=== PATIENT | male | born 1955 | race Caucasian/White ===

== ENCOUNTER 2018-07-14 17:15 | Emergency (ER) | payer OTHER ==
--- OUTSIDE RECORDS SUMMARY | 2018-07-14 17:22 | XMS REPORT | Continuity of Care Document ---
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 014 [facility] AQUIRED FISTULA Active 014 [facility] Parathyroidectomy Active Problem 02/21/2017 [facility] 014 [facility], H [facility] 227.1 Active 014 [facility] 447.0 - ACQ Active [facility] ARTERI[facility]EN 275.2 - 014 [facility] DIS MAGNE 447.0, 275.42 Active 014 [facility] Sleep apnea Resolved Problem 05/25/2014 OPID [facility],M H [facility] Anemia Resolved Problem 02/21/2017 [facility], H OPID [facility] Anxiety Active Problem 02/21/2017 OPID [facility], H [facility] CAD - Coronary artery Resolved Problem 02/21/2017 disease [facility] OPID [facility] CVA - Cerebrovascular Resolved Problem 02/21/2017 accident [facility] OPID [facility] Dependence on renal Active Problem 02/21/2017 dialysis M-W-F [facility] OPID [facility] ESRD - End stage Active Problem 02/21/2017 OPID renal disease [facility] Hyperlipidemia Resolved Problem 02/21/2017 [facility] OPID [facility] Hyperparathyroidism Resolved Problem 02/21/2017 [facility] OPID [facility] Sleep Active Problem 02/21/2017 Pt's not apnea<sup>1</sup> using his [facility] CPAP OPID machine [facility] per pt's spouse Hypertension Resolved Problem 02/21/2017 OPID [facility] Hypothyroid Active Problem 02/21/2017 MH OPID [facility] Anuria Active Problem 02/21/2017 MH OPID [facility] Aortic valve stenosis Resolved Problem 02/21/2017 MH OPID [facility] DM - Diabetes Active Problem 02/21/2017 MH OPID mellitus [facility] History of Resolved Problem 02/21/2017 transfusion of packed [facility] red blood cells Permanent cardiac Active Problem 02/21/2017 OPID pacemaker [facility] BENIGN SAL Active MH PARATHYROID [facility] ACQ ARTERIOVEN Active FISTULA [facility] HYPERCALCEMIA Active [facility] END STAGE RENAL Active MH DISEASE [facility] LOC PRIM Active MH OSTEOART-SHLDER [facility] ANEURYSM NOS Active [facility] FX SCAP, RUTH Active CAV/NCK-CL [facility] HYPERPARATHYROIDISM, Active MH UNSPECIFIED [facility] END STAGE RENAL Active MH DISEASE [facility] Medications Medication Details Route Status Patient Ordering Order Source Instructions Provider Date ePHEDrine (ANES) Route: IV, Drug Inactive form: INJ, 2016 [facility] ONCE, Stop date: 02/18/17 17:02:00 CDT ketOROLAC (ANES) IV, ONCE Inactive 2016 [facility] phenylephrine Route: IV, Drug Inactive MH (ANES) form: INJ, 2016 [facility] ONCE, Stop date: 02/18/17 16:44:00 CDT propofol (ANES) Route: IV, Drug Inactive form: INJ, 2016 [facility] ONCE, Stop date: 02/18/17 16:29:00 CDT lidocaine (ANES) Route: IV, Drug Inactive form: INJ, 2016 [facility] ONCE, Stop date: 02/18/17 16:24:00 CDT fentaNYL (ANES) Route: IV, Drug Inactive form: INJ, 2016 [facility] ONCE, Stop date: 02/18/17 16:24:00 CDT midazolam (ANES) Route: IV, Drug Inactive form: SOLN, 2016 [facility] ONCE, Stop date: 02/18/17 16:24:00 CDT sodium chloride Route: IV, Inactive 0.9% 500 ml INJ Total Volume: 2016 [facility] (ANES) 500, Start date: 02/18/17 15:52:00 CDT, Stop date: 02/18/17 16:52:00 CDT vancomycin (ANES) Route: IV, Drug Inactive (ANES) form: INJ, 2016 [facility] Start date: 02/18/17 15:51:00 CDT, Stop date: 02/18/17 16:51:00 CDT citalopram 10 mg 10 mg=1 tab, Active oral tablet PO, Bedtime, 0 2015 [facility] Refill(s) calcitriol 0.5 2 microgram=4 Active mcg oral capsule cap, PO, Daily, 2015 calcitriol 2mcg daily, # 30 cap, 0 Refill(s), FARNAZ, given to patient Vitamin D3 2000 2,000 Active intl units oral IntlUnit=1 tab, 2015 [facility] tablet PO, Daily, # 30 tab, 0 Refill(s), given to patient calcium acetate 3,335 mg=5 cap, Active 667 MG Oral PO, TID-Meals, 2015 [facility] Tablet 0 Refill(s) Alprazolam 0.5 MG 0.5 mg=1 tab, Active Oral Tablet PO, TID, PRN 2015 [facility] Anxiety, 0 Refill(s) calcium carbonate 2,000 mg, CHEW, Active 1000 mg oral TID, # 65 tab, 2015 [facility] tablet, chewable 0 Refill(s), FARNAZ, given to patient Calcium Carbonate 1,000 mg, 2 No Longer tab, Route: PO, Active 2015 [facility] Drug form: CHEWTAB, TID-Meals, Dosing Weight 105, kg, Start date: 09/05/16 18:30:00 [employer], Duration: 30 day, Stop date: 10/05/16 18:00:00 CSTNotes: (Same As: Tums) Calcium Carbonate 500 jy=175 mg elemental calcium Dose= mg calcium carbonate ( mg elemental calcium) Alprazolam 0.5 MG 0.5 mg, 1 tab, No Longer Oral Tablet Route: PO, Drug Active 2015 [facility] form: TAB, TID, Dosing Weight 105, kg, PRN Anxiety, Start date: 09/05/16 15:54:00 [employer], Duration: 30 day, Stop date: 10/05/16 15:53:00 CSTNotes: With food or milk (Same as: Xanax) heparin 2,000 unit, 2 No Longer mL, Route: IVP, Active 2015 [facility] Drug form: INJ, ONCALL, Start date: 09/05/16 9:00:00 [employer], Duration: 30 day, Stop date: 10/05/16 8:59:00 [facility] Vitamin D3 5,000 unit, 5 No Longer tab, Route: PO, Active 2015 [facility] Drug form: TAB, Daily, Dosing Weight 105, kg, Start date: 09/05/16 9:00:00 [employer], Duration: 30 day, Stop date: 10/04/16 9:00:00 CSTNotes: Same as : Vitamin D3 calcium gluconate 1,000 mg, 50 No Longer mL, Route: Active 2015 [facility] IVPB, Drug form: INJ, Q4H, Dosing Weight 105, kg, PRN Abnormal Lab Result, Start date: 09/04/16 17:01:00 [facility] [employer], Duration: 30 day, Stop date: 10/04/16 17:00:00 CSTNotes: WASTE: F/P - Sink; E - [employer] Trash Bin Protonix 20 mg, 1 tab, No Longer Route: PO, Drug Active 2015 [facility] form: ECTAB, Before Dinner, Start date: 09/04/16 16:30:00 [employer], Duration: 30 day, Stop date: 10/03/16 16:30:00 CSTNotes: Tablet should not be chewed or crushed. heparin 5,000 unit, 1 No Longer mL, Route: Active 2015 [facility] SUB-Q, Drug form: INJ, Q8H, Dosing Weight 105, kg, Start date: 09/04/16 14:00:00 [employer], Duration: 30 day, Stop date: 10/04/16 12:00:00 CSTNotes: porcine heparin aspirin 81 mg 81 mg, 1 tab, No Longer tablet, enteric Route: PO, Drug Active 2015 [facility] coated form: ECTAB, Daily, Dosing Weight 105, kg, Priority: NOW, Start date: 09/04/16 11:19:00 [employer], Duration: 30 day, Stop date: 10/04/16 9:00:00 CSTNotes: Do not crush or chew. (Same As: Ecotrin) Esomeprazole 20 mg, Route: Inactive PO, Drug form: 2015 [facility] GRAN, Daily, Dosing Weight 105, kg, Start date: 09/04/16 9:00:00 [employer], Duration: 30 day, Stop date: 10/03/16 9:00:00 [facility] [employer] pantoprazole 40 mg, 1 tab, Inactive Route: PO, Drug 2015 [facility] form: ECTAB, Daily, Dosing Weight 105, kg, Start date: 09/04/16 9:00:00 [employer], Duration: 30 day, Stop date: 10/03/16 9:00:00 CSTNotes: Tablet should not be chewed or crushed. (Same as: Protonix) Vitamin D3 2000 2,000 IntlUnit, No Longer intl units oral 5 mL, Route: Active 2015 [facility] tablet PO, Drug form: SOLN, Daily, Dosing Weight 105, kg, Start date: 09/04/16 9:00:00 [employer], Duration: 30 day, Stop date: 10/03/16 9:00:00 [facility] Calcitriol 2 microgram, 4 No Longer cap, Route: PO, Active 2015 [facility] Drug form: CAP, Daily, Dosing Weight 105, kg, Start date: 09/04/16 9:00:00 [facility] [employer], Duration: 30 day, Stop date: 10/03/16 9:00:00 CSTNotes: (Same As: Rocaltrol) calcium acetate 3,335 mg, 5 No Longer 667 MG Oral cap, Route: PO, Active 2015 [facility] Tablet Drug form: CAP, TID-Meals, Dosing Weight 105, kg, Start date: 09/04/16 8:00:00 [employer], Duration: 30 day, Stop date: 10/03/16 17:00:00 CSTNotes: Same as Phoslo Gel Cap Renvela 4,000 mg, 5 No Longer tab, Route: PO, Active 2015 [facility] Drug form: TAB, TID-Meals, Dosing Weight 105, kg, Start date: 09/04/16 8:00:00 [facility] [employer], Duration: 30 day, Stop date: 10/03/16 17:00:00 CSTNotes: Same as: Renvela benzocaine-mentho 1 lozenge, No Longer l topical Route: MUCOUS Active 2015 [facility] MEM, Drug Form: BETITO, Q1H, PRN Sore Throat, Start date: 09/04/16 0:06:00 [facility] [employer], Stop date: 10/04/16 0:05:00 CSTNotes: Same as: Cepacol Calcium Gluconate 1,000 mg, 50 No Longer mL, Route: Active 2015 [facility] IVPB, Drug form: INJ, Q3H, Dosing Weight 105, kg, Start date: 09/03/16 23:00:00 [facility], Duration: 30 day, Stop date: 10/03/16 20:00:00 CSTNotes: WASTE: F/P - Sink; E - [employer] Trash Bin Allopurinol 300 mg, Route: Inactive PO, Drug form: 2015 [facility] TAB, Bedtime, Dosing Weight 105, kg, Start date: 09/03/16 21:00:00 [employer], Duration: 30 day, Stop date: 10/02/16 21:00:00 [facility] Zyloprim 100 mg, 1 tab, No Longer Route: PO, Drug Active 2015 [facility] form: TAB, Bedtime, Start date: 09/03/16 21:00:00 [facility] [employer], Duration: 30 day, Stop date: 10/02/16 21:00:00 CSTNotes: (Same as: Zyloprim) Saline Flush 0.9% 10 ml, Route: No Longer IVP, Drug Form: Active 2015 [facility] INJ, Dosing Weight 105, kg, Q12H, Start date: 09/03/16 21:00:00 [facility] [employer], Duration: 30 day, Stop date: 10/03/16 9:00:00 CSTNotes: (Same as: BD Posiflush) Citalopram 10 mg, 1 tab, No Longer Route: PO, Drug Active 2015 [facility] form: TAB, Bedtime, Dosing Weight 105, kg, Start date: 09/03/16 21:00:00 [employer], Duration: 30 day, Stop date: 10/02/16 21:00:00 [facility] Zinacef + sodium 1.5 gm, Route: Inactive chloride 0.9% INJ IVPB, ONCE, 2015 [facility] 100 mL Start date: 09/03/16 21:00:00 [facility] [employer], Stop date: 09/03/16 21:00:00 CSTNotes: (Same As: Kefurox, Zinacef) MEDICATION WASTE Product Size: 1500 mg Product Wasted: ___ mg calcium gluconate 1 gm, 50 mL, Inactive Route: IV, Drug 2015 [facility] form: INJ, Q1H, Start date: 09/03/16 18:00:00 [facility] [employer], Duration: 2 doses or times, Stop date: 09/03/16 19:00:00 CSTNotes: WASTE: F/P - Sink; E - Municipal Trash Bin Calcium Gluconate 2,000 mg, Inactive Route: IVPB, 2015 [facility] Drug form: INJ, ONCE, Dosing Weight 105, kg, Start date: 09/03/16 17:42:00 [employer], Stop date: 09/03/16 17:42:00 [facility] Docusate Sodium 100 mg, 1 cap, No Longer 100 MG Oral Route: PO, Drug Active 2015 [facility] Capsule form: CAP, BID, Dosing Weight 105, kg, Start date: 09/03/16 17:00:00 [facility], Duration: 30 day, Stop date: 10/03/16 9:00:00 CSTNotes: (Same as: Colace) (Do Not Crush) Morphine 1 mg, 0.25 mL, No Longer Route: IVP, Active 2015 [facility] Drug form: SOLN, Q2H, Dosing Weight 105, kg, PRN Pain Score 7-10, Start date: 09/03/16 15:25:00 [facility], Duration: 2 day, Stop date: 09/05/16 15:24:00 CSTNotes: (Same as:MORPhine Sulfate) Saline Flush 0.9% 10 ml, Route: No Longer IVP, Drug Form: Active 2015 [facility] INJ, Dosing Weight 105, kg, PRN, PRN Line Flush, Start date: 09/03/16 14:56:00 [facility], Duration: 30 day, Stop date: 10/03/16 14:55:00 CSTNotes: (Same as: BD Posiflush) Dulcolax Laxative 5 mg, 1 tab, No Longer Route: PO, Drug Active 2015 [facility] form: ECTAB, Q24H, Dosing Weight 105, kg, PRN Constipation, Start date: 09/03/16 14:56:00 [facility], Duration: 30 day, Stop date: 10/03/16 14:55:00 CSTNotes: (Same As: Dulcolax, Correctol) (Do Not Crush) "Do Not Crush" Sodium Chloride 1,000 mL, Rate: No Longer 0.0769 MEQ/ML 75 ml/hr, Active 2015 [facility] Injectable Infuse over: Solution 13.3 hr, Route: IV, Dosing Weight 105 kg, Total Volume: 1,000, Start date: 09/03/16 14:56:00 [employer], Duration: 1 doses or times, Stop date: 09/04/16 4:13:00 [facility] Acetaminophen 325 1 tab, Route: No Longer MG / Hydrocodone PO, Drug Form: Active 2015 [facility] Bitartrate 5 MG TAB, Dosing Oral Tablet Weight 105, kg, Q4H, PRN Pain Score 4-6, Start date: 09/03/16 14:56:00 [facility] [employer], Duration: 30 day, Stop date: 10/03/16 14:55:00 CSTNotes: (Same as: [place] 325/5) Do not exceed 4gm/day of acetaminophen. Acetaminophen 325 1 tab, Route: No Longer MG / Hydrocodone PO, Drug Form: Active 2015 [facility] Bitartrate 10 MG TAB, Dosing Oral Tablet Weight 105, kg, Q4H, PRN Pain Score 4-6, Start date: 09/03/16 14:56:00 [facility], Duration: 30 day, Stop date: 10/03/16 14:55:00 CSTNotes: Do not exceed 4gm/day of acetaminophen. (Same as: [place] 325/10) Acetaminophen 650 mg, 2 tab, No Longer Route: PO, Drug Active 2015 [facility] form: TAB, Q4H, Dosing Weight 105, kg, PRN Pain 1-3/Temp > 100.4 F, Start date: 09/03/16 14:56:00 [facility], Duration: 30 day, Stop date: 10/03/16 14:55:00 CSTNotes: Do not exceed 4 gm/day. (Same as: Tylenol) Ondansetron 4 mg, 2 mL, No Longer Route: IVP, Active 2015 [facility] Drug form: INJ, Q6H, Dosing Weight 105, kg, PRN Nausea & Vomiting, Start date: 09/03/16 14:56:00 [facility] [employer], Duration: 30 day, Stop date: 10/03/16 14:55:00 CSTNotes: (Same as: Zofran) MEDICATION WASTE Product Size: 4 mg Product Wasted: ___ mg Temazepam 7.5 mg, 1 cap, No Longer Route: PO, Drug Active 2015 [facility] form: CAP, Bedtime, Dosing Weight 105, kg, PRN Insomnia, Start date: 09/03/16 14:56:00 [facility] [employer], Duration: 30 day, Stop date: 10/03/16 14:55:00 CSTNotes: (Same As: Restoril) Saline Flush 0.9% 10 ml, Route: Inactive IVP, Drug Form: 2015 [facility] INJ, Dosing Weight 105, kg, PRN, PRN Line Flush, Start date: 09/03/16 14:43:00 [facility] [employer], Duration: 30 day, Stop date: 10/03/16 14:42:00 CSTNotes: (Same as: BD Posiflush) Nystatin 100 1 appl, Route: No Longer UNT/MG Topical TOP, PRN, Drug Active 2015 [facility] Powder form: PWDR, PRN For Fungal Prophylaxis, Start date: 09/03/16 14:43:00 [facility] [employer], Duration: 30 day, Stop date: 10/03/16 14:42:00 CSTNotes: (Same as:Mycostatin, Nilstat) For external use only. Cefazolin 2 gm, 100 mL, Inactive Route: IVPB, 2015 [facility] Drug form: INJ, ONCALL, Dosing Weight 105, kg, Start date: 09/03/16 10:00:00 [facility] [employer], Duration: 30 day, Stop date: 10/03/16 9:59:00 CSTNotes: Same as: Ancef Restoril 15 mg, 1 cap, Inactive 12/08/ MH Route: PO, Drug 2015 [facility] form: CAP, Bedtime, Dosing Weight 101.364, kg, PRN Sleep, Start date: 09/03/16 9:55:00 [facility] [employer], Duration: 30 day, Stop date: 10/03/16 9:54:00 CSTNotes: (Same As: Restoril) Sodium Chloride 250 mL, Route: No Longer 0.9% IV IVPB, Start Active 2015 [facility] date: 09/01/16 17:57:00 [employer], Duration: 30 day, Stop date: 10/01/16 17:56:00 [employer], PRN Line Flush BD Normal Saline 10 mL, Route: No Longer Flush IVP, Drug Form: Active 2015 [facility] INJ, PRN, PRN Line Flush, Start date: 09/01/16 17:57:00 [facility] [employer], Duration: 30 day, Stop date: 10/01/16 17:56:00 CSTNotes: (Same as: BD Posiflush) Restoril 15 mg, 1 cap, No Longer Route: PO, Drug Active 2015 [facility] form: CAP, Bedtime, Dosing Weight 101.364, kg, PRN Sleep, Start date: 09/01/16 8:28:00 [facility] [employer], Duration: 30 day, Stop date: 10/01/16 8:27:00 CSTNotes: (Same As: Restoril) citalopram 10 mg 10 mg=1 tab, No Longer oral tablet PO, Bedtime Active 2015 [facility] calcium acetate 1,334 mg=2 tab, Active 667 MG Oral PO, PRN SNACKS 2015 [facility] Tablet omeprazole 20 mg 20 mg=1 tab, Active oral enteric PO, Bedtime 2015 [facility] coated tablet Alprazolam 0.5 MG 0.5 mg=1 tab, No Longer Oral Tablet PO, TID, PRN Active 2015 [facility] for anxiety sevelamer 1,600 mg=2 tab, Active carbonate 800 MG PO, PRN SNACKS 2015 [facility] Oral Tablet [Renvela] Atenolol 100 MG 100 mg=1 tab, Active Oral Tablet PO, PRN SBP 2015 [facility] GREATER THAN 160 indomethacin 50 50 mg=1 cap, No Longer mg oral capsule PO, TID, PRN Active 2015 [facility] GOUT PAIN Omnipaque 300 100 mL, Route: Active injectable IVP, Drug Form: 2015 [facility] solution SOLN, Dosing Weight 101.364, kg, ONCALL, ESRD on Dialysis, STAT, Start date: 08/13/16 11:13:00 [facility] [employer], Duration: 1 doses or timesNotes: (Same as:Omnipaque 300). WASTE: F/P - Black; E - Municipal Trash Bin Phenergan 25 mg, Route: Inactive IM, ONCE, 2014 [facility] Dosing Weight 101.364, kg, Start date: 01/15/15 13:05:00, Stop date: 01/15/15 13:05:00 Acetaminophen 1,000 mg, Inactive Route: IVPB, 2014 [facility] Q6Hnow, Dosing Weight 101.364, kg, Start date: 01/15/15 10:00:00, Duration: 30 day, Stop date: 02/14/15 4:00:00 Oxycodone 5 mg, 1 tab, Inactive Hydrochloride 5 Route: PO, Drug 2014 [facility] Oral Tablet form: TAB, Q4H, Dosing Weight 101.364, kg, PRN Pain Score 4-6, Start date: 01/15/15 9:18:00, Duration: 30 day, Stop date: 02/14/15 9:17:00Notes: (Same as: Roxicodone) Morphine 2 mg, 1 mL, Inactive Route: IVP, 2014 [facility] Drug form: INJ, Q4H, Dosing Weight 101.364, kg, PRN Pain Score 7-10, Start date: 01/15/15 9:18:00, Duration: 30 day, Stop date: 02/14/15 9:17:00Notes: (Same as:MORPhine Sulfate) Ondansetron 4 mg, 2 mL, Inactive Route: IVP, 2014 [facility] Drug form: INJ, Q8H, Dosing Weight 101.364, kg, PRN Nausea & Vomiting, Start date: 01/15/15 9:18:00, Duration: 30 day, Stop date: 02/14/15 9:17:00Notes: (Same as: Zofran) MEDICATION WASTE Product Size: 4 mg Product Wasted: ___ mg ropivacaine Route: NERVE Inactive BLOCK, 2014 [facility] Continuous Rate: 8, ml/hr, Dosing Site: Interscalene Side: Left, [employer] dose 5 mL, [employer]PERATOR dose lockout: 30 minutes, 1 Hour limit: 18 mL, 200, mL, Start date: 01/15/15 9:18:00, Duration: 30, day, Drug Form: INJ, Total volume: 200, mL, kg,...Notes: Same as: Naropin Naloxone 0.04 mg, 0.1 Inactive mL, Route: IVP, 2014 [facility] Drug form: INJ, Q2MIN, Dosing Weight 101.364, kg, PRN Narcotic Reversal, Start date: 01/15/15 9:18:00, Duration: 8 doses or times, Stop date: Limited # of timesNotes: Same as Narcan Flumazenil 0.2 mg, 2 mL, Inactive Route: IVP, 2014 [facility] Drug form: INJ, PRN, Dosing Weight 101.364, kg, PRN Benzodiazepine Reversal, Initial dose, Start date: 01/15/15 9:18:00, Duration: 30 day, Stop date: 02/14/15 9:17:00Notes: (Same as: Romazicon) Sodium Chloride 1,000 mL, Rate: Inactive 0.154 MEQ/ML 125 ml/hr, 2014 [facility] Injectable Infuse over: 8 Solution hr, Route: IV, Dosing Weight 101.364 kg, Total Volume: 1,000, Start date: 01/15/15 9:18:00, Duration: 30 day, Stop date: 02/14/15 9:17:00 Acetaminophen 1,000 mg, 100 Inactive mL, Route: 2014 [facility] IVPB, Drug form: INJ, ONCE, Dosing Weight 101.364, kg, PRN Pain Score 1-3, Start date: 01/15/15 9:18:00, Duration: 1 doses or times, Stop date: Limited # of timesNotes: Infuse over 15 minutes Do not exceed 4gm/day of acetaminophen MEDICATION WASTE Product Size: 1000 mg Product Wasted: ___ mg Calcium Chloride 1,000 mL, Rate: Inactive 0.0014 MEQ/ML / 25 ml/hr, 2014 [facility] Potassium Infuse over: 40 Chloride 0.004 hr, Route: IV, MEQ/ML / Sodium Dosing Weight Chloride 0.103 101.364 kg, MEQ/ML / Sodium Total Volume: Lactate 0.028 1,000, Start MEQ/ML Injectable date: 01/15/15 Solution 9:18:00, Duration: 30 day, Stop date: 02/14/15 9:17:00 docusate sodium 100 mg, 1 cap, Inactive 100 mg oral Route: PO, Drug 2014 [facility] capsule form: CAP, BID, Dosing Weight 101.364, kg, Start date: 01/15/15 9:00:00, Duration: 30 day, Stop date: 02/13/15 17:00:00Notes: (Same as: Colace) (Do Not Crush) ceFAZolin (SCIP) 1 gm, Route: Inactive IVPB, Drug 2014 [facility] form: INJ, Q8H, Dosing Weight 101.364, kg, Start date: 01/15/15 8:00:00, Duration: 1 doses or times, Stop date: 01/15/15 8:00:00 Morphine 2 mg, 1 mL, Inactive Route: IVP, 2014 [facility] Drug form: INJ, Q3H, Dosing Weight 101.364, kg, PRN Pain Score 1-3, Start date: 01/15/15 7:57:00, Duration: 30 day, Stop date: 02/14/15 7:56:00Notes: (Same as:MORPhine Sulfate) Tramadol 50 mg, 1 tab, Inactive Route: PO, Drug 2014 [facility] form: TAB, Q6H, Dosing Weight 101.364, kg, PRN Pain Score 1-3, Start date: 01/15/15 7:57:00, Duration: 30 day, Stop date: 02/14/15 7:56:00Notes: Not to exceed 400mg/day. (Same As: Ultram) acetaminophen-cod 1 tab, Route: Inactive eine #3 PO, Drug Form: 2014 [facility] TAB, Dosing Weight 101.364, kg, Q4H, PRN Pain Score 4-6, Start date: 01/15/15 7:57:00, Duration: 30 day, Stop date: 02/14/15 7:56:00Notes: Do not exceed 4gm/day of acetaminophen. (Same as: Tylenol with Codeine # 3) apixaban 5 MG 5 mg=1 tab, PO, Active Oral Tablet BID, 0 2014 [facility] [Eliquis] Refill(s) Nephro-Dominick 1 tab, Route: No Longer PO, Drug Form: Active 2014 [facility] TAB, Dosing Weight 101.364, kg, Daily, Start date: 11/02/14 9:00:00, Duration: 30 day, Stop date: 12/01/14 9:00:00Notes: (Same as: Nephro-Dominick Rx and Diatx) Give with food. Aspirin Enteric 81 mg, 1 tab, No Longer Coated Route: PO, Drug Active 2014 [facility] form: ECTAB, Daily, Dosing Weight 101.364, kg, Start date: 11/02/14 9:00:00, Duration: 30 day, Stop date: 12/01/14 9:00:00Notes: Do not crush or chew. (Same As: Ecotrin) Allopurinol 300 mg, 1 tab, No Longer Route: PO, Drug Active 2014 [facility] form: TAB, Daily, Dosing Weight 101.364, kg, Start date: 11/02/14 9:00:00, Duration: 30 day, Stop date: 12/01/14 9:00:00Notes: (Same as: Zyloprim) atorvastatin 40 mg, 2 tab, Inactive Route: PO, Drug 2014 [facility] form: TAB, Bedtime, Dosing Weight 101.364, kg, Start date: 11/01/14 21:00:00, Duration: 30 day, Stop date: 11/30/14 21:00:00Notes: (Same As: Lipitor) Renvela 3,200 mg, 4 Inactive tab, Route: PO, 2014 [facility] Drug form: TAB, TID, Dosing Weight 101.364, kg, Start date: 11/01/14 13:00:00, Duration: 30 day, Stop date: 12/01/14 9:00:00Notes: Same as: Renvela Sodium Chloride 250 mL, Route: Inactive 0.9% IV IVPB, Start 2014 [facility] date: 11/01/14 11:03:00, Duration: 30 day, Stop date: 12/01/14 11:02:00, PRN Line Flush BD Normal Saline 10 mL, Route: Inactive Flush IVP, Drug Form: 2014 [facility] INJ, PRN, PRN Line Flush, Start date: 11/01/14 11:03:00, Duration: 30 day, Stop date: 12/01/14 11:02:00Notes: (Same as: BD Posiflush) Acetaminophen 300 1 tab, PO, Q4H, Active [facility] / Codeine Pain Score 4-6, 2014 [facility] Phosphate 30 MG # 40 tab, 0 Oral Tablet Refill(s), given to patient Zofran 4 mg, 2 mL, Inactive Route: IV, Drug 2014 [facility] form: INJ, Q6H, Dosing Weight 101.364, kg, PRN Nausea, Start date: 11/01/14 9:25:00, Duration: 30 day, Stop date: 12/01/14 9:24:00Notes: (Same as: Zofran) acetaminophen-cod 1 tab, Route: Inactive eine #3 PO, Drug Form: 2014 [facility] TAB, Dosing Weight 101.364, kg, Q4H, PRN Pain Score 4-6, Start date: 11/01/14 9:25:00, Duration: 30 day, Stop date: 12/01/14 9:24:00Notes: Do not exceed 4gm/day of acetaminophen. (Same as: Tylenol with Codeine # 3) Acetaminophen 650 mg, 2 tab, Inactive Route: PO, Drug 2014 [facility] form: TAB, Q4H, Dosing Weight 101.364, kg, PRN Pain 1-3/Temp > 100.4 F, Start date: 11/01/14 9:25:00, Duration: 30 day, Stop date: 12/01/14 9:24:00Notes: Do not exceed 4 gm/day. (Same as: Tylenol) Ondansetron 4 mg, 2 mL, Inactive Route: IV2014 [facility] Drug form: INJ, ONCE, Dosing Weight 101.364, kg, PRN Nausea & Vomiting, Start date: 11/01/14 9:20:00Notes: (Same as: Zofran) Hydralazine 10 mg, 0.5 mL, Inactive Route: IV2014 [facility] Drug form: INJ, Q20Min, Dosing Weight 101.364, kg, PRN Elevated BP, Start date: 11/01/14 9:20:00, Duration: 2 doses or times, Stop date: Limited # of timesNotes: (Same as: Apresoline) Push over 5 minutes Morphine 2 mg, 1 mL, Inactive Route: IV2014 [facility] Drug form: INJ, Q5Min, Dosing Weight 101.364, kg, PRN Pain Score 4-6, Start date: 11/01/14 9:20:00, Duration: 5 doses or times, Stop date: Limited # of timesNotes: (Same as:MORPhine Sulfate) Naloxone 0.04 mg, 0.1 Inactive mL, Route: IV2014 [facility] Drug form: INJ, Q2MIN, Dosing Weight 101.364, kg, PRN Narcotic Reversal, Start date: 11/01/14 9:20:00, Duration: 8 doses or times, Stop date: Limited # of timesNotes: Same as Narcan Meperidine 12.5 mg, 0.25 Inactive mL, Route: IV2014 [facility] Drug form: INJ, Q30Min, Dosing Weight 101.364, kg, PRN Other -See Comment, For shivering, Start date: 11/01/14 9:20:00, Duration: 2 doses or times, Stop date: Limited # of timesNotes: (Same As: Demerol) Flumazenil 0.2 mg, 2 mL, Inactive Route: IV2014 [facility] Drug form: INJ, PRN, Dosing Weight 101.364, kg, PRN Benzodiazepine Reversal, Initial dose, Start date: 11/01/14 9:20:00, Duration: 30 day, Stop date: 12/01/14 9:19:00Notes: (Same as: Romazicon) Labetalol 10 mg, 2 mL, Inactive Route: IVP, 2014 [facility] Drug form: INJ, Q5Min, Dosing Weight 101.364, kg, PRN Elevated BP, Start date: 11/01/14 9:20:00, Duration: 5 doses or times, Stop date: Limited # of times Vancomycin 1,500 mg, 250 Inactive mL, Route: 2014 [facility] IVPB, Drug form: INJ, ONCALL, Dosing Weight 105, kg, Start date: 11/01/14 7:00:00, Duration: 30 day, Stop date: 12/01/14 6:59:00Notes: Same as: Vancocin-NS (premixed) Infusion rate 2000 mg: infuse over 2.5 hours Restoril 15 mg, 1 cap, Inactive Route: PO, Drug 2014 [facility] form: CAP, Bedtime, Dosing Weight 105, kg, PRN Sleep, Start date: 11/01/14 6:07:00, Duration: 30 day, Stop date: 12/01/14 6:06:00Notes: (Same As: Restoril) Sodium Chloride 250 mL, Route: Inactive 0.9% IV IVPB, Start 2013 [facility] date: 07/12/14 16:24:00, Duration: 30 day, Stop date: 08/11/14 15:23:00, PRN Line Flush BD Normal Saline 10 mL, Route: Inactive Flush IVP, Drug Form: 2013 [facility] INJ, PRN, PRN Line Flush, Start date: 07/12/14 16:24:00, Duration: 30 day, Stop date: 08/11/14 15:23:00Notes: (Same as: BD Posiflush) Acetaminophen 1,000 mg, 100 Inactive MH mL, Route: 2013 [facility] IVPB, Drug form: INJ, Q6Hnow, Dosing Weight 105.455, kg, Start date: 07/12/14 14:00:00, Duration: 24 hr, Stop date: 07/13/14 8:00:00Notes: Infuse over 15 minutes Do not exceed 4gm/day of acetaminophen ropivacaine Route: NERVE Inactive BLOCK, 2013 [facility] Continuous Rate: 6, ml/hr, Dosing Site: Interscalene Side: Right, [employer]PERATOR dose 5 mL, [employer] OPERATOR dose lockout: 30 minutes, 1 Hour limit: 16 mL, 200, mL, Start date: 07/12/14 13:43:00, Duration: 30, day, Total volume: 200, mL, Weight 105.455, k... Oxycodone 5 mg, 1 tab, Inactive 07/12/ MH Hydrochloride 5 Route: PO, Drug 2013 [facility] Oral Tablet form: TAB, Q4H, Dosing Weight 105.455, kg, PRN Pain Score 4-6, Start date: 07/12/14 13:43:00, Duration: 30 day, Stop date: 08/11/14 13:42:00Notes: (Same as: Roxicodone) Ondansetron 4 mg, 2 mL, Inactive 07/12/ MH Route: IVP2013 [facility] Drug form: INJ, Q8H, Dosing Weight 105.455, kg, PRN Nausea & Vomiting, Start date: 07/12/14 13:43:00, Duration: 30 day, Stop date: 08/11/14 13:42:00Notes: (Same as: Zofran) Ondansetron 4 mg, 2 mL, Inactive 07/12/ MH Route: IVP2013 [facility] Drug form: INJ, Q8H, Dosing Weight 105.455, kg, PRN Nausea & Vomiting, Start date: 07/12/14 8:46:00, Duration: 30 day, Stop date: 08/11/14 8:45:00Notes: (Same as: Zofran) Morphine 2 mg, 1 mL, Inactive 07/12/ MH Route: IVP2013 [facility] Drug form: INJ, Q4H, Dosing Weight 105.455, kg, PRN Pain Score 7-10, Start date: 07/12/14 8:46:00, Duration: 30 day, Stop date: 08/11/14 8:45:00Notes: (Same as:MORPhine Sulfate) Oxycodone 10 mg, 2 tab, Inactive 07/12/ MH Hydrochloride 5 Route: PO, Drug 2013 [facility] Oral Tablet form: TAB, Q4H, Dosing Weight 105.455, kg, PRN Pain Score 7-10, Start date: 07/12/14 8:46:00, Duration: 30 day, Stop date: 08/11/14 8:45:00Notes: (Same as: Roxicodone) ropivacaine Route: NERVE Inactive BLOCK, 2013 [facility] Continuous Rate: 6, ml/hr, Dosing Site: Interscalene Side: Right, [employer] OPERATOR dose 5 mL, [employer]ING [employer] OPERATOR dose lockout: 30 minutes, 1 Hour limit: 18 mL, Clinician Bolus: 10 mL, 200, mL, Start date: 07/12/14 8:46:00, Duration: 30, day, Drug Form: INJ, R...Notes: Same as: Naropin Flumazenil 0.2 mg, 2 mL, Inactive Route: IVP2013 [facility] Drug form: INJ, PRN, Dosing Weight 105.455, kg, PRN Benzodiazepine Reversal, Initial dose, Start date: 07/12/14 8:45:00, Duration: 30 day, Stop date: 08/11/14 7:44:00Notes: (Same as: Romazicon) Naloxone 0.04 mg, 0.1 Inactive mL, Route: IVP2013 [facility] Drug form: INJ, Q2MIN, Dosing Weight 105.455, kg, PRN Narcotic Reversal, Start date: 07/12/14 8:45:00, Duration: 8 doses or times, Stop date: Limited # of timesNotes: Same as Narcan Morphine 4 mg, 1 mL, Inactive Route: IVP2013 [facility] Drug form: INJ, Q5Min, Dosing Weight 105.455, kg, PRN Pain Score 7-10, Start date: 07/12/14 8:45:00, Duration: 3 doses or times, Stop date: Limited # of timesNotes: (Same as:MORPhine Sulfate) Ondansetron 4 mg, 2 mL, Inactive Route: IVP2013 [facility] Drug form: INJ, ONCE, Dosing Weight 105.455, kg, PRN Nausea & Vomiting, Start date: 07/12/14 8:45:00Notes: (Same as: Zofran) Sodium Chloride 1,000 mL, Rate: Inactive 0.154 MEQ/ML 125 ml/hr, 2013 [facility] Injectable Infuse over: 8 Solution hr, Route: IV, Dosing Weight 105.455 kg, Total Volume: 1,000, Start date: 07/12/14 8:45:00, Duration: 30 day, Stop date: 08/11/14 8:44:00 Labetalol 10 mg, 2 mL, Inactive Route: IVP, 2013 [facility] Drug form: INJ, Q5Min, Dosing Weight 105.455, kg, PRN Elevated BP, Start date: 07/12/14 8:45:00, Duration: 5 doses or times, Stop date: Limited # of times Acetaminophen 1,000 mg, 100 Inactive mL, Route: 2013 [facility] IVPB, Drug form: INJ, ONCE, Dosing Weight 105.455, kg, PRN Pain Score 1-3, Start date: 07/12/14 8:45:00, Duration: 1 doses or times, Stop date: Limited # of timesNotes: Infuse over 15 minutes Do not exceed 4gm/day of acetaminophen Sodium Chloride 1,000 mL, Rate: Inactive 0.154 MEQ/ML 25 ml/hr, 2013 [facility] Injectable Infuse over: 40 Solution hr, Route: IV, Dosing Weight 105.455 kg, Total Volume: 1,000, Start date: 07/12/14 8:44:00, Duration: 30 day, Stop date: 08/11/14 8:43:00 sevelamer 1,600 mg=2 tab, Active carbonate 800 MG PO, TID, # 180 2013 [facility] Oral Tablet tab, 0 [Renvela] Refill(s), given to patient Doxercalciferol See Active 0.001 MG Oral Instructions, 4 2013 [facility] Capsule cap PO mon, [Hectorol] wed, wed, # 30 caplet, 2 Refill(s)Specia l Instructions: 4 cap PO wed, wed, wed calcium-vitamin D 1 tab, Route: Inactive PO, Drug Form: 2013 [facility] TAB, TID, Start date: 03/24/14 17:00:00, Duration: 30 day, Stop date: 04/23/14 13:00:00Notes: (Same As: Caltrate 600 with D) calcium gluconate 2,000 mg, 20 Inactive + Sodium Chloride mL, Route: IV, 2013 [facility] 0.9% IV 100 mL ONCE, Start date: 03/24/14 14:25:00, Stop date: 03/24/14 14:25:00 magnesium sulfate 1 gm, 2 mL, Inactive + Sodium Chloride Route: IVPB, 2013 [facility] 0.9% IV 100 mL ONCE, Start date: 03/23/14 22:00:00, Stop date: 03/23/14 22:00:00Notes: (Same as: MgSO4) calcium gluconate 2,500 mg, 25 Inactive + Sodium Chloride mL, Route: IV, 2013 [facility] 0.9% IV 100 mL ONCE, Start date: 03/23/14 22:00:00, Stop date: 03/23/14 22:00:00 Hectorol 4 microgram, 8 No Longer cap, Route: PO, Active 2013 [facility] Drug form: CAP, Q-M-W-F, Start date: 03/23/14 20:00:00, Duration: 30 day, Stop date: 04/20/14 20:00:00Notes: Non-Formulary Drug. (Same as: Hectorol) Sodium Chloride 250 mL, Route: No Longer 0.9% IV IVPB, Start Active 2013 [facility] date: 03/23/14 16:24:00, Duration: 30 day, Stop date: 04/22/14 16:23:00, PRN Line Flush BD Normal Saline 10 mL, Route: No Longer Flush IVP, Drug Form: Active 2013 [facility] INJ, PRN, PRN Line Flush, Start date: 03/23/14 16:23:00, Duration: 30 day, Stop date: 04/22/14 16:22:00Notes: (Same as: BD Posiflush) Hectorol 4 microgram, Inactive Route: IVP, 2013 [facility] 3x/Wk, Dosing Weight 105.455, kg, Start date: 03/23/14 16:07:00, Duration: 30 day, Stop date: 04/22/14 16:06:00 Atenolol 100 MG 100 mg, 1 tab, No Longer Oral Tablet Route: PO, Drug Active 2013 [facility] form: TAB, Daily, Dosing Weight 105.455, kg, Start date: 03/23/14 9:00:00, Duration: 30 day, Stop date: 04/21/14 9:00:00Notes: (Same As:Tenormin) Aspirin / Calcium 81 mg, 1 tab, No Longer Carbonate Route: PO, Drug Active 2013 [facility] form: ECTAB, Daily, Dosing Weight 105.455, kg, Start date: 03/23/14 9:00:00, Duration: 30 day, Stop date: 04/21/14 9:00:00Notes: Do not crush or chew. (Same As: Ecotrin) Allopurinol 300 mg, 1 tab, No Longer Route: PO, Drug Active 2013 [facility] form: TAB, Daily, Dosing Weight 105.455, kg, Start date: 03/23/14 9:00:00, Duration: 30 day, Stop date: 04/21/14 9:00:00Notes: (Same as: Zyloprim) pantoprazole 40 mg, 1 tab, No Longer Route: PO, Drug Active 2013 [facility] form: ECTAB, Daily, Dosing Weight 105.455, kg, Start date: 03/23/14 9:00:00, Duration: 30 day, Stop date: 04/21/14 9:00:00Notes: Tablet should not be chewed or crushed. (Same as: Protonix) Renvela 1,600 mg, 2 No Longer tab, Route: PO, Active 2013 [facility] Drug form: TAB, TID-Meals, Start date: 03/23/14 8:00:00, Duration: 30 day, Stop date: 04/21/14 17:00:00Notes: Same as: Renvela calcium gluconate 2,000 mg, 20 Inactive + Sodium Chloride mL, Route: IV, 2013 [facility] 0.9% IV 100 mL ONCE, Start date: 03/23/14 5:55:00, Stop date: 03/23/14 5:55:00 calcium gluconate 2,000 mg, 20 Inactive + Sodium Chloride mL, Route: IV, 2013 [facility] 0.9% IV 100 mL ONCE, Start date: 03/23/14 0:10:00, Stop date: 03/23/14 0:10:00 Zinacef + Sodium 1.5 gm, Route: Inactive Chloride 0.9% IV IVPB, ONCE, 2013 [facility] 100 mL Start date: 03/23/14 0:00:00, Stop date: 03/23/14 0:00:00Notes: (Same As: Kefurox, Zinacef) Magnesium Sulfate 4 gm, 100 mL, Inactive Route: IVPB, 2013 [facility] Drug form: INJ, ONCE, Dosing Weight 105.455, kg, Start date: 03/22/14 22:15:00, Duration: 2 hr, Stop date: 03/22/14 22:15:00 atorvastatin 40 mg, 2 tab, No Longer Route: PO, Drug Active 2013 [facility] form: TAB, Bedtime, Dosing Weight 105.455, kg, Start date: 03/22/14 21:00:00, Duration: 30 day, Stop date: 04/20/14 21:00:00Notes: (Same As: Lipitor) Docusate Sodium 100 mg, 1 cap, No Longer 100 MG Oral Route: PO, Drug Active 2013 [facility] Capsule form: CAP, BID, Dosing Weight 105.455, kg, Start date: 03/22/14 17:00:00, Duration: 30 day, Stop date: 04/21/14 9:00:00Notes: (Same as: Colace) (Do Not Crush) Fosrenol Route: PO, Drug Inactive form: CAP, BID, 2013 [facility] Dosing Weight 105.455, kg, Start date: 03/22/14 17:00:00, Duration: 30 day, Stop date: 04/21/14 9:00:00 Alprazolam 0.25 0.25 mg, 1 tab, Inactive MG Oral Tablet Route: PO, Drug 2013 [facility] [Xanax] form: TAB, ONCE, Dosing Weight 105.455, kg, Start date: 03/22/14 16:08:00, Stop date: 03/22/14 16:08:00Notes: With food or milk (Same as: Xanax) Nicotine 21 mg, 1 patch, No Longer Route: TOP, Active 2013 [facility] Drug form: ERFILM, Daily, Dosing Weight 105.455, kg, Start date: 03/22/14 16:00:00, Duration: 30 day, Stop date: 04/21/14 9:00:00Notes: (Same as: Habitrol) "Remove old patch before application of new patch" Morphine 2 mg, Route: Inactive IVP, ONCE, 2013 [facility] Dosing Weight 105.455, kg, Start date: 03/22/14 15:47:00, Stop date: 03/22/14 15:47:00 Morphine 2 mg, Route: Inactive IVP, ONCE, 2013 [facility] Dosing Weight 105.455, kg, Start date: 03/22/14 15:33:00, Stop date: 03/22/14 15:33:00 Zinacef 1.5 gm, Route: Inactive IVPB, [id number], 2013 [facility] Dosing Weight 105.455, kg, Start date: 03/22/14 15:00:00, Duration: 1 day, Stop date: 03/23/14 7:00:00 Glucagon 1 mg, Route: No Longer IM, Drug form: Active 2013 [facility] PDR/INJ, PRN, Dosing Weight 105.455, kg, PRN Blood Glucose Results, Start date: 03/22/14 14:12:00, Duration: 30 day, Stop date: 04/21/14 14:11:00 Dextrose 50% 25 gm, 50 mL, No Longer Syringe Route: IVP, Active 2013 [facility] Drug Form: INJ, Dosing Weight 105.455, kg, PRN, PRN Blood Glucose Results, Start date: 03/22/14 14:12:00, Duration: 30 day, Stop date: 04/21/14 14:11:00 Insulin, Aspart, 5 unit, 0.05 No Longer Human mL, Route: Active 2013 [facility] SUB-Q, Drug form: SOLN, TID-Before Meals, Dosing Weight 105.455, kg, PRN Blood Glucose Results, Start date: 03/22/14 14:12:00, Duration: 30 day, Stop date: 04/21/14 14:11:00Notes: Roll in palms of hands gently; Do not shake vigorously. (Same as: NovoLOG) "single patient use only" Stable for 28 days at room temperature. Expires in days from D ate Saline Flush 0.9% 5 ml, Route: No Longer IVP, Drug Form: Active 2013 [facility] INJ, Dosing Weight 105.455, kg, PRN, PRN Line Flush, Start date: 03/22/14 14:10:00, Duration: 30 day, Stop date: 04/21/14 14:09:00Notes: (Same as: BD Posiflush) Temazepam 7.5 mg, 1 cap, No Longer Route: PO, Drug Active 2013 [facility] form: CAP, Bedtime, Dosing Weight 105.455, kg, PRN Insomnia, Start date: 03/22/14 14:10:00, Duration: 30 day, Stop date: 04/21/14 14:09:00Notes: (Same As: Restoril) Ondansetron 4 mg, 2 mL, No Longer Route: IVP, Active 2013 [facility] Drug form: INJ, Q6H, Dosing Weight 105.455, kg, PRN Nausea & Vomiting, Start date: 03/22/14 14:10:00, Duration: 30 day, Stop date: 04/21/14 14:09:00Notes: (Same as: Zofran) Dulcolax Laxative 5 mg, 1 tab, No Longer Route: PO, Drug Active 2013 [facility] form: ECTAB, Q24H, Dosing Weight 105.455, kg, PRN Constipation, Start date: 03/22/14 14:10:00, Duration: 30 day, Stop date: 04/21/14 14:09:00Notes: (Same As: Dulcolax, Correctol) (Do Not Crush) "Do Not Crush" Acetaminophen 650 mg, 2 tab, No Longer Route: PO, Drug Active 2013 [facility] form: TAB, Q4H, Dosing Weight 105.455, kg, PRN Pain 1-3/Temp > 100.4 F, Start date: 03/22/14 14:10:00, Duration: 30 day, Stop date: 04/21/14 14:09:00Notes: Do not exceed 4 gm/day. (Same as: Tylenol) Acetaminophen 325 1 tab, Route: No Longer 03/22/ MG / Hydrocodone PO, Drug Form: Active 2013 [facility] Bitartrate 10 MG TAB, Dosing Oral Tablet Weight 105.455, kg, Q4H, PRN Pain Score 4-6, Start date: 03/22/14 14:10:00, Duration: 30 day, Stop date: 04/21/14 14:09:00Notes: Do not exceed 4gm/day of acetaminophen. (Same as: [place] 325/10) Acetaminophen 325 1 tab, Route: No Longer MG / Hydrocodone PO, Drug Form: Active 2013 [facility] Bitartrate 5 MG TAB, Dosing Oral Tablet Weight 105.455, kg, Q4H, PRN Pain Score 4-6, Start date: 03/22/14 14:10:00, Duration: 30 day, Stop date: 04/21/14 14:09:00Notes: (Same as: [place] 325/5) Do not exceed 4gm/day of acetaminophen. Metoclopramide 10 mg, 2 mL, Inactive Route: IVP2013 [facility] Drug form: INJ, Q6H, Dosing Weight 105.455, kg, PRN Nausea & Vomiting, Start date: 03/22/14 14:08:00, Duration: 30 day, Stop date: 04/21/14 14:07:00Notes: (Same as: Reglan) Fentanyl 25 microgram, Inactive 0.5 mL, Route: 2013 [facility] IVP, Drug form: INJ, Q5Min, Dosing Weight 105.455, kg, PRN Pain Score 4-6, Start date: 03/22/14 14:08:00, Duration: 4 doses or times, Stop date: Limited # of timesNotes: (Same as: Sublimaze) Preservative free. Flumazenil 0.2 mg, 2 mL, Inactive Route: IVP, 2013 [facility] Drug form: INJ, PRN, Dosing Weight 105.455, kg, PRN Benzodiazepine Reversal, Initial dose, Start date: 03/22/14 14:08:00, Duration: 30 day, Stop date: 04/21/14 14:07:00Notes: (Same as: Romazicon) Hydralazine 10 mg, 0.5 mL, Inactive Route: IVP, 2013 [facility] Drug form: INJ, Q20Min, Dosing Weight 105.455, kg, PRN Elevated BP, Start date: 03/22/14 14:08:00, Duration: 2 doses or times, Stop date: Limited # of timesNotes: (Same as: Apresoline) Push over 5 minutes Labetalol 10 mg, 2 mL, Inactive Route: IVP, 2013 [facility] Drug form: INJ, Q5Min, Dosing Weight 105.455, kg, PRN Elevated BP, Start date: 03/22/14 14:08:00, Duration: 5 doses or times, Stop date: Limited # of times Ondansetron 4 mg, Route: Inactive IVP, ONCE, 2013 [facility] Dosing Weight 105.455, kg, PRN Nausea & Vomiting, Start date: 03/22/14 14:08:00 Naloxone 0.04 mg, 0.1 Inactive mL, Route: IVP, 2013 [facility] Drug form: INJ, Q2MIN, Dosing Weight 105.455, kg, PRN Narcotic Reversal, Start date: 03/22/14 14:08:00, Duration: 8 doses or times, Stop date: Limited # of timesNotes: (Same as: Narcan) Indomethacin 50 mg, 1 cap, No Longer Route: PO, Drug Active 2013 [facility] form: CAP, TID-Meals, Dosing Weight 105.455, kg, Start date: 03/22/14 12:00:00, Duration: 30 day, Stop date: 04/21/14 8:00:00Notes: (Same as: Indocin) Take with food Tramadol 50 mg, 1 tab, No Longer Route: PO, Drug Active 2013 [facility] form: TAB, Bedtime, Dosing Weight 105.455, kg, PRN as needed for pain, Start date: 03/22/14 10:18:00, Duration: 30 day, Stop date: 04/21/14 10:17:00Notes: Not to exceed 400mg/day. (Same As: Ultram) Alprazolam 0.25 mg, 1 tab, No Longer Route: PO, Drug Active 2013 [facility] form: TAB, During Dialysis, Dosing Weight 105.455, kg, PRN as needed for anxiety, Start date: 03/22/14 10:15:00, Duration: 30 day, Stop date: 04/21/14 10:14:00Notes: With food or milk (Same as: Xanax) 200 ACTUAT 90 microgram, No Longer Albuterol 0.09 Route: Active 2013 MG/ACTUAT Metered INHALATION, Dose Inhaler Drug Form: [ProAir HFA] AERO/A, Dosing Weight 105.455, kg, PRN, PRN as needed for wheezing, Start date: 03/22/14 10:15:00, Duration: 30 day, Stop date: 04/21/14 10:14:00Notes: Albuterol 90 microgram/inh 8gm HFA Same as: Ventolin, Proventil Cefuroxime 1.5 gm, Route: No Longer IVPB, ONCALL, Active 2013 [facility] Dosing Weight 116.364, kg, Start date: 03/20/14 15:00:00, Duration: 30 day, Stop date: 04/19/14 14:59:00Notes: (Same As: Kefurox, Zinacef) Atenolol 100 MG 100 mg=1 tab, Active Oral Tablet PO, Daily, 0 2013 Refill(s) atorvastatin 40 40 mg=1 tab, Active mg oral tablet PO, Bedtime, 0 2013 [facility] Refill(s) Aspirin Enteric Daily, 0 Active Coated 81 mg oral Refill(s) 2013 [facility] delayed release tablet Fosrenol 2 TABS, PO, Active BID, 0 2013 [facility] Refill(s) ReZyst IM oral 1 tab, CHEW, Active tablet, chewable Daily, # 30 2013 [facility] tab, 0 Refill(s) Alprazolam 0.25 mg, PO, Active During 2013 [facility] Dialysis, 0 Refill(s) cinacalcet 90 MG 90 mg=1 tab, No Longer Oral Tablet PO, After Active 2013 [facility] [Sensipar] Dinner, 0 Refill(s) allopurinol 300 300 mg=1 tab, Active mg oral tablet PO, Daily, 0 2013 [facility] Refill(s) Tramadol 50 mg, PO, Active Q4-6H, Pain, # 2014 [facility] 20 tab, 0 Refill(s) tramadol 50 mg=1 tab, No Longer hydrochloride 50 PRN, 0 Active 2013 [facility] MG Oral Tablet Refill(s) Nephro-Dominick 1 tab, Daily, 0 Active Refill(s) 2013 [facility] senna oral tablet 2 tab, Bedtime, Active 0 Refill(s) 2013 [facility] 200 ACTUAT 1 puff, Active Albuterol 0.09 INHALATION, 2013 [facility] MG/ACTUAT Metered PRN, for Dose Inhaler wheezing, # 9 [ProAir HFA] gm, 0 Refill(s) Hydrocodone 10/325MG, PO, Active Bitartrate 5 MG / PRN, for pain, 2013 [facility] Ibuprofen 200 MG 0 Refill(s) Oral Tablet indomethacin 50 50 mg=1 cap, Active mg oral capsule TID-Meals, 0 2013 [facility] Refill(s) Restoril 15 mg, 1 cap, No Longer Route: PO, Drug Active 2013 [facility] form: CAP, Bedtime, Dosing Weight 116.364, kg, PRN Sleep, Start date: 03/20/14 14:26:00, Duration: 30 day, Stop date: 04/19/14 14:25:00Notes: (Same As: Restoril) Allergies, Adverse Reactions, Alerts Substance Category Reaction Severity Reaction Status Date Comments Source type Reported cranberry Assertion THROAT Food Active SWELLING allergy [facility] Immunizations Immunization Date Given Site Status Last Updated Comments Source Results Order Name Results Value Reference Date Interpretation Comments Source Range HEMATOLOGY POC 42.0 % 42.0 - 02/18 Hematocrit 54.0 [facility] HEMATOLOGY POC 14.3 g/dL 14.0 - 02/18 Hemoglobin 18.0 [facility] HEMATOLOGY POC BUN 57 mg/dL 7 - 22 02/18 [facility] HEMATOLOGY POC Chloride 104 meq/L 95 - 109 02/18 [facility] HEMATOLOGY POC Glucose 64 mg/dL 70 - 99 02/18 [facility] HEMATOLOGY POC 5.2 meq/L 3.5 - 5.1 02/18 Potassium [facility] HEMATOLOGY POC Sodium 140 meq/L 135 - 145 02/18 [facility] HEMATOLOGY POC 46.0 % 42.0 - 02/18 Hematocrit 54.0 [facility] HEMATOLOGY POC Glucose 71 mg/dL 70 - 99 02/18 [facility] HEMATOLOGY POC BUN 67 mg/dL 7 - 22 02/18 [facility] HEMATOLOGY POC 15.6 g/dL 14.0 - 02/18 Hemoglobin 18.0 [facility] HEMATOLOGY POC 5.3 meq/L 3.5 - 5.1 02/18 Potassium [facility] HEMATOLOGY POC Chloride 100 meq/L 95 - 109 02/18 [facility] HEMATOLOGY POC Sodium 141 meq/L 135 - 145 02/18 [facility] CHEM PANEL Magnesium 2.2 mg/dL 1.8 - 2.4 09/06 Lvl [facility] CHEM PANEL eGFR 6 09/06 Result Comment: The eGFR is calculated using the CKD-EPI formula. In most young, healthy individuals the eGFR will be >90 mL/ min/1.73m2. The eGFR declines with age. An eGFR of 60-89 may be normal in mL/min/1. some populations, particularly the elderly, for whom the CKD-EPI formula has not been extensively validated. Use of the eGFR is not recommended in the following populations: [place] [address] Individuals with unstable creatinine concentrations, including patients and those with serious co-morbid conditions. Patients with extremes in muscle mass or diet. The data above are obtained from the National Kidney Disease Education Program (NKDEP) which additionally recommends that when the eGFR is used in patients with extremes of body mass index for purposes of drug dosing, the eGFR should be multiplied by the estimated BMI. CHEM PANEL Calcium Lvl 9.7 mg/dL 8.5 - 10.5 09/06 [facility] CHEM PANEL Albumin Lvl 3.7 g/dL 3.5 - 5.0 09/06 [facility] CHEM PANEL Total 6.8 g/dL 6.4 - 8.4 09/06 [facility] CHEM PANEL Chloride Lvl 99 meq/L 95 - 109 09/06 [facility] CHEM PANEL CO2 26 meq/L 24 - 32 09/06 [facility] CHEM PANEL Bili Total 0.7 mg/dL 0.2 - 1.3 09/06 [facility] CHEM PANEL Alk Phos 157 unit/L 39 - 136 12 [facility] CHEM PANEL AST 16 unit/L 0 - 37 09/06 [facility] CHEM PANEL ALT 18 unit/L 0 - 65 09/06 [facility] CHEM PANEL Sodium Lvl 137 meq/L 135 - 145 09/06 [facility] CHEM PANEL Potassium 3.9 meq/L 3.5 - 5.1 12 MH Lvl /2015 [facility] CHEM PANEL Creatinine 8.80 mg/dL 0.50 - 12 MH Lvl 1.40 /2015 [facility] CHEM PANEL BUN 37 mg/dL 7 - 22 09/06 [facility] CHEM PANEL Glucose Lvl 69 mg/dL 70 - 99 09/06 [facility] CHEM PANEL AGAP 15.9 meq/L 10.0 - 09/06 MH 20.0 [facility] CHEM PANEL Globulin 3.1 g/dL 2.7 - 4.2 09/06 [facility] CHEM PANEL A/G Ratio 1.2 0.7 - 1.6 09/06 [facility] CHEM PANEL B/C Ratio 4 6 - 25 09/06 [facility] CHEM PANEL Phosphorus 4.2 mg/dL 2.5 - 4.5 09/06 [facility] HEMATOLOGY MPV 9.7 fL 7.4 - 10.4 09/06 [facility] HEMATOLOGY Platelet 145 K/CMM 133 - 450 09/06 [facility] HEMATOLOGY RDW 20.0 % 11.5 - 09/06 MH 14.5 [facility] HEMATOLOGY MCHC 32.4 g/dL 32.0 - 09/06 MH 36.0 [facility] HEMATOLOGY MCH 28.7 pg 27.0 - 09/06 MH 31.0 [facility] HEMATOLOGY MCV 88.6 fL 80.0 - 09/06 MH 94.0 [facility] HEMATOLOGY Hgb 13.8 g/dL 14.0 - 12 MH 18.0 [facility] HEMATOLOGY Hct 42.7 % 42.0 - 12 MH 54.0 [facility] HEMATOLOGY RBC 4.82 M/CMM 4.70 - 12 MH 6.10 [facility] HEMATOLOGY WBC 8.5 K/CMM 3.7 - 10.4 09/06 [facility] PARATHYROI Ca Ion WB 1.12 1.05 - 09/06 MH D PROFILE mMol/L 1. [facility] PARATHYROI Ca Norm WB 1.10 1.05 - 09/06 MH D PROFILE mMol/L . [facility] PARATHYROI Ca Norm WB 1.16 1.05 - 09/06 MH D PROFILE mMol/L . [facility] PARATHYROI Ca Ion WB 1.13 1.05 - 09/06 MH D PROFILE mMol/L . [facility] PARATHYROI Ca Ion WB 1.18 1.05 - 09/05 MH D PROFILE mMol/L . [facility] PARATHYROI Ca Norm WB 1.21 1.05 - 09/05 MH D PROFILE mMol/L . [facility] CHEM PANEL Phosphorus 5.3 mg/dL 2.5 - 4.5 09/05 [facility] CHEM PANEL Magnesium 2.0 mg/dL 1.8 - 2.4 09/05 Lvl [facility] CHEM PANEL eGFR 5 09/05 Result Comment: The eGFR is calculated using the CKD-EPI formula. In most young, healthy individuals the eGFR will be >90 mL/ min/1.73m2. The eGFR declines with age. An eGFR of 60-89 may be normal in mL/min/1. some populations, particularly the elderly, for whom the CKD-EPI formula has not been extensively validated. Use of the eGFR is not recommended in the following populations: [facility] 3m2 Individuals with unstable creatinine concentrations, including patients and those with serious co-morbid conditions. Patients with extremes in muscle mass or diet. The data above are obtained from the National Kidney Disease Education Program (NKDEP) which additionally recommends that when the eGFR is used in patients with extremes of body mass index for purposes of drug dosing, the eGFR should be multiplied by the estimated BMI. CHEM PANEL A/G Ratio 1.1 0.7 - 1.6 09/05 [facility] CHEM PANEL Globulin 3.1 g/dL 2.7 - 4.2 09/05 [facility] CHEM PANEL B/C Ratio 5 6 - 25 09/05 [facility] CHEM PANEL AGAP 17.1 meq/L 10.0 - 12 MH 20.0 2016 [facility] CHEM PANEL ALT 18 unit/L 0 - 65 09/05 [facility] CHEM PANEL Albumin Lvl 3.4 g/dL 3.5 - 5.0 09/05 [facility] CHEM PANEL Total 6.5 g/dL 6.4 - 8.4 12 [facility] CHEM PANEL Calcium Lvl 9.0 mg/dL 8.5 - 10.5 09/05 [facility] CHEM PANEL CO2 25 meq/L 24 - 32 09/05 [facility] CHEM PANEL Bili Total 0.6 mg/dL 0.2 - 1.3 09/05 [facility] CHEM PANEL Alk Phos 146 unit/L 39 - 136 09/05 [facility] CHEM PANEL AST 13 unit/L 0 - 37 09/05 [facility] CHEM PANEL Potassium 4.1 meq/L 3.5 - 5.1 09/05 Lvl /2015 [facility] CHEM PANEL Sodium Lvl 137 meq/L 135 - 145 09/05 [facility] CHEM PANEL Creatinine 9.80 mg/dL 0.50 - 09/05 Lvl 1.40 [facility] CHEM PANEL BUN 48 mg/dL 7 - 22 09/05 [facility] CHEM PANEL Glucose Lvl 106 mg/dL 70 - 99 09/05 [facility] CHEM PANEL Chloride Lvl 99 meq/L 95 - 109 09/05 [facility] HEMATOLOGY Hgb 13.0 g/dL 14.0 - 09/05 18.0 [facility] HEMATOLOGY MCHC 32.9 g/dL 32.0 - 09/05 36.0 /2015 [facility] HEMATOLOGY Hct 39.5 % 42.0 - 09/05 54.0 /2015 [facility] HEMATOLOGY MCV 88.0 fL 80.0 - 09/05 94.0 /2015 [facility] HEMATOLOGY MCH 28.9 pg 27.0 - 09/05 31.0 /2015 [facility] HEMATOLOGY MPV 9.9 fL 7.4 - 10.4 09/05 [facility] HEMATOLOGY RDW 20.0 % 11.5 - 09/05 14.5 /2015 [facility] HEMATOLOGY Platelet 129 K/CMM 133 - 450 09/05 [facility] HEMATOLOGY WBC 9.2 K/CMM 3.7 - 10.4 09/05 [facility] HEMATOLOGY RBC 4.49 M/CMM 4.70 - 09/05 6.10 [facility] HEMATOLOGY Eosinophils 3.7 % 0.0 - 4.0 09/05 [facility] HEMATOLOGY Segs 73.8 % 45.0 - 09/05 MH 75.0 /2015 [facility] HEMATOLOGY Lymphocytes 8.4 % 20.0 - 12 MH 40.0 /2015 [facility] HEMATOLOGY Basophils 0.4 % 0.0 - 1.0 09/05 [facility] HEMATOLOGY Monocytes 13.7 % 2.0 - 12.0 09/05 [facility] HEMATOLOGY Segs-Bands # 6.8 K/CMM 1.5 - 8.1 09/05 [facility] HEMATOLOGY Lymphocytes 0.8 K/CMM 1.0 - 5.5 09/05 # /2016 [facility] HEMATOLOGY Monocytes # 1.3 K/CMM 0.0 - 0.8 09/05 [facility] HEMATOLOGY Eosinophils 0.3 K/CMM 0.0 - 0.5 09/05 # /2015 [facility] IMMUNOLOGY Hep C Ab Negative 09/04 [facility] *NA* (09/04/16 7:55 AM) IMMUNOLOGY Hep Bs Ag Negative Negative 09/04 [facility] *NA* (09/04/16 7:55 AM) PARATHYROI PTH Intact 51.8 pg/mL 11.1 - 09/04 D PROFILE 79. [facility] CHEM PANEL eGFR 4 09/04 Result Comment: The eGFR is calculated using the CKD-EPI formula. In most young, healthy individuals the eGFR will be >90 mL/ min/1.73m2. The eGFR declines with age. An eGFR of 60-89 may be normal in mL/min/1. some populations, particularly the elderly, for whom the CKD-EPI formula has not been extensively validated. Use of the eGFR is not recommended in the following populations: [address] Individuals with unstable creatinine concentrations, including patients and those with serious co-morbid conditions. Patients with extremes in muscle mass or diet. The data above are obtained from the National Kidney Disease Education Program (NKDEP) which additionally recommends that when the eGFR is used in patients with extremes of body mass index for purposes of drug dosing, the eGFR should be multiplied by the estimated BMI. CHEM PANEL Alk Phos 149 unit/L 39 - 136 09/04 [facility] CHEM PANEL Bili Total 0.7 mg/dL 0.2 - 1.3 09/04 [facility] CHEM PANEL ALT 20 unit/L 0 - 65 09/04 [facility] CHEM PANEL AST 18 unit/L 0 - 37 09/04 [facility] CHEM PANEL Albumin Lvl 3.4 g/dL 3.5 - 5.0 09/04 [facility] CHEM PANEL Calcium Lvl 8.1 mg/dL 8.5 - 10.5 09/04 [facility] CHEM PANEL Potassium 5.2 meq/L 3.5 - 5.1 09/04 [facility] CHEM PANEL Total 6.5 g/dL 6.4 - 8.4 09/04 [facility] CHEM PANEL Chloride Lvl 102 meq/L 95 - 109 09/04 [facility] CHEM PANEL CO2 21 meq/L 24 - 32 09/04 [facility] CHEM PANEL Creatinine 11.30 0.50 - 09/04 Lvl mg/dL 1.40 [facility] CHEM PANEL Sodium Lvl 140 meq/L 135 - 145 09/04 [facility] CHEM PANEL Glucose Lvl 59 mg/dL 70 - 99 09/04 [facility] CHEM PANEL BUN 55 mg/dL 7 - 22 09/04 [facility] CHEM PANEL Globulin 3.1 g/dL 2.7 - 4.2 09/04 [facility] CHEM PANEL B/C Ratio 5 6 - 25 09/04 [facility] CHEM PANEL AGAP 22.2 meq/L 10.0 - 09/04 20.0 [facility] CHEM PANEL A/G Ratio 1.1 0.7 - 1.6 09/04 [facility] CHEM PANEL Phosphorus 8.7 mg/dL 2.5 - 4.5 09/04 [facility] CHEM PANEL Magnesium 1.9 mg/dL 1.8 - 2.4 09/04 [facility] HEMATOLOGY Monocytes 10.4 % 2.0 - 12.0 09/04 [facility] HEMATOLOGY Segs-Bands # 8.0 K/CMM 1.5 - 8.1 09/04 [facility] HEMATOLOGY Basophils 0.6 % 0.0 - 1.0 09/04 [facility] HEMATOLOGY Lymphocytes 1.1 K/CMM 1.0 - 5.5 09/04 /2016 [facility] HEMATOLOGY Segs 75.2 % 45.0 - 12/ 75.0 [facility] HEMATOLOGY Lymphocytes 9.9 % 20.0 - 12 MH 40.0 [facility] HEMATOLOGY Eosinophils 0.4 K/CMM 0.0 - 0.5 MH # /2016 [facility] HEMATOLOGY Basophils # 0.1 K/CMM 0.0 - 0.2 12 /2015 [facility] HEMATOLOGY Monocytes # 1.1 K/CMM 0.0 - 0.8 09/04 /2015 [facility] HEMATOLOGY Eosinophils 3.9 % 0.0 - 4.0 09/04 /2015 [facility] HEMATOLOGY Platelet 163 K/CMM 133 - 450 09/04 /2015 [facility] HEMATOLOGY RDW 19.6 % 11.5 - 12 MH 14.5 /2015 [facility] HEMATOLOGY MCHC 32.3 g/dL 32.0 - 12 MH 36.0 /2015 [facility] HEMATOLOGY MCH 28.7 pg 27.0 - 09/04 MH 31.0 /2015 [facility] HEMATOLOGY MPV 9.8 fL 7.4 - 10.4 09/04 /2015 [facility] HEMATOLOGY WBC 10.7 K/CMM 3.7 - 10.4 09/04 /2015 [facility] HEMATOLOGY MCV 88.7 fL 80.0 - 09/04 94.0 /2015 [facility] HEMATOLOGY Hct 42.8 % 42.0 - 09/04 MH 54.0 /2015 [facility] HEMATOLOGY Hgb 13.8 g/dL 14.0 - 09/04 MH 18.0 /2015 [facility] HEMATOLOGY RBC 4.82 M/CMM 4.70 - 09/04 MH 6.10 /2015 [facility] CHEM PANEL Vitamin D, 25 ng/mL 30 - 100 09/04 25-OH, /2015 [facility] HEMATOLOGY INR 1.16 0.85 - 09/03 MH 1.17 /2015 [facility] HEMATOLOGY PT 15.0 s 12.0 - 09/03 MH 14.7 [facility] HEMATOLOGY PTT 33.4 s 22.9 - 12 MH 35.8 /2016 [facility] HEMATOLOGY Basophils # 0.1 K/CMM 0.0 - 0.2 12 /2015 [facility] HEMATOLOGY Eosinophils 0.7 K/CMM 0.0 - 0.5 09/03 MH # /2015 [facility] HEMATOLOGY Monocytes # 1.2 K/CMM 0.0 - 0.8 09/03 /2015 [facility] HEMATOLOGY Segs-Bands # 6.0 K/CMM 1.5 - 8.1 09/03 /2015 [facility] HEMATOLOGY Lymphocytes 1.7 K/CMM 1.0 - 5.5 09/03 MH # /2015 [facility] HEMATOLOGY Eosinophils 6.8 % 0.0 - 4.0 09/03 [facility] HEMATOLOGY Basophils 1.2 % 0.0 - 1.0 09/03 [facility] HEMATOLOGY Monocytes 12.5 % 2.0 - 12.0 09/03 [facility] HEMATOLOGY Segs 62.0 % 45.0 - 09/03 MH 75.0 /2015 [facility] HEMATOLOGY Lymphocytes 17.5 % 20.0 - 09/03 MH 40.0 /2015 [facility] Chest Chest 1view Chest 1view DX 09/03 - 1view DX DX /2015 - [facility] 61 years old Male Clinical Indication: Hypertension; Read by: Bora Mensah MD Dictated Date/time: 09/03/16 23:38 Electronically Signed by: Bora Mensah MD 09/03/16 23:42 FINAL REPORT Comparison: 09/01/2016 FINDINGS: Tubes and lines: A single lead transvenous right subclavian pacemaker has lead tip in the right heart. There is an expandable wire stent in the left brachiocephalic vein. Electrocardiogram wires are superimposed on the chest. LUNGS: The volume of the lungs is diminished by shallow inspiration. There is no evidence of consolidation. No pleural effusion is noted. The pulmonary vasculature is within normal limits. MEDIASTINUM: Cardiac silhouette the cardiac silhouette is mildly prominent , exaggerated by shallow inspiration, but increased in prominence when compared to previous exam. Calcific atherosclerotic vascular disease is noted in the thoracic aorta. CHEST WALL: Unremarkable. SKELETON: Bilateral shoulder hemiarthroplasties. 3 transverse metallic plates cross the body of the sternum. There is a stellate fracture fixation plate at the level of the manubrium. IMPRESSION: 1. Shallow inspiration. No acute abnormality noted. SL: SSMILEY-PC PARATHYROI PTH Intact 1525.0 11.1 - 09/03 D PROFILE pg/mL 79.5 /2015 [facility] ELECTROLYT POC Chloride 103 meq/L 95 - 109 09/03 [facility] ELECTROLYT POC 16.0 g/dL 14.0 - 09/03 ES Hemoglobin 18.0 /2015 [facility] ELECTROLYT POC Glucose 88 mg/dL 70 - 99 09/03 [facility] ELECTROLYT POC BUN 65 mg/dL 7 - 22 09/03 [facility] ELECTROLYT POC Sodium 138 meq/L 135 - 145 09/03 MH [facility] ELECTROLYT POC 5.1 meq/L 3.5 - 5.1 09/03 ES Potassium /2015 [facility] ELECTROLYT POC 47.0 % 42.0 - 09/03 ES Hematocrit 54.0 [facility] BACTERIAL MRSA by PCR Negative 09/01 - SEROLOGY /2015 [facility] (09/01/16 9:06 AM) BLOOD BANK ABO/Rh A NEG 09/01 RESULTS /2015 [facility] BLOOD BANK Antibody Negative 09/01 RESULTS Scrn [facility] (09/01/16 9:06 AM) BLOOD BANK RBC product Product available 09/01 RESULTS /2015 [facility] (09/01/16 9:06 AM) HEMATOLOGY Basophils # 0.0 K/CMM 0.0 - 0.2 09/01 [facility] HEMATOLOGY PTT 33.1 s 22.9 - 09/01 MH 35.8 [facility] HEMATOLOGY PT 14.1 s 12.0 - 09/01 MH 14.7 [facility] HEMATOLOGY INR 1.07 0.85 - 09/01 1.17 [facility] Chest 2 Chest 2 EXAM: Chest 2 views DX 09/01 - OPID views DX views DX /2015 [facility] DATE: 09/01/2016 9:47 AM [employer] INDICATION: Z01.818 Encounter for other preprocedural examination Read by: Ean Sage MD Dictated Date/time: 09/01/16 10:09 COMPARISON: 03/20/2014. Electronically Signed by: Ean Sage MD 09/01/16 10:11 FINAL REPORT IMPRESSION: Stable mildly enlarged cardiac silhouette. Marked tortuous atherosclerotic thoracic aorta. Metallic plates affixed with screws overlying the anterior midline of the chest cavity. Interval pl acement of right cardiac device. No significant pneumothorax detected. No focal consolidation or significant pleural effusion. Interval postoperative bilateral shoulder hemiarthroplasty is present in grossly anatomic alignment. SL: [id number] CHEM PANEL eGFR 5 08/13 Result Comment: The eGFR is calculated using the CKD-EPI formula. In most young, healthy individuals the eGFR will be >90 mL/ min/1.73m2. The eGFR declines with age. An eGFR of 60-89 may be normal in mL/min/1. some populations, particularly the elderly, for whom the CKD-EPI formula has not been extensively validated. Use of the eGFR is not recommended in the following populations: [facility] 3m2 Individuals with unstable creatinine concentrations, including patients and those with serious co-morbid conditions. Patients with extremes in muscle mass or diet. The data above are obtained from the National Kidney Disease Education Program (NKDEP) which additionally recommends that when the eGFR is used in patients with extremes of body mass index for purposes of drug dosing, the eGFR should be multiplied by the estimated BMI. CHEM PANEL POC 9.8 mg/dL 0.5 - 1.4 08/13 Creatinine /2015 [facility] Neck soft Neck soft Neck soft tissue w contrast CT 08/13/2016 11:08 AM [employer] 08/13 [facility] tissue w tissue - [facility] contrast contrast CT Ordering Physician: Kory Enriquez MD CT Read by: Saranya Palacios MD Dictated Date/time: 08/13/16 16:30 CLINICAL INDICATION: E21.3 HYPERPARATHYROIDISM, UNSPECIFIED; status post parathyroid adenoma operation 2013 Electronically Signed by: Saranya Palacios MD 08/13/16 16:39 FINAL REPORT COMPARISON: Parathyroid scan earlier today and February 2014; PET/CT February 2014 TECHNIQUE: 2.5 mm thick axial images of the neck are obtained with IV contrast. Coronal and sagittal reconstructions were created. FINDINGS: Enhancing soft tissue nodule immediately posterior to the right thyroid lobe measures 1.5 x 0.7 x 1.5 (craniocaudal) cm. Enhancing soft tissue nodule immediately posterior to the left thyroid lobe measu res 1.3 x 0.5 x 1 (craniocaudal) cm. Thyroid gland is grossly normal. Otherwise, no abnormal mass, focal fluid collection, or lymphadenopathy is present. Airway is patent. Bilateral maxillary sinus mucous retention cysts are present, right greater than left. Remaining sin uses and air cells are clear. Salivary glands are normal. Mild calcified plaque is present in bilateral carotid bifurcations and bulbs, but creating less than 25% endoluminal stenoses. Left brachiocephalic venous stent is present. Left upper lobe medial subpleural anterior 4 mm pulmonary nodule is present. Bones are normal. IMPRESSION: 1. Bilateral single probable parathyroid adenomas. 2. Left upper lobe anterior medial subpleural 4 mm pulmonary nodule, nonspecific. Recommend CT chest in 6 months. SL: [id number] Parathyroi Parathyroid Patient Name: SANDRO KHAN 08/13 - d scan NM scan - [facility] : 1955; Age: 61 years y/o Male MR: [id number] Read by: Saranya Palacios MD Dictated Date/time: 08/13/16 16:27 Electronically Signed by: Saranya Palacios MD 08/13/16 16:30 FINAL REPORT Study: Parathyroid scan NM 08/13/2016 10:36 AM [employer] Ordering Physician: Kory Enriquez MD Clinical Indication: Hyperparathyroidism; status post parathyroid adenoma operation 2013 Comparison: None TECHNIQUE: Parathyroid scan is performed using 21 mCi of TcMIBI. Immediate 15 minute and 3 hour and 5 hour delayed coronal images are obtained. FINDINGS: 2 small foci of mildly increased radiotracer activity are seen on the delayed images persisting up to 5 hours, and the general regions of the bilateral thyroid lobes. There are no other foci of abnormal radiotracer activity seen. IMPRESSION: Probable bilateral total of 2 parathyroid adenomas. SL: [id number] Thyroid US Thyroid US Patient Name: SANDRO KHAN 08/13 - [facility] : 1955; Age: 61 years y/o Male MR: [id number] Read by: Saranya Palacios MD Dictated Date/time: 08/13/16 16:21 Electronically Signed by: Saranya Palacios MD 08/13/16 16:27 FINAL REPORT Study: Thyroid US 08/13/2016 9:38 AM [employer] Ordering Physician: Kory Enriquez MD Clinical Indication: Hyperparathyroidism; parathyroid gland adenoma resection in 2013 Comparison: None TECHNIQUE: Sonographic evaluation of the thyroid gland is performed FINDINGS: The right thyroid gland measures 4.2 x 1.2 x 1.7 cm. The left thyroid gland measures 3.8 x 1.6 x 1.4 cm. The thyroid isthmus measures 0.6 cm in thickness. Thyroid gland is diffusely mildly heterogeneous echotexture. However, no discrete thyroid nodule or cluster microcalcifications is present. A hypoechoic 0.6 cm focus of mild posterior acoustic wall enhancement is present posterior to the right thyroid lobe superior pole. There is no adjacent jugular chain lymphadenopathy. IMPRESSION: 1. Mild diffusely heterogeneous thyroid gland, nonspecific. 2. Probable parathyroid gland or adenoma posterior to the right thyroid lobe superior pole, 6 mm. SL: [id number] BLOOD BANK Antibody Negative 01/15 RESULTS Scrn /2015 [facility] (01/15/15 9:07 AM) BLOOD BANK ABO/Rh A NEG 01/15 RESULTS [facility] CHEM PANEL Globulin 3.7 g/dL 2.0 - 4.0 01/15 [facility] CHEM PANEL A/G Ratio 1.2 0.7 - 1.6 01/15 [facility] CHEM PANEL AGAP 16.2 meq/L 10.0 - 01/15 MH 20.0 [facility] CHEM PANEL B/C Ratio 4 6 - 25 01/15 [facility] CHEM PANEL eGFR 5 01/15 1Result Comment: The eGFR is calculated using the CKD-EPI formula. In most young, healthy individuals the eGFR will be >90 mL/ min/1.73m2. The eGFR declines with age. An eGFR of 60-89 may be normal in mL/min/1. some populations, particularly the elderly, for whom the CKD-EPI formula has not been extensively validated. Use of the eGFR is not recommended in the following populations: [facility] 3m2 Individuals with unstable creatinine concentrations, including patients and those with serious co-morbid conditions. Patients with extremes in muscle mass or diet. The data above are obtained from the National Kidney Disease Education Program (NKDEP) which additionally recommends that when the eGFR is used in patients with extremes of body mass index for purposes of drug dosing, the eGFR should be multiplied by the estimated BMI. CHEM PANEL Alk Phos 124 unit/L 39 - 136 01/15 [facility] CHEM PANEL Bili Total 0.5 mg/dL 0.2 - 1.3 01/15 [facility] CHEM PANEL ALT 30 unit/L 0 - 65 01/15 [facility] CHEM PANEL AST 22 unit/L 0 - 37 01/15 [facility] CHEM PANEL Total 8.0 g/dL 6.4 - 8.4 01/15 Protein [facility] CHEM PANEL Albumin Lvl 4.3 g/dL 3.5 - 5.0 01/15 [facility] CHEM PANEL Calcium Lvl 9.3 mg/dL 8.5 - 10.5 01/15 [facility] CHEM PANEL CO2 29 meq/L 24 - 32 01/15 [facility] CHEM PANEL Potassium 4.2 meq/L 3.5 - 5.1 01/15 Lvl [facility] CHEM PANEL Chloride Lvl 97 meq/L 95 - 109 01/15 [facility] CHEM PANEL Creatinine 9.7 mg/dL 0.5 - 1.4 01/15 MH Lvl /2014 [facility] CHEM PANEL Sodium Lvl 138 meq/L 135 - 145 01/15 [facility] CHEM PANEL BUN 42 mg/dL 7 - 22 01/15 [facility] CHEM PANEL Glucose Lvl 96 mg/dL 70 - 99 01/15 2Interpretive Data: Adult reference range values reflect the clinical guidelines of the [place] [employer]. [facility] HEMATOLOGY Platelet 218 K/CMM 133 - 450 01/15 [facility] HEMATOLOGY MCV 93.2 fL 80.0 - 01/15 MH 94.0 [facility] HEMATOLOGY RDW 20.2 % 11.5 - 01/15 MH 14.5 [facility] HEMATOLOGY MCH 30.3 pg 27.0 - 01/15 MH 31.0 [facility] HEMATOLOGY MCHC 32.5 g/dL 32.0 - 01/15 MH 36.0 [facility] HEMATOLOGY MPV 9.5 fL 7.4 - 10.4 01/15 [facility] HEMATOLOGY Hct 45.7 % 42.0 - 01/15 MH 54.0 /2014 [facility] HEMATOLOGY Hgb 14.8 g/dL 14.0 - 01/15 MH 18.0 [facility] HEMATOLOGY RBC 4.90 M/CMM 4.70 - 01/15 MH 6.10 [facility] HEMATOLOGY WBC 9.7 K/CMM 3.7 - 10.4 01/15 [facility] HEMATOLOGY Basophils # 0.1 K/CMM 0.0 - 0.2 01/15 [facility] HEMATOLOGY Monocytes 10.5 % 2.0 - 12.0 01/15 [facility] HEMATOLOGY Lymphocytes 22.5 % 20.0 - 01/15 MH 40.0 [facility] HEMATOLOGY Eosinophils 0.4 K/CMM 0.0 - 0.5 01/15 MH /2014 [facility] HEMATOLOGY Segs 62.4 % 45.0 - 01/15 MH 75.0 [facility] Monocytes # 1.0 K/CMM 0.0 - 0.8 01/15 [facility] HEMATOLOGY Eosinophils 3.8 % 0.0 - 4.0 01/15 [facility] HEMATOLOGY Lymphocytes 2.2 K/CMM 1.0 - 5.5 01/15 MH # /2015 [facility] HEMATOLOGY Basophils 0.8 % 0.0 - 1.0 01/15 /2014 [facility] HEMATOLOGY Segs-Bands # 6.1 K/CMM 1.5 - 8.1 01/15 /2014 [facility] ELECTROLYT POC 3.6 meq/L 3.5 - 5.1 11/01 ES Potassium /2014 [facility] ELECTROLYT POC Glucose 80 mg/dL 70 - 99 11/01 ES /2014 [facility] ELECTROLYT POC Sodium 141 meq/L 135 - 145 11/01 MH ES /2014 [facility] ELECTROLYT POC 12.2 g/dL 14.0 - 11/01 ES Hemoglobin 18.0 [facility] ELECTROLYT POC 36.0 % 42.0 - 11/01 ES Hematocrit 54.0 [facility] CHEM PANEL eGFR 5 07/12 1Result Comment: The eGFR is calculated using the CKD-EPI formula. In most young, healthy individuals the eGFR will be >90 mL/ min/1.73m2. The eGFR declines with age. An eGFR of 60-89 may be normal in mL/min/1. some populations, particularly the elderly, for whom the CKD-EPI formula has not been extensively validated. Use of the eGFR is not recommended in the following populations: [address] Individuals with unstable creatinine concentrations, including patients and those with serious co-morbid conditions. Patients with extremes in muscle mass or diet. The data above are obtained from the National Kidney Disease Education Program (NKDEP) which additionally recommends that when the eGFR is used in patients with extremes of body mass index for purposes of drug dosing, the eGFR should be multiplied by the estimated BMI. CHEM PANEL Chloride Lvl 99 meq/L 95 - 109 07/12 [facility] CHEM PANEL Potassium 4.6 meq/L 3.5 - 5.1 07/12 MH Lvl [facility] CHEM PANEL Calcium Lvl 8.6 mg/dL 8.5 - 10.5 07/12 [facility] CHEM PANEL CO2 27 meq/L 24 - 32 07/12 [facility] CHEM PANEL BUN 38 mg/dL 7 - 22 07/12 [facility] CHEM PANEL Glucose Lvl 80 mg/dL 70 - 99 07/12 2Interpretive Data: Adult reference range values reflect the clinical guidelines of the [place] [employer]. [facility] CHEM PANEL Sodium Lvl 138 meq/L 135 - 145 07/12 [facility] CHEM PANEL Creatinine 9.4 mg/dL 0.5 - 1.4 07/12 Lvl /2013 [facility] CHEM PANEL AGAP 16.6 meq/L 10.0 - 07/12 MH 20.0 /2013 [facility] HEMATOLOGY Lymphocytes 20.3 % 20.0 - 07/12 MH 40.0 /2013 [facility] HEMATOLOGY Segs 63.1 % 45.0 - 07/12 75.0 /2013 [facility] HEMATOLOGY Lymphocytes 2.0 K/CMM 1.0 - 5.5 07/12 MH # /2013 [facility] HEMATOLOGY Segs-Bands # 6.2 K/CMM 1.5 - 8.1 07/12 [facility] HEMATOLOGY Eosinophils 5.0 % 0.0 - 4.0 07/12 [facility] HEMATOLOGY Basophils 0.6 % 0.0 - 1.0 07/12 [facility] HEMATOLOGY Monocytes 11.0 % 2.0 - 12.0 07/12 [facility] HEMATOLOGY Basophils # 0.1 K/CMM 0.0 - 0.2 07/12 [facility] HEMATOLOGY Eosinophils 0.5 K/CMM 0.0 - 0.5 07/12 # /2013 [facility] HEMATOLOGY Monocytes # 1.1 K/CMM 0.0 - 0.8 07/12 [facility] INR 1.15 0.85 - 07/12 3Interpretive Data: RECOMMENDED RANGES FOR PROTIME INR: 1. 2.0-3.0 for most medical and surgical thromboembolic states. [facility] 2.5-3.5 for artificial heart valves and recurrent embolism. INR SHOULD BE USED ONLY FOR PATIENTS ON STABLE ANTICOAGULANT THERAPY. HEMATOLOGY PT 14.8 s 12.0 - 07/12 14.7 /2013 [facility] HEMATOLOGY PTT 28.1 s 22.9 - 07/12 4Interpretive 35.8 /2014 Data: Heparin [facility] Therapeutic Range: 57 - 92 Seconds HEMATOLOGY Hct 40.9 % 42.0 - 07/12 54.0 /2013 [facility] Hgb 13.3 g/dL 14.0 - 07/12 18.0 [facility] RBC 4.72 M/CMM 4.70 - 07/12 MH 6.10 [facility] WBC 9.9 K/CMM 3.7 - 10.4 07/12 [facility] HEMATOLOGY RDW 17.1 % 11.5 - 07/12 MH 14.5 /2013 [facility] HEMATOLOGY MCHC 32.5 g/dL 32.0 - 07/12 MH 36.0 [facility] HEMATOLOGY MCV 86.6 fL 80.0 - 07/12 94.0 /2013 [facility] HEMATOLOGY MCH 28.2 pg 27.0 - 07/12 MH 31.0 /2013 [facility] HEMATOLOGY Platelet 234 K/CMM 133 - 450 07/12 [facility] HEMATOLOGY MPV 9.4 fL 7.4 - 10.4 07/12 [facility] HEMATOLOGY POC PT 26.3 s 12.0 - 07/12 MH 14.7 [facility] HEMATOLOGY POC INR 2.3 0.9 - 1.2 07/12 [facility] CHEM PANEL POC BUN 37 mg/dL - 07/12 [facility] CHEM PANEL POC Chloride 101 meq/L 95 - 109 07/12 [facility] CHEM PANEL POC Glucose 80 mg/dL 70 - 99 07/12 [facility] CHEM PANEL POC 13.9 g/dL .0 - 07/12 Hemoglobin 18.0 [facility] CHEM PANEL POC 41.0 % 42.0 - 07/12 Hematocrit 54.0 [facility] CHEM PANEL POC 4.7 meq/L 3.5 - 5.1 07/12 Potassium [facility] CHEM PANEL POC Sodium 139 meq/L 135 - 145 07/12 [facility] CHEM PANEL POC BUN 58 mg/dL - 07/12 [facility] CHEM PANEL POC Glucose 73 mg/dL 70 - 99 07/12 [facility] CHEM PANEL POC Sodium 130 meq/L 135 - 145 07/12 [facility] CHEM PANEL POC Chloride 105 meq/L 95 - 109 07/12 [facility] CHEM PANEL POC null 3.5 - 5.1 07/12 Potassium [facility] CHEM PANEL POC 43.0 % 42.0 - 07/12 Hematocrit 54.0 [facility] CHEM PANEL POC 14.6 g/dL 14.0 - 07/12 Hemoglobin 18.0 [facility] Shoulder 1 Shoulder 1 Right shoulder one view: 07/12 - view DX view DX - [facility] FINDINGS: There has been a prosthetic replacement of the right glenohumeral joint. The prosthesis appears in good position. There are no fractures or other acute abnormalities of the bones of the right Read by : Ariel Mccormick MD shoulder. Postsurgical air is present within the soft tissues. 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 In most young, healthy individuals the eGFR will be >90 mL/ min/1.73m2. The eGFR declines with age. An eGFR of 60-89 may be normal in mL/min/1.7 some populations, particularly the elderly, for whom the CKD-EPI formula has not been extensively validated. Use of the eGFR is not recommended in the following populations: [facility] 3m2 Individuals with unstable creatinine concentrations, including patients and those with serious co-morbid conditions. Patients with extremes in muscle mass or diet. The data above are obtained from the National Kidney Disease Education Program (NKDEP) which additionally recommends that when the eGFR is used in patients with extremes of body mass index for purposes of drug dosing, the eGFR should be multiplied by the estimated BMI. CHEM PANEL Chloride Lvl 98 meq/L 95 - 109 03/24 [facility] CHEM PANEL ALT 15 unit/L 0 - 65 03/24 [facility] CHEM PANEL Calcium Lvl 8.3 mg/dL 8.5 - 10.5 03/24 [facility] CHEM PANEL CO2 26 meq/L 24 - 32 03/24 [facility] CHEM PANEL Bili Total 0.3 mg/dL 0.2 - 1.3 03/24 [facility] CHEM PANEL Alk Phos 134 unit/L 39 - 136 03/24 [facility] CHEM PANEL AST 9 unit/L 0 - 37 03/24 [facility] CHEM PANEL Albumin Lvl 3.5 g/dL 3.5 - 5.0 03/24 [facility] CHEM PANEL Total 6.6 g/dL 6.4 - 8.4 03/24 [facility] CHEM PANEL Sodium Lvl 134 meq/L 135 - 145 03/24 [facility] CHEM PANEL Potassium 4.9 meq/L 3.5 - 5.1 03/24 MH Lv [facility] CHEM PANEL Creatinine 8.8 mg/dL 0.5 - 1.4 03/24 [facility] CHEM PANEL BUN 48 mg/dL 7 - 03/24 [facility] CHEM PANEL Glucose Lvl 107 mg/dL 70 - 99 03/24 4Interpretive Data: Adult reference range values reflect the clinical guidelines of the [place] [employer]. [facility] CHEM PANEL Globulin 3.1 g/dL 2.0 - 4.0 03/24 [facility] CHEM PANEL B/C Ratio 5 - 03/24 [facility] CHEM PANEL A/G Ratio 1.1 0.7 - 1.6 03/24 [facility] CHEM PANEL AGAP 14.9 meq/L 10.0 - 03/24 MH 20.0 [facility] PARATHYROI PTH Intact 538.7 11. - 03/24 D PROFILE pg/mL 79. [facility] PARATHYROI Ca Ion WB 1.02 1. - 03/24 D PROFILE mMol/L . [facility] PARATHYROI Ca Norm WB 0.95 1. - 03/24 D PROFILE mMol/L 1. [facility] CHEM PANEL eGFR 7 03/23 2Result Comment: The eGFR is calculated using the CKD-EPI formula. In most young, healthy individuals the eGFR will be >90 mL/ min/1.73m2. The eGFR declines with age. An eGFR of 60-89 may be normal in mL/min/1. some populations, particularly the elderly, for whom the CKD-EPI formula has not been extensively validated. Use of the eGFR is not recommended in the following populations: [facility] 3m2 Individuals with unstable creatinine concentrations, including patients and those with serious co-morbid conditions. Patients with extremes in muscle mass or diet. The data above are obtained from the National Kidney Disease Education Program (NKDEP) which additionally recommends that when the eGFR is used in patients with extremes of body mass index for purposes of drug dosing, the eGFR should be multiplied by the estimated BMI. CHEM PANEL Magnesium 2.0 mg/dL 1.8 - 2.4 03/23 [facility] PARATHYROI PTH Intact 374.9 11. - 03/23 MH D PROFILE pg/mL 79. [facility] CHEM PANEL Alk Phos 126 unit/L 39 - 136 03/23 [facility] CHEM PANEL AST 10 unit/L 0 - 37 03/23 [facility] CHEM PANEL Albumin Lvl 3.5 g/dL 3.5 - 5.0 03/23 [facility] CHEM PANEL Globulin 3.1 g/dL 2.0 - 4.0 03/23 [facility] CHEM PANEL Glucose Lvl 93 mg/dL 70 - 99 03/23 5Interpretive Data: Adult reference range values reflect the clinical guidelines of the [place] [employer]. [facility] CHEM PANEL Creatinine 7.6 mg/dL 0.5 - 1.4 03/23 [facility] CHEM PANEL BUN 37 mg/dL 7 - 22 03/23 [facility] CHEM PANEL Total 6.6 g/dL 6.4 - 8.4 03/23 [facility] CHEM PANEL AGAP 15.6 meq/L 10.0 - 03/23 MH 20. [facility] CHEM PANEL B/C Ratio 5 6 - 25 03/23 [facility] CHEM PANEL Calcium Lvl 8.3 mg/dL 8.5 - 10.5 03/23 [facility] CHEM PANEL Potassium 4.6 meq/L 3.5 - 5.1 03/23 [facility] CHEM PANEL Sodium Lvl 135 meq/L 135 - 145 03/23 [facility] CHEM PANEL Chloride Lvl 97 meq/L 95 - 109 03/23 [facility] CHEM PANEL CO2 27 meq/L 24 - 32 03/23 [facility] CHEM PANEL ALT 18 unit/L 0 - 65 03/23 [facility] CHEM PANEL A/G Ratio 1.1 0.7 - 1.6 03/23 [facility] CHEM PANEL Bili Total 0.3 mg/dL 0.2 - 1.3 03/23 [facility] PARATHYROI Ca Ion WB 1.04 1.05 - 03/23 D PROFILE mMol/L 10.21 [facility] PARATHYROI Ca Norm WB 0.99 . - 03/23 D PROFILE mMol/L 10.21 [facility] CHEM PANEL Phosphorus 8.6 mg/dL 2.5 - 4.5 03/23 [facility] CHEM PANEL Globulin 3.3 g/dL 2.0 - 4.0 03/23 [facility] CHEM PANEL A/G Ratio 0.9 0.7 - 1.6 03/23 [facility] CHEM PANEL AGAP 21.5 meq/L 10.0 - 03/23 MH 20.0 [facility] CHEM PANEL B/C Ratio 5 6 - 25 03/23 [facility] CHEM PANEL eGFR 5 03/23 3Result Comment: The eGFR is calculated using the CKD-EPI formula. In most young, healthy individuals the eGFR will be >90 mL/ min/1.73m2. The eGFR declines with age. An eGFR of 60-89 may be normal in mL/min/1.7 some populations, particularly the elderly, for whom the CKD-EPI formula has not been extensively validated. Use of the eGFR is not recommended in the following populations: [address] Individuals with unstable creatinine concentrations, including patients and those with serious co-morbid conditions. Patients with extremes in muscle mass or diet. The data above are obtained from the National Kidney Disease Education Program (NKDEP) which additionally recommends that when the eGFR is used in patients with extremes of body mass index for purposes of drug dosing, the eGFR should be multiplied by the estimated BMI. CHEM PANEL BUN 55 mg/dL 7 - 03/23 [facility] CHEM PANEL Glucose Lvl 92 mg/dL 70 - 99 03/23 6Interpretive Data: Adult reference range values reflect the clinical guidelines of the [place] [employer]. [facility] CHEM PANEL AST 10 unit/L 0 - 37 03/23 [facility] CHEM PANEL ALT 13 unit/L 0 - 65 03/23 [facility] CHEM PANEL Total 6.4 g/dL 6.4 - 8.4 03/23 [facility] CHEM PANEL Albumin Lvl 3.1 g/dL 3.5 - 5.0 03/23 [facility] CHEM PANEL Calcium Lvl 8.6 mg/dL 8.5 - 10.5 03/23 [facility] CHEM PANEL CO2 20 meq/L 24 - 32 03/23 [facility] CHEM PANEL Chloride Lvl 100 meq/L 95 - 109 03/23 [facility] CHEM PANEL Potassium 4.5 meq/L 3.5 - 5.1 03/23 Lvl [facility] CHEM PANEL Sodium Lvl 137 meq/L 135 - 145 03/23 [facility] CHEM PANEL Creatinine 10.1 mg/dL 0.5 - 1.4 03/23 Lvl /2013 [facility] CHEM PANEL Alk Phos 111 unit/L 39 - 136 03/23 [facility] CHEM PANEL Bili Total 0.3 mg/dL 0.2 - 1.3 03/23 /2013 [facility] HEMATOLOGY Basophils 0.1 % 0.0 - 1.0 03/23 [facility] HEMATOLOGY Eosinophils 2.8 % 0.0 - 4.0 03/23 [facility] HEMATOLOGY Segs 78.7 % 45.0 - 03/23 75.0 /2013 [facility] HEMATOLOGY Monocytes 8.0 % 2.0 - 12.0 03/23 [facility] HEMATOLOGY Lymphocytes 10.4 % 20.0 - 03/23 40.0 /2013 [facility] HEMATOLOGY Basophils # 0.0 K/CMM 0.0 - 0.2 03/23 [facility] HEMATOLOGY Segs-Bands # 9.6 K/CMM 1.5 - 8.1 03/23 [facility] HEMATOLOGY Lymphocytes 1.3 K/CMM 1.0 - 5.5 03/23 MH # /2013 [facility] HEMATOLOGY Monocytes # 1.0 K/CMM 0.0 - 0.8 03/23 [facility] HEMATOLOGY Eosinophils 0.3 K/CMM 0.0 - 0.5 03/23 MH # /2013 [facility] HEMATOLOGY MCH 28.7 pg 27.0 - 03/23 31.0 /2013 [facility] HEMATOLOGY MCV 86.2 fL 80.0 - 03/23 94.0 /2013 [facility] HEMATOLOGY Hct 30.6 % 42.0 - 03/23 54.0 /2013 [facility] HEMATOLOGY Hgb 10.2 g/dL 14.0 - 03/23 18.0 /2013 [facility] HEMATOLOGY RBC 3.55 M/CMM 4.70 - 03/23 MH 6.10 /2013 [facility] HEMATOLOGY MCHC 33.3 g/dL 32.0 - 03/23 MH 36.0 /2013 [facility] HEMATOLOGY MPV 9.6 fL 7.4 - 10.4 03/23 [facility] HEMATOLOGY Platelet 273 K/CMM 133 - 450 03/23 [facility] HEMATOLOGY RDW 16.7 % 11.5 - 03/23 14.5 [facility] HEMATOLOGY WBC 12.2 K/CMM 3.7 - 10.4 03/23 [facility] PARATHYROI PTH Intact 347.0 11.1 - 03/23 D PROFILE pg/mL 79.5 [facility] PARATHYROI Ca Norm WB 0.98 1.05 - 03/23 D PROFILE mMol/L 1. [facility] PARATHYROI Ca Ion WB 1.03 1.05 - 03/23 D PROFILE mMol/L 1. [facility] CHEM PANEL Magnesium 2.4 mg/dL 1.8 - 2.4 03/23 Lvl [facility] SPECIAL Hgb A1C 5.4 % <=5.6 % 03/23 CHEMISTRY /2013 [facility] THYROID TSH 2.590 0.360 - 03/23 PANEL uIU/mL 3.740 [facility] THYROID T4 Free 1.02 ng/dL 0.76 - 03/23 PANEL 1.46 [facility] HEMATOLOGY Plt Morph Normal 03/22 [facility] (03/22/14 6:18 PM) HEMATOLOGY RBC Morph Normal 03/22 [facility] (03/22/14 6:18 PM) HEMATOLOGY Basophils 1.0 % 0.0 - 1.0 03/22 [facility] HEMATOLOGY Atypical 0.0 % <=0.0 % 03/22 Lymphs [facility] HEMATOLOGY Monocytes 12.0 % 2.0 - 12.0 03/22 [facility] HEMATOLOGY Eosinophils 2.0 % 0.0 - 4.0 03/22 [facility] HEMATOLOGY Eosinophils 0.3 K/CMM 0.0 - 0.5 03/22 MH # /2013 [facility] HEMATOLOGY Monocytes # 1.6 K/CMM 0.0 - 0.8 03/22 [facility] HEMATOLOGY Basophils # 0.1 K/CMM 0.0 - 0.2 03/22 [facility] HEMATOLOGY Lymphocytes 0.8 K/CMM 1.0 - 5.5 03/22 MH # /2013 [facility] HEMATOLOGY Lymphocytes 6.0 % 20.0 - 03/22 40.0 [facility] HEMATOLOGY Bands 1.0 % 0.0 - 11.0 03/22 [facility] HEMATOLOGY Segs 78.0 % 45.0 - 03/22 75.0 [facility] HEMATOLOGY Segs-Bands # 10.8 K/CMM 1.5 - 8.1 03/22 [facility] HEMATOLOGY Platelet 297 K/CMM 133 - 450 03/22 [facility] HEMATOLOGY RDW 16.7 % 11.5 - 03/22 MH 14.5 /2013 [facility] HEMATOLOGY MCHC 33.3 g/dL 32.0 - 03/22 36.0 /2013 [facility] HEMATOLOGY MCH 28.6 pg 27.0 - 03/22 31.0 /2013 [facility] HEMATOLOGY Hgb 10.9 g/dL 14.0 - 03/22 18.0 /2013 [facility] HEMATOLOGY RBC 3.82 M/CMM 4.70 - 03/22 MH 6.10 /2013 [facility] HEMATOLOGY MCV 85.9 fL 80.0 - 03/22 94.0 /2013 [facility] HEMATOLOGY Hct 32.8 % 42.0 - 03/22 54.0 /2013 [facility] HEMATOLOGY WBC 13.7 K/CMM 3.7 - 10.4 03/22 [facility] HEMATOLOGY MPV 9.9 fL 7.4 - 10.4 03/22 [facility] ELECTROLYT POC Chloride 103 meq/L 95 - 109 03/22 ES /2013 [facility] ELECTROLYT POC 32.0 % 42.0 - 03/22 [facility] Hematocrit 54.0 /2013 [facility] ELECTROLYT POC BUN 42 mg/dL 7 - 03/22 ES /2013 [facility] ELECTROLYT POC 10.9 g/dL 14.0 - 03/22 [facility] Hemoglobin 18.0 /2013 [facility] ELECTROLYT POC Glucose 82 mg/dL 70 - 99 03/22 ES [facility] ELECTROLYT POC Sodium 138 meq/L 135 - 145 03/22 ES /2013 [facility] ELECTROLYT POC 4.2 meq/L 3.5 - 5.1 03/22 ES Potassium /2013 [facility] URINE AND UA Mucus Few /LPF None Seen 03/20 STOOL /LPF /2013 [facility] URINE AND UA Amorph Few /HPF None Seen 03/20 STOOL Aliya /HPF /2013 [facility] URINE AND UA null 0.1 - 1.0 03/20 STOOL Urobilinogen /2013 [facility] URINE AND UA RBC 4 /HPF 0 - 2 03/20 STOOL /2013 [facility] URINE AND UA Bacteria Moderate None Seen 03/20 STOOL /HPF /HPF /2013 [facility] URINE AND UA Leuk Est Large Negative 03/20 STOOL [facility] *ABN* (03/20/14 4:05 PM) URINE AND UA Sq Epi Few /LPF Few /LPF 03/20 STOOL /2013 [facility] URINE AND UA WBC 52 /HPF 0 - 5 03/20 STOOL [facility] URINE AND UA Bili Negative Negative 03/20 STOOL [facility] *NA* (03/20/14 4:05 PM) URINE AND UA Nitrite Negative Negative 03/20 STOOL [facility] (03/20/14 4:05 PM) URINE AND UA Blood Moderate Negative 03/20 STOOL [facility] *ABN* (03/20/14 4:05 PM) URINE AND UA Ketones Negative Negative 03/20 STOOL mg/dL mg/dL [facility] URINE AND UA pH 6.5 5.0 - 8.0 03/20 STOOL [facility] URINE AND UA Protein >=300 Negative 03/20 7Result STOOL mg/dL mg/dL Comment: No [facility] other crystals seen URINE AND UA Glucose 50 mg/dL Negative 03/20 STOOL mg/dL [facility] URINE AND UA Turbidity Slight Clear 03/20 [facility] *ABN* (03/20/14 4:05 PM) URINE AND UA Spec Grav 1.012 <=1.030 03/20 [facility] URINE AND UA Color Yellow Yellow 03/20 STOOL [facility] *NA* (03/20/14 4:05 PM) BLOOD BANK ABO/Rh A NEG 03/20 RESULTS [facility] BLOOD BANK Antibody Negative 03/20 RESULTS Scrn [facility] (03/20/14 3:10 PM) BACTERIAL MRSA by PCR Negative 10 03/20 10Interpretive Data: Interpretive Data: The [employer] Light[employer] MRSA assay is a qualitative test for the direct detection of nasal colonization with methicillin-resistant Staphylococcus aureus (MRSA) to aid in the prevention and control of MRSA infections in healthcare settings. A positive result does not indicate an infection or require treatment. A negative result does not exclude colonization or infection. [facility] (03/20/14 3:00 PM) The polymerase chain reaction (PCR) assay detects a proprietary sequence indicative of the integration of the SCCmec cassette into the Staphylococcus aureus chromosome, indicating the presence of MRSA D NA. The assay utilizes FDA cleared IVD reagents. Performance characteristics have been verified by the [facility] within the [facility]. The [facility] is authorized under the Clinical Laboratory Improvement Amendment of 1988 (CLIA-88) to perform high complexity testing. THYROID TSH 1.700 0.360 - 03/20 PANEL uIU/mL 3.740 /2013 [facility] THYROID T4 5.3 ug/dl 4.7 - 13.3 03/20 PANEL /2013 [facility] THYROID T3 Uptake 34 % 31 - 39 03/20 PANEL /2013 [facility] THYROID FTI 1.8 03/20 PANEL /2013 [facility] BLOOD BANK RBC product Product available 03/20 RESULTS /2013 [facility] (03/20/14 2:26 PM) HEMATOLOGY Basophils # 0.0 K/CMM 0.0 - 0.2 03/20 MH /2013 [facility] HEMATOLOGY Eosinophils 0.4 K/CMM 0.0 - 0.5 03/20 # /2013 [facility] HEMATOLOGY Basophils 0.3 % 0.0 - 1.0 03/20 /2013 [facility] HEMATOLOGY Eosinophils 3.4 % 0.0 - 4.0 03/20 MH /2013 [facility] HEMATOLOGY Monocytes # 1.0 K/CMM 0.0 - 0.8 03/20 /2013 [facility] HEMATOLOGY Lymphocytes 1.1 K/CMM 1.0 - 5.5 03/20 MH # /2014 [facility] HEMATOLOGY Segs-Bands # 8.3 K/CMM 1.5 - 8.1 03/20 MH /2013 [facility] HEMATOLOGY Monocytes 8.8 % 2.0 - 12.0 03/20 /2013 [facility] HEMATOLOGY Lymphocytes 10.6 % 20.0 - 03/20 40.0 /2013 [facility] HEMATOLOGY Segs 76.9 % 45.0 - 03/20 75.0 /2013 [facility] HEMATOLOGY PTT 41.1 s 22.9 - 03/20 9Interpretive 35.8 /2013 Data: Heparin [facility] Therapeutic Range: 57 - 92 Seconds HEMATOLOGY PT 14.5 s 12.0 - 03/20 14.7 /2014 [facility] HEMATOLOGY INR 1.14 0.85 - 03/20 8Interpretive Data: RECOMMENDED RANGES FOR PROTIME INR: 1. 2.0-3.0 for most medical and surgical thromboembolic states. [facility] 2.5-3.5 for artificial heart valves and recurrent embolism. INR SHOULD BE USED ONLY FOR PATIENTS ON STABLE ANTICOAGULANT THERAPY. HEMATOLOGY MPV 9.9 fL 7.4 - 10.4 03/20 /2013 [facility] HEMATOLOGY Platelet 264 K/CMM 133 - 450 03/20 /2013 [facility] HEMATOLOGY MCHC 33.1 g/dL 32.0 - 03/20 36.0 /2013 [facility] HEMATOLOGY RDW 17.3 % 11.5 - 03/20 14.5 /2013 [facility] HEMATOLOGY Hgb 10.4 g/dL 14.0 - 03/20 18.0 [facility] HEMATOLOGY WBC 10.8 K/CMM 3.7 - 10.4 03/20 MH /2013 [facility] HEMATOLOGY RBC 3.64 M/CMM 4.70 - 03/20 MH 6.10 /2013 [facility] HEMATOLOGY MCH 28.5 pg 27.0 - 03/20 31.0 [facility] HEMATOLOGY MCV 86.2 fL 80.0 - 03/20 94.0 /2013 [facility] Hct 31.4 % 42.0 - 03/20 MH 54.0 /2013 [facility] Chest 2 Chest 2 Two-view chest: 03/20 [facility] views views - [facility] DISCUSSION: Comparison is made to the 03/14/2014 PET/CT and 03/16/2011 portable chest radiograph. Read by: Maldonado Sykes MD Dictated Date/time: 03/20/14 16:47 Electronically Signed by: Maldonado Sykes MD 03/20/14 16:54 FINAL REPORT Degenerative changes in the spine with narrowing of several of the thoracic and lumbar disc spaces. Metallic plates affixed with screws the overlying the anterior midline of the chest cavity and are poo rly seen on the lateral view. Changes in both humeral heads highly suspicious for avascular necrosis. Vascular stent is seen in the left innominate artery and proximal SVC. The heart is enlarged. Tortuous and partially calcified aorta. The lungs are clear. No pleural effusions. Normal pulmonary vasculature. IMPRESSION: Enlarged cardiac silhouette. SL: [address] F-18 FDG PET/CT, Mar 14, 2014 04:05:19 PM 03/14 [facility] Lymphoma Lymphoma /2013 - [facility] diagnosis diagnosis CLINICAL HISTORY: Possible lymphoma; cervical lymphadenopathy Read by: Saranya Palacios MD Dictated Date/time: 03/14/14 16:08 Electronically Signed by: Saranya Palacios MD 03/14/14 16:34 FINAL REPORT TECHNIQUE: Routine whole-body positron emission tomography imaging from the head to the proximal thighs 60 minutes after intravenous injection of 15.1 mCi of F-18 FDG into the fasting patient could not be completely performed secondary to patient unable to lie prostrate for the remaining PET examination. Therefore, only the images of the neck were obtained from the level above the orbits and down to the level of the hyoid bone in the neck. However, multiplanar low dose CT imaging without IV contrast were obtained from the head to the proximal thighs for attenuation correction and localization purpo ses only. These images do not constitute diagnostic quality CT examination and were not used to diagnose disease independently of the PET images. Weight: 230 pounds; Height: 5 ' 9 ''; Serum glucose 65 mg/dl COMPARISON: None FINDINGS: Head and neck: No abnormally increased focal hypermetabolic activity is visualized in the imaged anatomy. As per the CT portion of this examination, bilateral maxillary sinus mucous retention cysts are present, right greater than left, orbits are normal, and pharyngeal soft tissues are normal. Are gland is present. A 1.5 cm soft tissue nodule is present posterior to the right thyroid lobe inferior pole. Possibly a s mall roughly 1 cm soft tissue nodule is present posterior to the left lobe inferior pole. No abnormal focal fluid collection or lymphadenopathy is visualized. Chest: Couple of prominent yet subcentimeter mediastinal and right hilar lymph nodes contains small calcified granulomas. No marlena mediastinal or hilar lymphadenopathy is present. Mild cardiomegaly is present, with severe three-vessel coronary atherosclerotic calcific disease. Anterior thoracic cage fixation hardware is present. Mid to lower thoracic spine degenerative disease is present. 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 Lungs demonstrate mild diffuse mosaic groundglass attenuation suggesting emph ysematous changes versus early edema. Pleural spaces are clear. Abdomen and pelvis: Liver, spleen, and adrenal glands are grossly normal. Pancreas demonstrates pancreatic head an uncinate process dystrophic calcifications. Gallbladder contains small calcified gallstones. Kidneys are si gnificant atrophy, right greater than left. Ureter is normal. Bladder is collapsed. Gastrointestinal tract is grossly unremarkable. Normal appendix is present. Moderate scattered atherosclerotic calcifi c disease is present, along with arteriosclerosis of the there iliac system an of the splenic artery. Bones demonstrate multilevel degenerative disease in the lumbosacral spine, along with chronic L5 bi lateral pars interarticularis defects. A linear lucency is present through the left pedicle of L5, but without displacement. IMPRESSION: 1. Limited study secondary to inability to completely image the patient secondary to patient's inability to lie prostrate for whole-body PET image acquisition. Lower head to midneck PET images coul d only obtained, demonstrating no focal hypermetabolic disease. 2. CT imaging from head to thigh was complete, demonstrating a 1.5 cm soft tissue nodule posterior to the right thyroid lobe inferior pole, and a suggestion of a 1 cm soft tissue nodule posterior to the left thyroid lobe inferior pole. Differential diagnosis includes parathyroid adenomas versus hyperplasia. 3. Cholelithiasis. 4. Stigmata of chronic pancreatitis. 5. Possible left L5 pedicular transverse fracture, acute or subacute. Recommend pelvic CT for further evaluation. Incidental note of chronic L5 bilateral pars interarticularis defects. SL: 14 Parathyroi Parathyroid NAME: ERIN SANDRO 03/14 - d scan NM scan - [facility] : 1955 SEX: M Ordering Physician: Kory Enriquez Read by: Sandro Thomson MD Dictated Date/time: 03/14/14 14:05 Electronically Signed by: Sandro Thomson MD 03/14/14 14:08 FINAL REPORT Parathyroid scan NM : Mar 14, 2014 09:08:00 AM. CLINICAL INDICATION: 447.0 hypercalcemia. Comparison Examination: None. FINDINGS: Anterior 15 minute, 3 hour and 5 hour images were obtained of the neck and chest after intravenous administration of 25 mCi of technetium 99m sestamibi. Activity seen within the left and right thyroid lobes on the 15 minute image. There is persistent small amount of activity in the inferior right thyroid region and questionably slight increased activity in the inferior left thyroid region on both the 3 hour and 5 hour images. Findings are most consistent with a parathyroid adenoma in the inferior right thyroid region and possibly small parathyroid adenoma in the inferior left thyroid region. SL: 14 Vital Signs Vital Sign Value Date Comments Source Systolic (mm Hg) 113 02/18/2017 [facility] Diastolic (mm Hg) 102 02/18/2017 [facility] Respitory Rate 18 02/18/2017 [facility] Systolic (mm Hg) 111 02/18/2017 [facility] Diastolic (mm Hg) 81 02/18/2017 [facility] Respitory Rate 15 02/18/2017 [facility] Systolic (mm Hg) 118 02/18/2017 [facility] Diastolic (mm Hg) 71 02/18/2017 [facility] Respitory Rate 15 02/18/2017 [facility] Temperature Oral (F) 97.5 F 02/18/2017 [facility] Weight 99.545 02/18/2017 [facility] BMI Calculated 32.41 02/18/2017 [facility] Height 175.26 cm 02/17/2017 [facility] Heart Rate 69 09/06/2016 [facility] Temperature Oral (F) 97.9 F 09/06/2016 [facility] Respitory Rate 18 09/06/2016 [facility] Systolic (mm Hg) 137 09/06/2016 [facility] Diastolic (mm Hg) 81 09/06/2016 [facility] Weight 100.472 09/06/2016 [facility] Respitory Rate 20 09/06/2016 [facility] Systolic (mm Hg) 129 09/06/2016 [facility] Diastolic (mm Hg) 71 09/06/2016 [facility] Heart Rate 71 09/06/2016 [facility] Heart Rate 70 09/06/2016 [facility] Respitory Rate 20 09/06/2016 [facility] Systolic (mm Hg) 132 09/06/2016 [facility] Diastolic (mm Hg) 71 09/06/2016 [facility] Weight 105 09/03/2016 [facility] BMI Calculated 34.18 09/03/2016 [facility] Height 175.26 cm 09/03/2016 [facility] Weight 105 09/03/2016 [facility] BMI Calculated 34.18 09/03/2016 [facility] Height 175.26 cm 09/03/2016 [facility] Temperature Oral (F) 97.7 F 09/03/2016 [facility] BMI Calculated 34.18 09/01/2016 [facility] Height 175.26 cm 09/01/2016 [facility] Temperature Oral (F) 97.9 F 09/01/2016 [facility] Systolic (mm Hg) 90 01/15/2015 [facility] Diastolic (mm Hg) 48 01/15/2015 [facility] Respitory Rate 18 01/15/2015 [facility] Systolic (mm Hg) 90 01/15/2015 [facility] Diastolic (mm Hg) 51 01/15/2015 [facility] Respitory Rate 16 01/15/2015 [facility] Systolic (mm Hg) 83 01/15/2015 [facility] Diastolic (mm Hg) 50 01/15/2015 [facility] Respitory Rate 15 01/15/2015 [facility] Height 175.26 cm 01/11/2015 [facility] BMI Calculated 33 01/11/2015 [facility] Weight 101.364 01/11/2015 [facility] Diastolic (mm Hg) 87 11/01/2014 [facility] Systolic (mm Hg) 140 11/01/2014 [facility] Respitory Rate 15 11/01/2014 [facility] Diastolic (mm Hg) 87 11/01/2014 [facility] Systolic (mm Hg) 146 11/01/2014 [facility] Respitory Rate 18 11/01/2014 [facility] Respitory Rate 16 11/01/2014 [facility] Diastolic (mm Hg) 91 11/01/2014 [facility] Systolic (mm Hg) 153 11/01/2014 [facility] Height 175.26 cm 11/01/2014 [facility] Weight 101.364 11/01/2014 [facility] BMI Calculated 33 11/01/2014 [facility] Temperature Oral (F) 98.7 F 11/01/2014 [facility] Weight 101.364 10/25/2014 [facility] BMI Calculated 33 10/25/2014 [facility] Height 175.26 cm 10/25/2014 [facility] BMI Calculated 35.2 07/12/2014 [facility] Height 172.72 cm 07/12/2014 [facility] Weight 105 07/12/2014 [facility] Respitory Rate 13 07/12/2014 [facility] Systolic (mm Hg) 139 07/12/2014 [facility] Diastolic (mm Hg) 49 07/12/2014 [facility] Systolic (mm Hg) 120 07/12/2014 [facility] Diastolic (mm Hg) 49 07/12/2014 [facility] Respitory Rate 12 07/12/2014 [facility] Systolic (mm Hg) 117 07/12/2014 [facility] Diastolic (mm Hg) 73 07/12/2014 [facility] Respitory Rate 12 07/12/2014 [facility] Heart Rate 78 07/12/2014 [facility] Weight 105.455 07/03/2014 [facility] BMI Calculated 34.33 07/03/2014 [facility] Height 175.26 cm 07/03/2014 [facility] Diastolic (mm Hg) 79 03/24/2014 [facility] Heart Rate 57 03/24/2014 [facility] Temperature Oral (F) 97.9 F 03/24/2014 [facility] Respitory Rate 18 03/24/2014 [facility] Systolic (mm Hg) 129 03/24/2014 [facility] Diastolic (mm Hg) 91 03/24/2014 [facility] Temperature Oral (F) 97.7 F 03/24/2014 [facility] Heart Rate 56 03/24/2014 [facility] Systolic (mm Hg) 148 03/24/2014 [facility] Respitory Rate 18 03/24/2014 [facility] Heart Rate 56 03/24/2014 [facility] Diastolic (mm Hg) 85 03/24/2014 [facility] Systolic (mm Hg) 144 03/24/2014 [facility] Respitory Rate 18 03/24/2014 [facility] Temperature Oral (F) 97.2 F 03/24/2014 [facility] Height 175.26 cm 03/20/2014 [facility] BMI Calculated 34.33 03/20/2014 [facility] Weight 105.455 03/20/2014 [facility] Height 175.26 cm 03/20/2014 [facility] Weight 52.727 03/20/2014 [facility] BMI Calculated 17.17 03/20/2014 [facility] Encounters Location Location Encounter Encounter Reason Attending ADM DC Status Source Details Type Number For Provider Date Date Visit [facility] [id number] Kory 03/14 03/15 Yared [facility] Outpt Diag [id number] Kory 03/20 03/21 [facility] Inpatient [id number] Kory 03/22 03/25 Yared [facility] Outpt Diag [id number] Kory 05/22 05/23 [facility] Inpatient [id number] Tereso 07/12 07/13 Yared Reed /2013 [facility] Day [id number] Kory 11/01 11/01 Yared Surgery [facility] Bedded [id number] Tereso 01/15 01/15 [facility] Outpatient Derek /2014 [facility] Outpatient [id number] Kory 08/13 08/14 [facility] Outpt Diag [id number] Kory 09/01 09/02 [facility] Inpatient [id number] Kory 09/03 09/06 [place] Enriquez [facility] Bedded [id number] Kory 02/18 02/18 Yared Outpatient [facility] Procedures Procedure Code Date Perfomer Comments Source Parathyroidectomy 68628448 09/03/20 [facility] 16 AVR - Aortic valve [id number] 05/28/20 [facility] replacement 16 [facility] Implantation of [id number] 05/28/20 [facility] cardiac pacemaker 16 [facility] AVR - Aortic valve [id number] 05/28/20 [facility] 16 Implantation of [id number] 05/28/20 [facility] cardiac pacemaker 16 Total shoulder [id number] 07/12/20 [facility] replacement<sup>1</sup 14 [facility] > Total shoulder [id number] 07/12/20 [facility] replacement<sup>1</sup 14 > Fistulogram [id number] 05/31/20 [facility] 14 [facility] Fistulogram [id number] 05/31/20 [facility] 14 Parathyroidectomy [id number] 03/23/20 [facility] 14 Parathyroidectomy [id number] 03/23/20 [facility] 14 [facility] AV - Creation of [id number] 09/27/19 LEFT YLV=1438 [facility] arteriovenous 14 fistula<sup>1</sup> AV - Creation of [id number] 09/27/19 LEFT RGQ=3521 [facility] arteriovenous 14 [facility] fistula<sup>2</sup> AV - Creation of [id number] 09/27/19 LEFT KWU=8094 [facility] arteriovenous 14 fistula<sup>2</sup> CABG x 4 - Coronary [id number] 09/27/19 [facility] artery bypass grafts x 13 4 CABG x 4 - Coronary [id number] 09/27/19 [facility] artery bypass grafts x 13 [facility] 4 Miscellaneous [id number] HD CATHETER [facility] operations<sup>2</sup> INSERTIONS & REMOVALS Miscellaneous [id number] HD CATHETER [facility] operations<sup>3</sup> INSERTIONS & REMOVALS Total shoulder [id number] Jun 2014 [facility] replacement<sup>4</sup > Miscellaneous [id number] HD CATHETER [facility] operations<sup>3</sup> INSERTIONS & [facility] REMOVALS Miscellaneous [id number] Sternoplasty [facility] operations<sup>4</sup> with plate d/t [facility] Sternal Ztendwfyel=9142 Total shoulder [id number] 2013 [facility] replacement<sup>1</sup > CABG x 4 - Coronary [id number] [facility] artery bypass grafts x 4 Miscellaneous [id number] Sternoplasty [facility] operations<sup>4</sup> with plate d/t Sternal Mqhznlnmas=3221
--- OUTSIDE RECORDS SUMMARY | 2018-07-14 17:23 | XMS REPORT | Summary of Care ---
:1955 Author Encounter [facility] Encntr_lamberto(ZHANG) [id number] Date(s): 03/14/14 - 03/14/[address] Discharge Disposition: Home Physician Attending: Kory Enriquez MD Physician_Referring: Kory Enriquez MD Reason for Visit 447.0, 275.42 Problem List No data available for this section Allergies, Adverse Reactions, Alerts Substance Reaction Severity Status NKDA Active Medications No data available for this section Medications Administered During Your Visit No data available for this section Immunizations No data available for this section Social History Social History Type Response
--- OUTSIDE RECORDS SUMMARY | 2018-07-14 17:24 | XMS REPORT | Summary of Care ---
:1955 Author Encounter [facility] Leroy(ZHANG) [id number] Date(s): 11/01/14 - 11/01/[address] Discharge Disposition: Home Physician Attending: Kory Enriquez MD Physician_Referring: Kory Enriquez MD Reason for Visit LEFT ARM ANEURYSM Vital Signs Most recent to oldest 1 2 3 [Reference Range]: Height 175.26 cm 175.26 cm (11/01/14 7:36 AM) (10/25/14 9:59 AM) Temperature Oral [96.4-99.1 98.7 DegF DegF] (11/01/14 7:25 AM) Systolic Blood Pressure [90-140 140 mmHg 146 mmHg 153 mmHg mmHg] (11/01/14 10:30 AM) *HI* *HI* (11/01/14 10:15 AM) (11/01/14 10:00 AM) Diastolic Blood Pressure [60-90 87 mmHg 87 mmHg 91 mmHg mmHg] (11/01/14 10:30 AM) (11/01/14 10:15 AM) *HI* (11/01/14 10:00 AM) Respiratory Rate [14-20 BRMIN] 15 BRMIN 18 BRMIN 16 BRMIN (11/01/14 10:30 AM) (11/01/14 10:15 AM) (11/01/14 10:00 AM) Weight 101.364 kg 101.364 kg (11/01/14 7:36 AM) (10/25/14 9:59 AM) Body Mass Index 33 m2 33 m2 (11/01/14 7:36 AM) (10/25/14 9:59 AM) Problem List Condition Effective Dates Status Health Status Informant Anemia(Confirmed) Active Anxiety(Confirmed) Active CAD - Coronary artery Resolved disease(Confirmed) CVA - Cerebrovascular Resolved accident(Confirmed) Dependence on renal dialysis Active M-W-F(Confirmed) ESRD - End stage renal Active disease(Confirmed) Hyperlipidemia(Confirmed) Active Hyperparathyroidism(Confirmed) Resolved Parathyroidectomy(Confirmed) 03/22/14 Active Sleep apnea(Confirmed)1 Active 1Pt's not using his CPAP machine per pt's spouse Allergies, Adverse Reactions, Alerts Substance Reaction Severity Status cranberry Active NKDA Active Medications acetaminophen 650 mg, 2 tab, Route: PO, Drug form: TAB, Q4H, Dosing Weight 101.364, kg, PRN Pain 1-3/Temp > 100.4 F, Start date: 11/01/14 9:25:00, Duration: 30 day, Stop date: 12/01/14 9:24:00 Notes: Do not exceed 4 gm/day. (Same as: Tylenol) Start Date: 11/01/14 Stop Date: 11/01/14 Status: Discontinuedacetaminophen-codeine #3 1 tab, Route: PO, Drug Form: TAB, Dosing Weight 101.364, kg, Q4H, PRN Pain Score 4-6, Start date: 11/01/14 9:25:00, Duration: 30 day, Stop date: 12/01/14 9 :24:00 Notes: Do not exceed 4gm/day of acetaminophen. (Same as: Tylenol with Codeine # 3) Start Date: 11/01/14 Stop Date: 11/01/14 Status: Discontinuedacetaminophen-codeine #3 2 tab, Route: PO, Drug Form: TAB, Dosing Weight 101.364, kg, Q4H, PRN Pain Score 4-6, Start date: 11/01/14 9:25:00, Duration: 30 day, Stop date: 12/01/14 9 :24:00 Notes: Do not exceed 4gm/day of acetaminophen. (Same as: Tylenol with Codeine # 3) Start Date: 11/01/14 Stop Date: 11/01/14 Status: Discontinuedacetaminophen-codeine 300 mg-30 mg oral tablet 1 tab, PO, Q4H, Pain Score 4-6, # 40 tab, 0 Refill(s), given to patient Start Date: 11/01/14 Status: Orderedallopurinol 300 mg, 1 tab, Route: PO, Drug form: TAB, Daily, Dosing Weight 101.364, kg, Start date: 11/02/14 9:00:00, Duration: 30 day, Stop date: 12/01/14 9:00:00 Notes: (Same as: Zyloprim) Start Date: 11/02/14 Stop Date: 11/01/14 Status: CanceledAspirin Enteric Coated 81 mg, 1 tab, Route: PO, Drug form: ECTAB, Daily, Dosing Weight 101.364, kg, Start date: 11/02/14 9:00:00, Duration: 30 day, Stop date: 12/01/14 9:00:00 Notes: Do not crush or chew.(Same As: Ecotrin) Start Date: 11/02/14 Stop Date: 11/01/14 Status: Canceledatorvastatin 40 mg, 2 tab, Route: PO, Drug form: TAB, Bedtime, Dosing Weight 101.364, kg, Start date: 11/01/14 21:00:00, Duration: 30 day, Stop date: 11/30/14 21:00:00 Notes: (Same As: Lipitor) Start Date: 11/01/14 Stop Date: 11/01/14 Status: DiscontinuedBD Normal Saline Flush 10 mL, Route: IVP, Drug Form: INJ, PRN, PRN Line Flush, Start date: 11/01/14 11: 03:00, Duration: 30 day, Stop date: 12/01/14 11:02:00 Notes: (Same as: BD Posiflush) Start Date: 11/01/14 Stop Date: 11/01/14 Status: Discontinuedflumazenil 0.2 mg, 2 mL, Route: IVP, Drug form: INJ, PRN, Dosing Weight 101.364, kg, PRN Benzodiazepine Reversal, Initial dose, Start date: 11/01/14 9:20:00, Duration: 30 day, Stop date: 12/01/14 9:19:00 Notes: (Same as: Romazicon) Start Date: 11/01/14 Stop Date: 11/01/14 Status: DiscontinuedhydrALAZINE 10 mg, 0.5 mL, Route: IVP, Drug form: INJ, Q20Min, Dosing Weight 101.364, kg, PRN Elevated BP, Startdate: 11/01/14 9:20:00, Duration: 2 doses or times, Stop date: Limited # of times Notes: (Same as: Apresoline)Push over 5 minutes Start Date: 11/01/14 Stop Date: 11/01/14 Status: Discontinuedlabetalol 10 mg, 2 mL, Route: IVP, Drug form: INJ, Q5Min, Dosing Weight 101.364, kg, PRN Elevated BP, Start date: 11/01/14 9:20:00, Duration: 5 doses or times, Stop date : Limited # of times Start Date: 11/01/14 Stop Date: 11/01/14 Status: Discontinuedmeperidine 12.5 mg, 0.25 mL, Route: IVP, Drug form: INJ, Q30Min, Dosing Weight 101.364, kg , PRN Other -See Comment, For shivering, Start date: 11/01/14 9:20:00, Duration : 2 doses or times, Stop date: Limited # oftimes Notes: (Same As: Demerol) Start Date: 11/01/14 Stop Date: 11/01/14 Status: Discontinuedmorphine Sulfate 2 mg, 1 mL, Route: IVP, Drug form: INJ, Q5Min, Dosing Weight 101.364, kg, PRN Pain Score 4-6, Start date: 11/01/14 9:20:00, Duration: 5 doses or times, Stop date: Limited # of times Notes: (Same as:MORPhine Sulfate) Start Date: 11/01/14 Stop Date: 11/01/14 Status: Discontinuednaloxone 0.04 mg, 0.1 mL, Route: IVP, Drug form: INJ, Q2MIN, Dosing Weight 101.364, kg, PRN Narcotic Reversal, Start date: 11/01/14 9:20:00, Duration: 8 doses or times , Stop date: Limited # of times Notes: Same as Narcan Start Date: 11/01/14 Stop Date: 11/01/14 Status: DiscontinuedNephro-Dominick 1 tab, Route: PO, Drug Form: TAB, Dosing Weight 101.364, kg, Daily, Start date: 11/02/14 9:00:00, Duration: 30 day, Stop date: 12/01/14 9:00:00 Notes: (Same as: Nephro-Dominick Rx and Diatx) Give with food. Start Date: 11/02/14 Stop Date: 11/01/14 Status: Canceledondansetron 4 mg, 2 mL, Route: IVP, Drug form: INJ, ONCE, Dosing Weight 101.364, kg, PRN Nausea & Vomiting, Start date: 11/01/14 9:20:00 Notes: (Same as: Zofran) Start Date: 11/01/14 Stop Date: 11/01/14 Status: CompletedRenvela 3,200 mg, 4 tab, Route: PO, Drug form: TAB, TID, Dosing Weight 101.364, kg, Start date: 11/01/14 13:00:00, Duration: 30 day, Stop date: 12/01/14 9:00:00 Notes: Same as: Renvela Start Date: 11/01/14 Stop Date: 11/01/14 Status: DiscontinuedRestoril 15 mg, 1 cap, Route: PO, Drug form: CAP, Bedtime, Dosing Weight 105, kg, PRN Sleep, Start date: 11/01/14 6:07:00, Duration: 30 day, Stop date: 12/01/14 6:06: 00 Notes: (Same As: Restoril) Start Date: 11/01/14 Stop Date: 11/01/14 Status: DiscontinuedSodium Chloride 0.9% IV 250 mL, Route: IVPB, Start date: 11/01/14 11:03:00, Duration: 30 day, Stop date : 12/01/14 11:02:00, PRN Line Flush Start Date: 11/01/14 Stop Date: 11/01/14 Status: Discontinuedvancomycin 1,500 mg, 250 mL, Route: IVPB, Drug form: INJ, ONCALL, Dosing Weight 105, kg, Start date: 11/01/14 7:00:00, Duration: 30 day, Stop date: 12/01/14 6:59:00 Notes: Same as: Vancocin-NS (premixed)Infusion rate< 1000 mg: infuse over 1 [id number] - 1500 mg: infuse over 1.5 [id number] - 2000 mg: infuse over 2 hours> 2001 mg: infuse over 2.5 hours Start Date: 11/01/14 Stop Date: 11/01/14 Status: DiscontinuedZofran 4 mg, 2 mL, Route: IV, Drug form: INJ, Q6H, Dosing Weight 101.364, kg, PRN Nausea, Start date: 11/01/14 9:25:00, Duration: 30 day, Stop date: 12/01/14 9:24 :00 Notes: (Same as: Zofran) Start Date: 11/01/14 Stop Date: 11/01/14 Status: Discontinued Results ELECTROLYTES Most recent to oldest [Reference Range]: 1 POC Sodium [135-145 mEq/L] 141 mEq/L (11/01/14 7:06 AM) POC Potassium [3.5-5.1 mEq/L] 3.6 mEq/L (11/01/14 7:06 AM) CHEM PANEL Most recent to oldest [Reference Range]: 1 POC Glucose [70-99 mg/dL] 80 mg/dL (11/01/14 7:06 AM) HEMATOLOGY Most recent to oldest [Reference Range]: 1 POC Hemoglobin [14.0-18.0 g/dL] 12.2 g/dL *LOW* (11/01/14 7:06 AM) POC Hematocrit [42.0-54.0 %] 36.0 % *LOW* (11/01/14 7:06 AM) Medications Administered During Your Visit No data available for this section Immunizations No data available for this section Procedures Procedure Type Body Site Date of Procedure Related Diagnosis Total shoulder replacement1 2013 Social History Social History Type Response Substance Abuse Use: None Exercise Exercise type: Walking Alcohol Use: Never Smoking Status Smoker, current status unknown, Previous treatment: Counseling, Exposure to Tobacco Smoke None, Cigarette Smoking Last 365 Days No, Reg Smoking Cessation Counseling Yes
--- OUTSIDE RECORDS SUMMARY | 2018-07-14 17:24 | XMS REPORT | Summary of Care ---
:1955 Author Encounter HQ Encntr_lamberto(FIN) [id number] Date(s): 03/20/14 - 03/20/14 [facility] Outpatient Imaging [address] Discharge Disposition: Home Physician Attending: Kory Enriquez MD Reason for Visit 786.2 - COUGH Problem List Condition Effective Dates Status Health Status Informant Anxiety(Confirmed) Resolved ESRD - End stage renal Resolved disease(Confirmed) Hypertension(Confirmed) Resolved Hypothyroid(Confirmed) Resolved Parathyroidectomy(Confirmed) 03/22/14 Active Sleep apnea(Confirmed) Resolved Allergies, Adverse Reactions, Alerts Substance Reaction Severity Status cranberry Active NKDA Active Medications No data available for this section Medications Administered During Your Visit No data available for this section Immunizations No data available for this section Social History Social History Type Response
--- OUTSIDE RECORDS SUMMARY | 2018-07-14 17:24 | XMS REPORT | Summary of Care ---
:1955 Author Organization [facility] Address [facility] [place], [place] [address]- Encounter [facility] [email or web address](FIN) [id number] Date(s): 08/13/16 - 08/13/[address] [address]- Discharge Disposition: Home or Self Care Attending Physician: Kory Enriquez MD Referring Physician: Kory Enriquez MD Vital Signs No data available for this section Problem List Condition Effective Dates Status Health [...] Severity Status cranberry Active NKDA Active Medications Omnipaque 300 injectable solution 100 mL, Route: IVP, Drug Form: SOLN, Dosing Weight 101.364, kg, ONCALL, ESRD on Dialysis, STAT, Start date: 08/13/16 11:13:00 PAYMENT ANALYST, Duration: 1 doses or times Notes: (Same as:Omnipaque 300).WASTE: F/P - Black; E - Municipal Trash Bin Start Date: 08/13/16 Status: Ordered Results CHEM PANEL Most recent to oldest [Reference Range]: 1 eGFR 5 mL/min/1.73m2 1 *NA* (08/13/16 10:29 AM) POC Creatinine [0.5-1.4 mg/dL] 9.8 mg/dL *HI* (08/13/16 10:29 AM) 1Result Comment: The eGFR is calculated using the CKD-EPI formula. In most young , healthy individualsthe eGFR will be >90 mL/min/1.73m2. The eGFR declines with age. An eGFR of 60-89 may be normal in some populations, particularly the elderly, for whom the CKD-EPI formula has not been extensively validated. Use of the eGFR is not recommended in the following populations: Individuals with unstable creatinine concentrations, including patients and those with serious co-morbid conditions. Patients with extremes in muscle mass or diet. The data above are obtained from the National Kidney Disease Education Program ( NKDEP) which additionally recommends that when the eGFR is used in patients with extremes of body mass index for purposesof drug dosing, the eGFR should be multiplied by the estimated BMI. Immunizations No data available for this section Procedures Procedure Date Related Diagnosis Body Site Parathyroidectomy 03/23/14 AV - Creation of arteriovenous fistula1 2013 CABG x 4 - Coronary artery bypass grafts x 4 2013 Miscellaneous operations2 Miscellaneous operations3 Total shoulder replacement4 1LEFT [id number] CATHETER INSERTIONS & [id number] with plate d/ t Sternal [id number] 2014 Social History Social History Type Response Substance Abuse Use: None. Exercise Exercise type: Walking. Alcohol Never Smoking Status Smoker, current status unknown; Previous treatment: Counseling; Exposure to Tobacco Smoke None; Other Tobacco Frequency PT SPOUSE STATED, PT DIP ONLY; Cigarette Smoking Last 365 Days No; Reg Smoking Cessation Counseling Yes Assessment and Plan No data available for this section
--- OUTSIDE RECORDS SUMMARY | 2018-07-14 17:24 | XMS REPORT | Summary of Care ---
:1955 Author Encounter HQ Lenr_lamberto(FIN) [id number] Date(s): 05/22/14 - 05/22/14 [facility] Outpatient Imaging [address] Discharge Disposition: Home Physician Attending: Kory Enriquez MD Reason for Visit 109.41 - JOINT PAIN-SHLD Problem List Condition Effective Dates Status Health [...] section Social History Social History Type Response Smoking Status Former smoker, Exposure to Tobacco Smoke None, Cigarette Smoking Last 365 Days No, Reg Smoking Cessation Counseling Yes
--- OUTSIDE RECORDS SUMMARY | 2018-07-14 17:24 | XMS REPORT | Summary of Care ---
:1955 Author Encounter HQ Jaylyn_lamberto(ZHANG) [id number] Date(s): 03/22/14 - 03/24/[address] Discharge Disposition: Home Physician Attending: Kory Enriquez MD Physician Admitting: Kory Enriquez MD Physician_Referring: Kory Enriquez MD Reason for Visit HYPERPARATHYROIDISM Vital Signs Most recent to oldest 1 2 3 [Reference Range]: Height 175.26 cm 175.26 cm (03/20/14 2:32 PM) (03/20/14 2:26 PM) Current Weight 103.909 kg 99.9 kg 102.9 kg (03/24/14 5:04 AM) (03/23/14 10:47 AM) (03/23/14 8:07 AM) Temperature Oral [96.4-99.1 97.9 DegF 97.7 DegF 97.2 DegF DegF] (03/24/14 4:00 PM) (03/24/14 11:49 AM) (03/24/14 8:00 AM) Systolic Blood Pressure 129 mmHg 148 mmHg 144 mmHg [90-140 mmHg] (03/24/14 4:00 PM) *HI* *HI* (03/24/14 11:49 AM) (03/24/14 8:00 AM) Diastolic Blood Pressure 79 mmHg 91 mmHg 85 mmHg [60-90 mmHg] (03/24/14 4:00 PM) *HI* (03/24/14 8:00 AM) (03/24/14 11:49 AM) Respiratory Rate [14-20 BRMIN] 18 BRMIN 18 BRMIN 18 BRMIN (03/24/14 4:00 PM) (03/24/14 11:49 AM) (03/24/14 8:00 AM) Peripheral Pulse Rate [60-100 57 bpm 56 bpm 56 bpm bpm] *LOW* *LOW* *LOW* (03/24/14 4:00 PM) (03/24/14 11:49 AM) (03/24/14 8:00 AM) Weight 105.455 kg 52.727 kg (03/20/14 2:32 PM) (03/20/14 2:26 PM) Body Mass Index 34.33 m2 17.17 m2 (03/20/14 2:32 PM) (03/20/14 2:26 PM) Problem List Condition Effective Dates Status Health Status Informant Anxiety(Confirmed) Resolved ESRD - End stage renal Resolved disease(Confirmed) Hypertension(Confirmed) Resolved Hypothyroid(Confirmed) Resolved Parathyroidectomy(Confirmed) 03/22/14 Active Sleep apnea(Confirmed) Resolved Allergies, Adverse Reactions, Alerts Substance Reaction Severity Status cranberry Active NKDA Active Medications acetaminophen 650 mg, 2 tab, Route: PO, Drug form: TAB, Q4H, Dosing Weight 105.455, kg, PRN Pain 1-3/Temp > 100.4 F, Start date: 03/22/14 14:10:00, Duration: 30 day, Stop date: 04/21/14 14:09:00 Notes: Do not exceed 4 gm/day. (Same as: Tylenol) Start Date: 03/22/14 Stop Date: 03/24/14 Status: Discontinuedacetaminophen-hydrocodone 325 mg-10 mg oral tablet 1 tab, Route: PO, Drug Form: TAB, Dosing Weight 105.455, kg, Q4H, PRN Pain Score 4-6, Start date: 03/22/14 14:10:00, Duration: 30 day, Stop date: 04/21/14 14:09:00 Notes: Do not exceed 4gm/day of acetaminophen. (Same as: Martinez 325/10) Start Date: 03/22/14 Stop Date: 03/24/14 Status: Discontinuedacetaminophen-hydrocodone 325 mg-5 mg oral tablet 1 tab, Route: PO, Drug Form: TAB, Dosing Weight 105.455, kg, Q4H, PRN Pain Score 4-6, Start date: 03/22/14 14:10:00, Duration: 30 day, Stop date: 04/21/14 14:09:00 Notes: (Same as: Martinez 325/5) Do not exceed 4gm/day of acetaminophen. Start Date: 03/22/14 Stop Date: 03/24/14 Status: Discontinuedallopurinol 300 mg, 1 tab, Route: PO, Drug form: TAB, Daily, Dosing Weight 105.455, kg, Start date: 03/23/14 9:00:00, Duration: 30 day, Stop date: 04/21/14 9:00:00 Notes: (Same as: Zyloprim) Start Date: 03/23/14 Stop Date: 03/24/14 Status: Discontinuedallopurinol 300 mg oral tablet 300 mg=1 tab, PO, Daily, 0 Refill(s) Start Date: 03/20/14 Status: OrderedALPRAZOLam 0.25 mg, 1 tab, Route: PO, Drug form: TAB, During Dialysis, Dosing Weight 105.455, kg, PRN as neededfor anxiety, Start date: 03/22/14 10:15:00, Duration: 30 day, Stop date: 04/21/14 10:14:00 Notes: With food or milk(Same as: Xanax) Start Date: 03/22/14 Stop Date: 03/24/14 Status: DiscontinuedALPRAZOLam 0.25 mg, PO, During Dialysis, 0 Refill(s) Start Date: 03/20/14 Status: Orderedaspirin 81 mg, 1 tab, Route: PO, Drug form: ECTAB, Daily, Dosing Weight 105.455, kg, Start date: 03/23/14 9:00:00, Duration: 30 day, Stop date: 04/21/14 9:00:00 Notes: Do not crush or chew.(Same As: Ecotrin) Start Date: 03/23/14 Stop Date: 03/24/14 Status: DiscontinuedAspirin Enteric Coated 81 mg oral delayed release tablet Daily, 0 Refill(s) Start Date: 03/20/14 Status: Orderedatenolol 100 mg oral tablet 100 mg=1 tab, PO, Daily, 0 Refill(s) Start Date: 03/20/14 Status: Orderedatenolol 100 mg oral tablet 100 mg, 1 tab, Route: PO, Drug form: TAB, Daily, Dosing Weight 105.455, kg, Start date: 03/23/14 9:00:00, Duration: 30 day, Stop date: 04/21/14 9:00:00 Notes: (Same As:Tenormin) Start Date: 03/23/14 Stop Date: 03/24/14 Status: Discontinuedatorvastatin 40 mg, 2 tab, Route: PO, Drug form: TAB, Bedtime, Dosing Weight 105.455, kg, Start date: 03/22/14 21:00:00, Duration: 30 day, Stop date: 04/20/14 21:00:00 Notes: (Same As: Lipitor) Start Date: 03/22/14 Stop Date: 03/24/14 Status: Discontinuedatorvastatin 40 mg oral tablet 40 mg=1 tab, PO, Bedtime, 0 Refill(s) Start Date: 03/20/14 Status: OrderedBD Normal Saline Flush 10 mL, Route: IVP, Drug Form: INJ, PRN, PRN Line Flush, Start date: 03/23/14 16: 23:00, Duration: 30 day, Stop date: 04/22/14 16:22:00 Notes: (Same as: BD Posiflush) Start Date: 03/23/14 Stop Date: 03/24/14 Status: Discontinuedcalcium gluconate + Sodium Chloride 0.9% IV 100 mL 2,500 mg, 25 mL, Route: IV, ONCE, Start date: 03/23/14 22:00:00, Stop date: 22:00:00 Start Date: 03/23/14 Stop Date: 03/23/14 Status: Completedcalcium gluconate + Sodium Chloride 0.9% IV 100 mL 2,000 mg, 20 mL, Route: IV, ONCE, Start date: 03/23/14 5:55:00, Stop date: 03/23 5:55:00 Start Date: 03/23/14 Stop Date: 03/23/14 Status: Completedcalcium gluconate + Sodium Chloride 0.9% IV 100 mL 2,000 mg, 20 mL, Route: IV, ONCE, Start date: 03/24/14 14:25:00, Stop date: 14:25:00 Start Date: 03/24/14 Stop Date: 03/24/14 Status: Completedcalcium gluconate + Sodium Chloride 0.9% IV 100 mL 2,000 mg, 20 mL, Route: IV, ONCE, Start date: 03/23/14 0:10:00, Stop date: 03/23 0:10:00 Start Date: 03/23/14 Stop Date: 03/23/14 Status: Completedcalcium-vitamin D 1 tab, Route: PO, Drug Form: TAB, TID, Start date: 03/24/14 17:00:00, Duration: 30 day, Stop date: 04/23/14 13:00:00 Notes: (Same As: Caltrate 600 with D) Start Date: 03/24/14 Stop Date: 03/24/14 Status: Discontinuedcefuroxime + Sodium Chloride 0.9% IV 100 mL 1.5 gm, Route: IVPB, ONCALL, Dosing Weight 116.364, kg, Start date: 03/20/14 15: 00:00, Duration: 30 day, Stop date: 04/19/14 14:59:00 Notes: (Same As: Kefurox, Zinacef) Start Date: 03/20/14 Stop Date: 03/24/14 Status: DiscontinuedDextrose 50% Syringe 25 gm, 50 mL, Route: IVP, Drug Form: INJ, Dosing Weight 105.455, kg, PRN, PRN Blood Glucose Results,Start date: 03/22/14 14:12:00, Duration: 30 day, Stop date : 04/21/14 14:11:00 Start Date: 03/22/14 Stop Date: 03/24/14 Status: DiscontinuedDextrose 50% Syringe 12.5 gm, 25 mL, Route: IVP, Drug Form: INJ, Dosing Weight 105.455, kg, PRN, PRN Blood Glucose Results, Start date: 03/22/14 14:12:00, Duration: 30 day, Stop date: 04/21/14 14:11:00 Start Date: 03/22/14 Stop Date: 03/24/14 Status: Discontinueddocusate sodium 100 mg oral capsule 100 mg, 1 cap, Route: PO, Drug form: CAP, BID, Dosing Weight 105.455, kg, Start date: 03/22/14 17:00:00, Duration: 30 day, Stop date: 04/21/14 9:00:00 Notes: (Same as: Colace) (Do Not Crush) Start Date: 03/22/14 Stop Date: 03/24/14 Status: DiscontinuedDulcolax Laxative 5 mg, 1 tab, Route: PO, Drug form: ECTAB, Q24H, Dosing Weight 105.455, kg, PRN Constipation, Start date: 03/22/14 14:10:00, Duration: 30 day, Stop date: 14:09:00 Notes: (Same As: Dulcolax, Correctol) (Do Not Crush) "Do Not Crush" Start Date: 03/22/14 Stop Date: 03/24/14 Status: DiscontinuedfentaNYL 25 microgram, 0.5 mL, Route: IVP, Drug form: INJ, Q5Min, Dosing Weight 105.455, kg, PRN Pain Score 4-6, Start date: 03/22/14 14:08:00, Duration: 4 doses or times, Stop date: Limited # of times Notes: (Same as: Sublimaze) Preservative free. Start Date: 03/22/14 Stop Date: 03/22/14 Status: Completedflumazenil 0.2 mg, 2 mL, Route: IVP, Drug form: INJ, PRN, Dosing Weight 105.455, kg, PRN Benzodiazepine Reversal, Initial dose, Start date: 03/22/14 14:08:00, Duration: 30 day, Stop date: 04/21/14 14:07:00 Notes: (Same as: Romazicon) Start Date: 03/22/14 Stop Date: 03/22/14 Status: DiscontinuedFosrenol 2 TABS, PO, BID, 0 Refill(s) Start Date: 03/20/14 Status: OrderedFosrenol Route: PO, Drug form: CAP, BID, Dosing Weight 105.455, kg, Start date: 03/22/14 17:00:00, Duration: 30 day, Stop date: 04/21/14 9:00:00 Start Date: 03/22/14 Stop Date: 03/22/14 Status: Deletedglucagon 1 mg, Route: IM, Drug form: PDR/INJ, PRN, Dosing Weight 105.455, kg, PRN Blood Glucose Results, Start date: 03/22/14 14:12:00, Duration: 30 day, Stop date: 14:11:00 Start Date: 03/22/14 Stop Date: 03/24/14 Status: DiscontinuedHectorol 4 microgram, 8 cap, Route: PO, Drug form: CAP, Q-M-W-F, Start date: 03/23/14 20: 00:00, Duration: 30 day, Stop date: 04/20/14 20:00:00 Notes: Non-Formulary Drug. (Same as: Hectorol) Start Date: 03/23/14 Stop Date: 03/24/14 Status: DiscontinuedHectorol 4 microgram, Route: IVP, 3x/Wk, Dosing Weight 105.455, kg, Start date: 03/23/14 16:07:00, Duration: 30 day, Stop date: 04/22/14 16:06:00 Start Date: 03/23/14 Stop Date: 03/23/14 Status: DiscontinuedHectorol 1 mcg oral capsule See Instructions, 4 cap PO wed, wed, wed, # 30 caplet, 2 Refill(s) Special Instructions: 4 cap PO wed, wed, wed Start Date: 03/24/14 Status: OrderedhydrALAZINE 10 mg, 0.5 mL, Route: IVP, Drug form: INJ, Q20Min, Dosing Weight 105.455, kg, PRN Elevated BP, Startdate: 03/22/14 14:08:00, Duration: 2 doses or times, Stop date: Limited # of times Notes: (Same as: Apresoline)Push over 5 minutes Start Date: 03/22/14 Stop Date: 03/22/14 Status: DiscontinuedHYDROcodone-ibuprofen 5 mg-200 mg oral tablet 10/325MG, PO, PRN, for pain, 0 Refill(s) Start Date: 03/20/14 Status: Orderedindomethacin 50 mg, 1 cap, Route: PO, Drug form: CAP, TID-Meals, Dosing Weight 105.455, kg, Start date: 03/22/14 12:00:00, Duration: 30 day, Stop date: 04/21/14 8:00:00 Notes: (Same as: Indocin) Take with food Start Date: 03/22/14 Stop Date: 03/24/14 Status: Discontinuedindomethacin 50 mg oral capsule 50 mg=1 cap, TID-Meals, 0 Refill(s) Start Date: 03/20/14 Status: Orderedinsulin aspart 5 unit, 0.05 mL, Route: SUB-Q, Drug form: SOLN, TID-Before Meals, Dosing Weight 105.455, kg, PRN Blood Glucose Results, Start date: 03/22/14 14:12:00, Duration : 30 day, Stop date: 04/21/14 14:11:00 Notes: Roll in palms of hands gently; Do not shake vigorously. (Same as: NovoLOG)"single patient use only" Stable for 28 days at room temperature.Expires in days from Date Start Date: 03/22/14 Stop Date: 03/24/14 Status: Discontinuedinsulin aspart 4 unit, 0.04 mL, Route: SUB-Q, Drug form: SOLN, TID-Before Meals, Dosing Weight 105.455, kg, PRN Blood Glucose Results, Start date: 03/22/14 14:12:00, Duration : 30 day, Stop date: 04/21/14 14:11:00 Notes: Roll in palms of hands gently; Do not shake vigorously. (Same as: NovoLOG)"single patient use only" Stable for 28 days at room temperature.Expires in days from Date Start Date: 03/22/14 Stop Date: 03/24/14 Status: Discontinuedinsulin aspart 3 unit, 0.03 mL, Route: SUB-Q, Drug form: SOLN, TID-Before Meals, Dosing Weight 105.455, kg, PRN Blood Glucose Results, Start date: 03/22/14 14:12:00, Duration : 30 day, Stop date: 04/21/14 14:11:00 Notes: Roll in palms of hands gently; Do not shake vigorously. (Same as: NovoLOG)"single patient use only" Stable for 28 days at room temperature.Expires in days from Date Start Date: 03/22/14 Stop Date: 03/24/14 Status: Discontinuedinsulin aspart 1 unit, 0.01 mL, Route: SUB-Q, Drug form: SOLN, TID-Before Meals, Dosing Weight 105.455, kg, PRN Blood Glucose Results, Start date: 03/22/14 14:12:00, Duration : 30 day, Stop date: 04/21/14 14:11:00 Notes: Roll in palms of hands gently; Do not shake vigorously. (Same as: NovoLOG)"single patient use only" Stable for 28 days at room temperature.Expires in days from Date Start Date: 03/22/14 Stop Date: 03/24/14 Status: Discontinuedinsulin aspart 2 unit, 0.02 mL, Route: SUB-Q, Drug form: SOLN, TID-Before Meals, Dosing Weight 105.455, kg, PRN Blood Glucose Results, Start date: 03/22/14 14:12:00, Duration : 30 day, Stop date: 04/21/14 14:11:00 Notes: Roll in palms of hands gently; Do not shake vigorously. (Same as: NovoLOG)"single patient use only" Stable for 28 days at room temperature.Expires in days from Date Start Date: 03/22/14 Stop Date: 03/24/14 Status: Discontinuedlabetalol 10 mg, 2 mL, Route: IVP, Drug form: INJ, Q5Min, Dosing Weight 105.455, kg, PRN Elevated BP, Start date: 03/22/14 14:08:00, Duration: 5 doses or times, Stop date: Limited # of times Start Date: 03/22/14 Stop Date: 03/22/14 Status: Discontinuedmagnesium sulfate + Sodium Chloride 0.9% IV 100 mL 1 gm, 2 mL, Route: IVPB, ONCE, Start date: 03/23/14 22:00:00, Stop date: 22:00:00 Notes: (Same as: MgSO4) Start Date: 03/23/14 Stop Date: 03/23/14 Status: Completedmagnesium sulfate 2gm / NS 50ml (premixed) 4 gm, 100 mL, Route: IVPB, Drug form: INJ, ONCE, Dosing Weight 105.455, kg, Start date: 03/22/14 22:15:00, Duration: 2 hr, Stop date: 03/22/14 22:15:00 Start Date: 03/22/14 Stop Date: 03/22/14 Status: Completedmetoclopramide 10 mg, 2 mL, Route: IVP, Drug form: INJ, Q6H, Dosing Weight 105.455, kg, PRN Nausea & Vomiting, Start date: 03/22/14 14:08:00, Duration: 30 day, Stop date: 04/21/14 14:07:00 Notes: (Same as: Reglan) Start Date: 03/22/14 Stop Date: 03/22/14 Status: Discontinuedmorphine Sulfate 2 mg, Route: IVP, ONCE, Dosing Weight 105.455, kg, Start date: 03/22/14 15:33:00 , Stop date: 03/22/14 15:33:00 Start Date: 03/22/14 Stop Date: 03/22/14 Status: Completedmorphine Sulfate 2 mg, Route: IVP, ONCE, Dosing Weight 105.455, kg, Start date: 03/22/14 15:47:00 , Stop date: 03/22/14 15:47:00 Start Date: 03/22/14 Stop Date: 03/22/14 Status: Completednaloxone 0.04 mg, 0.1 mL, Route: IVP, Drug form: INJ, Q2MIN, Dosing Weight 105.455, kg, PRN Narcotic Reversal, Start date: 03/22/14 14:08:00, Duration: 8 doses or times , Stop date: Limited # of times Notes: (Same as: Narcan) Start Date: 03/22/14 Stop Date: 03/22/14 Status: DiscontinuedNephro-Dominick 1 tab, Daily, 0 Refill(s) Start Date: 03/20/14 Status: Orderednicotine 21 mg, 1 patch, Route: TOP, Drug form: ERFILM, Daily, Dosing Weight 105.455, kg , Start date: 03/22/14 16:00:00, Duration: 30 day, Stop date: 04/21/14 9:00:00 Notes: (Same as: Habitrol)"Remove old patch before application of new patch" Start Date: 03/22/14 Stop Date: 03/24/14 Status: Discontinuedondansetron 4 mg, 2 mL, Route: IVP, Drug form: INJ, Q6H, Dosing Weight 105.455, kg, PRN Nausea & Vomiting, Start date: 03/22/14 14:10:00, Duration: 30 day, Stop date: 04/21/14 14:09:00 Notes: (Same as: Zofran) Start Date: 03/22/14 Stop Date: 03/24/14 Status: Discontinuedondansetron 4 mg, Route: IVP, ONCE, Dosing Weight 105.455, kg, PRN Nausea & Vomiting, Start date: 03/22/14 14:08:00 Start Date: 03/22/14 Stop Date: 03/22/14 Status: Completedpantoprazole 40 mg, 1 tab, Route: PO, Drug form: ECTAB, Daily, Dosing Weight 105.455, kg, Start date: 03/23/14 9:00:00, Duration: 30 day, Stop date: 04/21/14 9:00:00 Notes: Tablet should not be chewed or crushed.(Same as: Protonix) Start Date: 03/23/14 Stop Date: 03/24/14 Status: DiscontinuedProAir HFA 90 mcg/inh inhalation aerosol with adapter 90 microgram, Route: INHALATION, Drug Form: AERO/A, Dosing Weight 105.455, kg, PRN, PRN as needed for wheezing, Start date: 03/22/14 10:15:00, Duration: 30 day , Stop date: 04/21/14 10:14:00 Notes: Albuterol 90 microgram/inh 8gm HFA Same as: Ventolin, Proventil Start Date: 03/22/14 Stop Date: 03/24/14 Status: DiscontinuedProAir HFA 90 mcg/inh inhalation aerosol with adapter 1 puff, INHALATION, PRN, for wheezing, # 9 gm, 0 Refill(s) Start Date: 03/20/14 Status: OrderedRenvela 1,600 mg, 2 tab, Route: PO, Drug form: TAB, TID-Meals, Start date: 03/23/14 8:00 :00, Duration: 30 day, Stop date: 04/21/14 17:00:00 Notes: Same as: Renvela Start Date: 03/23/14 Stop Date: 03/24/14 Status: DiscontinuedRenvela 800 mg oral tablet 1,600 mg=2 tab, PO, TID, # 180 tab, 0 Refill(s), given to patient Start Date: 03/24/14 Status: OrderedRestoril 15 mg, 1 cap, Route: PO, Drug form: CAP, Bedtime, Dosing Weight 116.364, kg, PRN Sleep, Start date: 03/20/14 14:26:00, Duration: 30 day, Stop date: 04/19/14 14:25:00 Notes: (Same As: Restoril) Start Date: 03/20/14 Stop Date: 03/24/14 Status: DiscontinuedReZyst IM oral tablet, chewable 1 tab, CHEW, Daily, # 30 tab, 0 Refill(s) Start Date: 03/20/14 Status: OrderedSaline Flush 0.9% 5 ml, Route: IVP, Drug Form: INJ, Dosing Weight 105.455, kg, PRN, PRN Line Flush , Start date: 03/22/14 14:10:00, Duration: 30 day, Stop date: 04/21/14 14:09:00 Notes: (Same as: BD Posiflush) Start Date: 03/22/14 Stop Date: 03/23/14 Status: Discontinuedsenna oral tablet 2 tab, Bedtime, 0 Refill(s) Start Date: 03/20/14 Status: OrderedSensipar 90 mg oral tablet 90 mg=1 tab, PO, After Dinner, 0 Refill(s) Start Date: 03/20/14 Stop Date: 03/24/14 Status: DiscontinuedSodium Chloride 0.9% IV 250 mL, Route: IVPB, Start date: 03/23/14 16:24:00, Duration: 30 day, Stop date : 04/22/14 16:23:00, PRN Line Flush Start Date: 03/23/14 Stop Date: 03/24/14 Status: Discontinuedtemazepam 7.5 mg, 1 cap, Route: PO, Drug form: CAP, Bedtime, Dosing Weight 105.455, kg, PRN Insomnia, Start date: 03/22/14 14:10:00, Duration: 30 day, Stop date: 14:09:00 Notes: (Same As: Restoril) Start Date: 03/22/14 Stop Date: 03/24/14 Status: Discontinuedtramadol 50 mg, PO, Q4-6H, Pain, # 20 tab, 0 Refill(s) Start Date: 03/20/14 Stop Date: 03/24/14 Status: Orderedtramadol 50 mg, 1 tab, Route: PO, Drug form: TAB, Bedtime, Dosing Weight 105.455, kg, PRN as needed for pain,Start date: 03/22/14 10:18:00, Duration: 30 day, Stop date: 04/21/14 10:17:00 Notes: Not to exceed 400mg/day. (Same As: Ultram) Start Date: 03/22/14 Stop Date: 03/24/14 Status: Discontinuedtramadol 50 mg oral tablet 50 mg=1 tab, PRN, 0 Refill(s) Start Date: 03/20/14 Stop Date: 03/24/14 Status: DiscontinuedXanax 0.25 mg oral tablet 0.25 mg, 1 tab, Route: PO, Drug form: TAB, ONCE, Dosing Weight 105.455, kg, Start date: 03/22/14 16:08:00, Stop date: 03/22/14 16:08:00 Notes: With food or milk(Same as: Xanax) Start Date: 03/22/14 Stop Date: 03/22/14 Status: CompletedZinacef 1.5 gm, Route: IVPB, [id number], Dosing Weight 105.455, kg, Start date: 03/22/14 15: 00:00, Duration: 1 day, Stop date: 03/23/14 7:00:00 Start Date: 03/22/14 Stop Date: 03/22/14 Status: DeletedZinacef + Sodium Chloride 0.9% IV 100 mL 1.5 gm, Route: IVPB, ONCE, Start date: 03/23/14 0:00:00, Stop date: 03/23/14 0: 00:00 Notes: (Same As: Kefurox, Zinacef) Start Date: 03/23/14 Stop Date: 03/23/14 Status: Completed Results BLOOD BANK RESULTS Most recent to oldest [Reference Range]: 1 2 3 ABO/Rh A NEG *Unknown* (03/20/14 3:10 PM) Antibody Scrn Negative (03/20/14 3:10 PM) RBC product Product available (03/20/14 2:26 PM) ELECTROLYTES Most recent to oldest 1 2 3 [Reference Range]: Sodium Lvl [135-145 mEq/L] 134 mEq/L 135 mEq/L 137 mEq/L *LOW* (03/23/14 6:15 PM) (03/23/14 7:05 AM) (03/24/14 9:45 AM) Potassium Lvl [3.5-5.1 4.9 mEq/L 4.6 mEq/L 4.5 mEq/L mEq/L] (03/24/14 9:45 AM) (03/23/14 6:15 PM) (03/23/14 7:05 AM) Chloride Lvl [95-109 mEq/L] 98 mEq/L 97 mEq/L 100 mEq/L (03/24/14 9:45 AM) (03/23/14 6:15 PM) (03/23/14 7:05 AM) CO2 [24-32 mEq/L] 26 mEq/L 27 mEq/L 20 mEq/L (03/24/14 9:45 AM) (03/23/14 6:15 PM) *LOW* (03/23/14 7:05 AM) AGAP [10.0-20.0 mEq/L] 14.9 mEq/L 15.6 mEq/L 21.5 mEq/L (03/24/14 9:45 AM) (03/23/14 6:15 PM) *HI* (03/23/14 7:05 AM) POC Sodium [135-145 mEq/L] 138 mEq/L (03/22/14 9:11 AM) POC Potassium [3.5-5.1 4.2 mEq/L mEq/L] (03/22/14 9:11 AM) POC Chloride [95-109 mEq/L] 103 mEq/L (03/22/14 9:11 AM) CHEM PANEL Most recent to oldest 1 2 3 [Reference Range]: Creatinine Lvl [0.5-1.4 8.8 mg/dL 7.6 mg/dL 10.1 mg/dL mg/dL] *HI* *HI* *HI* (03/24/14 9:45 AM) (03/23/14 6:15 PM) (03/23/14 7:05 AM) eGFR 6 mL/min/1.73m2 1 7 mL/min/1.73m2 2 5 mL/min/1.73m2 3 *NA* *NA* *NA* (03/24/14 9:45 AM) (03/23/14 6:15 PM) (03/23/14 7:05 AM) BUN [7-22 mg/dL] 48 mg/dL 37 mg/dL 55 mg/dL *HI* *HI* *HI* (03/24/14 9:45 AM) (03/23/14 6:15 PM) (03/23/14 7:05 AM) B/C Ratio [6-25] 5 5 5 *LOW* *LOW* *LOW* (03/24/14 9:45 AM) (03/23/14 6:15 PM) (03/23/14 7:05 AM) Glucose Lvl [70-99 mg/dL] 107 mg/dL 4 93 mg/dL 5 92 mg/dL 6 *HI* (03/23/14 6:15 PM) (03/23/14 7:05 AM) (03/24/14 9:45 AM) POC BUN [7-22 mg/dL] 42 mg/dL *HI* (03/22/14 9:11 AM) POC Glucose [70-99 mg/dL] 82 mg/dL (03/22/14 9:11 AM) Total Protein [6.4-8.4 g/dL] 6.6 g/dL 6.6 g/dL 6.4 g/dL (03/24/14 9:45 AM) (03/23/14 6:15 PM) (03/23/14 7:05 AM) Albumin Lvl [3.5-5.0 g/dL] 3.5 g/dL 3.5 g/dL 3.1 g/dL (03/24/14 9:45 AM) (03/23/14 6:15 PM) *LOW* (03/23/14 7:05 AM) Globulin [2.0-4.0 g/dL] 3.1 g/dL 3.1 g/dL 3.3 g/dL (03/24/14 9:45 AM) (03/23/14 6:15 PM) (03/23/14 7:05 AM) A/G Ratio [0.7-1.6] 1.1 1.1 0.9 (03/24/14 9:45 AM) (03/23/14 6:15 PM) (03/23/14 7:05 AM) Calcium Lvl [8.5-10.5 mg/dL] 8.3 mg/dL 8.3 mg/dL 8.6 mg/dL *LOW* *LOW* (03/23/14 7:05 AM) (03/24/14 9:45 AM) (03/23/14 6:15 PM) Phosphorus [2.5-4.5 mg/dL] 8.6 mg/dL *HI* (03/23/14 7:05 AM) Magnesium Lvl [1.8-2.4 2.2 mg/dL 2.0 mg/dL 2.4 mg/dL mg/dL] (03/24/14 9:45 AM) (03/23/14 6:15 PM) (03/23/14 7:05 AM) ALT [0-65 unit/L] 15 unit/L 18 unit/L 13 unit/L (03/24/14 9:45 AM) (03/23/14 6:15 PM) (03/23/14 7:05 AM) AST [0-37 unit/L] 9 unit/L 10 unit/L 10 unit/L (03/24/14 9:45 AM) (03/23/14 6:15 PM) (03/23/14 7:05 AM) Alk Phos [39-136 unit/L] 134 unit/L 126 unit/L 111 unit/L (03/24/14 9:45 AM) (03/23/14 6:15 PM) (03/23/14 7:05 AM) Bili Total [0.2-1.3 mg/dL] 0.3 mg/dL 0.3 mg/dL 0.3 mg/dL (03/24/14 9:45 AM) (03/23/14 6:15 PM) (03/23/14 7:05 AM) 1Result Comment: The eGFR is calculated [...] eGFR should be multiplied by the estimated BMI.2Result Comment: The eGFR is calculated using the CKD-EPI formula. In most young, healthy individualsthe eGFR will be >90 mL/ min/1.73m2. The [...] eGFR should be multiplied by the estimated BMI.3Result Comment: The eGFR is calculated using the CKD-EPI formula. In most young, healthy individualsthe eGFR will be >90 mL/ min/1.73m2. The [...] eGFR should be multiplied by the estimated BMI.4Interpretive Data: Adult reference range values reflect the clinical guidelines of the [place] [employer].5Interpretive Data: Adult reference range values reflect the clinical guidelines of the [place] [employer].6Interpretive Data: Adult reference range values reflect the clinical guidelines of the [place] [employer].SPECIAL CHEMISTRY Most recent to oldest [Reference Range]: 1 2 3 Hgb A1C [<=5.6 %] 5.4 % (03/22/14 8:05 PM) THYROID PANEL Most recent to oldest [Reference Range]: 1 2 3 T3 Uptake [31-39 %] 34 % (03/20/14 3:00 PM) T4 [4.7-13.3 ug/dl] 5.3 ug/dl (03/20/14 3:00 PM) T4 Free [0.76-1.46 ng/dL] 1.02 ng/dL (03/22/14 8:05 PM) FTI 1.8 *NA* (03/20/14 3:00 PM) TSH [0.360-3.740 uIU/mL] 2.590 uIU/mL 1.700 uIU/mL (03/22/14 8:05 PM) (03/20/14 3:00 PM) PARATHYROID PROFILE Most recent to oldest 1 2 3 [Reference Range]: Ca Ion WB [1.05-1.25 mMol/L] 1.02 mMol/L 1.04 mMol/L 1.03 mMol/L *LOW* *LOW* *LOW* (03/24/14 9:45 AM) (03/23/14 6:15 PM) (03/23/14 7:05 AM) Ca Norm WB [1.05-1.25 0.95 mMol/L 0.99 mMol/L 0.98 mMol/L mMol/L] *LOW* *LOW* *LOW* (03/24/14 9:45 AM) (03/23/14 6:15 PM) (03/23/14 7:05 AM) PTH Intact [11.1-79.5 pg/mL] 538.7 pg/mL 374.9 pg/mL 347.0 pg/mL *HI* *HI* *HI* (03/24/14 9:45 AM) (03/23/14 6:15 PM) (03/23/14 7:05 AM) URINE AND STOOL Most recent to oldest [Reference Range]: 1 2 3 UA Turbidity [Clear] Slight *ABN* (03/20/14 4:05 PM) UA Color [Yellow] Yellow *NA* (03/20/14 4:05 PM) UA pH [5.0-8.0] 6.5 (03/20/14 4:05 PM) UA Spec Grav [<=1.030] 1.012 (03/20/14 4:05 PM) UA Glucose [Negative mg/dL] 50 mg/dL *ABN* (03/20/14 4:05 PM) UA Blood [Negative] Moderate *ABN* (03/20/14 4:05 PM) UA Ketones [Negative mg/dL] Negative mg/dL *NA* (03/20/14 4:05 PM) UA Protein [Negative mg/dL] >=300 mg/dL 7 *ABN* (03/20/14 4:05 PM) UA Urobilinogen [0.1-1.0 mg/dL] <=1.0 mg/dL *NA* (03/20/14 4:05 PM) UA Bili [Negative] Negative *NA* (03/20/14 4:05 PM) UA Leuk Est [Negative] Large *ABN* (03/20/14 4:05 PM) UA Nitrite [Negative] Negative (03/20/14 4:05 PM) UA WBC [0-5 /HPF] 52 /HPF *HI* (03/20/14 4:05 PM) UA RBC [0-2 /HPF] 4 /HPF *HI* (03/20/14 4:05 PM) UA Bacteria [None Seen /HPF] Moderate /HPF *ABN* (03/20/14 4:05 PM) UA Sq Epi [Few /LPF] Few /LPF *NA* (03/20/14 4:05 PM) UA Amorph Aliya [None Seen /HPF] Few /HPF *NA* (03/20/14 4:05 PM) UA Mucus [None Seen /LPF] Few /LPF *NA* (03/20/14 4:05 PM) 7Result Comment: No other crystals seenHEMATOLOGY Most recent to oldest 1 2 3 [Reference Range]: WBC [3.7-10.4 K/CMM] 12.2 K/CMM 13.7 K/CMM 10.8 K/CMM *HI* *HI* *HI* (03/23/14 7:05 AM) (03/22/14 6:18 PM) (03/20/14 2:26 PM) RBC [4.70-6.10 M/CMM] 3.55 M/CMM 3.82 M/CMM 3.64 M/CMM *LOW* *LOW* *LOW* (03/23/14 7:05 AM) (03/22/14 6:18 PM) (03/20/14 2:26 PM) Hgb [14.0-18.0 g/dL] 10.2 g/dL 10.9 g/dL 10.4 g/dL *LOW* *LOW* *LOW* (03/23/14 7:05 AM) (03/22/14 6:18 PM) (03/20/14 2:26 PM) Hct [42.0-54.0 %] 30.6 % 32.8 % 31.4 % *LOW* *LOW* *LOW* (03/23/14 7:05 AM) (03/22/14 6:18 PM) (03/20/14 2:26 PM) MCV [80.0-94.0 fL] 86.2 fL 85.9 fL 86.2 fL (03/23/14 7:05 AM) (03/22/14 6:18 PM) (03/20/14 2:26 PM) MCH [27.0-31.0 pg] 28.7 pg 28.6 pg 28.5 pg (03/23/14 7:05 AM) (03/22/14 6:18 PM) (03/20/14 2:26 PM) MCHC [32.0-36.0 g/dL] 33.3 g/dL 33.3 g/dL 33.1 g/dL (03/23/14 7:05 AM) (03/22/14 6:18 PM) (03/20/14 2:26 PM) RDW [11.5-14.5 %] 16.7 % 16.7 % 17.3 % *HI* *HI* *HI* (03/23/14 7:05 AM) (03/22/14 6:18 PM) (03/20/14 2:26 PM) Platelet [133-450 K/CMM] 273 K/CMM 297 K/CMM 264 K/CMM (03/23/14 7:05 AM) (03/22/14 6:18 PM) (03/20/14 2:26 PM) MPV [7.4-10.4 fL] 9.6 fL 9.9 fL 9.9 fL (03/23/14 7:05 AM) (03/22/14 6:18 PM) (03/20/14 2:26 PM) POC Hemoglobin [14.0-18.0 10.9 g/dL g/dL] *LOW* (03/22/14 9:11 AM) POC Hematocrit [42.0-54.0 %] 32.0 % *LOW* (03/22/14 9:11 AM) Segs [45.0-75.0 %] 78.7 % 78.0 % 76.9 % *HI* *HI* *HI* (03/23/14 7:05 AM) (03/22/14 6:18 PM) (03/20/14 2:26 PM) Bands [0.0-11.0 %] 1.0 % (03/22/14 6:18 PM) Lymphocytes [20.0-40.0 %] 10.4 % 6.0 % 10.6 % *LOW* *LOW* *LOW* (03/23/14 7:05 AM) (03/22/14 6:18 PM) (03/20/14 2:26 PM) Atypical Lymphs [<=0.0 %] 0.0 % (03/22/14 6:18 PM) Monocytes [2.0-12.0 %] 8.0 % 12.0 % 8.8 % (03/23/14 7:05 AM) (03/22/14 6:18 PM) (03/20/14 2:26 PM) Eosinophils [0.0-4.0 %] 2.8 % 2.0 % 3.4 % (03/23/14 7:05 AM) (03/22/14 6:18 PM) (03/20/14 2:26 PM) Basophils [0.0-1.0 %] 0.1 % 1.0 % 0.3 % (03/23/14 7:05 AM) (03/22/14 6:18 PM) (03/20/14 2:26 PM) Segs-Bands # [1.5-8.1 K/CMM] 9.6 K/CMM 10.8 K/CMM 8.3 K/CMM *HI* *HI* *HI* (03/23/14 7:05 AM) (03/22/14 6:18 PM) (03/20/14 2:26 PM) Lymphocytes # [1.0-5.5 1.3 K/CMM 0.8 K/CMM 1.1 K/CMM K/CMM] (03/23/14 7:05 AM) *LOW* (03/20/14 2:26 PM) (03/22/14 6:18 PM) Monocytes # [0.0-0.8 K/CMM] 1.0 K/CMM 1.6 K/CMM 1.0 K/CMM *HI* *HI* *HI* (03/23/14 7:05 AM) (03/22/14 6:18 PM) (03/20/14 2:26 PM) Eosinophils # [0.0-0.5 0.3 K/CMM 0.3 K/CMM 0.4 K/CMM K/CMM] (03/23/14 7:05 AM) (03/22/14 6:18 PM) (03/20/14 2:26 PM) Basophils # [0.0-0.2 K/CMM] 0.0 K/CMM 0.1 K/CMM 0.0 K/CMM (03/23/14 7:05 AM) (03/22/14 6:18 PM) (03/20/14 2:26 PM) RBC Morph Normal (03/22/14 6:18 PM) Plt Morph Normal (03/22/14 6:18 PM) PT [12.0-14.7 seconds] 14.5 seconds (03/20/14 2:26 PM) INR [0.85-1.17] 1.14 8 (03/20/14 2:26 PM) PTT [22.9-35.8 seconds] 41.1 seconds 9 *HI* (03/20/14 2:26 PM) 8Interpretive Data: RECOMMENDED RANGES FOR PROTIME INR: 2.0-3.0 for most medical and surgical thromboembolic states. 2.5-3.5 for artificial heart valves and recurrent embolism. INR SHOULD BE USED ONLY FOR PATIENTS ON STABLE ANTICOAGULANT THERAPY.9Interpretive Data: Heparin Therapeutic Range: 57 - 92 SecondsBACTERIAL - SEROLOGY Most recent to oldest [Reference Range]: 1 2 3 MRSA by PCR Negative 10 (03/20/14 3:00 PM) 10Interpretive Data: Interpretive Data: The [employer] Light[employer] MRSA assay is a qualitative test for thedirect detection of nasal colonization with methicillin- resistant Staphylococcus aureus (MRSA) to aid in the prevention and control of MRSA infections in healthcare settings. A positive result does notindicate an infection or require treatment. A negative result does not exclude colonization or infection. The polymerase chain reaction (PCR) assay detects a proprietary sequence indicative of the integration of the SCCmec cassette into the Staphylococcus aureus chromosome, indicating the presence of MRSA DNA. The assay utilizes FDA cleared IVD reagents. Performance characteristics have been verified by the [facility] within the [facility]. The [facility] is authorized under the Clinical Laboratory Improvement Amendment of 1988 (CLIA-88) to performhigh complexity testing. Medications Administered During Your Visit No data available for this section Immunizations No data available for this section Procedures Procedure Type Body Site Date of Procedure Related Diagnosis CABG x 4 - Coronary artery bypass grafts x 4 Parathyroidectomy 03/23/14 12:00 AM Social History Social History Type Response Smoking Status Former smoker, Exposure to Tobacco Smoke None, Cigarette Smoking Last 365 Days No, Reg Smoking Cessation Counseling Yes
--- OUTSIDE RECORDS SUMMARY | 2018-07-14 17:24 | XMS REPORT | Summary of Care ---
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 Vital Signs Most recent to oldest 1 2 3 [Reference Range]: Height 172.72 cm 175.26 cm (07/12/14 5:15 PM) (07/03/14 5:56 PM) Systolic Blood Pressure 139 mmHg 120 mmHg 117 mmHg [90-140 mmHg] (07/12/14 4:30 PM) (07/12/14 4:15 PM) (07/12/14 4:00 PM) Diastolic Blood Pressure 49 mmHg 49 mmHg 73 mmHg [60-90 mmHg] *LOW* *LOW* (07/12/14 4:00 PM) (07/12/14 4:30 PM) (07/12/14 4:15 PM) Respiratory Rate [14-20 13 BRMIN 12 BRMIN 12 BRMIN BRMIN] *LOW* *LOW* *LOW* (07/12/14 4:30 PM) (07/12/14 4:15 PM) (07/12/14 4:00 PM) Peripheral Pulse Rate 78 bpm [60-100 bpm] (07/12/14 8:19 AM) Weight 105 kg 105.455 kg (07/12/14 5:15 PM) (07/03/14 5:56 PM) Body Mass Index 35.2 m2 34.33 m2 (07/12/14 5:15 PM) (07/03/14 5:56 PM) Problem List Condition Effective Dates Status [...] Status cranberry Active NKDA Active Medications acetaminophen 1,000 mg, 100 mL, Route: IVPB, Drug form: INJ, ONCE, Dosing Weight 105.455, kg, PRN Pain Score 1-3, Start date: 07/12/14 8:45:00, Duration: 1 doses or times, Stop date: Limited # of times Notes: Infuse over 15 minutes Do not exceed 4gm/day of acetaminophen Start Date: 07/12/14 Stop Date: 07/12/14 Status: Discontinuedacetaminophen 1,000 mg, 100 mL, Route: IVPB, Drug form: INJ, Q6Hnow, Dosing Weight 105.455, kg , Start date: 07/12/14 14:00:00, Duration: 24 hr, Stop date: 07/13/14 8:00:00 Notes: Infuse over 15 minutes Do not exceed 4gm/day of acetaminophen Start Date: 07/12/14 Stop Date: 07/12/14 Status: DiscontinuedBD Normal Saline Flush 10 mL, Route: IVP, Drug Form: INJ, PRN, PRN Line Flush, Start date: 07/12/14 16: 24:00, Duration: 30 day, Stop date: 08/11/14 15:23:00 Notes: (Same as: BD Posiflush) Start Date: 07/12/14 Stop Date: 07/12/14 Status: Discontinuedflumazenil 0.2 mg, 2 mL, Route: IVP, Drug form: INJ, PRN, Dosing Weight 105.455, kg, PRN Benzodiazepine Reversal, Initial dose, Start date: 07/12/14 8:45:00, Duration: 30 day, Stop date: 08/11/14 7:44:00 Notes: (Same as: Romazicon) Start Date: 07/12/14 Stop Date: 07/12/14 Status: Discontinuedlabetalol 10 mg, 2 mL, Route: IVP, Drug form: INJ, Q5Min, Dosing Weight 105.455, kg, PRN Elevated BP, Start date: 07/12/14 8:45:00, Duration: 5 doses or times, Stop date : Limited # of times Start Date: 07/12/14 Stop Date: 07/12/14 Status: Discontinuedmorphine Sulfate 2 mg, 1 mL, Route: IVP, Drug form: INJ, Q4H, Dosing Weight 105.455, kg, PRN Pain Score 7-10, Start date: 07/12/14 8:46:00, Duration: 30 day, Stop date: 8:45:00 Notes: (Same as:MORPhine Sulfate) Start Date: 07/12/14 Stop Date: 07/12/14 Status: Discontinuedmorphine Sulfate 4 mg, 1 mL, Route: IVP, Drug form: INJ, Q5Min, Dosing Weight 105.455, kg, PRN Pain Score 7-10, Startdate: 07/12/14 8:45:00, Duration: 3 doses or times, Stop date: Limited # of times Notes: (Same as:MORPhine Sulfate) Start Date: 07/12/14 Stop Date: 07/12/14 Status: Discontinuedmorphine Sulfate 2 mg, 1 mL, Route: IVP, Drug form: INJ, Q5Min, Dosing Weight 105.455, kg, PRN Pain Score 4-6, Start date: 07/12/14 8:45:00, Duration: 5 doses or times, Stop date: Limited # of times Notes: (Same as:MORPhine Sulfate) Start Date: 07/12/14 Stop Date: 07/12/14 Status: Discontinuednaloxone 0.04 mg, 0.1 mL, Route: IVP, Drug form: INJ, Q2MIN, Dosing Weight 105.455, kg, PRN Narcotic Reversal, Start date: 07/12/14 8:45:00, Duration: 8 doses or times , Stop date: Limited # of times Notes: Same as Narcan Start Date: 07/12/14 Stop Date: 07/12/14 Status: Discontinuedondansetron 4 mg, 2 mL, Route: IVP, Drug form: INJ, Q8H, Dosing Weight 105.455, kg, PRN Nausea & Vomiting, Start date: 07/12/14 8:46:00, Duration: 30 day, Stop date : 08/11/14 8:45:00 Notes: (Same as: Zofran) Start Date: 07/12/14 Stop Date: 07/12/14 Status: Discontinuedondansetron 4 mg, 2 mL, Route: IVP, Drug form: INJ, ONCE, Dosing Weight 105.455, kg, PRN Nausea & Vomiting, Start date: 07/12/14 8:45:00 Notes: (Same as: Zofran) Start Date: 07/12/14 Stop Date: 07/12/14 Status: Discontinuedondansetron 4 mg, 2 mL, Route: IVP, Drug form: INJ, Q8H, Dosing Weight 105.455, kg, PRN Nausea & Vomiting, Start date: 07/12/14 13:43:00, Duration: 30 day, Stop date: 08/11/14 13:42:00 Notes: (Same as: Zofran) Start Date: 07/12/14 Stop Date: 07/12/14 Status: DiscontinuedoxyCODONE 5 mg immediate release 10 mg, 2 tab, Route: PO, Drug form: TAB, Q4H, Dosing Weight 105.455, kg, PRN Pain Score 7-10, Start date: 07/12/14 8:46:00, Duration: 30 day, Stop date: 8:45:00 Notes: (Same as: Roxicodone) Start Date: 07/12/14 Stop Date: 07/12/14 Status: DiscontinuedoxyCODONE 5 mg immediate release 5 mg, 1 tab, Route: PO, Drug form: TAB, Q4H, Dosing Weight 105.455, kg, PRN Pain Score 4-6, Start date: 07/12/14 8:46:00, Duration: 30 day, Stop date: 08/11 8:45:00 Notes: (Same as: Roxicodone) Start Date: 07/12/14 Stop Date: 07/12/14 Status: DiscontinuedoxyCODONE 5 mg immediate release 5 mg, 1 tab, Route: PO, Drug form: TAB, Q4H, Dosing Weight 105.455, kg, PRN Pain Score 4-6, Start date: 07/12/14 13:43:00, Duration: 30 day, Stop date: 13:42:00 Notes: (Same as: Roxicodone) Start Date: 07/12/14 Stop Date: 07/12/14 Status: DiscontinuedoxyCODONE 5 mg immediate release 10 mg, 2 tab, Route: PO, Drug form: TAB, Q4H, Dosing Weight 105.455, kg, PRN Pain Score 7-10, Start date: 07/12/14 13:43:00, Duration: 30 day, Stop date: 13:42:00 Notes: (Same as: Roxicodone) Start Date: 07/12/14 Stop Date: 07/12/14 Status: DiscontinuedRopivacaine 0.2% nerve block CADD 200 mL Route: NERVE BLOCK, Continuous Rate: 6, ml/hr, Dosing Site: Interscalene Side: Right, [employer] dose 5 mL,[employer] dose lockout: 30 minutes, 1 Hour limit: 16 mL, 200, mL , Start date: 07/12/14 13:43:00, Duration:30, day, Total volume: 200, mL, Weight 105.455, k... Start Date: 07/12/14 Stop Date: 07/12/14 Status: DeletedRopivacaine 0.2% nerve block CADD 200 mL Route: NERVE BLOCK, Continuous Rate: 6, ml/hr, Dosing Site: Interscalene Side: Right, [employer] dose 5 mL,[employer] dose lockout: 30 minutes, 1 Hour limit: 18 mL, Clinician Bolus: 10 mL, 200, mL, Start date: 07/12/14 8:46:00, Duration: 30, day , Drug Form: INJ, R... Notes: Same as: Naropin Start Date: 07/12/14 Stop Date: 07/12/14 Status: DiscontinuedSodium Chloride 0.9% IV 250 mL, Route: IVPB, Start date: 07/12/14 16:24:00, Duration: 30 day, Stop date : 08/11/14 15:23:00, PRN Line Flush Start Date: 07/12/14 Stop Date: 07/12/14 Status: DiscontinuedSodium Chloride 0.9% IV 1,000 mL 1,000 mL, Rate: 125 ml/hr, Infuse over: 8 hr, Route: IV, Dosing Weight 105.455 kg, Total Volume: 1,000, Start date: 07/12/14 8:45:00, Duration: 30 day, Stop date: 08/11/14 8:44:00 Start Date: 07/12/14 Stop Date: 07/12/14 Status: DiscontinuedSodium Chloride 0.9% IV 1,000 mL 1,000 mL, Rate: 25 ml/hr, Infuse over: 40 hr, Route: IV, Dosing Weight 105.455 kg, Total Volume: 1,000, Start date: 07/12/14 8:44:00, Duration: 30 day, Stop date: 08/11/14 8:43:00 Start Date: 07/12/14 Stop Date: 07/12/14 Status: Discontinued Results ELECTROLYTES Most recent to oldest [Reference Range]: 1 2 Sodium Lvl [135-145 mEq/L] 138 mEq/L (07/12/14 9:10 AM) Potassium Lvl [3.5-5.1 mEq/L] 4.6 mEq/L (07/12/14 9:10 AM) Chloride Lvl [95-109 mEq/L] 99 mEq/L (07/12/14 9:10 AM) CO2 [24-32 mEq/L] 27 mEq/L (07/12/14 9:10 AM) AGAP [10.0-20.0 mEq/L] 16.6 mEq/L (07/12/14 9:10 AM) POC Sodium [135-145 mEq/L] 139 mEq/L 130 mEq/L (07/12/14 8:56 AM) *LOW* (07/12/14 8:26 AM) POC Potassium [3.5-5.1 mEq/L] 4.7 mEq/L >9.0 mEq/L (07/12/14 8:56 AM) *CRIT* (07/12/14 8:26 AM) POC Chloride [95-109 mEq/L] 101 mEq/L 105 mEq/L (07/12/14 8:56 AM) (07/12/14 8:26 AM) CHEM PANEL Most recent to oldest [Reference Range]: 1 2 Creatinine Lvl [0.5-1.4 mg/dL] 9.4 mg/dL *HI* (07/12/14 9:10 AM) eGFR 5 mL/min/1.73m2 1 *NA* (07/12/14 9:10 AM) BUN [7-22 mg/dL] 38 mg/dL *HI* (07/12/14 9:10 AM) Glucose Lvl [70-99 mg/dL] 80 mg/dL 2 (07/12/14 9:10 AM) POC BUN [7-22 mg/dL] 37 mg/dL 58 mg/dL *HI* *HI* (07/12/14 8:56 AM) (07/12/14 8:26 AM) POC Glucose [70-99 mg/dL] 80 mg/dL 73 mg/dL (07/12/14 8:56 AM) (07/12/14 8:26 AM) Calcium Lvl [8.5-10.5 mg/dL] 8.6 mg/dL (07/12/14 9:10 AM) 1Result Comment: The eGFR is calculated [...] eGFR should be multiplied by the estimated BMI.2Interpretive Data: Adult reference range values reflect the clinical guidelines of the [place] [employer].HEMATOLOGY Most recent to oldest [Reference Range]: 1 2 WBC [3.7-10.4 K/CMM] 9.9 K/CMM (07/12/14 9:10 AM) RBC [4.70-6.10 M/CMM] 4.72 M/CMM (07/12/14 9:10 AM) Hgb [14.0-18.0 g/dL] 13.3 g/dL *LOW* (07/12/14 9:10 AM) Hct [42.0-54.0 %] 40.9 % *LOW* (07/12/14 9:10 AM) MCV [80.0-94.0 fL] 86.6 fL (07/12/14 9:10 AM) MCH [27.0-31.0 pg] 28.2 pg (07/12/14 9:10 AM) MCHC [32.0-36.0 g/dL] 32.5 g/dL (07/12/14 9:10 AM) RDW [11.5-14.5 %] 17.1 % *HI* (07/12/14 9:10 AM) Platelet [133-450 K/CMM] 234 K/CMM (07/12/14 9:10 AM) MPV [7.4-10.4 fL] 9.4 fL (07/12/14 9:10 AM) POC Hemoglobin [14.0-18.0 g/dL] 13.9 g/dL 14.6 g/dL *LOW* (07/12/14 8:26 AM) (07/12/14 8:56 AM) POC Hematocrit [42.0-54.0 %] 41.0 % 43.0 % *LOW* (07/12/14 8:26 AM) (07/12/14 8:56 AM) Segs [45.0-75.0 %] 63.1 % (07/12/14 9:10 AM) Lymphocytes [20.0-40.0 %] 20.3 % (07/12/14 9:10 AM) Monocytes [2.0-12.0 %] 11.0 % (07/12/14 9:10 AM) Eosinophils [0.0-4.0 %] 5.0 % *HI* (07/12/14 9:10 AM) Basophils [0.0-1.0 %] 0.6 % (07/12/14 9:10 AM) Segs-Bands # [1.5-8.1 K/CMM] 6.2 K/CMM (07/12/14 9:10 AM) Lymphocytes # [1.0-5.5 K/CMM] 2.0 K/CMM (07/12/14 9:10 AM) Monocytes # [0.0-0.8 K/CMM] 1.1 K/CMM *HI* (07/12/14 9:10 AM) Eosinophils # [0.0-0.5 K/CMM] 0.5 K/CMM (07/12/14 9:10 AM) Basophils # [0.0-0.2 K/CMM] 0.1 K/CMM (07/12/14 9:10 AM) PT [12.0-14.7 seconds] 14.8 seconds *HI* (07/12/14 9:10 AM) INR [0.85-1.17] 1.15 3 (07/12/14 9:10 AM) POC PT [12.0-14.7 seconds] 26.3 seconds *HI* (07/12/14 9:01 AM) POC INR [0.9-1.2] 2.3 *HI* (07/12/14 9:01 AM) PTT [22.9-35.8 seconds] 28.1 seconds 4 (07/12/14 9:10 AM) 3Interpretive Data: RECOMMENDED RANGES FOR PROTIME INR: 2.0-3.0 for most medical and surgical thromboembolic states. 2.5-3.5 for artificial heart valves and recurrent embolism. INR SHOULD BE USED ONLY FOR PATIENTS ON STABLE ANTICOAGULANT THERAPY.4Interpretive Data: Heparin Therapeutic Range: 57 - 92 Seconds Medications Administered During Your Visit No data available for this section Immunizations No data available for this section Social History Social History Type Response Substance Abuse Use: None Exercise Exercise type: Walking Alcohol Use: Never Smoking Status Smoker, current status unknown, Previous treatment: Counseling, Exposure to Tobacco Smoke None, Cigarette Smoking Last 365 Days No, Reg Smoking Cessation Counseling Yes Assessment and Plan Extracted from: Title: Anesthesia APMS Progress Note* Author: Radha Chang Date: 07/14 Plan APMS Plan Continue with APMS pain management: for the next 24 hours. unable to reach the patient x 2.
--- OUTSIDE RECORDS SUMMARY | 2018-07-14 17:24 | XMS REPORT | Summary of Care ---
:1955 Author Encounter [facility](ZHANG) [id number] Date(s): 01/15/15 - 01/15/15 [facility] [address] [place] [address]- Discharge Disposition: Home Physician Attending: Tereso Reed MD Physician_Referring: Tereso Reed MD Vital Signs Most recent to oldest 1 2 3 [Reference Range]: Height 175.26 cm (01/11/15 2:53 PM) Blood Pressure [90-140/60-90 90/48 mmHg 90/51 mmHg 83/50 mmHg mmHg] (01/15/15 11:45 AM) (01/15/15 11:30 AM) *LOW* (01/15/15 11:15 AM) Respiratory Rate [14-20 18 BRMIN 16 BRMIN 15 BRMIN BRMIN] (01/15/15 11:45 AM) (01/15/15 11:30 AM) (01/15/15 11:15 AM) Weight 101.364 kg (01/11/15 2:53 PM) Body Mass Index 33 m2 (01/11/15 2:53 PM) Problem List Condition Effective Dates Status [...] Active NKDA Active Medications acetaminophen 1,000 mg, Route: IVPB, Q6Hnow, Dosing Weight 101.364, kg, Start date: 01/15/15 10:00:00, Duration: 30 day, Stop date: 02/14/15 4:00:00 Start Date: 01/15/15 Stop Date: 01/15/15 Status: Discontinuedacetaminophen 1,000 mg, 100 mL, Route: IVPB, Drug form: INJ, ONCE, Dosing Weight 101.364, kg, PRN Pain Score 1-3, Start date: 01/15/15 9:18:00, Duration: 1 doses or times, Stop date: Limited # of times Notes: Infuse over 15 minutesDo not exceed 4gm/day of acetaminophen MEDICATION WASTE ProductSize: 1000 mgProduct Wasted: ___ mg Start Date: 01/15/15 Stop Date: 01/15/15 Status: Discontinuedacetaminophen-codeine #3 1 tab, Route: PO, Drug Form: TAB, Dosing Weight 101.364, kg, Q4H, PRN Pain Score 4-6, Start date: 01/15/15 7:57:00, Duration: 30 day, Stop date: 02/14/15 7 :56:00 Notes: Do not exceed 4gm/day of acetaminophen. (Same as: Tylenol with Codeine # 3) Start Date: 01/15/15 Stop Date: 01/15/15 Status: DiscontinuedceFAZolin (SCIP) 1 gm, Route: IVPB, Drug form: INJ, Q8H, Dosing Weight 101.364, kg, Start date: 01/15/15 8:00:00, Duration: 1 doses or times, Stop date: 01/15/15 8:00:00 Start Date: 01/15/15 Stop Date: 01/15/15 Status: Discontinueddocusate sodium 100 mg oral capsule 100 mg, 1 cap, Route: PO, Drug form: CAP, BID, Dosing Weight 101.364, kg, Start date: 01/15/15 9:00:00, Duration: 30 day, Stop date: 02/13/15 17:00:00 Notes: (Same as: Colace) (Do Not Crush) Start Date: 01/15/15 Stop Date: 01/15/15 Status: DiscontinuedEliquis 5 mg oral tablet 5 mg=1 tab, PO, BID, 0 Refill(s) Start Date: 01/15/15 Status: Orderedflumazenil 0.2 mg, 2 mL, Route: IVP, Drug form: INJ, PRN, Dosing Weight 101.364, kg, PRN Benzodiazepine Reversal, Initial dose, Start date: 01/15/15 9:18:00, Duration: 30 day, Stop date: 02/14/15 9:17:00 Notes: (Same as: Romazicon) Start Date: 01/15/15 Stop Date: 01/15/15 Status: DiscontinuedLactated Ringers Injection IV 1,000 mL 1,000 mL, Rate: 25 ml/hr, Infuse over: 40 hr, Route: IV, Dosing Weight 101.364 kg, Total Volume: 1,000, Start date: 01/15/15 9:18:00, Duration: 30 day, Stop date: 02/14/15 9:17:00 Start Date: 01/15/15 Stop Date: 01/15/15 Status: Discontinuedmorphine Sulfate 2 mg, 1 mL, Route: IVP, Drug form: INJ, Q4H, Dosing Weight 101.364, kg, PRN Pain Score 7-10, Start date: 01/15/15 9:18:00, Duration: 30 day, Stop date: 9:17:00 Notes: (Same as:MORPhine Sulfate) Start Date: 01/15/15 Stop Date: 01/15/15 Status: Discontinuedmorphine Sulfate 2 mg, 1 mL, Route: IVP, Drug form: INJ, Q5Min, Dosing Weight 101.364, kg, PRN Pain Score 4-6, Start date: 01/15/15 9:18:00, Duration: 5 doses or times, Stop date: Limited # of times Notes: (Same as:MORPhine Sulfate) Start Date: 01/15/15 Stop Date: 01/15/15 Status: Discontinuedmorphine Sulfate 2 mg, 1 mL, Route: IVP, Drug form: INJ, Q3H, Dosing Weight 101.364, kg, PRN Pain Score 1-3, Start date: 01/15/15 7:57:00, Duration: 30 day, Stop date: 02/14 7:56:00 Notes: (Same as:MORPhine Sulfate) Start Date: 01/15/15 Stop Date: 01/15/15 Status: Discontinuednaloxone 0.04 mg, 0.1 mL, Route: IVP, Drug form: INJ, Q2MIN, Dosing Weight 101.364, kg, PRN Narcotic Reversal, Start date: 01/15/15 9:18:00, Duration: 8 doses or times , Stop date: Limited # of times Notes: Same as Narcan Start Date: 01/15/15 Stop Date: 01/15/15 Status: Discontinuedondansetron 4 mg, 2 mL, Route: IVP, Drug form: INJ, Q8H, Dosing Weight 101.364, kg, PRN Nausea & Vomiting, Start date: 01/15/15 9:18:00, Duration: 30 day, Stop date : 02/14/15 9:17:00 Notes: (Same as: Zofran) MEDICATION WASTE Product Size: 4 mgProduct Wasted: ___ mg Start Date: 01/15/15 Stop Date: 01/15/15 Status: Discontinuedondansetron 4 mg, 2 mL, Route: IVP, Drug form: INJ, ONCE, Dosing Weight 101.364, kg, PRN Nausea & Vomiting, Start date: 01/15/15 9:18:00 Notes: (Same as: Zofran) MEDICATION WASTE Product Size: 4 mgProduct Wasted: ___ mg Start Date: 01/15/15 Stop Date: 01/15/15 Status: CompletedoxyCODONE 5 mg immediate release 5 mg, 1 tab, Route: PO, Drug form: TAB, Q4H, Dosing Weight 101.364, kg, PRN Pain Score 4-6, Start date: 01/15/15 9:18:00, Duration: 30 day, Stop date: 02/14 9:17:00 Notes: (Same as: Roxicodone) Start Date: 01/15/15 Stop Date: 01/15/15 Status: DiscontinuedoxyCODONE 5 mg immediate release 10 mg, 2 tab, Route: PO, Drug form: TAB, Q4H, Dosing Weight 101.364, kg, PRN Pain Score 7-10, Start date: 01/15/15 9:18:00, Duration: 30 day, Stop date: 9:17:00 Notes: (Same as: Roxicodone) Start Date: 01/15/15 Stop Date: 01/15/15 Status: DiscontinuedPhenergan 25 mg, Route: IM, ONCE, Dosing Weight 101.364, kg, Start date: 01/15/15 13:05:00 , Stop date: 01/15/15 13:05:00 Start Date: 01/15/15 Stop Date: 01/15/15 Status: CompletedRopivacaine 0.2% nerve block CADD 200 mL Route: NERVE BLOCK, Continuous Rate: 8, ml/hr, Dosing Site: Interscalene Side: Left, [employer] dose 5 mL, [employer] dose lockout: 30 minutes, 1 Hour limit: 18 mL, 200, mL , Start date: 01/15/15 9:18:00, Duration: 30, day, Drug Form: INJ, Total volume : 200, mL, kg,... Notes: Same as: Naropin Start Date: 01/15/15 Stop Date: 01/15/15 Status: DiscontinuedSodium Chloride 0.9% IV 1,000 mL 1,000 mL, Rate: 125 ml/hr, Infuse over: 8 hr, Route: IV, Dosing Weight 101.364 kg, Total Volume: 1,000, Start date: 01/15/15 9:18:00, Duration: 30 day, Stop date: 02/14/15 9:17:00 Start Date: 01/15/15 Stop Date: 01/15/15 Status: Discontinuedtramadol 50 mg, 1 tab, Route: PO, Drug form: TAB, Q6H, Dosing Weight 101.364, kg, PRN Pain Score 1-3, Start date: 01/15/15 7:57:00, Duration: 30 day, Stop date: 02/14 7:56:00 Notes: Not to exceed 400mg/day. (Same As: Ultram) Start Date: 01/15/15 Stop Date: 01/15/15 Status: Discontinued Results BLOOD BANK RESULTS Most recent to oldest [Reference Range]: 1 ABO/Rh A NEG *Unknown* (01/15/15 9:07 AM) Antibody Scrn Negative (01/15/15 9:07 AM) ELECTROLYTES Most recent to oldest [Reference Range]: 1 Sodium Lvl [135-145 mEq/L] 138 mEq/L (01/15/15 6:27 AM) Potassium Lvl [3.5-5.1 mEq/L] 4.2 mEq/L (01/15/15 6:27 AM) Chloride Lvl [95-109 mEq/L] 97 mEq/L (01/15/15 6:27 AM) CO2 [24-32 mEq/L] 29 mEq/L (01/15/15 6:27 AM) AGAP [10.0-20.0 mEq/L] 16.2 mEq/L (01/15/15:27 AM) CHEM PANEL Most recent to oldest [Reference Range]: 1 Creatinine Lvl [0.5-1.4 mg/dL] 9.7 mg/dL *HI* (01/15/15 6:27 AM) eGFR 5 mL/min/1.73m2 1 *NA* (01/15/15: AM) BUN [7-22 mg/dL] 42 mg/dL *HI* (01/15/15 6:27 AM) B/C Ratio [6-25] 4 *LOW* (01/15/15:27 AM) Glucose Lvl [70-99 mg/dL] 96 mg/dL 2 (01/15/15 6:27 AM) Total Protein [6.4-8.4 g/dL] 8.0 g/dL (01/15/15 6:27 AM) Albumin Lvl [3.5-5.0 g/dL] 4.3 g/dL (01/15/15 6:27 AM) Globulin [2.0-4.0 g/dL] 3.7 g/dL (01/15/15:27 AM) A/G Ratio [0.7-1.6] 1.2 (01/15/15:27 AM) Calcium Lvl [8.5-10.5 mg/dL] 9.3 mg/dL (01/15/15 6:27 AM) ALT [0-65 unit/L] 30 unit/L (01/15/15 6:27 AM) AST [0-37 unit/L] 22 unit/L (01/15/15 6:27 AM) Alk Phos [39-136 unit/L] 124 unit/L (01/15/15 6:27 AM) Bili Total [0.2-1.3 mg/dL] 0.5 mg/dL (01/15/15 6:27 AM) 1Result Comment: The eGFR is calculated [...] values reflect the clinical guidelines of the [place] [employer].HEMATOLOGY Most recent to oldest [Reference Range]: 1 WBC [3.7-10.4 K/CMM] 9.7 K/CMM (01/15/15 6:27 AM) RBC [4.70-6.10 M/CMM] 4.90 M/CMM (01/15/15 6:27 AM) Hgb [14.0-18.0 g/dL] 14.8 g/dL (01/15/15 6:27 AM) Hct [42.0-54.0 %] 45.7 % (01/15/15 6:27 AM) MCV [80.0-94.0 fL] 93.2 fL (01/15/15 6:27 AM) MCH [27.0-31.0 pg] 30.3 pg (01/15/15 6:27 AM) MCHC [32.0-36.0 g/dL] 32.5 g/dL (01/15/15 6:27 AM) RDW [11.5-14.5 %] 20.2 % *HI* (01/15/15 6:27 AM) Platelet [133-450 K/CMM] 218 K/CMM (01/15/15 6:27 AM) MPV [7.4-10.4 fL] 9.5 fL (01/15/15 6:27 AM) Segs [45.0-75.0 %] 62.4 % (01/15/15 6:27 AM) Lymphocytes [20.0-40.0 %] 22.5 % (01/15/15 6:27 AM) Monocytes [2.0-12.0 %] 10.5 % (01/15/15 6:27 AM) Eosinophils [0.0-4.0 %] 3.8 % (01/15/15 6:27 AM) Basophils [0.0-1.0 %] 0.8 % (01/15/15 6:27 AM) Segs-Bands # [1.5-8.1 K/CMM] 6.1 K/CMM (01/15/15 6:27 AM) Lymphocytes # [1.0-5.5 K/CMM] 2.2 K/CMM (01/15/15 6:27 AM) Monocytes # [0.0-0.8 K/CMM] 1.0 K/CMM *HI* (01/15/15 6:27 AM) Eosinophils # [0.0-0.5 K/CMM] 0.4 K/CMM (01/15/15 6:27 AM) Basophils # [0.0-0.2 K/CMM] 0.1 K/CMM (01/15/15 6:27 AM) Immunizations No data available for this section Procedures Procedure Date Related Diagnosis Body Site Parathyroidectomy 03/23/14 AV - Creation of arteriovenous fistula1 2013 CABG x 4 - Coronary artery bypass grafts x 4 2013 Miscellaneous operations2 Miscellaneous operations3 Total shoulder replacement4 1LEFT [id number] CATHETER INSERTIONS & [id number] with plate d/ t Sternal Sfhajqsmzn=[id number] 2014 Social History Social History Type Response Substance Abuse Use: None. Exercise Exercise type: Walking. Alcohol Never Smoking Status Smoker, current status unknown; Previous treatment: Counseling; Exposure to Tobacco Smoke None; Other Tobacco Frequency PT SPOUSE STATED, PT DIP ONLY; Cigarette Smoking Last 365 Days No; Reg Smoking Cessation Counseling Yes Assessment and Plan Extracted from: Title: Anesthesia APMS Progress Note* Author: Rita Fernandes RN Date: 01/17/15 Plan APMS Plan Discharge from APME care: Analgesics per Primary Service.
--- OUTSIDE RECORDS SUMMARY | 2018-07-14 17:24 | XMS REPORT | Summary of Care ---
:1955 Author Organization [facility] Outpatient Imaging [address] [address]- Encounter Encntr_alias(FIN) [id number] Date(s): 09/01/16 - 09/01/16 [facility] Outpatient Imaging [address] [address]- [phone] Discharge Disposition: Home or Self Care Attending Physician: Kory Enriquez MD Vital Signs No data available for this section Problem List Condition Effective Dates Status Health Status Informant Anemia(Confirmed) Resolved Anuria(Confirmed) Active Anxiety(Confirmed) Active Aortic valve stenosis(Confirmed) Resolved CAD - Coronary artery Resolved disease(Confirmed) CVA - Cerebrovascular Resolved accident(Confirmed) Dependence on renal dialysis Active M-W-F(Confirmed) DM - Diabetes mellitus(Confirmed) Resolved ESRD - End stage renal Active disease(Confirmed) Hyperlipidemia(Confirmed) Resolved Hyperparathyroidism(Confirmed) Active Hypertension(Confirmed) Resolved Hypothyroid(Confirmed) Active Parathyroidectomy(Confirmed) 03/22/14 Active Permanent cardiac Active pacemaker(Confirmed) Sleep apnea(Confirmed)1 Resolved 1Pt's not using his CPAP machine per pt's spouse Allergies, Adverse Reactions, Alerts Substance Reaction Severity Status cranberry THROAT SWELLING Active NKDA Active Medications No data available for this section Results No data available for this section Immunizations No data available for this section Procedures Procedure Date Related Diagnosis Body Site AVR - Aortic valve replacement 05/2016 Implantation of cardiac pacemaker 05/2016 Total shoulder replacement1 07/12/14 Fistulogram 05/31/14 Parathyroidectomy 03/23/14 AV - Creation of arteriovenous fistula2 2013 CABG x 4 - Coronary artery bypass grafts x 4 2012 Miscellaneous operations3 Miscellaneous operations4 [id number] CATHETER INSERTIONS & [id number] with plate d/t Sternal Wqefljqeqx=[id number] Social History Social History Type Response Substance Abuse Use: None. Exercise Self assessment: Fair condition. Exercise type: NONE. Alcohol Never Smoking Status Current every day smoker; Type: Chewing tobacco; Previous treatment: Counseling; Ready to change: No; Concerns about tobacco use in household: No; Exposure to Tobacco Smoke None; Cigarette Smoking Last 365 Days Yes; Reg Smoking Cessation Counseling Yes Assessment and Plan No data available for this section
--- OUTSIDE RECORDS SUMMARY | 2018-07-14 17:25 | XMS REPORT | Summary of Care ---
:1955 Author Organization [facility] Address [facility] [place], [place] [address]- Encounter HQ Jaylyn_lamberto(FIN) [id number] Date(s): 09/03/16 - 09/06/[address] [address]- Discharge Disposition: Home or Self Care Attending Physician: Kory Enriquez MD Admitting Physician: Kory Enriquez MD Referring Physician: Kory Enriquez MD Vital Signs Most recent to oldest 1 2 3 [Reference Range]: Height 175.26 cm 175.26 cm 175.26 cm (09/03/16 4:56 PM) (09/03/16 10:15 AM) (09/01/16 8:17 AM) Current Weight 100.9 kg 102.9 kg 97.1 kg (09/05/16 10:58 AM) (09/05/16 7:57 AM) (09/04/16 11:33 AM) Temperature Oral 97.9 DegF 97.7 DegF 97.9 DegF [96.4-99.1 DegF] (09/06/16 8:00 AM) (09/03/16 9:45 AM) (09/01/16 8:17 AM) Blood Pressure 137/81 mmHg 129/71 mmHg 132/71 mmHg [90-140/60-90 mmHg] (09/06/16 8:00 AM) (09/06/16 4:00 AM) (09/06/16 12:00 AM ) Respiratory Rate [14-20 18 BRMIN 20 BRMIN 20 BRMIN BRMIN] (09/06/16 8:00 AM) (09/06/16 4:00 AM) (09/06/16 12:00 AM) Peripheral Pulse Rate 69 bpm 71 bpm 70 bpm [60-100 bpm] (09/06/16 8:00 AM) (09/06/16 4:00 AM) (09/06/16 12:00 AM) Weight 100.472 kg 105 kg 105 kg (09/06/16 5:00 AM) (09/03/16 4:56 PM) (09/03/16 10:15 AM) Body Mass Index 34.18 m2 34.18 m2 34.18 m2 (09/03/16 4:56 PM) (09/03/16 10:15 AM) (09/01/16 8:17 AM) Problem List Condition Effective Dates Status [...] cranberry THROAT SWELLING Active NKDA Active Medications acetaminophen 650 mg, 2 tab, Route: PO, Drug form: TAB, Q4H, Dosing Weight 105, kg, PRN Pain 1 -3/Temp > 100.4 F, Start date: 09/03/16 14:56:00 WELDING MACHINE OPERATOR FRICTION, Duration: 30 day, Stop date: 10/03/16 14:55:00 WELDING MACHINE OPERATOR FRICTION Notes: Do not exceed 4 gm/day. (Same as: Tylenol) Start Date: 09/03/16 Stop Date: 09/06/16 Status: Discontinuedacetaminophen-hydrocodone 325 mg-10 mg oral tablet 1 tab, Route: PO, Drug Form: TAB, Dosing Weight 105, kg, Q4H, PRN Pain Score 4-6 , Start date: 09/03/16 14:56:00 WELDING MACHINE OPERATOR FRICTION, Duration: 30 day, Stop date: 10/03/16 14:55 :00 WELDING MACHINE OPERATOR FRICTION Notes: Do not exceed 4gm/day of acetaminophen. (Same as: [place] 325/10) Start Date: 09/03/16 Stop Date: 09/06/16 Status: Discontinuedacetaminophen-hydrocodone 325 mg-5 mg oral tablet 1 tab, Route: PO, Drug Form: TAB, Dosing Weight 105, kg, Q4H, PRN Pain Score 4-6 , Start date: 09/03/16 14:56:00 WELDING MACHINE OPERATOR FRICTION, Duration: 30 day, Stop date: 10/03/16 14:55 :00 WELDING MACHINE OPERATOR FRICTION Notes: (Same as: [place] 325/5) Do not exceed 4gm/day of acetaminophen. Start Date: 09/03/16 Stop Date: 09/06/16 Status: Discontinuedallopurinol 300 mg, Route: PO, Drug form: TAB, Bedtime, Dosing Weight 105, kg, Start date: 09/03/16 21:00:00 WELDING MACHINE OPERATOR FRICTION, Duration: 30 day, Stop date: 10/02/16 21:00:00 WELDING MACHINE OPERATOR FRICTION Start Date: 09/03/16 Stop Date: 09/03/16 Status: DeletedALPRAZOLam 0.5 mg oral tablet 0.5 mg, 1 tab, Route: PO, Drug form: TAB, TID, Dosing Weight 105, kg, PRN Anxiety, Start date: 09/05/16 15:54:00 WELDING MACHINE OPERATOR FRICTION, Duration: 30 day, Stop date: 15:53:00 WELDING MACHINE OPERATOR FRICTION Notes: With food or milk(Same as: Xanax) Start Date: 09/05/16 Stop Date: 09/06/16 Status: DiscontinuedALPRAZOLam 0.5 mg oral tablet 0.5 mg=1 tab, PO, TID, PRN for anxiety Start Date: 09/01/16 Stop Date: 09/06/16 Status: DiscontinuedALPRAZOLam 0.5 mg oral tablet 0.5 mg=1 tab, PO, TID, PRN Anxiety, 0 Refill(s) Start Date: 09/06/16 Status: Orderedaspirin 81 mg tablet, enteric coated 81 mg, 1 tab, Route: PO, Drug form: ECTAB, Daily, Dosing Weight 105, kg, Priority: NOW, Start date: 09/04/16 11:19:00 WELDING MACHINE OPERATOR FRICTION, Duration: 30 day, Stop date: 10/04/16 9:00:00 WELDING MACHINE OPERATOR FRICTION Notes: Do not crush or chew.(Same As: Ecotrin) Start Date: 09/04/16 Stop Date: 09/06/16 Status: Discontinuedatenolol 100 mg oral tablet 100 mg=1 tab, PO, PRN SBP GREATER THAN 160 Start Date: 09/01/16 Status: OrderedBD Normal Saline Flush 10 mL, Route: IVP, Drug Form: INJ, PRN, PRN Line Flush, Start date: 09/01/16 17: 57:00 WELDING MACHINE OPERATOR FRICTION, Duration:30 day, Stop date: 10/01/16 17:56:00 WELDING MACHINE OPERATOR FRICTION Notes: (Same as: BD Posiflush) Start Date: 09/01/16 Stop Date: 09/03/16 Status: Discontinuedbenzocaine-menthol topical 1 lozenge, Route: MUCOUS MEM, Drug Form: BETITO, Q1H, PRN Sore Throat, Start date: 09/04/16 0:06:00 WELDING MACHINE OPERATOR FRICTION, Stop date: 10/04/16 0:05:00 WELDING MACHINE OPERATOR FRICTION Notes: Same as: Cepacol Start Date: 09/04/16 Stop Date: 09/06/16 Status: Discontinuedcalcitriol 2 microgram, 4 cap, Route: PO, Drug form: CAP, Daily, Dosing Weight 105, kg, Start date: 09/04/16 9:00:00 WELDING MACHINE OPERATOR FRICTION, Duration: 30 day, Stop date: 10/03/16 9:00:00 WELDING MACHINE OPERATOR FRICTION Notes: (Same As: Rocaltrol) Start Date: 09/04/16 Stop Date: 09/06/16 Status: Discontinuedcalcitriol 0.5 mcg oral capsule 2 microgram=4 cap, PO, Daily, calcitriol 2mcg daily, # 30 cap, 0 Refill(s), FARNAZ , given to patient Start Date: 09/06/16 Stop Date: 10/07/16 Status: Orderedcalcium acetate 667 mg oral tablet 3,335 mg, 5 cap, Route: PO, Drug form: CAP, TID-Meals, Dosing Weight 105, kg, Start date: 09/04/16 8:00:00 WELDING MACHINE OPERATOR FRICTION, Duration: 30 day, Stop date: 10/03/16 17:00: 00 WELDING MACHINE OPERATOR FRICTION Notes: Same as Phoslo Gel Cap Start Date: 09/04/16 Stop Date: 09/06/16 Status: Discontinuedcalcium acetate 667 mg oral tablet 1,334 mg=2 tab, PO, PRN SNACKS Start Date: 09/01/16 Status: Orderedcalcium acetate 667 mg oral tablet 3,335 mg=5 tab, PO, TID-Meals Start Date: 09/01/16 Stop Date: 09/06/16 Status: Discontinuedcalcium acetate 667 mg oral tablet 3,335 mg=5 cap, PO, TID-Meals, 0 Refill(s) Start Date: 09/06/16 Status: Orderedcalcium carbonate 1,000 mg, 2 tab, Route: PO, Drug form: CHEWTAB, TID-Meals, Dosing Weight 105, kg , Start date: 09/05/16 18:30:00 WELDING MACHINE OPERATOR FRICTION, Duration: 30 day, Stop date: 10/05/16 18:00 :00 WELDING MACHINE OPERATOR FRICTION Notes: (Same As: Tums)Calcium Carbonate 500 dz=964 mg elemental calcium Dose=_ mg calcium carbonate ( mg elemental calcium) Start Date: 09/05/16 Stop Date: 09/06/16 Status: Discontinuedcalcium carbonate 1000 mg oral tablet, chewable 2,000 mg, CHEW, TID, # 65 tab, 0 Refill(s), FARNAZ, given to patient Start Date: 09/06/16 Stop Date: 10/07/16 Status: Orderedcalcium gluconate 1,000 mg, 50 mL, Route: IVPB, Drug form: INJ, Q4H, Dosing Weight 105, kg, PRN Abnormal Lab Result, Start date: 09/04/16 17:01:00 WELDING MACHINE OPERATOR FRICTION, Duration: 30 day, Stop date: 10/04/16 17:00:00 WELDING MACHINE OPERATOR FRICTION Notes: WASTE: F/P - Sink; E - Municipal Trash Bin Start Date: 09/04/16 Stop Date: 09/06/16 Status: Discontinuedcalcium gluconate 1 gm, 50 mL, Route: IV, Drug form: INJ, Q1H, Start date: 09/03/16 18:00:00 WELDING MACHINE OPERATOR FRICTION, Duration: 2 doses ortimes, Stop date: 09/03/16 19:00:00 WELDING MACHINE OPERATOR FRICTION Notes: WASTE: F/P - Sink; E - Municipal Trash Bin Start Date: 09/03/16 Stop Date: 09/03/16 Status: Completedcalcium gluconate 2,000 mg, Route: IVPB, Drug form: INJ, ONCE, Dosing Weight 105, kg, Start date: 09/03/16 17:42:00 WELDING MACHINE OPERATOR FRICTION, Stop date: 09/03/16 17:42:00 WELDING MACHINE OPERATOR FRICTION Start Date: 09/03/16 Stop Date: 09/03/16 Status: Deletedcalcium gluconate 1,000 mg, 50 mL, Route: IVPB, Drug form: INJ, Q3H, Dosing Weight 105, kg, Start date: 09/03/16 23:00:00 WELDING MACHINE OPERATOR FRICTION, Duration: 30 day, Stop date: 10/03/16 20:00:00 WELDING MACHINE OPERATOR FRICTION Notes: WASTE: F/P - Sink; E - Municipal Trash Bin Start Date: 09/03/16 Stop Date: 09/04/16 Status: DiscontinuedceFAZolin 2 gm, 100 mL, Route: IVPB, Drug form: INJ, ONCALL, Dosing Weight 105, kg, Start date: 09/03/16 10:00:00 WELDING MACHINE OPERATOR FRICTION, Duration: 30 day, Stop date: 10/03/16 9:59:00 WELDING MACHINE OPERATOR FRICTION Notes: Same as: Ancef Start Date: 09/03/16 Stop Date: 09/03/16 Status: Discontinuedcitalopram 10 mg, 1 tab, Route: PO, Drug form: TAB, Bedtime, Dosing Weight 105, kg, Start date: 09/03/16 21:00:00 WELDING MACHINE OPERATOR FRICTION, Duration: 30 day, Stop date: 10/02/16 21:00:00 WELDING MACHINE OPERATOR FRICTION Start Date: 09/03/16 Stop Date: 09/06/16 Status: Discontinuedcitalopram 10 mg oral tablet 10 mg=1 tab, PO, Bedtime, 0 Refill(s) Start Date: 09/06/16 Status: Orderedcitalopram 10 mg oral tablet 10 mg=1 tab, PO, Bedtime Start Date: 09/01/16 Stop Date: 09/06/16 Status: Discontinueddocusate sodium 100 mg oral capsule 100 mg, 1 cap, Route: PO, Drug form: CAP, BID, Dosing Weight 105, kg, Start date : 09/03/16 17:00:00 WELDING MACHINE OPERATOR FRICTION, Duration: 30 day, Stop date: 10/03/16 9:00:00 WELDING MACHINE OPERATOR FRICTION Notes: (Same as: Colace) (Do Not Crush) Start Date: 09/03/16 Stop Date: 09/06/16 Status: DiscontinuedDulcolax Laxative 5 mg, 1 tab, Route: PO, Drug form: ECTAB, Q24H, Dosing Weight 105, kg, PRN Constipation, Start date:09/03/16 14:56:00 WELDING MACHINE OPERATOR FRICTION, Duration: 30 day, Stop date: 04/12 14:55:00 WELDING MACHINE OPERATOR FRICTION Notes: (Same As: Dulcolax, Correctol) (Do Not Crush) "Do Not Crush" Start Date: 09/03/16 Stop Date: 09/06/16 Status: Discontinuedesomeprazole 20 mg, Route: PO, Drug form: GRAN, Daily, Dosing Weight 105, kg, Start date: 06/12 9:00:00 WELDING MACHINE OPERATOR FRICTION, Duration: 30 day, Stop date: 10/03/16 9:00:00 WELDING MACHINE OPERATOR FRICTION Start Date: 09/04/16 Stop Date: 09/04/16 Status: Deletedheparin 5,000 unit, 1 mL, Route: SUB-Q, Drug form: INJ, Q8H, Dosing Weight 105, kg, Start date: 09/04/16 14:00:00 WELDING MACHINE OPERATOR FRICTION, Duration: 30 day, Stop date: 10/04/16 12:00: 00 WELDING MACHINE OPERATOR FRICTION Notes: porcine heparin Start Date: 09/04/16 Stop Date: 09/06/16 Status: Discontinuedheparin 2,000 unit, 2 mL, Route: IVP, Drug form: INJ, ONCALL, Start date: 09/05/16 9:00: 00 WELDING MACHINE OPERATOR FRICTION, Duration: 30day, Stop date: 10/05/16 8:59:00 WELDING MACHINE OPERATOR FRICTION Start Date: 09/05/16 Stop Date: 09/06/16 Status: Discontinuedindomethacin 50 mg oral capsule 50 mg=1 cap, PO, TID, PRN GOUT PAIN Start Date: 09/01/16 Stop Date: 09/06/16 Status: Discontinuedmorphine Sulfate 1 mg, 0.25 mL, Route: IVP, Drug form: SOLN, Q2H, Dosing Weight 105, kg, PRN Pain Score 7-10, Start date: 09/03/16 15:25:00 WELDING MACHINE OPERATOR FRICTION, Duration: 2 day, Stop date: 09/05/16 15:24:00 WELDING MACHINE OPERATOR FRICTION Notes: (Same as:MORPhine Sulfate) Start Date: 09/03/16 Stop Date: 09/05/16 Status: Completednystatin topical 100,000 units/g powder 1 appl, Route: TOP, PRN, Drug form: PWDR, PRN For Fungal Prophylaxis, Start date : 09/03/16 14:43:00 WELDING MACHINE OPERATOR FRICTION, Duration: 30 day, Stop date: 10/03/16 14:42:00 WELDING MACHINE OPERATOR FRICTION Notes: (Same as:Mycostatin, Nilstat) For external use only. Start Date: 09/03/16 Stop Date: 09/06/16 Status: Discontinuedomeprazole 20 mg oral enteric coated tablet 20 mg=1 tab, PO, Bedtime Start Date: 09/01/16 Status: Orderedondansetron 4 mg, 2 mL, Route: IVP, Drug form: INJ, Q6H, Dosing Weight 105, kg, PRN Nausea & amp; Vomiting, Startdate: 09/03/16 14:56:00 WELDING MACHINE OPERATOR FRICTION, Duration: 30 day, Stop date: 14:55:00 WELDING MACHINE OPERATOR FRICTION Notes: (Same as: Jimbo) MEDICATION WASTE Product Size: 4 mgProduct Wasted: ___ mg Start Date: 09/03/16 Stop Date: 09/06/16 Status: Discontinuedpantoprazole 40 mg, 1 tab, Route: PO, Drug form: ECTAB, Daily, Dosing Weight 105, kg, Start date: 09/04/16 9:00:00 WELDING MACHINE OPERATOR FRICTION, Duration: 30 day, Stop date: 10/03/16 9:00:00 WELDING MACHINE OPERATOR FRICTION Notes: Tablet should not be chewed or crushed.(Same as: Protonix) Start Date: 09/04/16 Stop Date: 09/04/16 Status: CanceledProtonix 20 mg, 1 tab, Route: PO, Drug form: ECTAB, Before Dinner, Start date: 09/04/16 16:30:00 WELDING MACHINE OPERATOR FRICTION, Duration: 30 day, Stop date: 10/03/16 16:30:00 WELDING MACHINE OPERATOR FRICTION Notes: Tablet should not be chewed or crushed. Start Date: 09/04/16 Stop Date: 09/06/16 Status: DiscontinuedRenvela 4,000 mg, 5 tab, Route: PO, Drug form: TAB, TID-Meals, Dosing Weight 105, kg, Start date: 09/04/16 8:00:00 WELDING MACHINE OPERATOR FRICTION, Duration: 30 day, Stop date: 10/03/16 17:00: 00 WELDING MACHINE OPERATOR FRICTION Notes: Same as: Renvela Start Date: 09/04/16 Stop Date: 09/06/16 Status: DiscontinuedRenvela 800 mg oral tablet 1,600 mg=2 tab, PO, PRN SNACKS Start Date: 09/01/16 Status: OrderedRestoril 15 mg, 1 cap, Route: PO, Drug form: CAP, Bedtime, Dosing Weight 101.364, kg, PRN Sleep, Start date: 09/03/16 9:55:00 WELDING MACHINE OPERATOR FRICTION, Duration: 30 day, Stop date: 9:54:00 WELDING MACHINE OPERATOR FRICTION Notes: (Same As: Restoril) Start Date: 09/03/16 Stop Date: 09/03/16 Status: DiscontinuedRestoril 15 mg, 1 cap, Route: PO, Drug form: CAP, Bedtime, Dosing Weight 101.364, kg, PRN Sleep, Start date: 09/01/16 8:28:00 WELDING MACHINE OPERATOR FRICTION, Duration: 30 day, Stop date: 8:27:00 WELDING MACHINE OPERATOR FRICTION Notes: (Same As: Restoril) Start Date: 09/01/16 Stop Date: 09/03/16 Status: DiscontinuedSaline Flush 0.9% 10 ml, Route: IVP, Drug Form: INJ, Dosing Weight 105, kg, PRN, PRN Line Flush, Start date: 09/03/16 14:56:00 WELDING MACHINE OPERATOR FRICTION, Duration: 30 day, Stop date: 10/03/16 14:55: 00 WELDING MACHINE OPERATOR FRICTION Notes: (Same as: BD Posiflush) Start Date: 09/03/16 Stop Date: 09/06/16 Status: DiscontinuedSaline Flush 0.9% 10 ml, Route: IVP, Drug Form: INJ, Dosing Weight 105, kg, PRN, PRN Line Flush, Start date: 09/03/16 14:43:00 WELDING MACHINE OPERATOR FRICTION, Duration: 30 day, Stop date: 10/03/16 14:42: 00 WELDING MACHINE OPERATOR FRICTION Notes: (Same as: BD Posiflush) Start Date: 09/03/16 Stop Date: 09/03/16 Status: DiscontinuedSaline Flush 0.9% 10 ml, Route: IVP, Drug Form: INJ, Dosing Weight 105, kg, Q12H, Start date: 05/12 21:00:00 WELDING MACHINE OPERATOR FRICTION, Duration: 30 day, Stop date: 10/03/16 9:00:00 WELDING MACHINE OPERATOR FRICTION Notes: (Same as: BD Posiflush) Start Date: 09/03/16 Stop Date: 09/06/16 Status: Discontinuedsodium chloride 0.45% 1000 ml INJ 1,000 mL 1,000 mL, Rate: 75 ml/hr, Infuse over: 13.3 hr, Route: IV, Dosing Weight 105 kg , Total Volume: 1,000, Start date: 09/03/16 14:56:00 WELDING MACHINE OPERATOR FRICTION, Duration: 1 doses or times, Stop date: 09/04/16 4:13:00 WELDING MACHINE OPERATOR FRICTION Start Date: 09/03/16 Stop Date: 09/04/16 Status: CompletedSodium Chloride 0.9% IV 250 mL, Route: IVPB, Start date: 09/01/16 17:57:00 WELDING MACHINE OPERATOR FRICTION, Duration: 30 day, Stop date: 10/01/16 17:56:00 WELDING MACHINE OPERATOR FRICTION, PRN Line Flush Start Date: 09/01/16 Stop Date: 09/06/16 Status: Discontinuedtemazepam 7.5 mg, 1 cap, Route: PO, Drug form: CAP, Bedtime, Dosing Weight 105, kg, PRN Insomnia, Start date: 09/03/16 14:56:00 WELDING MACHINE OPERATOR FRICTION, Duration: 30 day, Stop date: 14:55:00 WELDING MACHINE OPERATOR FRICTION Notes: (Same As: Restoril) Start Date: 09/03/16 Stop Date: 09/06/16 Status: DiscontinuedVitamin D3 5,000 unit, 5 tab, Route: PO, Drug form: TAB, Daily, Dosing Weight 105, kg, Start date: 09/05/16 9:00:00 WELDING MACHINE OPERATOR FRICTION, Duration: 30 day, Stop date: 10/04/16 9:00:00 WELDING MACHINE OPERATOR FRICTION Notes: Same as : Vitamin D3 Start Date: 09/05/16 Stop Date: 09/06/16 Status: DiscontinuedVitamin D3 2000 intl units oral tablet 2,000 IntlUnit, 5 mL, Route: PO, Drug form: SOLN, Daily, Dosing Weight 105, kg, Start date: 169:00:00 WELDING MACHINE OPERATOR FRICTION, Duration: 30 day, Stop date: 10/03/16 9:00:00 WELDING MACHINE OPERATOR FRICTION Start Date: 09/04/16 Stop Date: 09/05/16 Status: DiscontinuedVitamin D3 2000 intl units oral tablet 2,000 IntlUnit=1 tab, PO, Daily, # 30 tab, 0 Refill(s), given to patient Start Date: 09/06/16 Status: OrderedZinacef + sodium chloride 0.9% INJ 100 mL 1.5 gm, Route: IVPB, ONCE, Start date: 09/03/16 21:00:00 WELDING MACHINE OPERATOR FRICTION, Stop date: 21:00:00 WELDING MACHINE OPERATOR FRICTION Notes: (Same As: Kefurox, Zinacef) MEDICATION WASTE Product Size: 1500 mgProduct Wasted: ___ mg Start Date: 09/03/16 Stop Date: 09/03/16 Status: CompletedZyloprim 100 mg, 1 tab, Route: PO, Drug form: TAB, Bedtime, Start date: 09/03/16 21:00: 00 WELDING MACHINE OPERATOR FRICTION, Duration: 30 day, Stop date: 10/02/16 21:00:00 WELDING MACHINE OPERATOR FRICTION Notes: (Same as: Zyloprim) Start Date: 09/03/16 Stop Date: 09/06/16 Status: Discontinued Results BLOOD BANK RESULTS Most recent to oldest [Reference Range]: 1 2 3 ABO/Rh A NEG *Unknown* (09/01/16 9:06 AM) Antibody Scrn Negative (09/01/16 9:06 AM) RBC product Product available (09/01/16 9:06 AM) ELECTROLYTES Most recent to oldest 1 2 3 [Reference Range]: Sodium Lvl [135-145 mEq/L] 137 mEq/L 137 mEq/L 140 mEq/L (09/06/16 5:03 AM) (09/05/16 4:54 AM) (09/04/16 4:30 AM) Potassium Lvl [3.5-5.1 3.9 mEq/L 4.1 mEq/L 5.2 mEq/L mEq/L] (09/06/16 5:03 AM) (09/05/16 4:54 AM) *HI* (09/04/16 4:30 AM) Chloride Lvl [95-109 mEq/L] 99 mEq/L 99 mEq/L 102 mEq/L (09/06/16 5:03 AM) (09/05/16 4:54 AM) (09/04/16 4:30 AM) CO2 [24-32 mEq/L] 26 mEq/L 25 mEq/L 21 mEq/L (09/06/16 5:03 AM) (09/05/16 4:54 AM) *LOW* (09/04/16 4:30 AM) AGAP [10.0-20.0 mEq/L] 15.9 mEq/L 17.1 mEq/L 22.2 mEq/L (09/06/16 5:03 AM) (09/05/16 4:54 AM) *HI* (09/04/16 4:30 AM) POC Sodium [135-145 mEq/L] 138 mEq/L (09/03/16 9:47 AM) POC Potassium [3.5-5.1 5.1 mEq/L mEq/L] (09/03/16 9:47 AM) POC Chloride [95-109 mEq/L] 103 mEq/L (09/03/16 9:47 AM) CHEM PANEL Most recent to oldest 1 2 3 [Reference Range]: Creatinine Lvl [0.50-1.40 8.80 mg/dL 9.80 mg/dL 11.30 mg/dL mg/dL] *HI* *HI* *HI* (09/06/16 5:03 AM) (09/05/16 4:54 AM) (09/04/16 4:30 AM) eGFR 6 mL/min/1.73m2 1 5 mL/min/1.73m2 2 4 mL/min/1.73m2 3 *NA* *NA* *NA* (09/06/16 5:03 AM) (09/05/16 4:54 AM) (09/04/16 4:30 AM) BUN [7-22 mg/dL] 37 mg/dL 48 mg/dL 55 mg/dL *HI* *HI* *HI* (09/06/16 5:03 AM) (09/05/16 4:54 AM) (09/04/16 4:30 AM) B/C Ratio [6-25] 4 5 5 *LOW* *LOW* *LOW* (09/06/16 5:03 AM) (09/05/16 4:54 AM) (09/04/16 4:30 AM) Glucose Lvl [70-99 mg/dL] 69 mg/dL 106 mg/dL 59 mg/dL *LOW* *HI* *LOW* (09/06/16 5:03 AM) (09/05/16 4:54 AM) (09/04/16 4:30 AM) POC BUN [7-22 mg/dL] 65 mg/dL *HI* (09/03/16 9:47 AM) POC Glucose [70-99 mg/dL] 88 mg/dL (09/03/16 9:47 AM) Total Protein [6.4-8.4 6.8 g/dL 6.5 g/dL 6.5 g/dL g/dL] (09/06/16 5:03 AM) (09/05/16 4:54 AM) (09/04/16 4:30 AM) Albumin Lvl [3.5-5.0 g/dL] 3.7 g/dL 3.4 g/dL 3.4 g/dL (09/06/16 5:03 AM) *LOW* *LOW* (09/05/16 4:54 AM) (09/04/16 4:30 AM) Globulin [2.7-4.2 g/dL] 3.1 g/dL 3.1 g/dL 3.1 g/dL (09/06/16 5:03 AM) (09/05/16 4:54 AM) (09/04/16 4:30 AM) A/G Ratio [0.7-1.6] 1.2 1.1 1.1 (09/06/16 5:03 AM) (09/05/16 4:54 AM) (09/04/16 4:30 AM) Calcium Lvl [8.5-10.5 9.7 mg/dL 9.0 mg/dL 8.1 mg/dL mg/dL] (09/06/16 5:03 AM) (09/05/16 4:54 AM) *LOW* (09/04/16 4:30 AM) Phosphorus [2.5-4.5 mg/dL] 4.2 mg/dL 5.3 mg/dL 8.7 mg/dL (09/06/16 5:03 AM) *HI* *HI* (09/05/16 4:54 AM) (09/04/16 4:30 AM) Magnesium Lvl [1.8-2.4 2.2 mg/dL 2.0 mg/dL 1.9 mg/dL mg/dL] (09/06/16 5:03 AM) (09/05/16 4:54 AM) (09/04/16 4:30 AM) ALT [0-65 unit/L] 18 unit/L 18 unit/L 20 unit/L (09/06/16 5:03 AM) (09/05/16 4:54 AM) (09/04/16 4:30 AM) AST [0-37 unit/L] 16 unit/L 13 unit/L 18 unit/L (09/06/16 5:03 AM) (09/05/16 4:54 AM) (09/04/16 4:30 AM) Alk Phos [39-136 unit/L] 157 unit/L 146 unit/L 149 unit/L *HI* *HI* *HI* (09/06/16 5:03 AM) (09/05/16 4:54 AM) (09/04/16 4:30 AM) Bili Total [0.2-1.3 mg/dL] 0.7 mg/dL 0.6 mg/dL 0.7 mg/dL (09/06/16 5:03 AM) (09/05/16 4:54 AM) (09/04/16 4:30 AM) Vitamin D, 25-OH, Total 25 ng/mL [30-100 ng/mL] *LOW* (09/04/16 12:00 AM) 1Result Comment: The eGFR is calculated [...] eGFR should be multiplied by the estimated BMI.PARATHYROID PROFILE Most recent to oldest 1 2 3 [Reference Range]: Ca Ion WB [1.05-1.25 mMol/L] 1.12 mMol/L 1.13 mMol/L 1.18 mMol/L (09/06/16 5:03 AM) (09/05/16 10:23 PM) (09/05/16 2:24 PM) Ca Norm WB [1.05-1.25 1.10 mMol/L 1.16 mMol/L 1.21 mMol/L mMol/L] (09/06/16 5:03 AM) (09/05/16 10:23 PM) (09/05/16 2:24 PM) PTH Intact [11.1-79.5 pg/mL] 51.8 pg/mL 1525.0 pg/mL (09/04/16 7:55 AM) *HI* (09/03/16 9:55 AM) IMMUNOLOGY Most recent to oldest [Reference Range]: 1 2 3 Hep Bs Ag [Negative] Negative *NA* (09/04/16 7:55 AM) Hep C Ab Negative *NA* (09/04/16 7:55 AM) HEMATOLOGY Most recent to oldest 1 2 3 [Reference Range]: WBC [3.7-10.4 K/CMM] 8.5 K/CMM 9.2 K/CMM 10.7 K/CMM (09/06/16 5:03 AM) (09/05/16 4:54 AM) *HI* (09/04/16 4:30 AM) RBC [4.70-6.10 M/CMM] 4.82 M/CMM 4.49 M/CMM 4.82 M/CMM (09/06/16 5:03 AM) *LOW* (09/04/16 4:30 AM) (09/05/16 4:54 AM) Hgb [14.0-18.0 g/dL] 13.8 g/dL 13.0 g/dL 13.8 g/dL *LOW* *LOW* *LOW* (09/06/16 5:03 AM) (09/05/16 4:54 AM) (09/04/16 4:30 AM) Hct [42.0-54.0 %] 42.7 % 39.5 % 42.8 % (09/06/16 5:03 AM) *LOW* (09/04/16 4:30 AM) (09/05/16 4:54 AM) MCV [80.0-94.0 fL] 88.6 fL 88.0 fL 88.7 fL (09/06/16 5:03 AM) (09/05/16 4:54 AM) (09/04/16 4:30 AM) MCH [27.0-31.0 pg] 28.7 pg 28.9 pg 28.7 pg (09/06/16 5:03 AM) (09/05/16 4:54 AM) (09/04/16 4:30 AM) MCHC [32.0-36.0 g/dL] 32.4 g/dL 32.9 g/dL 32.3 g/dL (09/06/16 5:03 AM) (09/05/16 4:54 AM) (09/04/16 4:30 AM) RDW [11.5-14.5 %] 20.0 % 20.0 % 19.6 % *HI* *HI* *HI* (09/06/16 5:03 AM) (09/05/16 4:54 AM) (09/04/16 4:30 AM) Platelet [133-450 K/CMM] 145 K/CMM 129 K/CMM 163 K/CMM (09/06/16 5:03 AM) *LOW* (09/04/16 4:30 AM) (09/05/16 4:54 AM) MPV [7.4-10.4 fL] 9.7 fL 9.9 fL 9.8 fL (09/06/16 5:03 AM) (09/05/16 4:54 AM) (09/04/16 4:30 AM) POC Hemoglobin [14.0-18.0 16.0 g/dL g/dL] (09/03/16 9:47 AM) POC Hematocrit [42.0-54.0 47.0 % %] (09/03/16 9:47 AM) Segs [45.0-75.0 %] 73.8 % 75.2 % 62.0 % (09/05/16 4:54 AM) *HI* (09/03/16 2:53 PM) (09/04/16 4:30 AM) Lymphocytes [20.0-40.0 %] 8.4 % 9.9 % 17.5 % *LOW* *LOW* *LOW* (09/05/16 4:54 AM) (09/04/16 4:30 AM) (09/03/16 2:53 PM) Monocytes [2.0-12.0 %] 13.7 % 10.4 % 12.5 % *HI* (09/04/16 4:30 AM) *HI* (09/05/16 4:54 AM) (09/03/16 2:53 PM) Eosinophils [0.0-4.0 %] 3.7 % 3.9 % 6.8 % (09/05/16 4:54 AM) (09/04/16 4:30 AM) *HI* (09/03/16 2:53 PM) Basophils [0.0-1.0 %] 0.4 % 0.6 % 1.2 % (09/05/16 4:54 AM) (09/04/16 4:30 AM) *HI* (09/03/16 2:53 PM) Segs-Bands # [1.5-8.1 6.8 K/CMM 8.0 K/CMM 6.0 K/CMM K/CMM] (09/05/16 4:54 AM) (09/04/16 4:30 AM) (09/03/16 2:53 PM) Lymphocytes # [1.0-5.5 0.8 K/CMM 1.1 K/CMM 1.7 K/CMM K/CMM] *LOW* (09/04/16 4:30 AM) (09/03/16 2:53 PM) (09/05/16 4:54 AM) Monocytes # [0.0-0.8 K/CMM] 1.3 K/CMM 1.1 K/CMM 1.2 K/CMM *HI* *HI* *HI* (09/05/16 4:54 AM) (09/04/16 4:30 AM) (09/03/16 2:53 PM) Eosinophils # [0.0-0.5 0.3 K/CMM 0.4 K/CMM 0.7 K/CMM K/CMM] (09/05/16 4:54 AM) (09/04/16 4:30 AM) *HI* (09/03/16 2:53 PM) Basophils # [0.0-0.2 K/CMM] 0.1 K/CMM 0.1 K/CMM 0.0 K/CMM (09/04/16 4:30 AM) (09/03/16 2:53 PM) (09/01/16 9:06 AM) PT [12.0-14.7 seconds] 15.0 seconds 14.1 seconds *HI* (09/01/16 9:06 AM) (09/03/16 2:53 PM) INR [0.85-1.17] 1.16 1.07 (09/03/16 2:53 PM) (09/01/16 9:06 AM) PTT [22.9-35.8 seconds] 33.4 seconds 33.1 seconds (09/03/16 2:53 PM) (09/01/16 9:06 AM) BACTERIAL - SEROLOGY Most recent to oldest [Reference Range]: 1 2 3 MRSA by 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
--- OUTSIDE RECORDS SUMMARY | 2018-07-14 17:25 | XMS REPORT | Summary of Care ---
:1955 Author Organization [facility] Address [facility] [place], [place] [address]- Encounter HQ Leroy(FIN) [id number] Date(s): 02/18/17 - 02/18/[address] [address]- Discharge Disposition: Home or Self Care Attending Physician: Kory Enriquez MD Referring Physician: Kory Enriquez MD Vital Signs Most recent to oldest 1 2 3 [Reference Range]: Height 175.26 cm (02/17/17 12:55 PM) Temperature Oral [96.4-99.1 97.5 DegF DegF] (02/18/17 11:45 AM) Blood Pressure [90-140/60-90 113/102 mmHg 111/81 mmHg 118/71 mmHg mmHg] (02/18/17 6:00 PM) (02/18/17 5:45 PM) (02/18/17 5:30 PM) Respiratory Rate [14-20 BRMIN] 18 BRMIN 15 BRMIN 15 BRMIN (02/18/17 6:00 PM) (02/18/17 5:45 PM) (02/18/17 5:30 PM) Weight 99.545 kg (02/18/17 10:30 AM) Body Mass Index 32.41 m2 (02/18/17 10:30 AM) Problem List Condition Effective Dates Status Health Status Informant Anemia(Confirmed) Resolved Anuria(Confirmed) Active Anxiety(Confirmed) Active Aortic valve stenosis(Confirmed) Resolved CAD - Coronary artery Resolved disease(Confirmed) CVA - Cerebrovascular Resolved accident(Confirmed) Dependence on renal dialysis Active M-W-F(Confirmed) DM - Diabetes mellitus(Confirmed) Active ESRD - End stage renal Active disease(Confirmed) History of transfusion of packed red Resolved blood cells(Confirmed) Hyperlipidemia(Confirmed) Resolved Hyperparathyroidism(Confirmed) Resolved Hypertension(Confirmed) Resolved Hypothyroid(Confirmed) Active Parathyroidectomy(Confirmed) 03/22/14 Active Permanent cardiac Active pacemaker(Confirmed) Sleep apnea(Confirmed)1 Active 1Pt's not using his CPAP machine per pt's spouse Allergies, Adverse Reactions, Alerts Substance Reaction Severity Status cranberry THROAT SWELLING Active NKDA Active Medications ePHEDrine (ANES) Route: IV, Drug form: INJ, ONCE, Stop date: 02/18/17 17:02:00 CDT Start Date: 02/18/17 Stop Date: 02/18/17 Status: CompletedfentaNYL (ANES) Route: IV, Drug form: INJ, ONCE, Stop date: 02/18/17 16:24:00 CDT Start Date: 02/18/17 Stop Date: 02/18/17 Status: CompletedketOROLAC (ANES) IV, ONCE Start Date: 02/18/17 Stop Date: 02/18/17 Status: Completedlidocaine (ANES) Route: IV, Drug form: INJ, ONCE, Stop date: 02/18/17 16:24:00 CDT Start Date: 02/18/17 Stop Date: 02/18/17 Status: Completedmidazolam (ANES) Route: IV, Drug form: SOLN, ONCE, Stop date: 02/18/17 16:24:00 CDT Start Date: 02/18/17 Stop Date: 02/18/17 Status: Completedphenylephrine (ANES) Route: IV, Drug form: INJ, ONCE, Stop date: 02/18/17 16:44:00 CDT Start Date: 02/18/17 Stop Date: 02/18/17 Status: Completedpropofol (ANES) Route: IV, Drug form: INJ, ONCE, Stop date: 02/18/17 16:29:00 CDT Start Date: 02/18/17 Stop Date: 02/18/17 Status: Completedsodium chloride 0.9% 500 ml INJ (ANES) Route: IV, Total Volume: 500, Start date: 02/18/17 15:52:00 CDT, Stop date: 16:52:00 CDT Start Date: 02/18/17 Stop Date: 02/18/17 Status: Completedvancomycin (ANES) (ANES) Route: IV, Drug form: INJ, Start date: 02/18/17 15:51:00 CDT, Stop date: 16:51:00 CDT Start Date: 02/18/17 Stop Date: 02/18/17 Status: Completed Results ELECTROLYTES Most recent to oldest [Reference Range]: 1 2 POC Sodium [135-145 mEq/L] 140 mEq/L 141 mEq/L (02/18/17 5:36 PM) (02/18/17 12:02 PM) POC Potassium [3.5-5.1 mEq/L] 5.2 mEq/L 5.3 mEq/L *HI* *HI* (02/18/17 5:36 PM) (02/18/17 12:02 PM) POC Chloride [95-109 mEq/L] 104 mEq/L 100 mEq/L (02/18/17 5:36 PM) (02/18/17 12:02 PM) CHEM PANEL Most recent to oldest [Reference Range]: 1 2 POC BUN [7-22 mg/dL] 57 mg/dL 67 mg/dL *HI* *HI* (02/18/17 5:36 PM) (02/18/17 12:02 PM) POC Glucose [70-99 mg/dL] 64 mg/dL 71 mg/dL *LOW* (02/18/17 12:02 PM) (02/18/17 5:36 PM) HEMATOLOGY Most recent to oldest [Reference Range]: 1 2 POC Hemoglobin [14.0-18.0 g/dL] 14.3 g/dL 15.6 g/dL (02/18/17 5:36 PM) (02/18/17 12:02 PM) POC Hematocrit [42.0-54.0 %] 42.0 % 46.0 % (02/18/17 5:36 PM) (02/18/17 12:02 PM) Immunizations No data available for this section Procedures Procedure Date Related Diagnosis Body Site Parathyroidectomy 09/03/16 AVR - Aortic valve replacement 05/2016 Implantation of cardiac pacemaker 05/2016 Total shoulder replacement1 07/12/14 Fistulogram 05/31/14 AV - Creation of arteriovenous fistula2 2013 CABG x 4 - Coronary artery bypass grafts x 4 2012 Miscellaneous operations3 Miscellaneous operations4 [id number] CATHETER INSERTIONS & [id number] with plate d/t Sternal [id number] Social History Social History Type Response Substance Abuse Use: None. Exercise Exercise duration: 30. Exercise frequency: Daily. Exercise type: Walking. Alcohol Never Smoking Status Current every day smoker; Type: Chewing tobacco; Previous treatment: Counseling; Ready to change: No; Concerns about tobacco use in household: No; Exposure to Tobacco Smoke None; Cigarette Smoking Last 365 Days Yes; Reg Smoking Cessation Counseling Yes Assessment and Plan No data available for this section
--- NOTE | 2018-07-14 18:11 | RAD REPORT ---
EXAM DESCRIPTION: Rosalio Single View07/14/2018 5:50 pm CLINICAL HISTORY: Shortness breath mildly COMPARISON: 2016 FINDINGS: The lungs appear clear of acute infiltrate. The heart is moderately enlarged. Post surgical changes involve the chest. Pacemaker lead is in place IMPRESSION: No acute abnormalities displayed
[2018-07-14 18:45] LABS: Absolute Lymphocytes (CBC) 1.2 K/uL (0.7-4.9); Absolute Monocytes 1.1 K/uL (0.1-1.3); Absolute Neutrophil 8.5 K/uL (1.8-8.0); Basophils % 0.7 % (0-1.3); Eosinophils % 2.4 % (0-4.4); Hematocrit 45.9 % (39.6-49.0); Lymphocytes % 10.8 % (15.3-44.8); MCH 29.2 pg (27.0-35.0); MCV 89.2 fL (80-100); MPV 10.7 fL (7.6-11.3); Monocytes % 9.7 % (3.3-12.3); RBC Red Blood Cell Count 5.15 M/uL (4.33-5.43)
[2018-07-14 18:51] LABS: Protime INR 1.16
[2018-07-14 19:23] LABS: Albumin 4.5 g/dL (3.4-5.0); Bilirubin Direct 0.2 mg/dL (0-0.2); Bilirubin Total 0.6 mg/dL (0.2-1.0); Magnesium 2.7 mg/dL (1.8-2.4); Potassium 4.5 mmol/L (3.5-5.1); Protein, Total 8.4 g/dL (6.4-8.2); Troponin (Emerg Dept Use Only) 0.05 ng/mL (0.0-0.045)
[2018-07-14] MEDS ORDERED: NITROGLYCERIN 0.4 MG/TAB SL ONE (19:56)
[2018-07-14] MEDS ORDERED: ASPIRIN 81 MG CHEWABLE TABLET ONE (19:56)
--- NOTE | 2018-07-14 22:02 | ER ---
Nurse's Notes [facility] Name: Sandro Malloy Age: 63 yrs Sex: Male : 1955 Arrival Date: 07/14/2018 Time: 17:20 Bed 16 Private MD: Diagnosis: Shortness of breath Presentation: 07/14 17:33 Presenting complaint: Patient states: Shortness of breath started last night, had jl7 dialysis yesterday, went back today to see if they would take off some more but dialysis employees referred him to the ER. Transition of care: patient was not received from another setting of care. Onset of symptoms was July 13, 2018. Risk Assessment: Do you want to hurt yourself or someone else? Patient reports no desire to harm self or others. Initial Sepsis Screen: Does the patient meet any 2 criteria? No. Patient's initial sepsis screen is negative. Does the patient have a suspected source of infection? No. Patient's initial sepsis screen is negative. Care prior to arrival: None. 17:33 Method Of Arrival: Ambulatory jl7 17:33 Acuity: KITTY 2 jl7 Triage Assessment: 19:12 Respiratory: Onset: The symptoms/episode began/occurred yesterday, the patient has tl2 moderate shortness of breath. Historical: - Allergies: 17:40 CRANBERRY; jl7 - Home Meds: 18:08 calcium acetate oral oral [Active]; Tums Oral [Active]; Aspir-81 81 mg oral TbEC 1 tab jl7 once daily [Active]; Omeprazole Oral [Active]; - PMHx: 17:40 ESRD; Dialysis; jl7 - PSHx: 17:40 Heart stents; quadruple bypass; 2 pacemakers; aortic valve replacement; jl7 - Immunization history:: Adult Immunizations up to date. - Social history:: Smoking status: Patient/guardian denies using tobacco. - Ebola Screening: : No symptoms or risks identified at this time. Screenin:20 Abuse screen: Denies threats or abuse. Denies injuries from another. Nutritional jl7 screening: No deficits noted. Tuberculosis screening: No symptoms or risk factors identified. Fall Risk IV access (20 points). Total Webster Fall Scale indicates No Risk (0-24 pts). Assessment: 17:20 General: Appears in no apparent distress. uncomfortable, ill, Behavior is calm, jl7 cooperative, appropriate for age. Pain: Denies pain. Neuro: Level of Consciousness is awake, alert, obeys commands, Oriented to person, place, time, situation. Cardiovascular: Rhythm is ventricular pacer. Respiratory: Airway is patent Respiratory effort is even, unlabored, shallow, Respiratory pattern is symmetrical, tachypnea Breath sounds are clear bilaterally. GI: Reports diarrhea, Pt's reports "He's been taking stuff for diarrhea though." Patient currently denies nausea, vomiting. : No signs and/or symptoms were reported regarding the genitourinary system. EENT: No signs and/or symptoms were reported regarding the EENT system. Derm: Skin is pink, warm \\T\\ dry. Musculoskeletal: No signs and/or symptoms reported regarding the musculoskeletal system. 18:30 Reassessment: Patient appears in no apparent distress at this time. No changes from jl7 previously documented assessment. Patient and/or family updated on plan of care and expected duration. Pain level reassessed. Patient is alert, oriented x 3, equal unlabored respirations, skin warm/dry/pink. 19:10 General: Appears in no apparent distress. uncomfortable, Behavior is calm, cooperative, tl2 appropriate for age. Pain: Denies pain. Neuro: Level of Consciousness is awake, alert, obeys commands, Oriented to person, place, time, situation. Cardiovascular: Denies chest pain, Rhythm is ventricular pacer. Respiratory: Airway is patent Respiratory effort is even, shallow, Respiratory pattern is regular, symmetrical, Breath sounds are clear bilaterally. Respiratory: Respiratory effort is. GI: Reports diarrhea, Patient currently denies nausea, vomiting. : No signs and/or symptoms were reported regarding the genitourinary system. Derm: Skin is pink, warm \\T\\ dry. 20:13 Reassessment: Patient appears in no apparent distress at this time. Patient and/or tl2 family updated on plan of care and expected duration. Pain level reassessed. Patient is alert, oriented x 3, equal unlabored respirations, skin warm/dry/pink. 21:10 Reassessment: Patient appears in no apparent distress at this time. Patient and/or tl2 family updated on plan of care and expected duration. Pain level reassessed. Patient is alert, oriented x 3, equal unlabored respirations, skin warm/dry/pink. pt reports feeling better after 2 doses of nitro Patient states feeling better. 22:20 Reassessment: Patient appears in no apparent distress at this time. Patient and/or tl2 family updated on plan of care and expected duration. Pain level reassessed. Patient is alert, oriented x 3, equal unlabored respirations, skin warm/dry/pink. pt verbalized understanding of discharge instructions, need for follow up with Dr. Kimball, and prescription usage Patient states feeling better. Vital Signs: 17:40 BP 152 / 78; Pulse 68; Resp 21 S; Temp 98.2(O); Pulse Ox 100% on R/A; Weight 99.79 kg jl7 (R); Height 5 ft. 9 in. (175.26 cm) (R); Pain 0/10; 18:55 BP 154 / 89; Pulse 77; Resp 17; Pulse Ox 96% on 2 lpm NC; jl7 20:13 BP 155 / 105; Pulse 62; Resp 21; Pulse Ox 100% on 2 lpm NC; tl2 20:44 BP 147 / 75; Pulse 62; Resp 18; Pulse Ox 97% on 2 lpm NC; tl2 20:59 BP 147 / 82; Pulse 61; Resp 17; Pulse Ox 95% on 2 lpm NC; mt 21:40 BP 143 / 84; Pulse 64; Resp 18; Pulse Ox 94% on NC; mt 17:40 Body Mass Index 32.49 (99.79 kg, 175.26 cm) jl7 ED Course: 17:20 Patient arrived in ED. jl7 17:20 Patient has correct armband on for positive identification. Placed in gown. Bed in low jl7 position. Call light in reach. Side rails up X 1. laboratory monitor on. Pulse ox on. NIBP on. Warm blanket given. 17:21 Roosevelt Pulliam, MARGARET is PHCP. pm1 17:21 Festus Weems MD is Attending Physician. pm1 17:33 Magdalene Avitia RN is Primary Nurse. jl7 17:37 EKG done, by engineering technology instructor. reviewed by Roosevelt Pulliam NP. sm3 17:38 Triage completed. jl7 17:40 Arm band placed on right wrist. jl7 17:46 X-ray completed. Portable x-ray completed in exam room. Patient tolerated procedure ml well. 17:47 XRAY Chest (1 view) In Process Unspecified. EDMS 18:28 Missed attempt(s): 20 gauge in right antecubital area. Bleeding controlled, band aid jl7 applied, catheter tip intact. 18:39 Initial lab(s) drawn, by me, sent to lab. Inserted saline lock: 20 gauge in right sg forearm, using aseptic technique. Blood collected. 18:58 Primary Nurse role handed off by Magdalene Avitia RN jl7 19:09 Leticia Apodaca RN is Primary Nurse. tl2 19:29 Notified Nurse Practitioner and/or Physician Assembly Inspector of a critical lab result(s), bb creatinine of 10.2 Roosevelt Pulliam SENIOR PROJECT COORDINATOR notified. 22:01 Rena Landry MD is Referral Physician. pm1 22:20 No provider procedures requiring assistance completed. IV discontinued, intact, tl2 bleeding controlled, No redness/swelling at site. Pressure dressing applied. Administered Medications: 20:14 Drug: Nitroglycerin 0.4 mg Route: Sublingual; tl2 20:14 Drug: Aspirin 325 mg Route: PO; tl2 22:23 Follow up: Response: No adverse reaction tl2 20:25 Drug: Nitroglycerin 0.4 mg Route: Sublingual; tl2 22:23 Follow up: Response: No adverse reaction; Marked relief of symptoms tl2 Outcome: 22:01 Discharge ordered by MD. pm1 22:20 Discharged to home ambulatory, with family. tl2 22:20 Condition: stable 22:20 Discharge instructions given to patient, family, Instructed on discharge instructions, follow up and referral plans. medication usage, Demonstrated understanding of instructions, follow-up care, medications, Prescriptions given X 1. 22:28 Patient left the ED. tl2 Signatures: Dispatcher [employer] EDMS Doc Mccarthy RN Nicole Fitch RN RN bb Lopez, Melissa ml Marinas, Patrick, NP SENIOR PROJECT COORDINATOR pm1 Leticia Apodaca RN RN tl2 Magdalene Avitia RN RN jl7 Thompson, Moriah mt Montes, Shakira [facility] Corrections: (The following items were deleted from the chart) 20:44 20:13 BP 155 / 105; Pulse 62bpm; Resp 21bpm; Pulse Ox 100% Nebulizer Mask; tl2 tl2
--- NOTE | 2018-07-14 22:02 | EDPHYS ---
Physician Documentation [facility] Name: Sandro Malloy Age: 63 yrs Sex: Male : 1955 Arrival Date: 07/14/2018 Time: 17:20 Bed 16 Private MD: ED Physician Festus Weems HPI: 07/14 18:00 This 63 yrs old Male presents to ER via Ambulatory with complaints of pm1 Breathing Difficulty. 18:00 The patient has shortness of breath at rest. Onset: The symptoms/episode began/occurred pm1 last night. Duration: The symptoms are continuous. The patient's shortness of breath is aggravated by nothing, is alleviated by nothing. Associated signs and symptoms: Pertinent negatives: chest pain, non-productive cough, productive cough, diaphoresis, dizziness, fever, nausea, vomiting. Severity of symptoms: in the emergency department the symptoms are worse. Patient hospitalized for chest pain last week and had a negative CT chest angio and cardiac catheterization. Discharged on Wednesday last week. Cornetist: Dr. Alcocer. Patient feels that he might not have had enough fluid removed from him at dialysis. Dialysis MWF. Tried to get additional dialysis today and was referred to the ER. Currently at his dry weight. Medical Data Analyst Dr. Lopez. Historical: - Allergies: 17:40 CRANBERRY; jl7 - Home Meds: 18:08 calcium acetate oral oral [Active]; Tums Oral [Active]; Aspir-81 81 mg oral TbEC 1 tab jl7 once daily [Active]; Omeprazole Oral [Active]; - PMHx: 17:40 ESRD; Dialysis; jl7 - PSHx: 17:40 Heart stents; quadruple bypass; 2 pacemakers; aortic valve replacement; jl7 - Immunization history:: Adult Immunizations up to date. - Social history:: Smoking status: Patient/guardian denies using tobacco. - Ebola Screening: : No symptoms or risks identified at this time. ROS: 18:00 Constitutional: Negative for fever, chills, and weight loss, Eyes: Negative for injury, pm1 pain, redness, and discharge, ENT: Negative for injury, pain, and discharge, Neck: Negative for injury, pain, and swelling, Cardiovascular: Negative for chest pain, palpitations, and edema. 18:00 Abdomen/GI: Negative for abdominal pain, nausea, vomiting, diarrhea, and constipation, Back: Negative for injury and pain, : Negative for injury, bleeding, discharge, and swelling, MS/Extremity: Negative for injury and deformity, Skin: Negative for injury, rash, and discoloration, Neuro: Negative for headache, weakness, numbness, tingling, and seizure. 18:00 Respiratory: Positive for shortness of breath, Negative for cough, sputum production, wheezing. Exam: 18:00 Constitutional: This is a well developed, well nourished patient who is awake, alert, pm1 and in no acute distress. Head/Face: Normocephalic, atraumatic. Eyes: Pupils equal round and reactive to light, extra-ocular motions intact. Lids and lashes normal. Conjunctiva and sclera are non-icteric and not injected. Cornea within normal limits. Periorbital areas with no swelling, redness, or edema. ENT: Nares patent. No nasal discharge, no septal abnormalities noted. Tympanic membranes are normal and external auditory canals are clear. Oropharynx with no redness, swelling, or masses, exudates, or evidence of obstruction, uvula midline. Mucous membranes moist. Neck: Trachea midline, no thyromegaly or masses palpated, and no cervical lymphadenopathy. Supple, full range of motion without nuchal rigidity, or vertebral point tenderness. No Meningismus. Chest/axilla: Normal chest wall appearance and motion. Nontender with no deformity. No lesions are appreciated. Cardiovascular: Regular rate and rhythm with a normal S1 and S2. No gallops, murmurs, or rubs. No pulse deficits. Respiratory: Lungs have equal breath sounds bilaterally, clear to auscultation and percussion. No rales, rhonchi or wheezes noted. No increased work of breathing, no retractions or nasal flaring. Abdomen/GI: Soft, non-tender, with normal bowel sounds. No distension or tympany. No guarding or rebound. No evidence of tenderness throughout. Back: No spinal tenderness. No costovertebral tenderness. Full range of motion. Skin: Warm, dry with normal turgor. Normal color with no rashes, no lesions, and no evidence of cellulitis. MS/ Extremity: Pulses equal, no cyanosis. Neurovascular intact. Full, normal range of motion. 18:00 Neuro: Orientation: is normal, Motor: is normal, moves all fours, Sensation: is normal, no obvious gross deficits. Vital Signs: 17:40 BP 152 / 78; Pulse 68; Resp 21 S; Temp 98.2(O); Pulse Ox 100% on R/A; Weight 99.79 kg jl7 (R); Height 5 ft. 9 in. (175.26 cm) (R); Pain 0/10; 18:55 BP 154 / 89; Pulse 77; Resp 17; Pulse Ox 96% on 2 lpm NC; jl7 20:13 BP 155 / 105; Pulse 62; Resp 21; Pulse Ox 100% on 2 lpm NC; tl2 20:44 BP 147 / 75; Pulse 62; Resp 18; Pulse Ox 97% on 2 lpm NC; tl2 20:59 BP 147 / 82; Pulse 61; Resp 17; Pulse Ox 95% on 2 lpm NC; mt 21:40 BP 143 / 84; Pulse 64; Resp 18; Pulse Ox 94% on NC; mt 17:40 Body Mass Index 32.49 (99.79 kg, 175.26 cm) jl7 MDM: 17:23 Patient medically screened. pm1 21:00 Physician consultation: Rena Landry MD message left. pm1 21:07 Data reviewed: vital signs. Data interpreted: Pulse oximetry: on room air is 95 %. pm1 Interpretation: normal. 21:43 Physician consultation: Rena Landry MD was called at 21:43, No answer. pm1 21:45 ED course: Patient's shortness of breath improved with nitro x 2 given in ER and pm1 patient wants to go home now. Advised patient to wait for phone call from Dr. Landry. 21:56 Physician consultation: Rena Landry MD was contacted at 21:57, regarding consult, pm1 patient's condition, Discussed patient's presentation and current labs. Patient improved with nitro given in the ER. Impression likely some diastolic dysfunction that will improve with nitrate. May discharge the patient home with Isosorbide Mononitrate 60 mg Daily. keep follow up appointment. Patient with negative cardiac enzyme elevation x 3 and negative cardiac cath, bypass x 4 clear, and CT chest angio negative during hospitalization last week. 07/14 17:26 Order name: Basic Metabolic Panel; Complete Time: 19:31 pm1 07/14 17:26 Order name: CBC with Diff; Complete Time: 18:54 pm1 07/14 17:26 Order name: LFT's; Complete Time: 19:31 pm1 07/14 17:26 Order name: Magnesium; Complete Time: 19:31 pm1 07/14 17:26 Order name: NT PRO-BNP; Complete Time: 19:31 pm1 07/14 17:26 Order name: PT-INR; Complete Time: 19:22 pm1 07/14 17:26 Order name: Troponin (emerg Dept Use Only); Complete Time: 19:31 pm1 07/14 17:26 Order name: XRAY Chest (1 view); Complete Time: 18:15 pm1 07/14 17:26 Order name: EKG; Complete Time: 17:27 pm1 07/14 17:26 Order name: Cardiac monitoring; Complete Time: 18:04 pm1 07/14 17:26 Order name: EKG - Nurse/Tech; Complete Time: 18:04 pm1 07/14 17:26 Order name: IV Saline Lock; Complete Time: 18:04 pm1 07/14 17:26 Order name: Labs collected and sent; Complete Time: 18:04 pm1 07/14 17:26 Order name: O2 Per Protocol; Complete Time: 18:04 pm1 07/14 17:26 Order name: O2 Sat Monitoring; Complete Time: 18:04 pm1 Administered Medications: 20:14 Drug: Nitroglycerin 0.4 mg Route: Sublingual; tl2 20:14 Drug: Aspirin 325 mg Route: PO; tl2 22:23 Follow up: Response: No adverse reaction tl2 20:25 Drug: Nitroglycerin 0.4 mg Route: Sublingual; tl2 22:23 Follow up: Response: No adverse reaction; Marked relief of symptoms tl2 Disposition: 07/14/18 22:01 Discharged to Home. Impression: Shortness of breath. - Condition is Stable. - Discharge Instructions: Shortness of Breath. - Prescriptions for Isosorbide Mononitrate 60 mg Oral Tablet Sustained Release 24 hr - take 1 tablet by ORAL route once daily in the morning; 30 tablet. - Medication Reconciliation Form, Thank You Letter form. - Follow up: Emergency Department; When: As needed; Reason: Worsening of condition. Follow up: Rena Landry MD; When: 2 - 3 days; Reason: Recheck today's complaints, Continuance of care, Re-evaluation by your physician. - Problem is new. - Symptoms have improved. Addendum: 07/16/2018 20:56 Co-signature as Attending Physician, Festus Weems MD. r n Signatures: Dispatcher [employer] EDMS Festus Weems MD MD rn Roosevelt Pulliam, WORKGROUP LEADER WORKGROUP LEADER pm1 Leticia Apodaca RN RN tl2 Magdalene Avitia RN RN jl7 Corrections: (The following items were deleted from the chart) 07/14 22:28 22:01 07/14/2018 22:01 Discharged to Home. Impression: Shortness of breath. Condition tl2 is Stable. Forms are Medication Reconciliation Form, Thank You Letter, Antibiotic Education, Prescription Opioid Use. Follow up: Emergency Department; When: As needed; Reason: Worsening of condition. Follow up: Rena Landry; When: 2 - 3 days; Reason: Recheck today's complaints, Continuance of care, Re-evaluation by your physician. Problem is new. Symptoms have improved. pm1
[2018-07-14 22:32] VITALS: TEMP 98.2
[2018-07-14 22:38] VITALS: BP 143/84; O2SAT 94
--- NOTE | 2018-07-15 06:50 | EKG ---
Test Date: 2018-07-14 Test Time: 17:34:12 Trolley Cleaner: ANU MEASUREMENT RESULTS: Intervals: Rate: 61 AR: QRSD: 200 QT: 490 QTc: 493 [place]: P: AR: QRS: -6 T: 76 INTERPRETIVE STATEMENTS: Electronic ventricular pacemaker Compared to ECG 04/30/2011 20:31:36 Sinus rhythm no longer present Right bundle-branch block no longer present Electronically Signed On 07-15-18 06:49:07 CDT by Dewayne Guaman
== END 2018-07-14 22:28 | disposition home or self-care (01) ==
LOC: ER 17:15
DX: R06.02 Shortness of breath (principal); N18.6 End stage renal disease; Z99.2 Dependence on renal dialysis; Z95.0 Presence of cardiac pacemaker; Z95.4 Presence of other heart-valve replacement; Z91.018 Allergy to other foods; Z95.818 Presence of other cardiac implants and grafts
CPT/HCPCS: 36415; 71045; 80048; 80076; 83735; 83880; 84484; 85025; 85610; 93005; 99285

== ENCOUNTER 2018-10-17 11:29 | Emergency (ER) | payer OTHER ==
--- OUTSIDE RECORDS SUMMARY | 2018-10-17 11:41 | XMS REPORT | Continuity of Care Document ---
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 014 [facility] AQUIRED FISTULA Active 014 [facility] Parathyroidectomy Active Problem 02/21/2017 OPID 014 [facility] 227.1 Active 014 [facility] 447.0 - ACQ Active OPID ARTERIOVEN 275.2 - 014 [facility] DIS MAGNE 447.0, 275.42 Active 014 [facility] Sleep apnea Resolved Problem 05/25/2014 OPID [facility] Anemia Resolved Problem 02/21/2017 OPID [facility] Anxiety Active Problem 02/21/2017 OPID [facility] CAD - Coronary artery Resolved Problem 02/21/2017 OPID disease [facility] CVA - Cerebrovascular Resolved Problem 02/21/2017 OPID accident [facility] Dependence on renal Active Problem 02/21/2017 OPID dialysis M-W-F [facility] ESRD - End stage Active Problem 02/21/2017 OPID renal disease [facility] Hyperlipidemia Resolved Problem 02/21/2017 OPID [facility] Hyperparathyroidism Resolved Problem 02/21/2017 OPID [facility] Sleep Active Problem 02/21/2017 Pt's not OPID apnea<sup>1</sup> using his [facility] machine per pt's spouse Hypertension Resolved Problem 02/21/2017 OPID [facility] Hypothyroid Active Problem 02/21/2017 MH OPID [facility] Anuria Active Problem 02/21/2017 MH OPID [facility] Aortic valve stenosis Resolved Problem 02/21/2017 MH OPID [facility] DM - Diabetes Active Problem 02/21/2017 MH OPID mellitus [facility] History of Resolved Problem 02/21/2017 transfusion of packed [facility] red blood cells Permanent cardiac Active Problem 02/21/2017 OPID pacemaker [facility] ACQ ARTERIOVEN Active FISTULA [facility] BENIGN SAL Active PARATHYROID [facility] HYPERCALCEMIA Active [facility] END STAGE RENAL Active MH DISEASE [facility] LOC PRIM Active MH OSTEOART-SHLDER [facility] ANEURYSM NOS Active [facility] FX SCAP, RUTH Active CAV/NCK-CL [facility] HYPERPARATHYROIDISM, Active MH UNSPECIFIED [facility] END STAGE RENAL Active MH DISEASE [facility] Medications Medication Details Route Status Patient Ordering Order Source Instructions Provider Date ePHEDrine (ANES) Route: IV, Drug Inactive form: INJ, 2016 [facility] ONCE, Stop date: 02/18/17 17:02:00 CDT ketOROLAC (ANES) IV, ONCE Inactive 2016 [facility] phenylephrine Route: IV, Drug Inactive MH (ANES) form: INJ, 2016 [facility] ONCE, Stop date: 02/18/17 16:44:00 CDT propofol (ANES) Route: IV, Drug Inactive form: INJ, 2016 [facility] ONCE, Stop date: 02/18/17 16:29:00 CDT lidocaine (ANES) Route: IV, Drug Inactive form: INJ, 2016 [facility] ONCE, Stop date: 02/18/17 16:24:00 CDT fentaNYL (ANES) Route: IV, Drug Inactive form: INJ, 2016 [facility] ONCE, Stop date: 02/18/17 16:24:00 CDT midazolam (ANES) Route: IV, Drug Inactive form: SOLN, 2016 [facility] ONCE, Stop date: 02/18/17 16:24:00 CDT sodium chloride Route: IV, Inactive 0.9% 500 ml INJ Total Volume: 2016 [facility] (ANES) 500, Start date: 02/18/17 15:52:00 CDT, Stop date: 02/18/17 16:52:00 CDT vancomycin (ANES) Route: IV, Drug Inactive (ANES) form: INJ, 2016 [facility] Start date: 02/18/17 15:51:00 CDT, Stop date: 02/18/17 16:51:00 CDT citalopram 10 mg 10 mg=1 tab, Active oral tablet PO, Bedtime, 0 2015 [facility] Refill(s) calcitriol 0.5 2 microgram=4 Active mcg oral capsule cap, PO, Daily, 2015 calcitriol 2mcg daily, # 30 cap, 0 Refill(s), FARNAZ, given to patient Vitamin D3 2000 2,000 Active intl units oral IntlUnit=1 tab, 2015 [facility] tablet PO, Daily, # 30 tab, 0 Refill(s), given to patient calcium acetate 3,335 mg=5 cap, Active 667 MG Oral PO, TID-Meals, 2015 [facility] Tablet 0 Refill(s) Alprazolam 0.5 MG 0.5 mg=1 tab, Active Oral Tablet PO, TID, PRN 2015 [facility] Anxiety, 0 Refill(s) calcium carbonate 2,000 mg, CHEW, Active 1000 mg oral TID, # 65 tab, 2015 [facility] tablet, chewable 0 Refill(s), FARNAZ, given to patient Calcium Carbonate 1,000 mg, 2 No Longer tab, Route: PO, Active 2015 [facility] Drug form: CHEWTAB, TID-Meals, Dosing Weight 105, kg, Start date: 09/05/16 18:30:00 CERTIFIED PERSONAL CHEF, Duration: 30 day, Stop date: 10/05/16 18:00:00 CSTNotes: (Same As: Tums) Calcium Carbonate 500 fj=447 mg elemental calcium Dose= mg calcium carbonate ( mg elemental calcium) Alprazolam 0.5 MG 0.5 mg, 1 tab, No Longer Oral Tablet Route: PO, Drug Active 2015 [facility] form: TAB, TID, Dosing Weight 105, kg, PRN Anxiety, Start date: 09/05/16 15:54:00 CERTIFIED PERSONAL CHEF, Duration: 30 day, Stop date: 10/05/16 15:53:00 CSTNotes: With food or milk (Same as: Xanax) heparin 2,000 unit, 2 No Longer mL, Route: IVP, Active 2015 [facility] Drug form: INJ, ONCALL, Start date: 09/05/16 9:00:00 CERTIFIED PERSONAL CHEF, Duration: 30 day, Stop date: 10/05/16 8:59:00 CERTIFIED PERSONAL CHEF Vitamin D3 5,000 unit, 5 No Longer tab, Route: PO, Active 2015 [facility] Drug form: TAB, Daily, Dosing Weight 105, kg, Start date: 09/05/16 9:00:00 CERTIFIED PERSONAL CHEF, Duration: 30 day, Stop date: 10/04/16 9:00:00 CSTNotes: Same as : Vitamin D3 calcium gluconate 1,000 mg, 50 No Longer mL, Route: Active 2015 [facility] IVPB, Drug form: INJ, Q4H, Dosing Weight 105, kg, PRN Abnormal Lab Result, Start date: 09/04/16 17:01:00 CERTIFIED PERSONAL CHEF, Duration: 30 day, Stop date: 10/04/16 17:00:00 CSTNotes: WASTE: F/P - Sink; E - Municipal Trash Bin Protonix 20 mg, 1 tab, No Longer Route: PO, Drug Active 2015 [facility] form: ECTAB, Before Dinner, Start date: 09/04/16 16:30:00 CERTIFIED PERSONAL CHEF, Duration: 30 day, Stop date: 10/03/16 16:30:00 CSTNotes: Tablet should not be chewed or crushed. heparin 5,000 unit, 1 No Longer mL, Route: Active 2015 [facility] SUB-Q, Drug form: INJ, Q8H, Dosing Weight 105, kg, Start date: 09/04/16 14:00:00 CERTIFIED PERSONAL CHEF, Duration: 30 day, Stop date: 10/04/16 12:00:00 CSTNotes: porcine heparin aspirin 81 mg 81 mg, 1 tab, No Longer tablet, enteric Route: PO, Drug Active 2015 [facility] coated form: ECTAB, Daily, Dosing Weight 105, kg, Priority: NOW, Start date: 09/04/16 11:19:00 CERTIFIED PERSONAL CHEF, Duration: 30 day, Stop date: 10/04/16 9:00:00 CSTNotes: Do not crush or chew. (Same As: Ecotrin) Esomeprazole 20 mg, Route: Inactive PO, Drug form: 2015 [facility] GRAN, Daily, Dosing Weight 105, kg, Start date: 09/04/16 9:00:00 CERTIFIED PERSONAL CHEF, Duration: 30 day, Stop date: 10/03/16 9:00:00 CERTIFIED PERSONAL CHEF pantoprazole 40 mg, 1 tab, Inactive Route: PO, Drug 2015 [facility] form: ECTAB, Daily, Dosing Weight 105, kg, Start date: 09/04/16 9:00:00 CERTIFIED PERSONAL CHEF, Duration: 30 day, Stop date: 10/03/16 9:00:00 CSTNotes: Tablet should not be chewed or crushed. (Same as: Protonix) Vitamin D3 2000 2,000 IntlUnit, No Longer intl units oral 5 mL, Route: Active 2015 [facility] tablet PO, Drug form: SOLN, Daily, Dosing Weight 105, kg, Start date: 09/04/16 9:00:00 CERTIFIED PERSONAL CHEF, Duration: 30 day, Stop date: 10/03/16 9:00:00 CERTIFIED PERSONAL CHEF Calcitriol 2 microgram, 4 No Longer cap, Route: PO, Active 2015 [facility] Drug form: CAP, Daily, Dosing Weight 105, kg, Start date: 09/04/16 9:00:00 CERTIFIED PERSONAL CHEF, Duration: 30 day, Stop date: 10/03/16 9:00:00 CSTNotes: (Same As: Rocaltrol) calcium acetate 3,335 mg, 5 No Longer 667 MG Oral cap, Route: PO, Active 2015 [facility] Tablet Drug form: CAP, TID-Meals, Dosing Weight 105, kg, Start date: 09/04/16 8:00:00 CERTIFIED PERSONAL CHEF, Duration: 30 day, Stop date: 10/03/16 17:00:00 CSTNotes: Same as Phoslo Gel Cap Renvela 4,000 mg, 5 No Longer tab, Route: PO, Active 2015 [facility] Drug form: TAB, TID-Meals, Dosing Weight 105, kg, Start date: 09/04/16 8:00:00 CERTIFIED PERSONAL CHEF, Duration: 30 day, Stop date: 10/03/16 17:00:00 CSTNotes: Same as: Renvela benzocaine-mentho 1 lozenge, No Longer l topical Route: MUCOUS Active 2015 [facility] MEM, Drug Form: BETITO, Q1H, PRN Sore Throat, Start date: 09/04/16 0:06:00 CERTIFIED PERSONAL CHEF, Stop date: 10/04/16 0:05:00 CSTNotes: Same as: Cepacol Calcium Gluconate 1,000 mg, 50 No Longer mL, Route: Active 2015 [facility] IVPB, Drug form: INJ, Q3H, Dosing Weight 105, kg, Start date: 09/03/16 23:00:00 CERTIFIED PERSONAL CHEF, Duration: 30 day, Stop date: 10/03/16 20:00:00 CSTNotes: WASTE: F/P - Sink; E - Municipal Trash Bin Allopurinol 300 mg, Route: Inactive PO, Drug form: 2015 [facility] TAB, Bedtime, Dosing Weight 105, kg, Start date: 09/03/16 21:00:00 CERTIFIED PERSONAL CHEF, Duration: 30 day, Stop date: 10/02/16 21:00:00 CERTIFIED PERSONAL CHEF Zyloprim 100 mg, 1 tab, No Longer Route: PO, Drug Active 2015 [facility] form: TAB, Bedtime, Start date: 09/03/16 21:00:00 CERTIFIED PERSONAL CHEF, Duration: 30 day, Stop date: 10/02/16 21:00:00 CSTNotes: (Same as: Zyloprim) Saline Flush 0.9% 10 ml, Route: No Longer IVP, Drug Form: Active 2015 [facility] INJ, Dosing Weight 105, kg, Q12H, Start date: 09/03/16 21:00:00 CERTIFIED PERSONAL CHEF, Duration: 30 day, Stop date: 10/03/16 9:00:00 CSTNotes: (Same as: BD Posiflush) Citalopram 10 mg, 1 tab, No Longer Route: PO, Drug Active 2015 [facility] form: TAB, Bedtime, Dosing Weight 105, kg, Start date: 09/03/16 21:00:00 CERTIFIED PERSONAL CHEF, Duration: 30 day, Stop date: 10/02/16 21:00:00 CERTIFIED PERSONAL CHEF Zinacef + sodium 1.5 gm, Route: Inactive chloride 0.9% INJ IVPB, ONCE, 2015 [facility] 100 mL Start date: 09/03/16 21:00:00 CERTIFIED PERSONAL CHEF, Stop date: 09/03/16 21:00:00 CSTNotes: (Same As: Kefurox, Zinacef) MEDICATION WASTE Product Size: 1500 mg Product Wasted: ___ mg calcium gluconate 1 gm, 50 mL, Inactive Route: IV, Drug 2015 [facility] form: INJ, Q1H, Start date: 09/03/16 18:00:00 CERTIFIED PERSONAL CHEF, Duration: 2 doses or times, Stop date: 09/03/16 19:00:00 CSTNotes: WASTE: F/P - Sink; E - Municipal Trash Bin Calcium Gluconate 2,000 mg, Inactive Route: IVPB, 2015 [facility] Drug form: INJ, ONCE, Dosing Weight 105, kg, Start date: 09/03/16 17:42:00 CERTIFIED PERSONAL CHEF, Stop date: 09/03/16 17:42:00 CERTIFIED PERSONAL CHEF Docusate Sodium 100 mg, 1 cap, No Longer 100 MG Oral Route: PO, Drug Active 2015 [facility] Capsule form: CAP, BID, Dosing Weight 105, kg, Start date: 09/03/16 17:00:00 CERTIFIED PERSONAL CHEF, Duration: 30 day, Stop date: 10/03/16 9:00:00 CSTNotes: (Same as: Colace) (Do Not Crush) Morphine 1 mg, 0.25 mL, No Longer Route: IVP, Active 2015 [facility] Drug form: SOLN, Q2H, Dosing Weight 105, kg, PRN Pain Score 7-10, Start date: 09/03/16 15:25:00 CERTIFIED PERSONAL CHEF, Duration: 2 day, Stop date: 09/05/16 15:24:00 CSTNotes: (Same as:MORPhine Sulfate) Saline Flush 0.9% 10 ml, Route: No Longer IVP, Drug Form: Active 2015 [facility] INJ, Dosing Weight 105, kg, PRN, PRN Line Flush, Start date: 09/03/16 14:56:00 CERTIFIED PERSONAL CHEF, Duration: 30 day, Stop date: 10/03/16 14:55:00 CSTNotes: (Same as: BD Posiflush) Dulcolax Laxative 5 mg, 1 tab, No Longer Route: PO, Drug Active 2015 [facility] form: ECTAB, Q24H, Dosing Weight 105, kg, PRN Constipation, Start date: 09/03/16 14:56:00 CERTIFIED PERSONAL CHEF, Duration: 30 day, Stop date: 10/03/16 14:55:00 CSTNotes: (Same As: Dulcolax, Correctol) (Do Not Crush) "Do Not Crush" Sodium Chloride 1,000 mL, Rate: No Longer 0.0769 MEQ/ML 75 ml/hr, Active 2015 [facility] Injectable Infuse over: Solution 13.3 hr, Route: IV, Dosing Weight 105 kg, Total Volume: 1,000, Start date: 09/03/16 14:56:00 CERTIFIED PERSONAL CHEF, Duration: 1 doses or times, Stop date: 09/04/16 4:13:00 CERTIFIED PERSONAL CHEF Acetaminophen 325 1 tab, Route: No Longer MG / Hydrocodone PO, Drug Form: Active 2015 [facility] Bitartrate 5 MG TAB, Dosing Oral Tablet Weight 105, kg, Q4H, PRN Pain Score 4-6, Start date: 09/03/16 14:56:00 CERTIFIED PERSONAL CHEF, Duration: 30 day, Stop date: 10/03/16 14:55:00 CSTNotes: (Same as: [place] 325/5) Do not exceed 4gm/day of acetaminophen. Acetaminophen 325 1 tab, Route: No Longer MG / Hydrocodone PO, Drug Form: Active 2015 [facility] Bitartrate 10 MG TAB, Dosing Oral Tablet Weight 105, kg, Q4H, PRN Pain Score 4-6, Start date: 09/03/16 14:56:00 CERTIFIED PERSONAL CHEF, Duration: 30 day, Stop date: 10/03/16 14:55:00 CSTNotes: Do not exceed 4gm/day of acetaminophen. (Same as: [place] 325/10) Acetaminophen 650 mg, 2 tab, No Longer Route: PO, Drug Active 2015 [facility] form: TAB, Q4H, Dosing Weight 105, kg, PRN Pain 1-3/Temp > 100.4 F, Start date: 09/03/16 14:56:00 CERTIFIED PERSONAL CHEF, Duration: 30 day, Stop date: 10/03/16 14:55:00 CSTNotes: Do not exceed 4 gm/day. (Same as: Tylenol) Ondansetron 4 mg, 2 mL, No Longer Route: IVP, Active 2015 [facility] Drug form: INJ, Q6H, Dosing Weight 105, kg, PRN Nausea & Vomiting, Start date: 09/03/16 14:56:00 CERTIFIED PERSONAL CHEF, Duration: 30 day, Stop date: 10/03/16 14:55:00 CSTNotes: (Same as: Zofran) MEDICATION WASTE Product Size: 4 mg Product Wasted: ___ mg Temazepam 7.5 mg, 1 cap, No Longer Route: PO, Drug Active 2015 [facility] form: CAP, Bedtime, Dosing Weight 105, kg, PRN Insomnia, Start date: 09/03/16 14:56:00 CERTIFIED PERSONAL CHEF, Duration: 30 day, Stop date: 10/03/16 14:55:00 CSTNotes: (Same As: Restoril) Saline Flush 0.9% 10 ml, Route: Inactive IVP, Drug Form: 2015 [facility] INJ, Dosing Weight 105, kg, PRN, PRN Line Flush, Start date: 09/03/16 14:43:00 CERTIFIED PERSONAL CHEF, Duration: 30 day, Stop date: 10/03/16 14:42:00 CSTNotes: (Same as: BD Posiflush) Nystatin 100 1 appl, Route: No Longer UNT/MG Topical TOP, PRN, Drug Active 2015 [facility] Powder form: PWDR, PRN For Fungal Prophylaxis, Start date: 09/03/16 14:43:00 CERTIFIED PERSONAL CHEF, Duration: 30 day, Stop date: 10/03/16 14:42:00 CSTNotes: (Same as:Mycostatin, Nilstat) For external use only. Cefazolin 2 gm, 100 mL, Inactive Route: IVPB, 2015 [facility] Drug form: INJ, ONCALL, Dosing Weight 105, kg, Start date: 09/03/16 10:00:00 CERTIFIED PERSONAL CHEF, Duration: 30 day, Stop date: 10/03/16 9:59:00 CSTNotes: Same as: Ancef Restoril 15 mg, 1 cap, Inactive 12/08/ MH Route: PO, Drug 2015 [facility] form: CAP, Bedtime, Dosing Weight 101.364, kg, PRN Sleep, Start date: 09/03/16 9:55:00 CERTIFIED PERSONAL CHEF, Duration: 30 day, Stop date: 10/03/16 9:54:00 CSTNotes: (Same As: Restoril) Sodium Chloride 250 mL, Route: No Longer 0.9% IV IVPB, Start Active 2015 [facility] date: 09/01/16 17:57:00 CERTIFIED PERSONAL CHEF, Duration: 30 day, Stop date: 10/01/16 17:56:00 CERTIFIED PERSONAL CHEF, PRN Line Flush BD Normal Saline 10 mL, Route: No Longer Flush IVP, Drug Form: Active 2015 [facility] INJ, PRN, PRN Line Flush, Start date: 09/01/16 17:57:00 CERTIFIED PERSONAL CHEF, Duration: 30 day, Stop date: 10/01/16 17:56:00 CSTNotes: (Same as: BD Posiflush) Restoril 15 mg, 1 cap, No Longer Route: PO, Drug Active 2015 [facility] form: CAP, Bedtime, Dosing Weight 101.364, kg, PRN Sleep, Start date: 09/01/16 8:28:00 CERTIFIED PERSONAL CHEF, Duration: 30 day, Stop date: 10/01/16 8:27:00 CSTNotes: (Same As: Restoril) citalopram 10 mg 10 mg=1 tab, No Longer oral tablet PO, Bedtime Active 2015 [facility] calcium acetate 1,334 mg=2 tab, Active 667 MG Oral PO, PRN SNACKS 2015 [facility] Tablet omeprazole 20 mg 20 mg=1 tab, Active oral enteric PO, Bedtime 2015 [facility] coated tablet Alprazolam 0.5 MG 0.5 mg=1 tab, No Longer Oral Tablet PO, TID, PRN Active 2015 [facility] for anxiety sevelamer 1,600 mg=2 tab, Active carbonate 800 MG PO, PRN SNACKS 2015 [facility] Oral Tablet [Renvela] Atenolol 100 MG 100 mg=1 tab, Active Oral Tablet PO, PRN SBP 2015 [facility] GREATER THAN 160 indomethacin 50 50 mg=1 cap, No Longer mg oral capsule PO, TID, PRN Active 2015 [facility] GOUT PAIN Omnipaque 300 100 mL, Route: Active injectable IVP, Drug Form: 2015 [facility] solution SOLN, Dosing Weight 101.364, kg, ONCALL, ESRD on Dialysis, STAT, Start date: 08/13/16 11:13:00 CERTIFIED PERSONAL CHEF, Duration: 1 doses or timesNotes: (Same as:Omnipaque 300). WASTE: F/P - Black; E - Municipal Trash Bin Phenergan 25 mg, Route: Inactive IM, ONCE, 2014 [facility] Dosing Weight 101.364, kg, Start date: 01/15/15 13:05:00, Stop date: 01/15/15 13:05:00 Acetaminophen 1,000 mg, Inactive Route: IVPB, 2014 [facility] Q6Hnow, Dosing Weight 101.364, kg, Start [...] mg, 1 mL, Inactive Route: IVP, 2014 [facility] Drug form: INJ, Q4H, Dosing Weight 101.364, kg, PRN Pain Score 7-10, Start date: 01/15/15 9:18:00, Duration: 30 day, Stop date: 02/14/15 9:17:00Notes: (Same as:MORPhine Sulfate) Ondansetron 4 mg, 2 mL, Inactive Route: IVP, 2014 [facility] Drug form: INJ, Q8H, Dosing Weight 101.364, kg, PRN Nausea & Vomiting, Start date: 01/15/15 9:18:00, Duration: 30 day, Stop date: 02/14/15 9:17:00Notes: (Same as: Zofran) MEDICATION WASTE Product Size: 4 mg Product Wasted: ___ mg ropivacaine Route: NERVE Inactive BLOCK, 2014 [facility] Continuous Rate: 8, ml/hr, Dosing Site: Interscalene Side: Left, BED OPERATOR dose 5 mL, BED OPERATOR dose lockout: 30 minutes, 1 Hour limit: 18 mL, 200, mL, Start date: 01/15/15 9:18:00, Duration: 30, day, Drug Form: INJ, Total volume: 200, mL, kg,...Notes: Same as: Naropin Naloxone 0.04 mg, 0.1 Inactive mL, Route: IVP, 2014 [facility] Drug form: INJ, Q2MIN, Dosing Weight 101.364, kg, PRN Narcotic Reversal, Start date: 01/15/15 9:18:00, Duration: 8 doses or times, Stop date: Limited # of timesNotes: Same as Narcan Flumazenil 0.2 mg, 2 mL, Inactive Route: IVP, 2014 [facility] Drug form: INJ, PRN, Dosing Weight 101.364, kg, PRN Benzodiazepine Reversal, Initial dose, Start date: 01/15/15 9:18:00, Duration: 30 day, Stop date: 02/14/15 9:17:00Notes: (Same as: Romazicon) Sodium Chloride 1,000 mL, Rate: Inactive 0.154 MEQ/ML 125 ml/hr, 2014 [facility] Injectable Infuse over: 8 Solution hr, Route: IV, Dosing Weight 101.364 kg, Total Volume: 1,000, Start date: 01/15/15 9:18:00, Duration: 30 day, Stop date: 02/14/15 9:17:00 Acetaminophen 1,000 mg, 100 Inactive mL, Route: 2014 [facility] IVPB, Drug form: INJ, ONCE, Dosing Weight 101.364, kg, PRN Pain Score 1-3, Start date: 01/15/15 9:18:00, Duration: 1 doses or times, Stop date: Limited # of timesNotes: Infuse over 15 minutes Do not exceed 4gm/day of acetaminophen MEDICATION WASTE Product Size: 1000 mg Product Wasted: ___ mg Calcium Chloride 1,000 mL, Rate: Inactive 0.0014 MEQ/ML / 25 ml/hr, 2014 [facility] Potassium Infuse over: 40 Chloride 0.004 hr, Route: IV, MEQ/ML / Sodium Dosing Weight Chloride 0.103 101.364 kg, MEQ/ML / Sodium Total Volume: Lactate 0.028 1,000, Start MEQ/ML Injectable date: 01/15/15 Solution 9:18:00, Duration: 30 day, Stop date: 02/14/15 9:17:00 docusate sodium 100 mg, 1 cap, Inactive 100 mg oral Route: PO, Drug 2014 [facility] capsule form: CAP, BID, Dosing Weight 101.364, kg, Start date: 01/15/15 9:00:00, Duration: 30 day, Stop date: 02/13/15 17:00:00Notes: (Same as: Colace) (Do Not Crush) ceFAZolin (SCIP) 1 gm, Route: Inactive IVPB, Drug 2014 [facility] form: INJ, Q8H, Dosing Weight 101.364, kg, Start date: 01/15/15 8:00:00, Duration: 1 doses or times, Stop date: 01/15/15 8:00:00 Morphine 2 mg, 1 mL, Inactive Route: IVP, 2014 [facility] Drug form: INJ, Q3H, Dosing Weight 101.364, kg, PRN Pain Score 1-3, Start date: 01/15/15 7:57:00, Duration: 30 day, Stop date: 02/14/15 7:56:00Notes: (Same as:MORPhine Sulfate) Tramadol 50 mg, 1 tab, Inactive Route: PO, Drug 2014 [facility] form: TAB, Q6H, Dosing Weight 101.364, kg, PRN Pain Score 1-3, Start date: 01/15/15 7:57:00, Duration: 30 day, Stop date: 02/14/15 7:56:00Notes: Not to exceed 400mg/day. (Same As: Ultram) acetaminophen-cod 1 tab, Route: Inactive eine #3 PO, Drug Form: 2014 [facility] TAB, Dosing Weight 101.364, kg, Q4H, PRN Pain Score 4-6, Start date: 01/15/15 7:57:00, Duration: 30 day, Stop date: 02/14/15 7:56:00Notes: Do not exceed 4gm/day of acetaminophen. (Same as: Tylenol with Codeine # 3) apixaban 5 MG 5 mg=1 tab, PO, Active Oral Tablet BID, 0 2014 [facility] [Eliquis] Refill(s) Nephro-Dominick 1 tab, Route: No Longer PO, Drug Form: Active 2014 [facility] TAB, Dosing Weight 101.364, kg, Daily, Start date: 11/02/14 9:00:00, Duration: 30 day, Stop date: 12/01/14 9:00:00Notes: (Same as: Nephro-Dominick Rx and Diatx) Give with food. Aspirin Enteric 81 mg, 1 tab, No Longer Coated Route: PO, Drug Active 2014 [facility] form: ECTAB, Daily, Dosing Weight 101.364, kg, Start date: 11/02/14 9:00:00, Duration: 30 day, Stop date: 12/01/14 9:00:00Notes: Do not crush or chew. (Same As: Ecotrin) Allopurinol 300 mg, 1 tab, No Longer Route: PO, Drug Active 2014 [facility] form: TAB, Daily, Dosing Weight 101.364, kg, Start date: 11/02/14 9:00:00, Duration: 30 day, Stop date: 12/01/14 9:00:00Notes: (Same as: Zyloprim) atorvastatin 40 mg, 2 tab, Inactive Route: PO, Drug 2014 [facility] form: TAB, Bedtime, Dosing Weight 101.364, kg, Start date: 11/01/14 21:00:00, Duration: 30 day, Stop date: 11/30/14 21:00:00Notes: (Same As: Lipitor) Renvela 3,200 mg, 4 Inactive tab, Route: PO, 2014 [facility] Drug form: TAB, TID, Dosing Weight 101.364, kg, Start date: 11/01/14 13:00:00, Duration: 30 day, Stop date: 12/01/14 9:00:00Notes: Same as: Renvela Sodium Chloride 250 mL, Route: Inactive 0.9% IV IVPB, Start 2014 [facility] date: 11/01/14 11:03:00, Duration: 30 day, Stop date: 12/01/14 11:02:00, PRN Line Flush BD Normal Saline 10 mL, Route: Inactive Flush IVP, Drug Form: 2014 [facility] INJ, PRN, PRN Line Flush, Start date: 11/01/14 11:03:00, Duration: 30 day, Stop date: 12/01/14 11:02:00Notes: (Same as: BD Posiflush) Acetaminophen 300 1 tab, PO, Q4H, Active MG / Codeine Pain Score 4-6, 2014 [facility] Phosphate 30 MG # 40 tab, 0 Oral Tablet Refill(s), given to patient Zofran 4 mg, 2 mL, Inactive Route: IV, Drug 2014 [facility] form: INJ, Q6H, Dosing Weight 101.364, kg, PRN Nausea, Start date: 11/01/14 9:25:00, Duration: 30 day, Stop date: 12/01/14 9:24:00Notes: (Same as: Zofran) acetaminophen-cod 1 tab, Route: Inactive eine #3 PO, Drug Form: 2014 [facility] TAB, Dosing Weight 101.364, kg, Q4H, PRN Pain Score 4-6, Start date: 11/01/14 9:25:00, Duration: 30 day, Stop date: 12/01/14 9:24:00Notes: Do not exceed 4gm/day of acetaminophen. (Same as: Tylenol with Codeine # 3) Acetaminophen 650 mg, 2 tab, Inactive Route: PO, Drug 2014 [facility] form: TAB, Q4H, Dosing Weight 101.364, kg, PRN Pain 1-3/Temp > 100.4 F, Start date: 11/01/14 9:25:00, Duration: 30 day, Stop date: 12/01/14 9:24:00Notes: Do not exceed 4 gm/day. (Same as: Tylenol) Ondansetron 4 mg, 2 mL, Inactive Route: IV2014 [facility] Drug form: INJ, ONCE, Dosing Weight 101.364, kg, PRN Nausea & Vomiting, Start date: 11/01/14 9:20:00Notes: (Same as: Zofran) Hydralazine 10 mg, 0.5 mL, Inactive Route: IV2014 [facility] Drug form: INJ, Q20Min, Dosing Weight 101.364, kg, PRN Elevated BP, Start date: 11/01/14 9:20:00, Duration: 2 doses or times, Stop date: Limited # of timesNotes: (Same as: Apresoline) Push over 5 minutes Morphine 2 mg, 1 mL, Inactive Route: IV2014 [facility] Drug form: INJ, Q5Min, Dosing Weight 101.364, kg, PRN Pain Score 4-6, Start date: 11/01/14 9:20:00, Duration: 5 doses or times, Stop date: Limited # of timesNotes: (Same as:MORPhine Sulfate) Naloxone 0.04 mg, 0.1 Inactive mL, Route: IV2014 [facility] Drug form: INJ, Q2MIN, Dosing Weight 101.364, kg, PRN Narcotic Reversal, Start date: 11/01/14 9:20:00, Duration: 8 doses or times, Stop date: Limited # of timesNotes: Same as Narcan Meperidine 12.5 mg, 0.25 Inactive mL, Route: IV2014 [facility] Drug form: INJ, Q30Min, Dosing Weight 101.364, kg, PRN Other -See Comment, For shivering, Start date: 11/01/14 9:20:00, Duration: 2 doses or times, Stop date: Limited # of timesNotes: (Same As: Demerol) Flumazenil 0.2 mg, 2 mL, Inactive Route: IV2014 [facility] Drug form: INJ, PRN, Dosing Weight 101.364, kg, PRN Benzodiazepine Reversal, Initial dose, Start date: 11/01/14 9:20:00, Duration: 30 day, Stop date: 12/01/14 9:19:00Notes: (Same as: Romazicon) Labetalol 10 mg, 2 mL, Inactive Route: IVP, 2014 [facility] Drug form: INJ, Q5Min, Dosing Weight 101.364, kg, PRN Elevated BP, Start date: 11/01/14 9:20:00, Duration: 5 doses or times, Stop date: Limited # of times Vancomycin 1,500 mg, 250 Inactive mL, Route: 2014 [facility] IVPB, Drug form: INJ, ONCALL, Dosing Weight 105, kg, Start date: 11/01/14 7:00:00, Duration: 30 day, Stop date: 12/01/14 6:59:00Notes: Same as: Vancocin-NS (premixed) Infusion rate 2000 mg: infuse over 2.5 hours Restoril 15 mg, 1 cap, Inactive Route: PO, Drug 2014 [facility] form: CAP, Bedtime, Dosing Weight 105, kg, PRN Sleep, Start date: 11/01/14 6:07:00, Duration: 30 day, Stop date: 12/01/14 6:06:00Notes: (Same As: Restoril) Sodium Chloride 250 mL, Route: Inactive 0.9% IV IVPB, Start 2013 [facility] date: 07/12/14 16:24:00, Duration: 30 day, Stop date: 08/11/14 15:23:00, PRN Line Flush BD Normal Saline 10 mL, Route: Inactive Flush IVP, Drug Form: 2013 [facility] INJ, PRN, PRN Line Flush, Start date: 07/12/14 16:24:00, Duration: 30 day, Stop date: 08/11/14 15:23:00Notes: (Same as: BD Posiflush) Acetaminophen 1,000 mg, 100 Inactive MH mL, Route: 2013 [facility] IVPB, Drug form: INJ, Q6Hnow, Dosing Weight 105.455, kg, Start date: 07/12/14 14:00:00, Duration: 24 hr, Stop date: 07/13/14 8:00:00Notes: Infuse over 15 minutes Do not exceed 4gm/day of acetaminophen ropivacaine Route: NERVE Inactive BLOCK, 2013 [facility] Continuous Rate: 6, ml/hr, Dosing Site: Interscalene Side: Right, BED OPERATOR dose 5 mL, BED OPERATOR dose lockout: 30 minutes, 1 Hour [...] 2 mL, Inactive 07/12/ MH Route: IVP2013 [facility] Drug form: INJ, Q8H, Dosing Weight 105.455, kg, PRN Nausea & Vomiting, Start date: 07/12/14 13:43:00, Duration: 30 day, Stop date: 08/11/14 13:42:00Notes: (Same as: Zofran) Ondansetron 4 mg, 2 mL, Inactive 07/12/ MH Route: IVP2013 [facility] Drug form: INJ, Q8H, Dosing Weight 105.455, kg, PRN Nausea & Vomiting, Start date: 07/12/14 8:46:00, Duration: 30 day, Stop date: 08/11/14 8:45:00Notes: (Same as: Zofran) Morphine 2 mg, 1 mL, Inactive 07/12/ MH Route: IVP2013 [facility] Drug form: INJ, Q4H, Dosing Weight [...] Roxicodone) ropivacaine Route: NERVE Inactive BLOCK, 2013 [facility] Continuous Rate: 6, ml/hr, Dosing Site: Interscalene Side: Right, BED OPERATOR dose 5 mL, BED OPERATOR dose lockout: 30 minutes, 1 Hour limit: 18 mL, Clinician Bolus: 10 mL, 200, mL, Start date: 07/12/14 8:46:00, Duration: 30, day, Drug Form: INJ, R...Notes: Same as: Naropin Flumazenil 0.2 mg, 2 mL, Inactive Route: IVP2013 [facility] Drug form: INJ, PRN, Dosing Weight 105.455, kg, PRN Benzodiazepine Reversal, Initial dose, Start date: 07/12/14 8:45:00, Duration: 30 day, Stop date: 08/11/14 7:44:00Notes: (Same as: Romazicon) Naloxone 0.04 mg, 0.1 Inactive mL, Route: IVP2013 [facility] Drug form: INJ, Q2MIN, Dosing Weight 105.455, kg, PRN Narcotic Reversal, Start date: 07/12/14 8:45:00, Duration: 8 doses or times, Stop date: Limited # of timesNotes: Same as Narcan Morphine 4 mg, 1 mL, Inactive Route: IVP2013 [facility] Drug form: INJ, Q5Min, Dosing Weight 105.455, kg, PRN Pain Score 7-10, Start date: 07/12/14 8:45:00, Duration: 3 doses or times, Stop date: Limited # of timesNotes: (Same as:MORPhine Sulfate) Ondansetron 4 mg, 2 mL, Inactive Route: IVP2013 [facility] Drug form: INJ, ONCE, Dosing Weight 105.455, kg, PRN Nausea & Vomiting, Start date: 07/12/14 8:45:00Notes: (Same as: Zofran) Sodium Chloride 1,000 mL, Rate: Inactive 0.154 MEQ/ML 125 ml/hr, 2013 [facility] Injectable Infuse over: 8 Solution hr, Route: IV, Dosing Weight 105.455 kg, Total Volume: 1,000, Start date: 07/12/14 8:45:00, Duration: 30 day, Stop date: 08/11/14 8:44:00 Labetalol 10 mg, 2 mL, Inactive Route: IVP, 2013 [facility] Drug form: INJ, Q5Min, Dosing Weight 105.455, kg, PRN Elevated BP, Start date: 07/12/14 8:45:00, Duration: 5 doses or times, Stop date: Limited # of times Acetaminophen 1,000 mg, 100 Inactive mL, Route: 2013 [facility] IVPB, Drug form: INJ, ONCE, Dosing Weight 105.455, kg, PRN Pain Score 1-3, Start date: 07/12/14 8:45:00, Duration: 1 doses or times, Stop date: Limited # of timesNotes: Infuse over 15 minutes Do not exceed 4gm/day of acetaminophen Sodium Chloride 1,000 mL, Rate: Inactive 0.154 MEQ/ML 25 ml/hr, 2013 [facility] Injectable Infuse over: 40 Solution hr, Route: IV, Dosing Weight 105.455 kg, Total Volume: 1,000, Start date: 07/12/14 8:44:00, Duration: 30 day, Stop date: 08/11/14 8:43:00 sevelamer 1,600 mg=2 tab, Active carbonate 800 MG PO, TID, # 180 2013 [facility] Oral Tablet tab, 0 [Renvela] Refill(s), given to patient Doxercalciferol See Active 0.001 MG Oral Instructions, 4 2013 [facility] Capsule cap PO mon, [Hectorol] wed, wed, # 30 caplet, 2 Refill(s)Specia l Instructions: 4 cap PO wed, wed, wed calcium-vitamin D 1 tab, Route: Inactive PO, Drug Form: 2013 [facility] TAB, TID, Start date: 03/24/14 17:00:00, Duration: 30 day, Stop date: 04/23/14 13:00:00Notes: (Same As: Caltrate 600 with D) calcium gluconate 2,000 mg, 20 Inactive + Sodium Chloride mL, Route: IV, 2013 [facility] 0.9% IV 100 mL ONCE, Start date: 03/24/14 14:25:00, Stop date: 03/24/14 14:25:00 magnesium sulfate 1 gm, 2 mL, Inactive + Sodium Chloride Route: IVPB, 2013 [facility] 0.9% IV 100 mL ONCE, Start date: 03/23/14 22:00:00, Stop date: 03/23/14 22:00:00Notes: (Same as: MgSO4) calcium gluconate 2,500 mg, 25 Inactive + Sodium Chloride mL, Route: IV, 2013 [facility] 0.9% IV 100 mL ONCE, Start date: 03/23/14 22:00:00, Stop date: 03/23/14 22:00:00 Hectorol 4 microgram, 8 No Longer cap, Route: PO, Active 2013 [facility] Drug form: CAP, Q-M-W-F, Start date: 03/23/14 20:00:00, Duration: 30 day, Stop date: 04/20/14 20:00:00Notes: Non-Formulary Drug. (Same as: Hectorol) Sodium Chloride 250 mL, Route: No Longer 0.9% IV IVPB, Start Active 2013 [facility] date: 03/23/14 16:24:00, Duration: 30 day, Stop date: 04/22/14 16:23:00, PRN Line Flush BD Normal Saline 10 mL, Route: No Longer Flush IVP, Drug Form: Active 2013 [facility] INJ, PRN, PRN Line Flush, Start date: 03/23/14 16:23:00, Duration: 30 day, Stop date: 04/22/14 16:22:00Notes: (Same as: BD Posiflush) Hectorol 4 microgram, Inactive Route: IVP, 2013 [facility] 3x/Wk, Dosing Weight 105.455, kg, Start date: 03/23/14 16:07:00, Duration: 30 day, Stop date: 04/22/14 16:06:00 Atenolol 100 MG 100 mg, 1 tab, No Longer Oral Tablet Route: PO, Drug Active 2013 [facility] form: TAB, Daily, Dosing Weight 105.455, kg, Start date: 03/23/14 9:00:00, Duration: 30 day, Stop date: 04/21/14 9:00:00Notes: (Same As:Tenormin) Aspirin / Calcium 81 mg, 1 tab, No Longer Carbonate Route: PO, Drug Active 2013 [facility] form: ECTAB, Daily, Dosing Weight 105.455, kg, Start date: 03/23/14 9:00:00, Duration: 30 day, Stop date: 04/21/14 9:00:00Notes: Do not crush or chew. (Same As: Ecotrin) Allopurinol 300 mg, 1 tab, No Longer Route: PO, Drug Active 2013 [facility] form: TAB, Daily, Dosing Weight 105.455, kg, Start date: 03/23/14 9:00:00, Duration: 30 day, Stop date: 04/21/14 9:00:00Notes: (Same as: Zyloprim) pantoprazole 40 mg, 1 tab, No Longer Route: PO, Drug Active 2013 [facility] form: ECTAB, Daily, Dosing Weight 105.455, kg, Start date: 03/23/14 9:00:00, Duration: 30 day, Stop date: 04/21/14 9:00:00Notes: Tablet should not be chewed or crushed. (Same as: Protonix) Renvela 1,600 mg, 2 No Longer tab, Route: PO, Active 2013 [facility] Drug form: TAB, TID-Meals, Start date: 03/23/14 8:00:00, Duration: 30 day, Stop date: 04/21/14 17:00:00Notes: Same as: Renvela calcium gluconate 2,000 mg, 20 Inactive + Sodium Chloride mL, Route: IV, 2013 [facility] 0.9% IV 100 mL ONCE, Start date: 03/23/14 5:55:00, Stop date: 03/23/14 5:55:00 calcium gluconate 2,000 mg, 20 Inactive + Sodium Chloride mL, Route: IV, 2013 [facility] 0.9% IV 100 mL ONCE, Start date: 03/23/14 0:10:00, Stop date: 03/23/14 0:10:00 Zinacef + Sodium 1.5 gm, Route: Inactive Chloride 0.9% IV IVPB, ONCE, 2013 [facility] 100 mL Start date: 03/23/14 0:00:00, Stop date: 03/23/14 0:00:00Notes: (Same As: Kefurox, Zinacef) Magnesium Sulfate 4 gm, 100 mL, Inactive Route: IVPB, 2013 [facility] Drug form: INJ, ONCE, Dosing Weight 105.455, kg, Start date: 03/22/14 22:15:00, Duration: 2 hr, Stop date: 03/22/14 22:15:00 atorvastatin 40 mg, 2 tab, No Longer Route: PO, Drug Active 2013 [facility] form: TAB, Bedtime, Dosing Weight 105.455, kg, Start date: 03/22/14 21:00:00, Duration: 30 day, Stop date: 04/20/14 21:00:00Notes: (Same As: Lipitor) Docusate Sodium 100 mg, 1 cap, No Longer 100 MG Oral Route: PO, Drug Active 2013 [facility] Capsule form: CAP, BID, Dosing Weight 105.455, kg, Start date: 03/22/14 17:00:00, Duration: 30 day, Stop date: 04/21/14 9:00:00Notes: (Same as: Colace) (Do Not Crush) Fosrenol Route: PO, Drug Inactive form: CAP, BID, 2013 [facility] Dosing Weight 105.455, kg, Start date: 03/22/14 17:00:00, Duration: 30 day, Stop date: 04/21/14 9:00:00 Alprazolam 0.25 0.25 mg, 1 tab, Inactive MG Oral Tablet Route: PO, Drug 2013 [facility] [Xanax] form: TAB, ONCE, Dosing Weight 105.455, kg, Start date: 03/22/14 16:08:00, Stop date: 03/22/14 16:08:00Notes: With food or milk (Same as: Xanax) Nicotine 21 mg, 1 patch, No Longer Route: TOP, Active 2013 [facility] Drug form: ERFILM, Daily, Dosing Weight 105.455, kg, Start date: 03/22/14 16:00:00, Duration: 30 day, Stop date: 04/21/14 9:00:00Notes: (Same as: Habitrol) "Remove old patch before application of new patch" Morphine 2 mg, Route: Inactive IVP, ONCE, 2013 [facility] Dosing Weight 105.455, kg, Start date: 03/22/14 15:47:00, Stop date: 03/22/14 15:47:00 Morphine 2 mg, Route: Inactive IVP, ONCE, 2013 [facility] Dosing Weight 105.455, kg, Start date: 03/22/14 15:33:00, Stop date: 03/22/14 15:33:00 Zinacef 1.5 gm, Route: Inactive IVPB, ABXQ8H, 2013 [facility] Dosing Weight 105.455, kg, Start date: 03/22/14 15:00:00, Duration: 1 day, Stop date: 03/23/14 7:00:00 Glucagon 1 mg, Route: No Longer IM, Drug form: Active 2013 [facility] PDR/INJ, PRN, Dosing Weight 105.455, kg, PRN Blood Glucose Results, Start date: 03/22/14 14:12:00, Duration: 30 day, Stop date: 04/21/14 14:11:00 Dextrose 50% 25 gm, 50 mL, No Longer Syringe Route: IVP, Active 2013 [facility] Drug Form: INJ, Dosing Weight 105.455, kg, PRN, PRN Blood Glucose Results, Start date: 03/22/14 14:12:00, Duration: 30 day, Stop date: 04/21/14 14:11:00 Insulin, Aspart, 5 unit, 0.05 No Longer Human mL, Route: Active 2013 [facility] SUB-Q, Drug form: SOLN, TID-Before Meals, [...] No Longer IVP, Drug Form: Active 2013 [facility] INJ, Dosing Weight 105.455, kg, PRN, PRN Line Flush, Start date: 03/22/14 14:10:00, Duration: 30 day, Stop date: 04/21/14 14:09:00Notes: (Same as: BD Posiflush) Temazepam 7.5 mg, 1 cap, No Longer Route: PO, Drug Active 2013 [facility] form: CAP, Bedtime, Dosing Weight 105.455, kg, PRN Insomnia, Start date: 03/22/14 14:10:00, Duration: 30 day, Stop date: 04/21/14 14:09:00Notes: (Same As: Restoril) Ondansetron 4 mg, 2 mL, No Longer Route: IVP, Active 2013 [facility] Drug form: INJ, Q6H, Dosing Weight 105.455, kg, PRN Nausea & Vomiting, Start date: 03/22/14 14:10:00, Duration: 30 day, Stop date: 04/21/14 14:09:00Notes: (Same as: Zofran) Dulcolax Laxative 5 mg, 1 tab, No Longer Route: PO, Drug Active 2013 [facility] form: ECTAB, Q24H, Dosing Weight 105.455, kg, PRN Constipation, Start date: 03/22/14 14:10:00, Duration: 30 day, Stop date: 04/21/14 14:09:00Notes: (Same As: Dulcolax, Correctol) (Do Not Crush) "Do Not Crush" Acetaminophen 650 mg, 2 tab, No Longer Route: PO, Drug Active 2013 [facility] form: TAB, Q4H, Dosing Weight 105.455, kg, PRN Pain 1-3/Temp > 100.4 F, Start date: 03/22/14 14:10:00, Duration: 30 day, Stop date: 04/21/14 14:09:00Notes: Do not exceed 4 gm/day. (Same as: Tylenol) Acetaminophen 325 1 tab, Route: No Longer 03/22/ MG / Hydrocodone PO, Drug Form: Active 2013 [facility] Bitartrate 10 MG TAB, Dosing Oral Tablet Weight 105.455, kg, Q4H, PRN Pain Score 4-6, Start date: 03/22/14 14:10:00, Duration: 30 day, Stop date: 04/21/14 14:09:00Notes: Do not exceed 4gm/day of acetaminophen. (Same as: [place] 325/10) Acetaminophen 325 1 tab, Route: No Longer MG / Hydrocodone PO, Drug Form: Active 2013 [facility] Bitartrate 5 MG TAB, Dosing Oral Tablet Weight 105.455, kg, Q4H, PRN Pain Score 4-6, Start date: 03/22/14 14:10:00, Duration: 30 day, Stop date: 04/21/14 14:09:00Notes: (Same as: [place] 325/5) Do not exceed 4gm/day of acetaminophen. Metoclopramide 10 mg, 2 mL, Inactive Route: IVP2013 [facility] Drug form: INJ, Q6H, Dosing Weight 105.455, kg, PRN Nausea & Vomiting, Start date: 03/22/14 14:08:00, Duration: 30 day, Stop date: 04/21/14 14:07:00Notes: (Same as: Reglan) Fentanyl 25 microgram, Inactive 0.5 mL, Route: 2013 [facility] IVP, Drug form: INJ, Q5Min, Dosing Weight 105.455, kg, PRN Pain Score 4-6, Start date: 03/22/14 14:08:00, Duration: 4 doses or times, Stop date: Limited # of timesNotes: (Same as: Sublimaze) Preservative free. Flumazenil 0.2 mg, 2 mL, Inactive Route: IVP, 2013 [facility] Drug form: INJ, PRN, Dosing Weight 105.455, kg, PRN Benzodiazepine Reversal, Initial dose, Start date: 03/22/14 14:08:00, Duration: 30 day, Stop date: 04/21/14 14:07:00Notes: (Same as: Romazicon) Hydralazine 10 mg, 0.5 mL, Inactive Route: IVP, 2013 [facility] Drug form: INJ, Q20Min, Dosing Weight 105.455, kg, PRN Elevated BP, Start date: 03/22/14 14:08:00, Duration: 2 doses or times, Stop date: Limited # of timesNotes: (Same as: Apresoline) Push over 5 minutes Labetalol 10 mg, 2 mL, Inactive Route: IVP, 2013 [facility] Drug form: INJ, Q5Min, Dosing Weight 105.455, kg, PRN Elevated BP, Start date: 03/22/14 14:08:00, Duration: 5 doses or times, Stop date: Limited # of times Ondansetron 4 mg, Route: Inactive IVP, ONCE, 2013 [facility] Dosing Weight 105.455, kg, PRN Nausea & Vomiting, Start date: 03/22/14 14:08:00 Naloxone 0.04 mg, 0.1 Inactive mL, Route: IVP, 2013 [facility] Drug form: INJ, Q2MIN, Dosing Weight 105.455, kg, PRN Narcotic Reversal, Start date: 03/22/14 14:08:00, Duration: 8 doses or times, Stop date: Limited # of timesNotes: (Same as: Narcan) Indomethacin 50 mg, 1 cap, No Longer Route: PO, Drug Active 2013 [facility] form: CAP, TID-Meals, Dosing Weight 105.455, kg, Start date: 03/22/14 12:00:00, Duration: 30 day, Stop date: 04/21/14 8:00:00Notes: (Same as: Indocin) Take with food Tramadol 50 mg, 1 tab, No Longer Route: PO, Drug Active 2013 [facility] form: TAB, Bedtime, Dosing Weight 105.455, kg, PRN as needed for pain, Start date: 03/22/14 10:18:00, Duration: 30 day, Stop date: 04/21/14 10:17:00Notes: Not to exceed 400mg/day. (Same As: Ultram) Alprazolam 0.25 mg, 1 tab, No Longer Route: PO, Drug Active 2013 [facility] form: TAB, During Dialysis, Dosing Weight [...] Route: No Longer IVPB, ONCALL, Active 2013 [facility] Dosing Weight 116.364, kg, Start date: 03/20/14 15:00:00, Duration: 30 day, Stop date: 04/19/14 14:59:00Notes: (Same As: Kefurox, Zinacef) Atenolol 100 MG 100 mg=1 tab, Active Oral Tablet PO, Daily, 0 2013 Refill(s) atorvastatin 40 40 mg=1 tab, Active mg oral tablet PO, Bedtime, 0 2013 [facility] Refill(s) Aspirin Enteric Daily, 0 Active Coated 81 mg oral Refill(s) 2013 [facility] delayed release tablet Fosrenol 2 TABS, PO, Active BID, 0 2013 [facility] Refill(s) ReZyst IM oral 1 tab, CHEW, Active tablet, chewable Daily, # 30 2013 [facility] tab, 0 Refill(s) Alprazolam 0.25 mg, PO, Active During 2013 [facility] Dialysis, 0 Refill(s) cinacalcet 90 MG 90 mg=1 tab, No Longer Oral Tablet PO, After Active 2013 [facility] [Sensipar] Dinner, 0 Refill(s) allopurinol 300 300 mg=1 tab, Active mg oral tablet PO, Daily, 0 2013 [facility] Refill(s) Tramadol 50 mg, PO, Active Q4-6H, Pain, # 2014 [facility] 20 tab, 0 Refill(s) tramadol 50 mg=1 tab, No Longer hydrochloride 50 PRN, 0 Active 2013 [facility] MG Oral Tablet Refill(s) Nephro-Dominick 1 tab, Daily, 0 Active Refill(s) 2013 [facility] senna oral tablet 2 tab, Bedtime, Active 0 Refill(s) 2013 [facility] 200 ACTUAT 1 puff, Active Albuterol 0.09 INHALATION, 2013 [facility] MG/ACTUAT Metered PRN, for Dose Inhaler wheezing, # 9 [ProAir HFA] gm, 0 Refill(s) Hydrocodone 10/325MG, PO, Active Bitartrate 5 MG / PRN, for pain, 2013 [facility] Ibuprofen 200 MG 0 Refill(s) Oral Tablet indomethacin 50 50 mg=1 cap, Active mg oral capsule TID-Meals, 0 2013 [facility] Refill(s) Restoril 15 mg, 1 cap, No Longer Route: PO, Drug Active 2013 [facility] form: CAP, Bedtime, Dosing Weight 116.364, kg, PRN Sleep, Start date: 03/20/14 14:26:00, Duration: 30 day, Stop date: 04/19/14 14:25:00Notes: (Same As: Restoril) Allergies, Adverse Reactions, Alerts Substance Category Reaction Severity Reaction Status Date Comments Source type Reported cranberry Assertion THROAT Food Active SWELLING allergy [facility] Immunizations Immunization Date Given Site Status Last Updated Comments Source Results Order Name Results Value Reference Date Interpretation Comments Source Range HEMATOLOGY POC 42.0 % 42.0 - 02/18 Hematocrit 54.0 [facility] HEMATOLOGY POC 14.3 g/dL 14.0 - 02/18 Hemoglobin 18.0 [facility] HEMATOLOGY POC BUN 57 mg/dL 7 - 22 02/18 [facility] HEMATOLOGY POC Chloride 104 meq/L 95 - 109 02/18 [facility] HEMATOLOGY POC Glucose 64 mg/dL 70 - 99 02/18 [facility] HEMATOLOGY POC 5.2 meq/L 3.5 - 5.1 02/18 Potassium [facility] HEMATOLOGY POC Sodium 140 meq/L 135 - 145 02/18 [facility] HEMATOLOGY POC 46.0 % 42.0 - 02/18 Hematocrit 54.0 [facility] HEMATOLOGY POC Glucose 71 mg/dL 70 - 99 02/18 [facility] HEMATOLOGY POC BUN 67 mg/dL 7 - 22 02/18 [facility] HEMATOLOGY POC 15.6 g/dL 14.0 - 02/18 Hemoglobin 18.0 [facility] HEMATOLOGY POC 5.3 meq/L 3.5 - 5.1 02/18 Potassium [facility] HEMATOLOGY POC Chloride 100 meq/L 95 - 109 02/18 [facility] HEMATOLOGY POC Sodium 141 meq/L 135 - 145 02/18 [facility] CHEM PANEL Magnesium 2.2 mg/dL 1.8 - 2.4 09/06 Lvl [facility] CHEM PANEL eGFR 6 09/06 Result [...] is not recommended in the following populations: [place] [id number] Individuals with unstable creatinine concentrations, including patients [...] Lvl 9.7 mg/dL 8.5 - 10.5 09/06 [facility] CHEM PANEL Albumin Lvl 3.7 g/dL 3.5 - 5.0 09/06 [facility] CHEM PANEL Total 6.8 g/dL 6.4 - 8.4 09/06 [facility] CHEM PANEL Chloride Lvl 99 meq/L 95 - 109 09/06 [facility] CHEM PANEL CO2 26 meq/L 24 - 32 09/06 [facility] CHEM PANEL Bili Total 0.7 mg/dL 0.2 - 1.3 09/06 [facility] CHEM PANEL Alk Phos 157 unit/L 39 - 136 12 [facility] CHEM PANEL AST 16 unit/L 0 - 37 09/06 [facility] CHEM PANEL ALT 18 unit/L 0 - 65 09/06 [facility] CHEM PANEL Sodium Lvl 137 meq/L 135 - 145 09/06 [facility] CHEM PANEL Potassium 3.9 meq/L 3.5 - 5.1 12 [facility] Lvl /2015 [facility] CHEM PANEL Creatinine 8.80 mg/dL 0.50 - 12 [facility] Lvl 1.40 /2015 [facility] CHEM PANEL BUN 37 mg/dL 7 - 22 09/06 [facility] CHEM PANEL Glucose Lvl 69 mg/dL 70 - 99 09/06 [facility] CHEM PANEL AGAP 15.9 meq/L 10.0 - 09/06 [facility] 20.0 [facility] CHEM PANEL Globulin 3.1 g/dL 2.7 - 4.2 09/06 [facility] CHEM PANEL A/G Ratio 1.2 0.7 - 1.6 09/06 [facility] CHEM PANEL B/C Ratio 4 6 - 25 09/06 [facility] CHEM PANEL Phosphorus 4.2 mg/dL 2.5 - 4.5 09/06 [facility] HEMATOLOGY MPV 9.7 fL 7.4 - 10.4 09/06 [facility] HEMATOLOGY Platelet 145 K/CMM 133 - 450 09/06 [facility] HEMATOLOGY RDW 20.0 % 11.5 - 09/06 MH 14.5 [facility] HEMATOLOGY MCHC 32.4 g/dL 32.0 - 09/06 MH 36.0 [facility] HEMATOLOGY MCH 28.7 pg 27.0 - 09/06 MH 31.0 [facility] HEMATOLOGY MCV 88.6 fL 80.0 - 09/06 MH 94.0 [facility] HEMATOLOGY Hgb 13.8 g/dL 14.0 - 12 MH 18.0 [facility] HEMATOLOGY Hct 42.7 % 42.0 - 12 MH 54.0 [facility] HEMATOLOGY RBC 4.82 M/CMM 4.70 - 12 MH 6.10 [facility] HEMATOLOGY WBC 8.5 K/CMM 3.7 - 10.4 09/06 [facility] PARATHYROI Ca Ion WB 1.12 1.05 - 09/06 MH D PROFILE mMol/L 1. [facility] PARATHYROI Ca Norm WB 1.10 1.05 - 09/06 MH D PROFILE mMol/L . [facility] PARATHYROI Ca Norm WB 1.16 1.05 - 09/06 MH D PROFILE mMol/L . [facility] PARATHYROI Ca Ion WB 1.13 1.05 - 09/06 MH D PROFILE mMol/L . [facility] PARATHYROI Ca Ion WB 1.18 1.05 - 09/05 MH D PROFILE mMol/L . [facility] PARATHYROI Ca Norm WB 1.21 1.05 - 09/05 MH D PROFILE mMol/L . [facility] CHEM PANEL Phosphorus 5.3 mg/dL 2.5 - 4.5 09/05 [facility] CHEM PANEL Magnesium 2.0 mg/dL 1.8 - 2.4 09/05 Lvl [facility] CHEM PANEL eGFR 5 09/05 Result [...] is not recommended in the following populations: [facility] 3m2 Individuals with unstable creatinine concentrations, [...] A/G Ratio 1.1 0.7 - 1.6 09/05 [facility] CHEM PANEL Globulin 3.1 g/dL 2.7 - 4.2 09/05 [facility] CHEM PANEL B/C Ratio 5 6 - 25 09/05 [facility] CHEM PANEL AGAP 17.1 meq/L 10.0 - 12 MH 20.0 2016 [facility] CHEM PANEL ALT 18 unit/L 0 - 65 09/05 [facility] CHEM PANEL Albumin Lvl 3.4 g/dL 3.5 - 5.0 09/05 [facility] CHEM PANEL Total 6.5 g/dL 6.4 - 8.4 12 [facility] CHEM PANEL Calcium Lvl 9.0 mg/dL 8.5 - 10.5 09/05 [facility] CHEM PANEL CO2 25 meq/L 24 - 32 09/05 [facility] CHEM PANEL Bili Total 0.6 mg/dL 0.2 - 1.3 09/05 [facility] CHEM PANEL Alk Phos 146 unit/L 39 - 136 09/05 [facility] CHEM PANEL AST 13 unit/L 0 - 37 09/05 [facility] CHEM PANEL Potassium 4.1 meq/L 3.5 - 5.1 09/05 Lvl /2015 [facility] CHEM PANEL Sodium Lvl 137 meq/L 135 - 145 09/05 [facility] CHEM PANEL Creatinine 9.80 mg/dL 0.50 - 09/05 Lvl 1.40 [facility] CHEM PANEL BUN 48 mg/dL 7 - 22 09/05 [facility] CHEM PANEL Glucose Lvl 106 mg/dL 70 - 99 09/05 [facility] CHEM PANEL Chloride Lvl 99 meq/L 95 - 109 09/05 [facility] HEMATOLOGY Hgb 13.0 g/dL 14.0 - 09/05 18.0 [facility] HEMATOLOGY MCHC 32.9 g/dL 32.0 - 09/05 36.0 /2015 [facility] HEMATOLOGY Hct 39.5 % 42.0 - 09/05 54.0 /2015 [facility] HEMATOLOGY MCV 88.0 fL 80.0 - 09/05 94.0 /2015 [facility] HEMATOLOGY MCH 28.9 pg 27.0 - 09/05 31.0 /2015 [facility] HEMATOLOGY MPV 9.9 fL 7.4 - 10.4 09/05 [facility] HEMATOLOGY RDW 20.0 % 11.5 - 09/05 14.5 /2015 [facility] HEMATOLOGY Platelet 129 K/CMM 133 - 450 09/05 [facility] HEMATOLOGY WBC 9.2 K/CMM 3.7 - 10.4 09/05 [facility] HEMATOLOGY RBC 4.49 M/CMM 4.70 - 09/05 6.10 [facility] HEMATOLOGY Eosinophils 3.7 % 0.0 - 4.0 09/05 [facility] HEMATOLOGY Segs 73.8 % 45.0 - 09/05 MH 75.0 /2015 [facility] HEMATOLOGY Lymphocytes 8.4 % 20.0 - 12 MH 40.0 /2015 [facility] HEMATOLOGY Basophils 0.4 % 0.0 - 1.0 09/05 [facility] HEMATOLOGY Monocytes 13.7 % 2.0 - 12.0 09/05 [facility] HEMATOLOGY Segs-Bands # 6.8 K/CMM 1.5 - 8.1 09/05 [facility] HEMATOLOGY Lymphocytes 0.8 K/CMM 1.0 - 5.5 09/05 # /2016 [facility] HEMATOLOGY Monocytes # 1.3 K/CMM 0.0 - 0.8 09/05 [facility] HEMATOLOGY Eosinophils 0.3 K/CMM 0.0 - 0.5 09/05 # /2015 [facility] IMMUNOLOGY Hep C Ab Negative 09/04 [facility] *NA* (09/04/16 7:55 AM) IMMUNOLOGY Hep Bs Ag Negative Negative 09/04 [facility] *NA* (09/04/16 7:55 AM) PARATHYROI PTH Intact 51.8 pg/mL 11.1 - 09/04 D PROFILE 79. [facility] CHEM PANEL eGFR 4 09/04 Result [...] is not recommended in the following populations: [address] Individuals with unstable creatinine concentrations, including [...] Phos 149 unit/L 39 - 136 09/04 [facility] CHEM PANEL Bili Total 0.7 mg/dL 0.2 - 1.3 09/04 [facility] CHEM PANEL ALT 20 unit/L 0 - 65 09/04 [facility] CHEM PANEL AST 18 unit/L 0 [...] Magnesium 1.9 mg/dL 1.8 - 2.4 09/04 [facility] HEMATOLOGY Monocytes 10.4 % 2.0 - 12.0 09/04 [facility] HEMATOLOGY Segs-Bands # 8.0 K/CMM 1.5 - 8.1 09/04 [facility] HEMATOLOGY Basophils 0.6 % 0.0 - 1.0 09/04 [facility] HEMATOLOGY Lymphocytes 1.1 K/CMM 1.0 - 5.5 09/04 /2016 [facility] HEMATOLOGY Segs 75.2 % 45.0 - 12/ 75.0 [facility] HEMATOLOGY Lymphocytes 9.9 % 20.0 - 12 MH 40.0 [facility] HEMATOLOGY Eosinophils 0.4 K/CMM 0.0 - 0.5 MH # /2016 [facility] HEMATOLOGY Basophils # 0.1 K/CMM 0.0 - 0.2 12 /2015 [facility] HEMATOLOGY Monocytes # 1.1 K/CMM 0.0 - 0.8 09/04 /2015 [facility] HEMATOLOGY Eosinophils 3.9 % 0.0 - 4.0 09/04 /2015 [facility] HEMATOLOGY Platelet 163 K/CMM 133 - 450 09/04 /2015 [facility] HEMATOLOGY RDW 19.6 % 11.5 - 12 MH 14.5 /2015 [facility] HEMATOLOGY MCHC 32.3 g/dL 32.0 - 12 MH 36.0 /2015 [facility] HEMATOLOGY MCH 28.7 pg 27.0 - 09/04 MH 31.0 /2015 [facility] HEMATOLOGY MPV 9.8 fL 7.4 - 10.4 09/04 /2015 [facility] HEMATOLOGY WBC 10.7 K/CMM 3.7 - 10.4 09/04 /2015 [facility] HEMATOLOGY MCV 88.7 fL 80.0 - 09/04 94.0 /2015 [facility] HEMATOLOGY Hct 42.8 % 42.0 - 09/04 MH 54.0 /2015 [facility] HEMATOLOGY Hgb 13.8 g/dL 14.0 - 09/04 MH 18.0 /2015 [facility] HEMATOLOGY RBC 4.82 M/CMM 4.70 - 09/04 MH 6.10 /2015 [facility] CHEM PANEL Vitamin D, 25 ng/mL 30 - 100 09/04 25-OH, /2015 [facility] HEMATOLOGY INR 1.16 0.85 - 09/03 MH 1.17 /2015 [facility] HEMATOLOGY PT 15.0 s 12.0 - 09/03 MH 14.7 [facility] HEMATOLOGY PTT 33.4 s 22.9 - 12 MH 35.8 /2016 [facility] HEMATOLOGY Basophils # 0.1 K/CMM 0.0 - 0.2 12 /2015 [facility] HEMATOLOGY Eosinophils 0.7 K/CMM 0.0 - 0.5 09/03 MH # /2015 [facility] HEMATOLOGY Monocytes # 1.2 K/CMM 0.0 - 0.8 09/03 /2015 [facility] HEMATOLOGY Segs-Bands # 6.0 K/CMM 1.5 - 8.1 09/03 /2015 [facility] HEMATOLOGY Lymphocytes 1.7 K/CMM 1.0 - 5.5 09/03 MH # /2015 [facility] HEMATOLOGY Eosinophils 6.8 % 0.0 - 4.0 09/03 [facility] HEMATOLOGY Basophils 1.2 % 0.0 - 1.0 09/03 [facility] HEMATOLOGY Monocytes 12.5 % 2.0 - 12.0 09/03 [facility] HEMATOLOGY Segs 62.0 % 45.0 - 09/03 MH 75.0 /2015 [facility] HEMATOLOGY Lymphocytes 17.5 % 20.0 - 09/03 MH 40.0 /2015 [facility] Chest Chest 1view Chest 1view DX 09/03 - 1view DX DX /2015 - [facility] 61 years old Male Clinical Indication: [...] - 09/03 D PROFILE pg/mL 79.5 /2015 [facility] ELECTROLYT POC Chloride 103 meq/L 95 - 109 09/03 [facility] ELECTROLYT POC 16.0 g/dL 14.0 - 09/03 ES Hemoglobin 18.0 /2015 [facility] ELECTROLYT POC Glucose 88 mg/dL 70 - 99 09/03 [facility] ELECTROLYT POC BUN 65 mg/dL 7 - 22 09/03 [facility] ELECTROLYT POC Sodium 138 meq/L 135 - 145 09/03 MH [facility] ELECTROLYT POC 5.1 meq/L 3.5 - 5.1 09/03 ES Potassium /2015 [facility] ELECTROLYT POC 47.0 % 42.0 - 09/03 ES Hematocrit 54.0 [facility] BACTERIAL MRSA by PCR Negative 09/01 - SEROLOGY /2015 [facility] (09/01/16 9:06 AM) BLOOD BANK ABO/Rh A NEG 09/01 RESULTS /2015 [facility] BLOOD BANK Antibody Negative 09/01 RESULTS Scrn [facility] (09/01/16 9:06 AM) BLOOD BANK RBC product Product available 09/01 RESULTS /2015 [facility] (09/01/16 9:06 AM) HEMATOLOGY Basophils # 0.0 K/CMM 0.0 - 0.2 09/01 [facility] HEMATOLOGY PTT 33.1 s 22.9 - 09/01 MH 35.8 [facility] HEMATOLOGY PT 14.1 s 12.0 - 09/01 MH 14.7 [facility] HEMATOLOGY INR 1.07 0.85 - 09/01 1.17 [facility] Chest 2 Chest 2 EXAM: Chest 2 views DX 09/01 - OPID views DX views DX /2015 [facility] DATE: 09/01/2016 9:47 AM CERTIFIED PERSONAL CHEF INDICATION: Z01.818 Encounter for other preprocedural examination [...] is present in grossly anatomic alignment. SL: [id number] CHEM PANEL eGFR 5 08/13 Result Comment: [...] is not recommended in the following populations: [facility] 3m2 Individuals with unstable creatinine concentrations, [...] mg/dL 0.5 - 1.4 08/13 Creatinine /2015 [facility] Neck soft Neck soft Neck soft tissue w contrast CT 08/13/2016 11:08 AM CERTIFIED PERSONAL CHEF 08/13 [facility] tissue w tissue - [facility] contrast contrast CT Ordering Physician: Kory Enriquez MD CT Read by: Saranya Palacois MD Dictated Date/time: 08/13/16 16:30 CLINICAL INDICATION: [...] Recommend CT chest in 6 months. SL: [id number] Parathyroi Parathyroid Patient Name: SANDRO KHAN 08/13 - d scan NM scan - [facility] : 1955; Age: 61 years y/o Male MR: [id number] Read by: Saranya Palacios MD Dictated Date/time: 08/13/16 16:27 Electronically Signed by: Saranya Palacios MD 08/13/16 16:30 FINAL REPORT Study: Parathyroid scan NM 08/13/2016 10:36 AM CERTIFIED PERSONAL CHEF Ordering Physician: Kory Enriquez MD Clinical Indication: [...] bilateral total of 2 parathyroid adenomas. SL: [id number] Thyroid US Thyroid US Patient Name: SANDRO KHAN 08/13 - [facility] : 1955; Age: 61 years y/o Male MR: [id number] Read by: Saranya Palacios MD Dictated Date/time: 08/13/16 16:21 Electronically Signed by: Saranya Palacios MD 08/13/16 16:27 FINAL REPORT Study: Thyroid US 08/13/2016 9:38 AM CERTIFIED PERSONAL CHEF Ordering Physician: Kory Enriquez MD Clinical Indication: [...] thyroid lobe superior pole, 6 mm. SL: [id number] BLOOD BANK Antibody Negative 01/15 RESULTS Scrn /2015 [facility] (01/15/15 9:07 AM) BLOOD BANK ABO/Rh A NEG 01/15 RESULTS [facility] CHEM PANEL Globulin 3.7 g/dL 2.0 - 4.0 01/15 [facility] CHEM PANEL A/G Ratio 1.2 0.7 - 1.6 01/15 [facility] CHEM PANEL AGAP 16.2 meq/L 10.0 - 01/15 MH 20.0 [facility] CHEM PANEL B/C Ratio 4 6 - 25 01/15 [facility] CHEM PANEL eGFR 5 01/15 1Result [...] is not recommended in the following populations: [facility] 3m2 Individuals with unstable creatinine concentrations, [...] Phos 124 unit/L 39 - 136 01/15 [facility] CHEM PANEL Bili Total 0.5 mg/dL 0.2 - 1.3 01/15 [facility] CHEM PANEL ALT 30 unit/L 0 - 65 01/15 [facility] CHEM PANEL AST 22 unit/L 0 - 37 01/15 [facility] CHEM PANEL Total 8.0 g/dL 6.4 - 8.4 01/15 Protein [facility] CHEM PANEL Albumin Lvl 4.3 g/dL 3.5 - 5.0 01/15 [facility] CHEM PANEL Calcium Lvl 9.3 mg/dL 8.5 - 10.5 01/15 [facility] CHEM PANEL CO2 29 meq/L 24 - 32 01/15 [facility] CHEM PANEL Potassium 4.2 meq/L 3.5 - 5.1 01/15 Lvl [facility] CHEM PANEL Chloride Lvl 97 meq/L 95 - 109 01/15 [facility] CHEM PANEL Creatinine 9.7 mg/dL 0.5 - 1.4 01/15 MH Lvl /2014 [facility] CHEM PANEL Sodium Lvl 138 meq/L 135 - 145 01/15 [facility] CHEM PANEL BUN 42 mg/dL 7 - 22 01/15 [facility] CHEM PANEL Glucose Lvl 96 mg/dL 70 - 99 01/15 2Interpretive Data: Adult reference range values reflect the clinical guidelines of the [place] [employer]. [facility] HEMATOLOGY Platelet 218 K/CMM 133 - 450 01/15 [facility] HEMATOLOGY MCV 93.2 fL 80.0 - 01/15 MH 94.0 [facility] HEMATOLOGY RDW 20.2 % 11.5 - 01/15 MH 14.5 [facility] HEMATOLOGY MCH 30.3 pg 27.0 - 01/15 MH 31.0 [facility] HEMATOLOGY MCHC 32.5 g/dL 32.0 - 01/15 MH 36.0 [facility] HEMATOLOGY MPV 9.5 fL 7.4 - 10.4 01/15 [facility] HEMATOLOGY Hct 45.7 % 42.0 - 01/15 MH 54.0 /2014 [facility] HEMATOLOGY Hgb 14.8 g/dL 14.0 - 01/15 MH 18.0 [facility] HEMATOLOGY RBC 4.90 M/CMM 4.70 - 01/15 MH 6.10 [facility] HEMATOLOGY WBC 9.7 K/CMM 3.7 - 10.4 01/15 [facility] HEMATOLOGY Basophils # 0.1 K/CMM 0.0 - 0.2 01/15 [facility] HEMATOLOGY Monocytes 10.5 % 2.0 - 12.0 01/15 [facility] HEMATOLOGY Lymphocytes 22.5 % 20.0 - 01/15 MH 40.0 [facility] HEMATOLOGY Eosinophils 0.4 K/CMM 0.0 - 0.5 01/15 MH /2014 [facility] HEMATOLOGY Segs 62.4 % 45.0 - 01/[address] [facility] Monocytes # 1.0 K/CMM 0.0 - 0.8 01/15 [facility] HEMATOLOGY Eosinophils 3.8 % 0.0 - 4.0 01/15 [facility] HEMATOLOGY Lymphocytes 2.2 K/CMM 1.0 - 5.5 01/15 MH # /2015 [facility] HEMATOLOGY Basophils 0.8 % 0.0 - 1.0 01/15 /2014 [facility] HEMATOLOGY Segs-Bands # 6.1 K/CMM 1.5 - 8.1 01/15 /2014 [facility] ELECTROLYT POC 3.6 meq/L 3.5 - 5.1 11/01 ES Potassium /2014 [facility] ELECTROLYT POC Glucose 80 mg/dL 70 - 99 11/01 ES /2014 [facility] ELECTROLYT POC Sodium 141 meq/L 135 - 145 11/01 MH ES /2014 [facility] ELECTROLYT POC 12.2 g/dL 14.0 - 11/01 ES Hemoglobin 18.0 [facility] ELECTROLYT POC 36.0 % 42.0 - 11/01 ES Hematocrit 54.0 [facility] CHEM PANEL eGFR 5 07/12 1Result [...] is not recommended in the following populations: [address] Individuals with unstable creatinine concentrations, including [...] Lvl 99 meq/L 95 - 109 07/12 [facility] CHEM PANEL Potassium 4.6 meq/L 3.5 - 5.1 07/12 MH Lvl [facility] CHEM PANEL Calcium Lvl 8.6 mg/dL 8.5 - 10.5 07/12 [facility] CHEM PANEL CO2 27 meq/L 24 - 32 07/12 [facility] CHEM PANEL BUN 38 mg/dL 7 - 22 07/12 [facility] CHEM PANEL Glucose Lvl 80 mg/dL 70 - 99 07/12 2Interpretive Data: Adult reference range values reflect the clinical guidelines of the [place] [employer]. [facility] CHEM PANEL Sodium Lvl 138 meq/L 135 - 145 07/12 [facility] CHEM PANEL Creatinine 9.4 mg/dL 0.5 - 1.4 07/12 Lvl /2013 [facility] CHEM PANEL AGAP 16.6 meq/L 10.0 - 07/12 MH 20.0 /2013 [facility] HEMATOLOGY Lymphocytes 20.3 % 20.0 - 07/12 MH 40.0 /2013 [facility] HEMATOLOGY Segs 63.1 % 45.0 - 07/12 75.0 /2013 [facility] HEMATOLOGY Lymphocytes 2.0 K/CMM 1.0 - 5.5 07/12 MH # /2013 [facility] HEMATOLOGY Segs-Bands # 6.2 K/CMM 1.5 - 8.1 07/12 [facility] HEMATOLOGY Eosinophils 5.0 % 0.0 - 4.0 07/12 [facility] HEMATOLOGY Basophils 0.6 % 0.0 - 1.0 07/12 [facility] HEMATOLOGY Monocytes 11.0 % 2.0 - 12.0 07/12 [facility] HEMATOLOGY Basophils # 0.1 K/CMM 0.0 - 0.2 07/12 [facility] HEMATOLOGY Eosinophils 0.5 K/CMM 0.0 - 0.5 07/12 # /2013 [facility] HEMATOLOGY Monocytes # 1.1 K/CMM 0.0 - 0.8 07/12 [facility] INR 1.15 0.85 - 07/12 3Interpretive Data: RECOMMENDED RANGES FOR PROTIME INR: 1. 2.0-3.0 for most medical and surgical thromboembolic states. [facility] 2.5-3.5 for artificial heart valves and recurrent embolism. INR SHOULD BE USED ONLY FOR PATIENTS ON STABLE ANTICOAGULANT THERAPY. HEMATOLOGY PT 14.8 s 12.0 - 07/12 14.7 /2013 [facility] HEMATOLOGY PTT 28.1 s 22.9 - 07/12 4Interpretive 35.8 /2014 Data: Heparin [facility] Therapeutic Range: 57 - 92 Seconds HEMATOLOGY Hct 40.9 % 42.0 - 07/12 54.0 /2013 [facility] Hgb 13.3 g/dL 14.0 - 07/[address] [facility] RBC 4.72 M/CMM 4.70 - 07/[address] [facility] WBC 9.9 K/CMM 3.7 - 10.4 07/12 [facility] HEMATOLOGY RDW 17.1 % 11.5 - 07/12 MH 14.5 /2013 [facility] HEMATOLOGY MCHC 32.5 g/dL 32.0 - 07/12 MH 36.0 [facility] HEMATOLOGY MCV 86.6 fL 80.0 - 07/12 94.0 /2013 [facility] HEMATOLOGY MCH 28.2 pg 27.0 - 07/12 MH 31.0 /2013 [facility] HEMATOLOGY Platelet 234 K/CMM 133 - 450 07/12 [facility] HEMATOLOGY MPV 9.4 fL 7.4 - 10.4 07/12 [facility] HEMATOLOGY POC PT 26.3 s 12.0 - 07/12 MH 14.7 [facility] HEMATOLOGY POC INR 2.3 0.9 - 1.2 07/12 [facility] CHEM PANEL POC BUN 37 mg/dL - 07/12 [facility] CHEM PANEL POC Chloride 101 meq/L 95 - 109 07/12 [facility] CHEM PANEL POC Glucose 80 mg/dL 70 - 99 07/12 [facility] CHEM PANEL POC 13.9 g/dL .0 - 07/12 Hemoglobin 18.0 [facility] CHEM PANEL POC 41.0 % 42.0 - 07/12 Hematocrit 54.0 [facility] CHEM PANEL POC 4.7 meq/L 3.5 - 5.1 07/12 Potassium [facility] CHEM PANEL POC Sodium 139 meq/L 135 - 145 07/12 [facility] CHEM PANEL POC BUN 58 mg/dL - 07/12 [facility] CHEM PANEL POC Glucose 73 mg/dL 70 - 99 07/12 [facility] CHEM PANEL POC Sodium 130 meq/L 135 - 145 07/12 [facility] CHEM PANEL POC Chloride 105 meq/L 95 - 109 07/12 [facility] CHEM PANEL POC null 3.5 - 5.1 07/12 Potassium [facility] CHEM PANEL POC 43.0 % 42.0 - 07/12 Hematocrit 54.0 [facility] CHEM PANEL POC 14.6 g/dL 14.0 - 07/12 Hemoglobin 18.0 [facility] Shoulder 1 Shoulder 1 Right shoulder one view: 07/12 - view DX view DX - [facility] FINDINGS: There has been a prosthetic [...] mg/dL 1.8 - 2.4 03/24 MH Lvl [facility] CHEM PANEL eGFR 6 03/24 1Result [...] is not recommended in the following populations: [facility] 3m2 Individuals with unstable creatinine concentrations, [...] Lvl 98 meq/L 95 - 109 03/24 [facility] CHEM PANEL ALT 15 unit/L 0 - 65 03/24 [facility] CHEM PANEL Calcium Lvl 8.3 mg/dL 8.5 - 10.5 03/24 [facility] CHEM PANEL CO2 26 meq/L 24 - 32 03/24 [facility] CHEM PANEL Bili Total 0.3 mg/dL 0.2 - 1.3 03/24 [facility] CHEM PANEL Alk Phos 134 unit/L 39 - 136 03/24 [facility] CHEM PANEL AST 9 unit/L 0 - 37 03/24 [facility] CHEM PANEL Albumin Lvl 3.5 g/dL 3.5 - 5.0 03/24 [facility] CHEM PANEL Total 6.6 g/dL 6.4 - 8.4 03/24 [facility] CHEM PANEL Sodium Lvl 134 meq/L 135 - 145 03/24 [facility] CHEM PANEL Potassium 4.9 meq/L 3.5 - 5.1 03/24 MH Lv [facility] CHEM PANEL Creatinine 8.8 mg/dL 0.5 - 1.4 03/24 [facility] CHEM PANEL BUN 48 mg/dL 7 - 03/24 [facility] CHEM PANEL Glucose Lvl 107 mg/dL 70 - 99 03/24 4Interpretive Data: Adult reference range values reflect the clinical guidelines of the [place] [employer]. [facility] CHEM PANEL Globulin 3.1 g/dL 2.0 - 4.0 03/24 [facility] CHEM PANEL B/C Ratio 5 - 03/24 [facility] CHEM PANEL A/G Ratio 1.1 0.7 - 1.6 03/24 [facility] CHEM PANEL AGAP 14.9 meq/L 10.0 - 03/24 MH 20.0 [facility] PARATHYROI PTH Intact 538.7 11. - 03/24 D PROFILE pg/mL 79. [facility] PARATHYROI Ca Ion WB 1.02 1. - 03/24 D PROFILE mMol/L . [facility] PARATHYROI Ca Norm WB 0.95 1. - 03/24 D PROFILE mMol/L 1. [facility] CHEM PANEL eGFR 7 03/23 2Result [...] is not recommended in the following populations: [facility] 3m2 Individuals with unstable creatinine concentrations, [...] Magnesium 2.0 mg/dL 1.8 - 2.4 03/23 [facility] PARATHYROI PTH Intact 374.9 11. - [...] values reflect the clinical guidelines of the [place] [employer]. [facility] CHEM PANEL Creatinine 7.6 [...] Potassium 4.6 meq/L 3.5 - 5.1 03/23 [facility] CHEM PANEL Sodium Lvl 135 meq/L 135 - 145 03/23 [facility] CHEM PANEL Chloride Lvl 97 meq/L 95 - 109 03/23 [facility] CHEM PANEL CO2 27 meq/L 24 - 32 03/23 [facility] CHEM PANEL ALT 18 unit/L 0 - 65 03/23 [facility] CHEM PANEL A/G Ratio 1.1 0.7 - 1.6 03/23 [facility] CHEM PANEL Bili Total 0.3 mg/dL 0.2 - 1.3 03/23 [facility] PARATHYROI Ca Ion WB 1.04 1.05 - 03/23 D PROFILE mMol/L 10.21 [facility] PARATHYROI Ca Norm WB 0.99 . - 03/23 D PROFILE mMol/L 10.21 [facility] CHEM PANEL Phosphorus 8.6 mg/dL 2.5 [...] is not recommended in the following populations: [address] Individuals with unstable creatinine concentrations, including [...] values reflect the clinical guidelines of the [place] [employer]. [facility] CHEM PANEL AST 10 [...] mg/dL 0.5 - 1.4 03/23 Lvl /2013 [facility] CHEM PANEL Alk Phos 111 unit/L 39 - 136 03/23 [facility] CHEM PANEL Bili Total 0.3 mg/dL 0.2 - 1.3 03/23 /2013 [facility] HEMATOLOGY Basophils 0.1 % 0.0 - 1.0 03/23 [facility] HEMATOLOGY Eosinophils 2.8 % 0.0 - 4.0 03/23 [facility] HEMATOLOGY Segs 78.7 % 45.0 - 03/23 75.0 /2013 [facility] HEMATOLOGY Monocytes 8.0 % 2.0 - 12.0 03/23 [facility] HEMATOLOGY Lymphocytes 10.4 % 20.0 - 03/23 40.0 /2013 [facility] HEMATOLOGY Basophils # 0.0 K/CMM 0.0 - 0.2 03/23 [facility] HEMATOLOGY Segs-Bands # 9.6 K/CMM 1.5 - 8.1 03/23 [facility] HEMATOLOGY Lymphocytes 1.3 K/CMM 1.0 - 5.5 03/23 MH # /2013 [facility] HEMATOLOGY Monocytes # 1.0 K/CMM 0.0 - 0.8 03/23 [facility] [facility] HEMATOLOGY Eosinophils 0.3 K/CMM 0.0 - 0.5 03/23 MH # /2013 [facility] HEMATOLOGY MCH 28.7 pg 27.0 - 03/23 31.0 /2013 [facility] HEMATOLOGY MCV 86.2 fL 80.0 - 03/23 94.0 /2013 [facility] HEMATOLOGY Hct 30.6 % 42.0 - 03/23 54.0 /2013 [facility] HEMATOLOGY Hgb 10.2 g/dL 14.0 - 03/23 18.0 /2013 [facility] HEMATOLOGY RBC 3.55 M/CMM 4.70 - 03/23 MH 6.10 /2013 [facility] HEMATOLOGY MCHC 33.3 g/dL 32.0 - 03/23 MH 36.0 /2013 [facility] HEMATOLOGY MPV 9.6 fL 7.4 - 10.4 03/23 [facility] HEMATOLOGY Platelet 273 K/CMM 133 - 450 03/23 [facility] HEMATOLOGY RDW 16.7 % 11.5 - 03/23 14.5 [facility] HEMATOLOGY WBC 12.2 K/CMM 3.7 - 10.4 03/23 [facility] PARATHYROI PTH Intact 347.0 11.1 - 03/23 D PROFILE pg/mL 79.5 [facility] PARATHYROI Ca Norm WB 0.98 1.05 - 03/23 D PROFILE mMol/L 1. [facility] PARATHYROI Ca Ion WB 1.03 1.05 - 03/23 D PROFILE mMol/L 1. [facility] CHEM PANEL Magnesium 2.4 mg/dL 1.8 - 2.4 03/23 Lvl [facility] SPECIAL Hgb A1C 5.4 % <=5.6 % 03/23 CHEMISTRY /2013 [facility] THYROID TSH 2.590 0.360 - 03/23 PANEL uIU/mL 3.740 [facility] THYROID T4 Free 1.02 ng/dL 0.76 - 03/23 PANEL 1.46 [facility] HEMATOLOGY Plt Morph Normal 03/22 [facility] (03/22/14 6:18 PM) HEMATOLOGY RBC Morph Normal 03/22 [facility] (03/22/14 6:18 PM) HEMATOLOGY Basophils 1.0 % 0.0 - 1.0 03/22 [facility] HEMATOLOGY Atypical 0.0 % <=0.0 % 03/22 Lymphs [facility] HEMATOLOGY Monocytes 12.0 % 2.0 - 12.0 03/22 [facility] HEMATOLOGY Eosinophils 2.0 % 0.0 - 4.0 03/22 [facility] HEMATOLOGY Eosinophils 0.3 K/CMM 0.0 - 0.5 03/22 MH # /2013 [facility] HEMATOLOGY Monocytes # 1.6 K/CMM 0.0 - 0.8 03/22 [facility] HEMATOLOGY Basophils # 0.1 K/CMM 0.0 - 0.2 03/22 [facility] HEMATOLOGY Lymphocytes 0.8 K/CMM 1.0 - 5.5 03/22 MH # /2013 [facility] HEMATOLOGY Lymphocytes 6.0 % 20.0 - 03/22 40.0 [facility] HEMATOLOGY Bands 1.0 % 0.0 - 11.0 03/22 [facility] HEMATOLOGY Segs 78.0 % 45.0 - 03/22 75.0 [facility] HEMATOLOGY Segs-Bands # 10.8 K/CMM 1.5 - 8.1 03/22 [facility] HEMATOLOGY Platelet 297 K/CMM 133 - 450 03/22 [facility] HEMATOLOGY RDW 16.7 % 11.5 - 03/22 MH 14.5 /2013 [facility] HEMATOLOGY MCHC 33.3 g/dL 32.0 - 03/22 36.0 /2013 [facility] HEMATOLOGY MCH 28.6 pg 27.0 - 03/22 31.0 /2013 [facility] HEMATOLOGY Hgb 10.9 g/dL 14.0 - 03/22 18.0 /2013 [facility] HEMATOLOGY RBC 3.82 M/CMM 4.70 - 03/22 MH 6.10 /2013 [facility] HEMATOLOGY MCV 85.9 fL 80.0 - 03/22 94.0 /2013 [facility] HEMATOLOGY Hct 32.8 % 42.0 - 03/22 54.0 /2013 [facility] HEMATOLOGY WBC 13.7 K/CMM 3.7 - 10.4 03/22 [facility] HEMATOLOGY MPV 9.9 fL 7.4 - 10.4 03/22 [facility] ELECTROLYT POC Chloride 103 meq/L 95 - 109 03/22 ES /2013 [facility] ELECTROLYT POC 32.0 % 42.0 - 03/22 [facility] Hematocrit 54.0 /2013 [facility] ELECTROLYT POC BUN 42 mg/dL 7 - 03/22 ES /2013 [facility] ELECTROLYT POC 10.9 g/dL 14.0 - 03/22 [facility] Hemoglobin 18.0 /2013 [facility] ELECTROLYT POC Glucose 82 mg/dL 70 - 99 03/22 ES [facility] ELECTROLYT POC Sodium 138 meq/L 135 - 145 03/22 ES /2013 [facility] ELECTROLYT POC 4.2 meq/L 3.5 - 5.1 03/22 ES Potassium /2013 [facility] URINE AND UA Mucus Few /LPF None Seen 03/20 STOOL /LPF /2013 [facility] URINE AND UA Amorph Few /HPF None Seen 03/20 STOOL Aliya /HPF /2013 [facility] URINE AND UA null 0.1 - 1.0 03/20 STOOL Urobilinogen /2013 [facility] URINE AND UA RBC 4 /HPF 0 - 2 03/20 STOOL /2013 [facility] URINE AND UA Bacteria Moderate None Seen 03/20 STOOL /HPF /HPF /2013 [facility] URINE AND UA Leuk Est Large Negative 03/20 STOOL [facility] *ABN* (03/20/14 4:05 PM) URINE AND UA Sq Epi Few /LPF Few /LPF 03/20 STOOL /2013 [facility] URINE AND UA WBC 52 /HPF 0 - 5 03/20 STOOL [facility] URINE AND UA Bili Negative Negative 03/20 STOOL [facility] *NA* (03/20/14 4:05 PM) URINE AND UA Nitrite Negative Negative 03/20 STOOL [facility] (03/20/14 4:05 PM) URINE AND UA Blood Moderate Negative 03/20 STOOL [facility] *ABN* (03/20/14 4:05 PM) URINE AND UA Ketones Negative Negative 03/20 STOOL mg/dL mg/dL [facility] URINE AND UA pH 6.5 5.0 - 8.0 03/20 STOOL [facility] URINE AND UA Protein >=300 Negative 03/20 7Result STOOL mg/dL mg/dL Comment: No [facility] other crystals seen URINE AND UA Glucose 50 mg/dL Negative 03/20 STOOL mg/dL [facility] URINE AND UA Turbidity Slight Clear 03/20 [facility] *ABN* (03/20/14 4:05 PM) URINE AND UA Spec Grav 1.012 <=1.030 03/20 [facility] URINE AND UA Color Yellow Yellow 03/20 STOOL [facility] *NA* (03/20/14 4:05 PM) BLOOD BANK ABO/Rh A NEG 03/20 RESULTS [facility] BLOOD BANK Antibody Negative 03/20 RESULTS Scrn [facility] (03/20/14 3:10 PM) BACTERIAL MRSA by [...] result does not exclude colonization or infection. [facility] (03/20/14 3:00 PM) The polymerase chain reaction (PCR) assay detects a proprietary sequence indicative of the integration of the SCCmec cassette into the Staphylococcus aureus chromosome, indicating the presence of MRSA D NA. The assay utilizes FDA cleared IVD reagents. Performance characteristics have been verified by the [facility] within the [facility]. The [facility] atory is authorized under the Clinical Laboratory Improvement Amendment of 1988 (CLIA-88) to perform high complexity testing. THYROID TSH 1.700 0.360 - 03/20 PANEL uIU/mL 3.740 /2013 [facility] THYROID T4 5.3 ug/dl 4.7 - 13.3 03/20 PANEL /2013 [facility] THYROID T3 Uptake 34 % 31 - 39 03/20 PANEL /2013 [facility] THYROID FTI 1.8 03/20 PANEL /2013 [facility] BLOOD BANK RBC product Product available 03/20 RESULTS /2013 [facility] (03/20/14 2:26 PM) HEMATOLOGY Basophils # 0.0 K/CMM 0.0 - 0.2 03/20 MH /2013 [facility] HEMATOLOGY Eosinophils 0.4 K/CMM 0.0 - 0.5 03/20 # /2013 [facility] HEMATOLOGY Basophils 0.3 % 0.0 - 1.0 03/20 /2013 [facility] HEMATOLOGY Eosinophils 3.4 % 0.0 - 4.0 03/20 MH /2013 [facility] HEMATOLOGY Monocytes # 1.0 K/CMM 0.0 - 0.8 03/20 /2013 [facility] HEMATOLOGY Lymphocytes 1.1 K/CMM 1.0 - 5.5 03/20 MH # /2014 [facility] HEMATOLOGY Segs-Bands # 8.3 K/CMM 1.5 - 8.1 03/20 MH /2013 [facility] HEMATOLOGY Monocytes 8.8 % 2.0 - 12.0 03/20 /2013 [facility] HEMATOLOGY Lymphocytes 10.6 % 20.0 - 03/20 40.0 /2013 [facility] HEMATOLOGY Segs 76.9 % 45.0 - 03/20 75.0 /2013 [facility] HEMATOLOGY PTT 41.1 s 22.9 - 03/20 9Interpretive 35.8 /2013 Data: Heparin [facility] Therapeutic Range: 57 - 92 Seconds HEMATOLOGY PT 14.5 s 12.0 - 03/20 14.7 /2014 [facility] HEMATOLOGY INR 1.14 0.85 - 03/20 8Interpretive Data: RECOMMENDED RANGES FOR PROTIME INR: 1. 2.0-3.0 for most medical and surgical thromboembolic states. [facility] 2.5-3.5 for artificial heart valves and recurrent embolism. INR SHOULD BE USED ONLY FOR PATIENTS ON STABLE ANTICOAGULANT THERAPY. HEMATOLOGY MPV 9.9 fL 7.4 - 10.4 03/20 /2013 [facility] HEMATOLOGY Platelet 264 K/CMM 133 - 450 03/20 /2013 [facility] HEMATOLOGY MCHC 33.1 g/dL 32.0 - 03/20 36.0 /2013 [facility] HEMATOLOGY RDW 17.3 % 11.5 - 03/20 14.5 /2013 [facility] HEMATOLOGY Hgb 10.4 g/dL 14.0 - 03/20 18.0 [facility] HEMATOLOGY WBC 10.8 K/CMM 3.7 - 10.4 03/20 MH /2013 [facility] HEMATOLOGY RBC 3.64 M/CMM 4.70 - 03/20 MH 6.10 /2013 [facility] HEMATOLOGY MCH 28.5 pg 27.0 - 03/20 31.0 [facility] HEMATOLOGY MCV 86.2 fL 80.0 - 03/20 94.0 /2013 [facility] Hct 31.4 % 42.0 - 03/20 MH 54.0 /2013 [facility] Chest 2 Chest 2 Two-view chest: 03/20 [facility] views views - [facility] DISCUSSION: Comparison is made to the [...] PET/CT, Mar 14, 2014 04:05:19 PM 03/14 [facility] Lymphoma Lymphoma /2013 - [facility] diagnosis diagnosis CLINICAL HISTORY: Possible lymphoma; [...] 03/14 - d scan NM scan - [facility] : 1955 SEX: M Ordering Physician: [...] Comments Source Systolic (mm Hg) 113 02/18/2017 [facility] Diastolic (mm Hg) 102 02/18/2017 [facility] Respitory Rate 18 02/18/2017 [facility] Systolic (mm Hg) 111 02/18/2017 [facility] Diastolic (mm Hg) 81 02/18/2017 [facility] Respitory Rate 15 02/18/2017 [facility] Systolic (mm Hg) 118 02/18/2017 [facility] Diastolic (mm Hg) 71 02/18/2017 [facility] Respitory Rate 15 02/18/2017 [facility] Temperature Oral (F) 97.5 F 02/18/2017 [facility] Weight 99.545 02/18/2017 [facility] BMI Calculated 32.41 02/18/2017 [facility] Height 175.26 cm 02/17/2017 [facility] Heart Rate 69 09/06/2016 [facility] Temperature Oral (F) 97.9 F 09/06/2016 [facility] Respitory Rate 18 09/06/2016 [facility] Systolic (mm Hg) 137 09/06/2016 [facility] Diastolic (mm Hg) 81 09/06/2016 [facility] Weight 100.472 09/06/2016 [facility] Respitory Rate 20 09/06/2016 [facility] Systolic (mm Hg) 129 09/06/2016 [facility] Diastolic (mm Hg) 71 09/06/2016 [facility] Heart Rate 71 09/06/2016 [facility] Heart Rate 70 09/06/2016 [facility] Respitory Rate 20 09/06/2016 [facility] Systolic (mm Hg) 132 09/06/2016 [facility] Diastolic (mm Hg) 71 09/06/2016 [facility] Weight 105 09/03/2016 [facility] BMI Calculated 34.18 09/03/2016 [facility] Height 175.26 cm 09/03/2016 [facility] Weight 105 09/03/2016 [facility] BMI Calculated 34.18 09/03/2016 [facility] Height 175.26 cm 09/03/2016 [facility] Temperature Oral (F) 97.7 F 09/03/2016 [facility] BMI Calculated 34.18 09/01/2016 [facility] Height 175.26 cm 09/01/2016 [facility] Temperature Oral (F) 97.9 F 09/01/2016 [facility] Systolic (mm Hg) 90 01/15/2015 [facility] Diastolic (mm Hg) 48 01/15/2015 [facility] Respitory Rate 18 01/15/2015 [facility] Systolic (mm Hg) 90 01/15/2015 [facility] Diastolic (mm Hg) 51 01/15/2015 [facility] Respitory Rate 16 01/15/2015 [facility] Systolic (mm Hg) 83 01/15/2015 [facility] Diastolic (mm Hg) 50 01/15/2015 [facility] Respitory Rate 15 01/15/2015 [facility] Height 175.26 cm 01/11/2015 [facility] BMI Calculated 33 01/11/2015 [facility] Weight 101.364 01/11/2015 [facility] Diastolic (mm Hg) 87 11/01/2014 [facility] Systolic (mm Hg) 140 11/01/2014 [facility] Respitory Rate 15 11/01/2014 [facility] Diastolic (mm Hg) 87 11/01/2014 [facility] Systolic (mm Hg) 146 11/01/2014 [facility] Respitory Rate 18 11/01/2014 [facility] Respitory Rate 16 11/01/2014 [facility] Diastolic (mm Hg) 91 11/01/2014 [facility] Systolic (mm Hg) 153 11/01/2014 [facility] Height 175.26 cm 11/01/2014 [facility] Weight 101.364 11/01/2014 [facility] BMI Calculated 33 11/01/2014 [facility] Temperature Oral (F) 98.7 F 11/01/2014 [facility] Weight 101.364 10/25/2014 [facility] BMI Calculated 33 10/25/2014 [facility] Height 175.26 cm 10/25/2014 [facility] BMI Calculated 35.2 07/12/2014 [facility] Height 172.72 cm 07/12/2014 [facility] Weight 105 07/12/2014 [facility] Respitory Rate 13 07/12/2014 [facility] Systolic (mm Hg) 139 07/12/2014 [facility] Diastolic (mm Hg) 49 07/12/2014 [facility] Systolic (mm Hg) 120 07/12/2014 [facility] Diastolic (mm Hg) 49 07/12/2014 [facility] Respitory Rate 12 07/12/2014 [facility] Systolic (mm Hg) 117 07/12/2014 [facility] Diastolic (mm Hg) 73 07/12/2014 [facility] Respitory Rate 12 07/12/2014 [facility] Heart Rate 78 07/12/2014 [facility] Weight 105.455 07/03/2014 [facility] BMI Calculated 34.33 07/03/2014 [facility] Height 175.26 cm 07/03/2014 [facility] Diastolic (mm Hg) 79 03/24/2014 [facility] Heart Rate 57 03/24/2014 [facility] Temperature Oral (F) 97.9 F 03/24/2014 [facility] Respitory Rate 18 03/24/2014 [facility] Systolic (mm Hg) 129 03/24/2014 [facility] Diastolic (mm Hg) 91 03/24/2014 [facility] Temperature Oral (F) 97.7 F 03/24/2014 [facility] Heart Rate 56 03/24/2014 [facility] Systolic (mm Hg) 148 03/24/2014 [facility] Respitory Rate 18 03/24/2014 [facility] Heart Rate 56 03/24/2014 [facility] Diastolic (mm Hg) 85 03/24/2014 [facility] Systolic (mm Hg) 144 03/24/2014 [facility] Respitory Rate 18 03/24/2014 [facility] Temperature Oral (F) 97.2 F 03/24/2014 [facility] Height 175.26 cm 03/20/2014 [facility] BMI Calculated 34.33 03/20/2014 [facility] Weight 105.455 03/20/2014 [facility] Height 175.26 cm 03/20/2014 [facility] Weight 52.727 03/20/2014 [facility] BMI Calculated 17.17 03/20/2014 [facility] Encounters Location Location Encounter Encounter Reason Attending ADM DC Status Source Details Type Number For Provider Date Date Visit [facility] [id number] Kory 03/14 03/15 Yared [facility] Outpt Diag [id number] Kory 03/20 03/21 [facility] Inpatient [id number] Kory 03/22 03/25 Yared [facility] Outpt Diag [id number] Kory 05/22 05/23 [facility] Inpatient [id number] Tereso 07/12 07/13 Yared Reed /2013 [facility] Day [id number] Kory 11/01 11/01 Yared Surgery [facility] Bedded [id number] Tereso 01/15 01/15 Yared Outpatient Derek /2014 [facility] Outpatient [id number] Kory 08/13 08[facility] Outpt Diag [id number] Kory 09/01 09/02 [facility] Inpatient [id number] Kory 09/03 09/06 [place] Enriquez [facility] Bedded [id number] Kory 02/18 02/18 Yared Outpatient [facility] Procedures Procedure Code Date Perfomer Comments Source Parathyroidectomy [id number] 09/03/20 [facility] 16 AVR - Aortic valve [id number] 05/28/20 [facility] replacement 16 [facility] Implantation of [id number] 05/28/20 [facility] cardiac pacemaker 16 [facility] AVR - Aortic valve [id number] 05/28/20 [facility] replacement 16 Implantation of [id number] 05/28/20 [facility] cardiac pacemaker 16 Total shoulder 72144119 07/12/20 [facility] replacement<sup>1</sup 14 [facility] > Total shoulder 15639060 07/12/20 [facility] replacement<sup>1</sup 14 > Fistulogram [id number] 05/31/20 [facility] 14 [facility] Fistulogram [id number] 05/31/20 [facility] 14 Parathyroidectomy [id number] 03/23/20 [facility] 14 [facility] Parathyroidectomy [id number] 03/23/20 [facility] 14 AV - Creation of [id number] 09/27/19 LEFT [id number] [facility] arteriovenous 14 [facility] fistula<sup>2</sup> AV - Creation of [id number] 09/27/19 LEFT MIW=4680 [facility] arteriovenous 14 fistula<sup>1</sup> AV - Creation of [id number] 09/27/19 LEFT LCH=2754 [facility] arteriovenous 14 fistula<sup>2</sup> CABG x 4 - Coronary [id number] 09/27/19 [facility] artery bypass grafts x 13 [facility] 4 CABG x 4 - Coronary [id number] 09/27/19 [facility] artery bypass grafts x 13 4 Miscellaneous [id number] HD CATHETER OPI operations<sup>3</sup> INSERTIONS & [facility] REMOVALS Miscellaneous [id number] Sternoplasty [facility] operations<sup>4</sup> with plate d/t [facility] Sternal Vfpsrdhnvh=4201 Miscellaneous [id number] HD CATHETER [facility] operations<sup>2</sup> INSERTIONS & REMOVALS Miscellaneous [id number] HD CATHETER [facility] operations<sup>3</sup> INSERTIONS & REMOVALS Total shoulder 50282978 Jun 2014 [facility] replacement<sup>4</sup > Total shoulder [id number] 2013 [facility] replacement<sup>1</sup > CABG x 4 - Coronary [id number] [facility] artery bypass grafts x 4 Miscellaneous [id number] Sternoplasty [facility] operations<sup>4</sup> with plate d/t Sternal Hghgemozxq=[id number]
[2018-10-17 12:00] LABS: Absolute Lymphocytes (CBC) 0.5 K/uL (0.7-4.9); Absolute Monocytes 0.9 K/uL (0.1-1.3); Absolute Neutrophil 8.5 K/uL (1.8-8.0); Basophils % 1.3 % (0-1.3); Eosinophils % 1.4 % (0-4.4); Hematocrit 43.9 % (39.6-49.0); Lymphocytes % 5.1 % (15.3-44.8); Monocytes % 8.7 % (3.3-12.3)
[2018-10-17 12:02] LABS: Protime INR 1.28
[2018-10-17] MEDS ORDERED: ONDANSETRON 4 MG/2 ML VIAL ONE ×2 (12:09→14:07)
--- NOTE | 2018-10-17 12:18 | RAD REPORT ---
EXAM DESCRIPTION: CT - Head Brain Wo Cont - 10/17/2018 12:08 pm CLINICAL HISTORY: CONFUSED Headache, drowsiness COMPARISON: HEAD BRAIN W O CONTRAST dated 04/30/2011 TECHNIQUE: All CT scans are performed using dose optimization technique as appropriate and may inclu de automated exposure control or mA/KV adjustment according to patient size. FINDINGS: No intracranial hemorrhage, hydrocephalus or extra-axial fluid collection.No areas of brai n edema or evidence of midline shift. The paranasal sinuses and mastoids are clear. The calvarium is intact. IMPRESSION: No acute intracranial abnormality.
--- NOTE | 2018-10-17 12:28 | RAD REPORT ---
EXAM DESCRIPTION: RAD - Chest Single View - 10/17/2018 12:21 pm CLINICAL HISTORY: CHEST PAIN Chest pain. COMPARISON: Chest Single View dated 07/14/2018; CHEST SINGLE VIEW dated 04/30/2011; CHEST PA AND LAT 2 VIEW dated 01/19/2011; CHEST PA AND LAT 2 VIEW dated 01/15/2011 FINDINGS: Portable technique limits examination quality. Mild interstitial pulmonary edema. The heart is significantly prominent with a single lead pacer jose ce present. Postoperative hardware is present in the chest as well as both shoulders.Stent is present in the brachiocephalic vein. IMPRESSION: Mild CHF versus volume overload pattern.
[2018-10-17 12:30] LABS: Albumin 3.8 g/dL (3.4-5.0); Bilirubin Direct 0.4 mg/dL (0-0.2); Bilirubin Total 0.9 mg/dL (0.2-1.0); Magnesium 2.1 mg/dL (1.8-2.4); Potassium 3.5 mmol/L (3.5-5.1); Protein, Total 7.9 g/dL (6.4-8.2); Troponin (Emerg Dept Use Only) 0.24 ng/mL (0.0-0.045)
--- NOTE | 2018-10-17 14:31 | EDPHYS ---
Physician Documentation [facility] Name: Sandro Malloy Age: 63 yrs Sex: Male : 1955 Arrival Date: 10/17/2018 Time: 11:31 Bed 3 Private MD: ED Physician Rena Ojeda HPI: 10/17 11:47 This 63 yrs old Male presents to ER via EMS with complaints of Altered Mental ma2 Status. 11:47 The patient presents with disorientation, to time. Onset: The symptoms/episode ma2 began/occurred suddenly, gradually, 4 hour(s) ago. Associated signs and symptoms: Pertinent negatives: abdominal pain, agitation, blurred vision, chest pain, confusion, diarrhea, dizziness, headache. Current symptoms: In the emergency department the patient's symptoms are unchanged from the initial presentation. Current symptoms: In the emergency department the patient's symptoms are unchanged from the initial presentation, have improved. Patient's baseline: Neuro: alert and fully oriented. Unable to obtain HPI due to altered mental status. The patient has experienced similar episodes in the past. Historical: - Allergies: 11:44 cranberry; sg - PMHx: 11:44 Dialysis; ESRD; hyperkalemia; diabetes; chronic anemia; hypocalcemia; Anxiety; dialysis sg MWF; Hypertension; chronic heart disease; iron deficiency anemia; - Immunization history:: Adult Immunizations unknown. - Social history:: Patient/guardian denies using alcohol, street drugs, The patient lives with family, Smoking status: Patient/guardian denies using tobacco. - Ebola Screening: : Patient denies exposure to infectious person Patient denies travel to an Ebola-affected area in the 21 days before illness onset. - Family history:: not pertinent. ROS: 11:47 Constitutional: Negative for fever, chills, and weight loss, Cardiovascular: Negative ma2 for chest pain, palpitations, and edema, Respiratory: Negative for shortness of breath, cough, wheezing, and pleuritic chest pain, Abdomen/GI: Negative for abdominal pain, nausea, diarrhea, and constipation, Back: Negative for injury and pain, MS/Extremity: Negative for injury and deformity, Psych: Negative for depression, anxiety, suicide ideation, homicidal ideation, and hallucinations, Allergy/Immunology: Negative for hives, rash, and allergies. 11:47 Neuro: Positive for altered mental status, Negative for dizziness, headache, hearing loss. 11:47 Unable to obtain ROS due to altered mental status. Exam: 11:47 Constitutional: This is a well developed, well nourished patient who is awake, alert, ma2 and in no acute distress. Head/Face: Normocephalic, atraumatic. Chest/axilla: Normal chest wall appearance and motion. Nontender with no deformity. No lesions are appreciated. Cardiovascular: Regular rate and rhythm with a normal S1 and S2. No gallops, murmurs, or rubs. Normal PMI, no JVD. No pulse deficits. Respiratory: Lungs have equal breath sounds bilaterally, clear to auscultation and percussion. No rales, rhonchi or wheezes noted. No increased work of breathing, no retractions or nasal flaring. Abdomen/GI: Soft, non-tender, with normal bowel sounds. No distension or tympany. No guarding or rebound. No evidence of tenderness throughout. Skin: Warm, dry with normal turgor. Normal color with no rashes, no lesions, and no evidence of cellulitis. MS/ Extremity: Pulses equal, no cyanosis. Neurovascular intact. Full, normal range of motion. 11:47 Neuro: Orientation: to person, place, situation, Not oriented to time, Cranial nerves: grossly normal, Cerebellar function: is grossly normal, Motor: is normal. Vital Signs: 11:44 BP 137 / 79; Pulse 71; Resp 18; Temp 98.7(O); Pulse Ox 100% on R/A; Height 5 ft. 9 in. sg (175.26 cm); Pain 4/10; 14:47 BP 113 / 70; Pulse 66; Resp 18; Pulse Ox 97% on R/A; Pain 0/10; ss MDM: 11:31 Patient medically screened. ma2 11:47 Differential Diagnosis: CVA, electrolyte abnormality, hypoglycemia, intracranial bleed, ma2 UTI, volume depletion. 13:33 Data reviewed: vital signs, nurses notes. ED course: patient is still disoriented to hi2 time, daughter states he keeps asking the same questions like "where were you" his vs wnl, trop is 0.2 last visit was 0.05, he needs admission and trop trending, patient would like to be transferred to [facility] continuity of care under his employment security officer dr. Landry care.. I called Dr. Landry cell phone and left a voice message.. . 14:24 ED course: called dr. Landry office again at 1345, nurse took patient information and [address] will call back . 14:29 ED course: dr. landry called back and accepted to [facility] under dr. Charles chavira . [facility] 10/17 11:44 Order name: Basic Metabolic Panel [facility] 10/17 11:44 Order name: CBC with Diff [facility] 10/17 11:44 Order name: LFT's [facility] 10/17 11:44 Order name: Magnesium [facility] 10/17 11:44 Order name: NT PRO-BNP [facility] 10/17 11:44 Order name: PT-INR [facility] 10/17 11:44 Order name: Troponin (emerg Dept Use Only) [facility] 10/17 12:03 Order name: CBC with Automated Diff; Complete Time: 12:53 EDND 10/17 12:04 Order name: Protime (+INR); Complete Time: 12:53 [facility] 10/17 12:33 Order name: Basic Metabolic Panel [facility] 10/17 12:33 Order name: Liver (Hepatic) Function [facility] 10/17 12:33 Order name: Troponin (Emerg Dept Use Only) [facility] 10/17 12:33 Order name: NT PRO-BNP [facility] 10/17 12:33 Order name: Magnesium [facility] 10/17 11:44 Order name: XRAY Chest (1 view) [facility] 10/17 11:44 Order name: EKG; Complete Time: 11:45 [facility] 10/17 11:44 Order name: Cardiac monitoring; Complete Time: 12:09 [facility] 10/17 11:44 Order name: EKG - Nurse/Tech; Complete Time: 12:09 [facility] 10/17 11:44 Order name: IV Saline Lock; Complete Time: 12:09 [facility] 10/17 11:44 Order name: Labs collected and sent; Complete Time: 12:09 [facility] 10/17 11:44 Order name: O2 Per Protocol; Complete Time: 12:09 [facility] 10/17 11:44 Order name: O2 Sat Monitoring; Complete Time: 12:09 [facility] 10/17 11:44 Order name: CT Head Brain wo Cont [facility] 10/17 12:20 Order name: CT; Complete Time: 12:53 EDMS 10/17 12:30 Order name: RAD; Complete Time: 12:53 EDMS 10/17 14:45 Order name: Diet Ada 1800 Froy; Complete Time: 14:45 ss 10/17 16:38 Order name: Glucose, Ancillary Testing EDMS Administered Medications: 12:13 Drug: Zofran 4 mg {Note: administered by hill Mccarthy RN.} Route: IVP; Site: right ss antecubital; 14:45 Follow up: Response: No adverse reaction; No change in condition; No change in ss conditionpt reports feeling better after eating a sandwhich 13:05 Not Given (324 ASA given prior to arrival by EMS en route to ED): Aspirin 325 mg PO oncesg 14:01 Drug: Zofran 4 mg Route: IVP; Site: right antecubital; ss 14:45 Follow up: Response: No adverse reaction ss Disposition: 10/17/18 14:[address] [facility]. Diagnosis is Altered mental status, unspecified. - Reason for transfer: Higher level of care. - Accepting physician is Charles Chavira. - Condition is Stable. - Problem is new. - Symptoms are unchanged. Signatures: Dispatcher [employer] EDND Hill Mccarthy RN RN Jessica Mendiola RN RN Rena Ojeda MD MD ma2 Corrections: (The following items were deleted from the chart) 13:34 11:44 Urine Dipstick-Ancillary ordered. ma2 16:51 14:30 10/17/2018 14:[address] [facility]. Diagnosis is ss Altered mental status, unspecified. Reason for transfer: Higher level of care. Accepting physician is Charles Chavira. Condition is Stable. Problem is new. Symptoms are unchanged. ma2
--- NOTE | 2018-10-17 14:31 | ER ---
Nurse's Notes [facility] Name: Sandro Malloy Age: 63 yrs Sex: Male : 1955 Arrival Date: 10/17/2018 Time: 11:31 Bed 3 Private MD: Diagnosis: Altered mental status, unspecified Presentation: 10/17 11:31 Presenting complaint: EMS states: completed dialysis session that lasted 4 hours, sg pulled off 2.9 Liters of fluid. When nurse was getting patient ready to leave, she noticed he was " a little altered." Pt is alert and oriented to person and place. C/o mild chest discomfort 01/04. EMS reports that on arrival, patient RA O2 was 78%. After applying 4 L O2 VIA NC, O2 is now 94%. Pt denies SOB. Transition of care: patient was not received from another setting of care. Onset of symptoms was October 17, 2018. Risk Assessment: Do you want to hurt yourself or someone else? Patient reports no desire to harm self or others. Initial Sepsis Screen: Does the patient meet any 2 criteria? No. Patient's initial sepsis screen is negative. Does the patient have a suspected source of infection? No. Patient's initial sepsis screen is negative. Care prior to arrival: Medication(s) given: ASA, 81 mg, x 4, IV initiated. 18 GA, in the right antecubital area, Glucose check: 87 Oxygen administered. via nasal cannula. 11:31 Method Of Arrival: EMS: [facility] 11:31 Acuity: KITTY 3 sg Historical: - Allergies: 11:44 cranberry; sg - PMHx: 11:44 Dialysis; ESRD; hyperkalemia; diabetes; chronic anemia; hypocalcemia; Anxiety; dialysis sg MWF; Hypertension; chronic heart disease; iron deficiency anemia; - Immunization history:: Adult Immunizations unknown. - Social history:: Patient/guardian denies using alcohol, street drugs, The patient lives with family, Smoking status: Patient/guardian denies using tobacco. - Ebola Screening: : Patient denies exposure to infectious person Patient denies travel to an Ebola-affected area in the 21 days before illness onset. - Family history:: not pertinent. Screenin:09 Abuse screen: Denies threats or abuse. Denies injuries from another. Nutritional ss screening: No deficits noted. Tuberculosis screening: Never had TB. Fall Risk None identified. Assessment: 11:45 General: Appears in no apparent distress. comfortable, Behavior is calm, cooperative. ss Pain: Complains of pain in chest Pain currently is 4 out of 10 on a pain scale. Quality of pain is described as dull, Pain began 30 min ago. Is continuous. Neuro: Level of Consciousness is awake, alert, obeys commands, confused, Oriented to person, place, Speech is normal, Facial symmetry appears normal, Pupils are PERRLA. Cardiovascular: Heart tones S1 S2 present Capillary refill < 3 seconds is brisk in bilateral fingers Patient's skin is warm and dry. Respiratory: Airway is patent Trachea midline Respiratory effort is even, unlabored, Respiratory pattern is regular, symmetrical. Respiratory: Breath sounds with crackles in right posterior lower lobe. GI: Reports mild nausea Patient currently denies diarrhea, vomiting. : Reports Parent/caregiver report the patient having family reports patient no longer makes urine. EENT: Nares are clear Oral mucosa is moist. Throat is clear. Derm: Skin is intact, is healthy with good turgor, Skin is dry, Skin is pink, warm \\T\\ dry. normal. Musculoskeletal: Circulation, motion, and sensation intact. Range of motion: intact in all extremities, Swelling absent. 12:45 Reassessment: Patient appears in no apparent distress at this time. Patient and/or ss family updated on plan of care and expected duration. Pain level reassessed. 14:46 Reassessment: Patient appears in no apparent distress at this time. Patient and/or ss family updated on plan of care and expected duration. Pain level reassessed. nausea decreased after eating sandwich. Awaiting for administrative approval from [facility]. PT and family updated on POC Patient denies pain at this time. Patient states feeling better. Patient states symptoms have improved. 16:13 Reassessment: Patient appears in no apparent distress at this time. Patient and/or ss family updated on plan of care and expected duration. Pain level reassessed. Report called to Norah Junior RN Patient denies pain at this time. 16:50 Reassessment: report given to [facility]. Pt ready for transportation to [facility]. Vital Signs: 11:44 BP 137 / 79; Pulse 71; Resp 18; Temp 98.7(O); Pulse Ox 100% on R/A; Height 5 ft. 9 in. sg (175.26 cm); Pain 4/10; 14:47 BP 113 / 70; Pulse 66; Resp 18; Pulse Ox 97% on R/A; Pain 0/10; ss ED Course: 11:31 Patient arrived in ED. sg 11:31 Rena Ojeda MD is Attending Physician. ma2 11:36 Triage completed. sg 11:45 Maintain EMS IV. Dressing intact. Good blood return noted. Site clean \\T\\ dry. Gauge \\T\\ sg site: 18 gauge in R AC. 11:51 EKG done, by audio video technician. reviewed by Rena Ojeda MD. sm3 12:09 Jessica Mendiola, MADISYN is Primary Nurse. ss 12:09 Patient has correct armband on for positive identification. Bed in low position. Call ss light in reach. Side rails up X2. heat treat furnace operator on. Pulse ox on. NIBP on. 12:12 CT completed. Patient tolerated procedure well. Patient moved to CT via stretcher. vr Patient moved back from CT. 12:14 X-ray completed. Portable x-ray completed in exam room. Patient tolerated procedure jb2 well. 16:50 No provider procedures requiring assistance completed. Patient transferred, IV remains ss in place. Administered Medications: 12:13 Drug: Zofran 4 mg {Note: administered by hill Mccarthy RN.} Route: IVP; Site: right ss antecubital; 14:45 Follow up: Response: No adverse reaction; No change in condition; No change in ss conditionpt reports feeling better after eating a sandwhich 13:05 Not Given (324 ASA given prior to arrival by EMS en route to ED): Aspirin 325 mg PO oncesg 14:01 Drug: Zofran 4 mg Route: IVP; Site: right antecubital; 14:45 Follow up: Response: No adverse reaction Outcome: 14:30 ER care complete, transfer ordered by . ma2 16:50 Transferred by ground EMS to [facility], Transfer form completed. X-rays ss sent w/ patient. 16:50 Condition: good 16:50 Instructed on the need for admit. 16:51 Patient left the ED. Signatures: Hill Mccarthy RN RN Derik Carranza jb2 Smirch, Jessica, RN RN ss Karis Delaney Mohammad, MD MD ma2 Ashley Blakely 3 Corrections: (The following items were deleted from the chart) 19:50 14:46 Reassessment: Patient appears in no apparent distress at this time. Patient ss and/or family updated on plan of care and expected duration. Pain level reassessed. Patient is alert, oriented x 3, equal unlabored respirations, skin warm/dry/pink. nausea decreased after eating sandwich. Awaiting for administrative approval from [facility]. PT and family updated on POC Patient denies pain at this time. Patient states feeling better. Patient states symptoms have improved. ss 19:50 16:13 Reassessment: Patient appears in no apparent distress at this time. Patient ss and/or family updated on plan of care and expected duration. Pain level reassessed. Patient is alert, oriented x 3, equal unlabored respirations, skin warm/dry/pink. Report called to Norah Junior RN Patient denies pain at this time. ss
[2018-10-17 17:03] VITALS: TEMP 98.7
[2018-10-17 17:04] VITALS: BP 113/70; O2SAT 97
--- NOTE | 2018-10-17 17:10 | EKG ---
Test Date: 2018-10-17 Test Time: 11:43:10 Stripper And Opaquer Apprentice: ANU MEASUREMENT RESULTS: Intervals: Rate: 60 OR: QRSD: 200 QT: 552 QTc: 552 [place]: P: OR: QRS: 3 T: 85 INTERPRETIVE STATEMENTS: Ventricular-paced rhythm Abnormal ECG Compared to ECG 07/14/2018 17:34:12 No significant changes Electronically Signed On 10-17-18 17:08:17 INSULATING MACHINE OPERATOR by Dewayne Guaman
== END 2018-10-17 16:51 | disposition short-term general hospital (02) ==
LOC: ER 11:29
DX: R41.82 Altered mental status, unspecified (principal); Z91.018 Allergy to other foods
CPT/HCPCS: 36415; 70450; 71045; 80048; 80076; 82962; 83735; 83880; 84484; 85025; 85610; 93005; 96374; 99285; J2405 ×2

== ENCOUNTER 2020-01-31 13:30 | Inpatient (IN) | payer OTHER ==
[2020-01-31] MEDS ORDERED: ONDANSETRON 4 MG/2 ML VIAL IV PRN (13:53)
[2020-01-31] MEDS ORDERED: VANCOMYCIN/NS 1 gm 1 GM/250 ML BAG IV SCH (14:00)
[2020-01-31 14:23] LABS: Absolute Lymphocytes (CBC) 0.6 K/uL (0.7-4.9); Basophils % 0.8 % (0-1.3); Hematocrit 41.9 % (39.6-49.0); Lymphocytes % 6.2 % (15.3-44.8); MPV 11.1 fL (7.6-11.3); RBC Red Blood Cell Count 4.55 M/uL (4.33-5.43)
[2020-01-31 14:30] LABS: Potassium 3.7 mmol/L (3.5-5.1)
[2020-01-31 14:39] LABS: Protime INR 1.52
--- NOTE | 2020-01-31 15:52 | RAD REPORT ---
EXAM DESCRIPTION: RAD - Chest Pa And Lat (2 Views) - 01/31/2020 3:41 pm CLINICAL HISTORY: PVD, CELLULITIES Chest pain. COMPARISON: Chest Single View dated 10/17/2018; Chest Single View dated 07/14/2018; CHEST SINGLE VIEW dated 04/30/2011; CHEST PA AND LAT 2 VIEW dated 01/19/2011 FINDINGS: Hyperexpanded lungs is present compatible with COPD. The heart is enlarged with postsurgic al changes present. Single lead pacer device is in place. Bilateral humeral prostheses noted.
--- NOTE | 2020-01-31 15:53 | RAD REPORT ---
EXAM DESCRIPTION: US - Lower Extremity Arterial Bilat - 01/31/2020 3:29 pm CLINICAL HISTORY: PVD Leg pain COMPARISON: No comparisons TECHNIQUE: Bilateral lower extremity arterial Doppler examination was performed with jake samuels FINDINGS: Triphasic and biphasic waveforms are seen throughout both lower extremity arterial systems to the lev el of the posterior tibial arteries bilaterally. The left dorsalis pedis noted to be monophasic. The right dorsalis pedis appears biphasic. IMPRESSION: Moderate very distal left-sided peripheral vascular disease.
[2020-01-31] MEDS: ACETAMINOPHEN 325 MG TABLET PO PRN ×2 (16:22→22:25)
--- NOTE | 2020-01-31 18:03 | P.HP ---
Certification for Inpatient Patient admitted to: Inpatient With expected LOS: >2 Midnights Practitioner: I am a practitioner with admitting privileges, knowledge of patient current condition, hospital course, and medical plan of care. Services: Services provided to patient in accordance with Admission requirements found in Title 42 Section 412.3 of the Code of Federal Regulations Patient History Date of Service: 01/31/20 Reason for admission: L LEG ULCER History of Present Illness: MR. KHAN IS A PATIENT WITH ESRD ON HD, COMES TO WOUND CENTER AFTER TWO WEEKS OF PAINFUL ULCER AND LEG THAT IS GETTING WORSE. I EXAMINED HIM AND FOUND TO HAVE SEVERELY NECROTIC LARGE ULCER ON L LEG ABOUT 4-9 CM AND ALSO DISTAL LOWER FOOT TWO NECROTIC SKIN AREAS ABOUT 3MM EACH. I ADVISED ADMISSION HE WILL NOT IMPROVE WITHOUT SURGICAL DEBRIDEMENT AND IV ABX. Allergies cranberry Allergy (Verified 02/27/15 10:42) Anaphylaxis Home Medications: ALPRAZolam [Xanax*] 0.5 mg PO PRN 01/31/20 Allopurinol 300 mg PO DAILY 01/31/20 Aspirin Chewable [Aspirin Chewable*] 81 ng PO DAILY 01/31/20 Calcitrol [Rocaltrol*] 0.5 mg PO DAILY 01/31/20 Calcium Acetate [Phoslo] 1,334 mg PO BID 01/31/20 Calcium Acetate [Phoslo] 3,325 mg PO TID 01/31/20 Folic Acid/Vitamin B Comp W-C [Nephro-Dominick Tablet] 0.8 mg PO DAILY 01/31/20 Indomethacin 50 mg PO DAILY PRN 01/31/20 Midodrine HCl 10 mg PO M,W,F 01/31/20 Omeprazole Magnesium [Prilosec Otc] 20 mg PO DAILY 01/31/20 - Past Medical/Surgical History Diabetic: No -: HTN -: ESRD -: DM -: Atrial Fibrillation -: Hypothyroid -: Obesity -: Bilateral shoulder replacements 2013 & 2014 -: CABG x 4 2012 -: Vascular surgery 2008 -: Right hand sx r/t injury -: Right arm sx r/t fx - places & pins in place - Family History Father -: Kidney disease - Social History Smoking Status: Never smoker Alcohol use: No CD- Drugs: No Caffeine use: Yes Place of Residence: Home Review of Systems 10-point ROS is otherwise unremarkable General: Weakness Musculoskeletal: Leg Pain, As per HPI Physical Examination - Physical Exam General: Alert, Acute distress, Moderate distress, Obese HEENT: Atraumatic, PERRLA, Mucous membr. moist/pink, EOMI, Sclerae nonicteric Neck: Supple, 2+ carotid pulse no bruit, No LAD, Without JVD or thyroid abnormality Respiratory: Clear to auscultation bilaterally, Normal air movement Cardiovascular: Regular rate/rhythm, Normal S1 S2, Abnormal pulses (NO L LEG DP AND PT PULSE.) Gastrointestinal: Normal bowel sounds, No tenderness Musculoskeletal: No tenderness Integumentary: No rashes Neurological: Normal gait, Normal speech, Normal strength at 5/5 x4 extr, Normal tone, Normal affect Lymphatics: No axilla or inguinal lymphadenopathy - Studies Laboratory Data (last 24 hrs) 01/31/20 13:58: Sodium 138, Potassium 3.7, BUN 38 H, Creatinine 7.19 H*, Glucose 82 01/31/20 13:58: PT 17.8 H, INR 1.52, APTT 37.8 H 01/31/20 13:58: WBC 9.1, Hgb 13.6, Hct 41.9, Plt Count 148 L Assessment and Plan - Problems (Diagnosis) (1) 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 IV ZOSYN CONSULT DR. DALTON. DEBRIDE SURGICALLY. RULE OUT FASCITIS. DOPPLER SHOWS MODERATE PVD. WILL WAIT UNTIL INFECTION IS BETTER BEFORE HE CAN GO BACK TO DR. LUND WHO IS HIS METEOROLOGICAL ENGINEER. PROGNOSIS GUARDED. Qualifiers: Laterality: left Qualified Code(s): L97.923 - Non-pressure chronic ulcer of unspecified part of left lower leg with necrosis of muscle (2) ESRD (end stage renal disease) on dialysis Current Visit: No Status: Chronic Plan: ON HD. CONSULT DR. GOMEZ - Advance Directives Does patient have a Living Will: Yes Does patient have a Durable POA for Healthcare: Yes
[2020-01-31] MEDS: PIPER/TAZO/NS 2.25gm 2.25 GM/50 ML BAG IVPB SCH (18:17)
[2020-01-31] MEDS: CA ACETATE 667 MG CAP PO SCH (22:25)
[2020-01-31] MEDS: ENOXAPARIN 30 MG/0.3 ML SQ SCH (22:25)
[2020-02-01] MEDS ORDERED: NA CHLORIDE 0.9% 250 ML ONE (00:55)
[2020-02-01] MEDS: PIPER/TAZO/NS 2.25gm 2.25 GM/50 ML BAG IVPB SCH ×3 (01:17→18:22)
[2020-02-01] MEDS: NA CHLORIDE 0.9% 250 ML IV ONE ×3 (03:03→03:15)
[2020-02-01] MEDS: ACETAMINOPHEN 325 MG TABLET PO PRN ×3 (03:33→22:32)
[2020-02-01 04:32] LABS: Absolute Lymphocytes (CBC) 0.9 K/uL (0.7-4.9); Basophils % 0.9 % (0-1.3); Lymphocytes % 10.1 % (15.3-44.8); MPV 11.2 fL (7.6-11.3); RBC Red Blood Cell Count 4.23 M/uL (4.33-5.43)
[2020-02-01] MEDS ORDERED: NOREPINEPHRINE 4mg/D5W 250mL 4 MG/250 ML BAG IV ONE (05:20)
[2020-02-01 05:42] LABS: CKMB Creatine Kinase MB 3.6 ng/mL (0.3-3.6); Potassium 3.8 mmol/L (3.5-5.1); Troponin I 0.05 ng/mL (0.0-0.045)
[2020-02-01] MEDS: NOREPINEPHRINE 4 MG in D5W 250 ML IV PRN ×2 (05:53→14:02)
[2020-02-01] MEDS ORDERED: PANTOPRAZOLE 40MG TABLET PO SCH (07:30)
[2020-02-01] MEDS ORDERED: ALPRAZOLAM 0.5 MG TABLET PO SCH (09:00)
[2020-02-01] MEDS ORDERED: HOME MED 1 EA UNK (Folic Acid/Vitamin B Comp W-C [Nephro-Vite Tablet] 0.8 MG) PO SCH (09:00)
[2020-02-01] MEDS ORDERED: HOME MED 1 EA UNK (Omeprazole Magnesium [Prilosec Otc] 20 MG) PO SCH (09:00)
[2020-02-01] MEDS: ASPIRIN 81 MG CHEWABLE TABLET PO SCH (09:49)
[2020-02-01] MEDS: CALCITROL 0.25 MCG CAP PO SCH (10:02)
[2020-02-01] MEDS: allopurinoL 300 MG TAB PO SCH (10:03)
[2020-02-01] MEDS: MULTIVITAMINS,THERAPEUT 1 TAB PO SCH (10:03)
--- NOTE | 2020-02-01 10:56 | CON ---
Date of Consultation: 01/31/2020 Reason For Consultation: Infected wound, left leg. History Of Present Illness: Patient is a 64-year-old gentleman with multiple medical problems, saw Tracy Espinosa yesterday in the wound healing center and was found to have a necrotic wound on his left ant erolateral leg approximately 4 x 9 cm and surrounding erythema. He was admitted for IV antibiotics a nd the need for surgical debridement. He is awake and alert; however, last night, his blood pressure dropped and he was somewhat confused and symptomatic from his low blood pressure with systolic being in the 60s and 70s. He was transferred to the ICU, started on Levophed. Currently, his blood press ure is 80 systolic and normally he runs in that range and he is being weaned off the Levophed right n ow. No sore throat, runny nose, cough, headaches, or dizziness. No chest pain. No fever or chills. Review of Systems: Otherwise unremarkable. Medical History: Hypertension, end-stage renal disease, diabetes, AFib, hypothyroidism, morbid obesi ty. Past Surgical History: Shoulder replacement, CABG surgery, vascular surgery, right hand surgery, rig ht arm surgery. Allergies: CRANBERRY. Social History: Patient does not smoke, does not drink alcohol. Family History: Noncontributory. Physical Examination: Vital Signs: Currently, his blood pressure is 84/63, afebrile. Heart rate and respiratory rate are within normal limits. General: He is awake, alert, little confused. Head and Neck: No masses. Chest: Clear. Heart: S1, S2. Abdomen: Soft. Extremities: Diminished dorsalis pedis and posterior tibial pulses. There is a necrotic wound appro ximately 9 x 4 cm on the left anterolateral leg and appears to be down through the subcutaneous tissu e, maybe secondary to a trauma, unclear at this time and has significant peripheral vascular disease as well. There is surrounding erythema, minimal warmth. Laboratory Data: Significant for white count of 8.7 with a left shift. INR is 1.52. Chemistry revi ewed. His BUN and creatinine are elevated as expected and his troponin 1 is slightly elevated. Pota ssium is 3.8. He had a Doppler done on the lower extremity yesterday, which shows moderate, very dis raghavendra, left-sided peripheral vascular disease. Assessment: 64-year-old gentleman with multiple medical problems, infected wound, left lower extremi ty with peripheral vascular disease. Recommendations: Patient will need surgical debridement. We will do that once he is off the Levophe d, probably tomorrow morning. Informed consent obtained from the and . They understand and agree. Continue antibiotics and collagenase dressing for the time being. Once the infection is under control, probably he needs to follow up with his head of transport logistics for peripheral angiogram to see i f he has any disease that can be improved with intervention. Plan of care discussed in detail with Dr Parker Espinosa. NICK/ROSS Voice ID: [id number] Report ID: [id number]
[2020-02-01] MEDS: CA ACETATE 667 MG CAP PO SCH ×2 (11:24→20:57)
[2020-02-01] MEDS ORDERED: NS 0.9% VIAL 20 ML ONE ×2 (12:14→15:17)
[2020-02-01] MEDS ORDERED: MIDODRINE HCL 5 MG TABLET PO ONE (12:53)
--- NOTE | 2020-02-01 12:59 | EKG ---
Test Date: 2020-02-01 Test Time: 05:11:50 Ornamental Iron Worker: HB MEASUREMENT RESULTS: Intervals: Rate: 62 MI: QRSD: 220 QT: 554 QTc: 562 [place]: P: MI: QRS: 30 T: 87 INTERPRETIVE STATEMENTS: Electronic ventricular pacemaker Compared to ECG 01/31/2020 17:17:36 No significant changes Electronically Signed On 02-01-20 12:58:17 CDT by Dewayne Guaman
--- NOTE | 2020-02-01 13:01 | EKG ---
Test Date: 2020-01-31 Test Time: 17:17:36 Cabinet Mounter: SUDHEER MEASUREMENT RESULTS: Intervals: Rate: 71 FL: QRSD: 208 QT: 530 QTc: 575 [place]: P: FL: QRS: 16 T: 89 INTERPRETIVE STATEMENTS: Electronic ventricular pacemaker Compared to ECG 10/17/2018 11:43:10 No significant changes Electronically Signed On 02-01-20 12:58:27 CDT by Dewayne Guaman
[2020-02-01] MEDS: FENTANYL 25 MCG/PATCH TD SCH (13:04)
[2020-02-01] MEDS: NICOTINE 21 MG/PAT TD SCH (13:07)
[2020-02-01] MEDS: NA CHLORIDE 0.9% 250 ML IV SCH ×3 (13:13→23:00)
[2020-02-01] MEDS ORDERED: LIDOCAINE 1% 20 ML MDV ONE (15:30)
[2020-02-01] MEDS ORDERED: LIDOCAINE 1% MPF 5 ML VIAL ONE (15:31)
--- NOTE | 2020-02-01 16:43 | RAD REPORT ---
EXAM DESCRIPTION: RAD - Chest Single View - 02/01/2020 4:25 pm CLINICAL HISTORY: R/O Pneumo, unsuccessful line placement TECHNIQUE: AP portable chest image was obtained 02/01/2020 4:25 pm . FINDINGS: Lungs are clear. Cardiac silhouette is enlarged similar to comparison. Brachiocephalic gordon nt is in place. Right-sided pacemaker in place. Numerous pieces of hardware overlie the chest. No pneumothorax is identifiable. No acute aortic findings suspected. IMPRESSION: No pneumothorax.
[2020-02-01] MEDS ORDERED: FENTANYL CITR 100 MCG/2 ML IV ONE (17:09)
--- NOTE | 2020-02-01 17:32 | CON ---
Date of Consultation: 02/01/2020 Reason For Consultation: Elevated BUN and creatinine, fluid management, hypertension. History Of Present Illness: This is a pleasant 64-year-old gentleman, well known to me from dialysis with significant past medical history of end-stage renal disease, on hemodialysis, Wednesday, Wednesday , Wednesday, last dialysis yesterday; hypertension; coronary artery disease; recent ID; congestive heart failure; diastolic dysfunction. Patient had dialysis yesterday, after dialysis went to Dr. Jesús shahid wound care, found to have worsening foot ulcer. For that reason, patient was sent to the hospital. Over the night, patient developed low blood pressure down to 40. For that reason, patient was move d to the ICU. Patient was placed on levophed. Patient denied any chest pain. No nausea. No vomiti ng. No fever or chills. Past Medical History: 1.Hypertension. 2.Hyperlipidemia. 3.Coronary artery disease. 4.Congestive heart failure. 5.End-stage renal disease, on hemodialysis, Wednesday, Wednesday, Wednesday. 6.Diabetes. 7.Atrial fibrillation. 8.Hypothyroidism. Past Surgical History: 1.AV fistula creation. 2.CABG x4. 3.Hand surgery, shoulder surgery, bilateral replacement. Family History: Positive for diabetes and hypertension. Home Medications: Include alprazolam, allopurinol, aspirin, calcitriol, folic acid, indomethacin, mi dodrine, omeprazole. Social History: Active tobacco chewer. Denied alcohol. Denied drug abuse. Review of Systems: Head and Neck: No red eye. No ear pain. GI: No nausea. No vomiting. : No polyuria. No dysuria. No hematuria. CHEESE SPECIALIST: Not applicable. Respiratory: On nasal cannula. Has shortness of breath chronically. Cardiovascular: Has orthopnea. Endocrine: No polydipsia. Skin: No rash. Neuro: Has neuropathy. Musculoskeletal: Has foot pain. Physical Examination: Vital Signs: When I saw the patient, blood pressure 84/63, pulse of 69. Chest: Clear to auscultation. Heart: S1, S2. Systolic murmur. Abdomen: Soft, nontender. Extremities: Erythema with venous stasis change on both leg. A dressing on the left foot and leg. Neuro: Alert, oriented x3. No focal. Laboratory Data: WBC 8.7, H and H 12.6/39, platelets 140. Sodium 139, potassium 3.8, bicarb 28, BUN 50, creatinine 8.5, calcium 9.1. Troponin 0.05. Current Medications: The patient on include: 1.Aspirin. 2.Zosyn. 3.Vancomycin. 4.Midodrine. 5.Levophed. 6.Lovenox. 7.PhosLo. 8.Zofran. 9.Pantoprazole. 10.Allopurinol 300 daily. 11.Multivitamin. 12.Calcitriol. Assessment And Plan: 1.End-stage renal disease, looked to me normal volume to possible the dry side with the presence of low blood pressure. I am going to give the patient IV fluid of 250 and we will monitor the patient. We will arrange for dialysis for the patient tomorrow. 2.Hypertension, currently hypotension. I am going to hold all the blood pressure medication. Resum e midodrine for the patient. We will give the patient gentle hydration and we will send for cortisol . 3.Septic shock secondary to diabetic foot. Continue current antibiotic. Continue Levophed. Follow up with Surgery. Send for cortisol. 4.Coronary artery disease, recent coronary artery bypass grafting. With the low blood pressure, I a m going to go ahead and follow up cardiac enzyme. 5.Secondary hyperparathyroidism. Continue binder. 6.Anemia of chronic kidney disease. No need for BLANCA. ROSE Voice ID: [id number] Report ID: [id number]
[2020-02-01] MEDS: ENOXAPARIN 30 MG/0.3 ML SQ SCH (18:23)
--- NOTE | 2020-02-01 19:26 | PN ---
Subjective: Mr. Malloy is in ICU because his blood pressure dropped down to 75 systolic. According to his , his baseline blood pressure is about 80 systolic anyway. He is in the hospital for left leg necrotic large ulcer and peripheral vascular disease on the left side. I discussed with patient 's this morning about his condition. He needs debridement done for the ulcer, but he needs to b e more stable cardiovascular [place] from hypotension. He is currently on 6 mcg of norepinephrine, bein g tapered off. Physical Examination: General: He is awake. He is able to respond to verbal command. Vital Signs: His blood pressure is 89/62. O2 saturation 98% on 2 L nasal cannula. Chest: Clear. Heart: Regular. Abdomen: No guarding. No rebound. No rigidity. Laboratory Data: Creatinine is 8.5, which is all because he is on dialysis. WBC 8.7, hemoglobin 12. 6, hematocrit 39, platelets 140,000. BUN 50, creatinine 8.53. Troponin 0.05, slightly high. CRP is 230. Sedimentation rate is 37. Assessment And Plan: 1.Septic shock. Continue Levophed as required. Continue vancomycin and Zosyn according to Nephrolo gy dosing for renal failure. 2.Necrotic ulcer needing debridement, possible tomorrow. Dr. Pereira is aware and I have discussed wi th patient's . Prognosis overall guarded. RVD/MODL Voice ID: [id number] Report ID: [id number]
--- NOTE | 2020-02-02 00:35 | OP ---
Surgeon: Messi Pereira MD Procedure: Placement of left femoral central line. Indications: The patient is a 64-year-old gentleman, who was on Levophed IV infiltrated and had no o ther source in the right upper extremity. Left arm, he has an AV fistula. Therefore, the patient ne eded an urgent central line. Informed consent was obtained. Patient understands the risks, benefits , and alternatives and agrees to the procedure. Please note, patient has had multiple vascular proce dures done in the past. In the right IJ, I was able to access. Procedure In Detail: The patient was prepped and draped in the usual sterile fashion. Lidocaine 1% infiltrated locally. Then, 18-gauge needle was used to access the right IJ vein, however the guidewi re would not pass beyond about 7 cm, but I did have good blood flow. Therefore, I placed a 20-gauge IV catheter and secured it and we started the Levophed again. In the meantime, the patient had a rig subclavian pacemaker placement, so that site could not be attempted. So I went to the right femor al region, Doppler device was used, it was very faint, very weak. After it was prepped and draped in the sterile fashion, lidocaine 1% infiltrated locally. I was unable to access the right femoral vei n probably secondary to previous procedures patient had done there. Subsequently, the left groin was prepped and draped in the usual sterile fashion. Doppler device was used to identify the femoral ar ani and then lidocaine 1% was infiltrated locally, 18-gauge needle was used to access the left femor al vein. Guidewire passed and then Seldinger technique was used. Then, the catheter was placed and secured with 3-0 silk, flushed with heparin, packed with heparin with good blood flow. Sterile dress ing was applied. The patient tolerated the procedure in stable condition. Chest x-ray has been ordered as there was an attempted at the [facility] IJ vein. /MODL Voice ID: [id number] Report ID: [id number]
[2020-02-02] MEDS: PIPER/TAZO/NS 2.25gm 2.25 GM/50 ML BAG IVPB SCH ×3 (01:55→17:04)
[2020-02-02] MEDS: NOREPINEPHRINE 4 MG in D5W 250 ML IV PRN ×2 (04:29→16:28)
[2020-02-02 06:16] LABS: Absolute Lymphocytes (CBC) 1.2 K/uL (0.7-4.9); Basophils % 0.6 % (0-1.3); Hematocrit 41.1 % (39.6-49.0); Lymphocytes % 10.4 % (15.3-44.8); MPV 11.3 fL (7.6-11.3); RBC Red Blood Cell Count 4.42 M/uL (4.33-5.43)
[2020-02-02 06:54] LABS: Potassium 4.7 mmol/L (3.5-5.1)
[2020-02-02] MEDS: CA ACETATE 667 MG CAP PO SCH ×4 (07:07→21:00)
[2020-02-02] MEDS: PANTOPRAZOLE 40MG TABLET PO SCH (07:30)
[2020-02-02] MEDS: MULTIVITAMINS,THERAPEUT 1 TAB PO SCH (08:20)
[2020-02-02] MEDS: CALCITROL 0.25 MCG CAP PO SCH (08:20)
[2020-02-02] MEDS: ASPIRIN 81 MG CHEWABLE TABLET PO SCH (08:20)
[2020-02-02] MEDS: allopurinoL 300 MG TAB PO SCH (08:21)
[2020-02-02] MEDS ORDERED: NA CHLORIDE 0.9% 1,000 ML ONE (08:24)
[2020-02-02] MEDS: COLLAGENASE 30 GM OINTMENT TOP SCH (08:48)
[2020-02-02] MEDS ORDERED: FENTANYL CITR 100 MCG/2 ML ONE (09:27)
[2020-02-02] MEDS ORDERED: COLLAGENASE 30 GM OINTMENT TOP ONE (09:37)
--- NOTE | 2020-02-02 09:44 | P.OP ---
Preoperative diagnosis: Necrotic wound left leg, PVD Postoperative diagnosis: same Primary procedure: Excisional debridement left leg wound 10 x 4 cm to sq Anesthesia: MAC Estimated blood loss: min Specimen: C&S, Necrotic tissue Findings: as above Complications: None Transferred to: Recovery Room Condition: Good
[2020-02-02] MEDS: HYDROMORPHONE HCL 1 MG/ML INJ IV PRN ×2 (10:35→14:46)
--- NOTE | 2020-02-02 14:25 | P.PN ---
Subjective Date of Service: 02/02/20 Chief Complaint: L LEG ULCER Subjective pt with ESRD , hypoensive , presented for foot ulcer and sepsis today S/p I@D HD today cont levophed Physical exam general: AAOX3, NAD , obese Neck; Supple, No elevated JVD hear: RRR, normal S1,2 no murmur or rub Chest: CTAB, no rlaes or wheezes Abdomen: Soft , Nt Extremities No edema or ulcer End-stage renal disease on HD MWF HD as per schedule renal dose meds Anemia of chronic disease no need for epogen Hypotensive on levophed Foot ulcer and sepsis S/p I@D cont ABx Total time spent 45 min Physical Examination - Vital Signs Temperature: 97.4 F Blood Pressure: 97/70 Pulse: 62 Respirations: 16 Pulse Ox (%): 95 - Studies Laboratory Data (last 24 hrs) 02/02/20 05:20: Sodium 137, Potassium 4.7, BUN 65 H, Creatinine 10.20 H* D, Glucose 81 02/02/20 05:20: WBC 11.7 H D, Hgb 13.3 L, Hct 41.1, Plt Count 155 Microbiology Data (last 24 hrs): 01/31/20 16:04 Other - L Leg (Lower) Gram Stain - Final
--- NOTE | 2020-02-02 15:02 | PN ---
Subjective: Mr. Malloy is in ICU. Blood pressure is 97/70, now has improved down from 70 systolic. He is going to Surgery for debridement of left leg anterior by Dr. Pereira today. Clinically stable. He has been on 2 antibiotics, vancomycin and Zosyn for sepsis related to the left leg necrotic ulcer with peripheral vascular disease. He has a severely poor IV access. Dr. Pereira had a hard time accessing to the neck or right leg. He had to go through left groin femoral line for IV access. His leg culture so far is growing Klebsiella oxytoca, but this is a culture which is done from a necrotic ulcer, so it may not be reliable culture as Zosyn is covering this bacteria pretty well. Assessment And Plannin. Sepsis from necrotic left leg ulcer secondary to peripheral vascular disease with poor vasculature for vascular access. Continue debridement for about 2 weeks. Blood cultures have been negative so far and dialysis performed by Dr. Kian Barry. 2. Hypertension is not usually a problem. He runs low blood pressure after dialysis more often according to . RVD/MODL Voice ID: [id number] Report ID: [id number] CELIA
[2020-02-02] MEDS: ENOXAPARIN 30 MG/0.3 ML SQ SCH (16:45)
[2020-02-02] MEDS ORDERED: MIDODRINE HCL 5 MG TABLET PO SCH (17:00)
[2020-02-02] MEDS ORDERED: HOME MED 1 EA UNK (Midodrine Hcl [Midodrine Hcl] 10 MG) PO SCH (17:00)
[2020-02-02] MEDS: ALPRAZOLAM 0.5 MG TABLET PO SCH (17:03)
[2020-02-02] MEDS ORDERED: VANCOMYCIN 1 GM/VIAL ONE (19:50)
[2020-02-02] MEDS ORDERED: NA CHLORIDE 0.9% 250 ML ONE (19:56)
--- NOTE | 2020-02-02 20:56 | OP ---
Date of Procedure: 02/02/2020 Surgeon: Messi Pereira MD Preoperative Diagnoses: Necrotic wound of left lower leg and peripheral vascular disease. Postoperative Diagnoses: Necrotic wound of left lower leg and peripheral vascular disease. Procedure: Excision and debridement of left leg wound, 10 x 4 cm subcutaneous tissue. Estimated Blood Loss: Minimal. Specimen: Culture and sensitivity of necrotic tissue for pathology. Findings: As above. Anesthesia: MAC. Complications: None. Disposition: Patient tolerated the procedure in stable condition, taken to Recovery in good general condition. Procedure In Detail: Patient was brought to the OR and placed in supine position. MAC anesthesia wa s begun. Patient was prepped and draped in the usual sterile fashion. Marcaine 0.5% was infiltrated locally. A 15 blade was used to make an incision approximately 10 x 4 cm around this irregularly ra ised necrotic area. Appears it may have been secondary to trauma. Subcutaneous tissue divided. The entire necrotic tissue was excised down through the deep subcutaneous tissue and sent to Pathology. Cultures were also done. Wound irrigated. Bleeding controlled with cautery. There was fibrin pres ent. Curette was used to excise that, and then collagenase dressing was applied. Patient was awakened and taken t o Recovery in good general condition. /MODL Voice ID: [id number] Report ID: [id number]
[2020-02-03] MEDS: HYDROMORPHONE HCL 1 MG/ML INJ IV PRN ×4 (00:38→21:57)
[2020-02-03] MEDS: PIPER/TAZO/NS 2.25gm 2.25 GM/50 ML BAG IVPB SCH ×3 (01:00→17:34)
[2020-02-03 05:03] LABS: Absolute Lymphocytes (CBC) 0.8 K/uL (0.7-4.9); Basophils % 0.8 % (0-1.3); Hematocrit 38.7 % (39.6-49.0); Lymphocytes % 7.1 % (15.3-44.8); MPV 10.7 fL (7.6-11.3); RBC Red Blood Cell Count 4.23 M/uL (4.33-5.43)
[2020-02-03 05:24] LABS: Potassium 4.7 mmol/L (3.5-5.1)
[2020-02-03] MEDS: NOREPINEPHRINE 4 MG in D5W 250 ML IV PRN (06:26)
[2020-02-03] MEDS: CA ACETATE 667 MG CAP PO SCH ×5 (09:00→21:00)
[2020-02-03] MEDS: CALCITROL 0.25 MCG CAP PO SCH (09:05)
[2020-02-03] MEDS: MULTIVITAMINS,THERAPEUT 1 TAB PO SCH (09:05)
[2020-02-03] MEDS: allopurinoL 300 MG TAB PO SCH (09:05)
[2020-02-03] MEDS: NICOTINE 21 MG/PAT TD SCH (09:06)
[2020-02-03] MEDS: ASPIRIN 81 MG CHEWABLE TABLET PO SCH (09:06)
[2020-02-03] MEDS: PANTOPRAZOLE 40MG TABLET PO SCH (09:06)
[2020-02-03] MEDS: MIDODRINE HCL 5 MG TABLET PO SCH (13:08)
--- NOTE | 2020-02-03 13:25 | PN ---
Subjective: Mr. Malloy is doing lot better and much more awake. Feels a lot better. Denies any log[address] pain, nausea, vomiting, diarrhea, coughing. He says he has been on oxygen for long duration by Dr Parker Landry. Currently, he is feeling good. His blood pressure stays about 90 systolic on 4 mcg of Levo phed, but his home blood pressure usually at baseline is about 80 systolic according to his and Dr. Barry, so we will put that parameter for tapering of Levophed so he can go to the floor. Physical Examination: Vital Signs: Blood pressure currently 93/61. Chest: Clear. Heart: Regular. Abdomen: No guarding, no rebound, no rigidity. Assessment And Plan: 1.Left side leg infection, cellulitis, necrotic ulcer. Continue IV antibiotics, vancomycin and Zosy n possibly for about 2 weeks. Depending on the culture we will job change crew member to oral antibiotic when p ossible. 2.Dialysis continued by Dr. Barry. He might be able to go home depending on the culture and sens itivity from his bacteria. His first gram stain cultures are growing Klebsiella oxytoca. I am kit coffman for tissue culture from the surgery on . RVD/MODL Voice ID: [id number] Report ID: [id number]
--- NOTE | 2020-02-03 13:28 | PN ---
Date of Progress Note: 02/03/2020 Patient was admitted with infected foot status post debridement. Patient being on low blood pressure , even though that he is asymptomatic, patient was started on Levophed. Patient is status post dialy sis yesterday. We managed to remove 2 L. Blood pressure maintained on Levophed, currently on 4 mcg. Physical Examination: Vital Signs: Blood pressure of 93/61, pulse of 60. Chest: Faint rales on the base. Heart: S1, S2. Regular. Systolic murmur. Abdomen: Soft, nontender. Extremities: No edema. Dressing on the foot. Laboratory Data: WBC 11.9, H and H 12.6/38.7, platelets 162. Sodium 137, potassium 4.7, bicarb 24, BUN 57, creatinine 9, calcium 9.4. Current Medications: 1.Zosyn. 2.Vancomycin. 3.Midodrine 10 mg with each dialysis. 4.Fentanyl. 5.PhosLo. 6.Pantoprazole. 7.Allopurinol. 8.Calcitriol. 9.Multivitamin. Assessment And Plan: 1.End-stage renal disease. We will maintain the patient on dialysis 4 times a week. We will dialyz e the patient today. We will try to gentle ultrafiltration and we will follow up. 2.Hypertension, currently hypotension on Levophed. I am going to place the patient on maintenance m idodrine daily and goal of weaning from Levophed. I am also going to dialyze the patient on low-pota ssium bath, low blood flow with low temperature to maintain good blood pressure. Patient not going t o need significant ultrafiltration today. We will use sodium module. 3.Diabetes as by Primary. 4.Peripheral vascular disease, foot infection. Continue current antibiotics. Patient is status pos t debridement. 5.Coronary artery disease with hypotension as above. MA/MODL Voice ID: [id number] Report ID: [id number]
[2020-02-03] MEDS: COLLAGENASE 30 GM OINTMENT TOP SCH (14:02)
[2020-02-03] MEDS: ENOXAPARIN 30 MG/0.3 ML SQ SCH (17:34)
[2020-02-03] MEDS: ALPRAZOLAM 0.5 MG TABLET PO SCH (19:11)
[2020-02-04] MEDS: PIPER/TAZO/NS 2.25gm 2.25 GM/50 ML BAG IVPB SCH ×2 (00:39→09:00)
[2020-02-04] MEDS: HYDROMORPHONE HCL 1 MG/ML INJ IV PRN (01:15)
[2020-02-04] MEDS ORDERED: NA CHLORIDE 0.9% 250 ML ONE (01:41)
[2020-02-04] MEDS ORDERED: VANCOMYCIN 1 GM/VIAL ONE (01:41)
[2020-02-04 05:07] LABS: Hematocrit 38.7 % (39.6-49.0); Lymphocytes % 9.4 % (15.3-44.8); MPV 10.8 fL (7.6-11.3); RBC Red Blood Cell Count 4.18 M/uL (4.33-5.43)
[2020-02-04 05:54] LABS: Potassium 4.2 mmol/L (3.5-5.1)
[2020-02-04] MEDS: FENTANYL 25 MCG/PATCH TD SCH (09:00)
[2020-02-04] MEDS: CA ACETATE 667 MG CAP PO SCH ×5 (09:00→20:44)
[2020-02-04] MEDS: MIDODRINE HCL 5 MG TABLET PO SCH ×4 (09:00→20:45)
[2020-02-04] MEDS: NICOTINE 21 MG/PAT TD SCH (09:00)
[2020-02-04] MEDS: ASPIRIN 81 MG CHEWABLE TABLET PO SCH (09:43)
[2020-02-04] MEDS: CALCITROL 0.25 MCG CAP PO SCH (09:44)
[2020-02-04] MEDS: MULTIVITAMINS,THERAPEUT 1 TAB PO SCH (09:44)
[2020-02-04] MEDS: allopurinoL 300 MG TAB PO SCH (09:44)
[2020-02-04] MEDS: PANTOPRAZOLE 40MG TABLET PO SCH (09:44)
--- NOTE | 2020-02-04 09:50 | P.PN ---
Subjective Date of Service: 02/04/20 Chief Complaint: L LEG ULCER Subjective: No new changes BP DROPPED AGAIN THIS AM. HE IS BACK ON LEVOPHED SMALL DOSE. Review of Systems 10-point ROS is otherwise unremarkable Physical Examination - Vital Signs Temperature: 97.2 F Blood Pressure: 74/53 Pulse: 60 Respirations: 16 Pulse Ox (%): 96 - Physical Exam General: Alert, In no apparent distress HEENT: Atraumatic, PERRLA, EOMI Neck: Supple, JVD not distended Respiratory: Clear to auscultation bilaterally, Normal air movement Cardiovascular: Regular rate/rhythm, Normal S1 S2 Gastrointestinal: Normal bowel sounds, No tenderness Musculoskeletal: No tenderness Integumentary: No rashes Neurological: Normal speech, Normal tone, Normal affect Lymphatics: No axilla or inguinal lymphadenopathy - Studies Laboratory Data (last 24 hrs) 02/04/20 04:35: Sodium 139, Potassium 4.2, BUN 42 H, Creatinine 7.36 H* D, Glucose 102 02/04/20 04:35: WBC 10.2 D, Hgb 12.4 L, Hct 38.7 L, Plt Count 163 Microbiology Data (last 24 hrs): 02/02/20 09:30 Tissue - L Leg (Lower) Gram Stain - Final 01/31/20 16:04 Other - L Leg (Lower) Gram Stain - Final 01/31/20 16:04 Other - L Leg (Lower) Culture & Sensitivity - Final Klebsiella Oxytoca Enterococcus Faecalis Medications List Reviewed: Yes Assessment And Plan - Current Problems (Diagnosis) (1) 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 IV ZOSYN CONSULT DR. DALTON. DEBRIDE SURGICALLY. RULE OUT FASCITIS. DOPPLER SHOWS MODERATE PVD. WILL WAIT UNTIL INFECTION IS BETTER BEFORE HE CAN GO BACK TO DR. LUND WHO IS HIS COMMUNICATIONS PROJECT MANAGER. PROGNOSIS GUARDED. DRESS DAILY. TWO BACTERA CHANGE ABX TO CEFTIN AND VANCOMYCIN TO DOWNGRADE ANTIBIOTICS. Qualifiers: Laterality: left Qualified Code(s): L97.923 - Non-pressure chronic ulcer of unspecified part of left lower leg with necrosis of muscle (2) ESRD (end stage renal disease) on dialysis Current Visit: No Status: Chronic Plan: ON HD. CONSULT DR. GOMEZ (3) Hypotension Current Visit: Yes Status: Acute Plan: ACTH STIM TEST. MAKE PROAMATINE TID PO. Qualifiers: Hypotension type: idiopathic hypotension Qualified Code(s): I95.0 - Idiopathic hypotension
[2020-02-04] MEDS: TRAMADOL HCL 50 MG TAB PO PRN ×3 (10:40→22:20)
[2020-02-04] MEDS: CEFUROXIME 250 MG TAB PO SCH ×2 (10:40→20:44)
[2020-02-04] MEDS: ACETAMINOPHEN 325 MG TABLET PO PRN (11:19)
[2020-02-04] MEDS ORDERED: FENTANYL 25 MCG/PATCH TD SCH (12:00)
[2020-02-04] MEDS ORDERED: HYDROMORPHONE HCL 1 MG/ML INJ IV PRN (12:45)
--- NOTE | 2020-02-04 16:17 | PN ---
Date of Progress Note: 02/04/2020 Subjective: Patient was admitted with infected foot. Patient is status post debridement. Patient h ad dialysis yesterday. We managed to remove 1600. Patient weaned from Levophed today. Maintained o n midodrine. Physical Examination: Vital Signs: When I saw the patient, blood pressure 93/60, pulse of 60, afebrile. Chest: Clear to auscultation. Heart: S1, S2. Regular. Abdomen: Soft, nontender. Extremities: Dressing on the foot. No edema. Laboratory Data: WBC 10.2, H and H 12.4/38.7, platelets of 163. Sodium 139, potassium 4.2, bicarb 2 6, BUN 42, creatinine 7.3, calcium 9.3. Cortisol level is 11.9. Medications: Current medications the patient on; 1.Aspirin. 2.Cefuroxime. 3.Vancomycin. 4.Midodrine 5 mg t.i.d. 5.Lovenox. 6.Fentanyl. 7.PhosLo. Assessment And Plan: 1.End-stage renal disease. We will continue to maintain the patient on 4 times a week. We will mariely lyze the patient tomorrow. 2.Hypertension, currently hypotension. Blood pressure currently maintained on midodrine. We will c ontinue to monitor. 3.Diabetes. Follow up with primary. 4.Foot infection, status post debridement. We will follow up with Surgery. Continue current antibi otic. 5.Questionable adrenal insufficiency. Tomorrow ACTH stimulation test. We will follow up with Dr. Tracy elmore. MAGNOLIA/ROSS Voice ID: [id number] Report ID: [id number]
[2020-02-04] MEDS: COLLAGENASE 30 GM OINTMENT TOP SCH (16:48)
[2020-02-04] MEDS: ENOXAPARIN 30 MG/0.3 ML SQ SCH (16:48)
[2020-02-04] MEDS ORDERED: DOCUSATE NA 100 MG CAP PO PRN (17:50)
--- NOTE | 2020-02-04 17:50 | CON ---
Date of Consultation: 02/04/[address] Espinosa on 01/31/2020. I was asked to see the patient on 02/04/2020. Reason For Consultation: Hypotension and peripheral arterial disease. History Of Present Illness: The patient is a 64-year-old who has a history of pacemaker; dyslipidemi a; chronic diastolic congestive heart failure; atrial fibrillation; end-stage renal disease, on hemod ialysis; hypertension; diabetes; hypothyroidism; and coronary artery disease, status post recent lyle nary artery bypass surgery. Patient normally sees Dr. Sunny Landry at [facility]. Patient came in w ith left lower extremity necrosis and ulcer, septic shock, diabetic foot, hypotension. He has had a left leg wound excision and debridement by Dr. Pereira. Patient remains hypotensive. His last blood p ressure was 74/53. His last hemodialysis was on 02/03/2020. His last creatinine is 7.36, hemoglobin is 12.4. EKG showed paced rhythm. Chest x-ray is negative. Arterial Doppler showed very distal pe ripheral arterial disease, left lower extremity, below the knee. No cardiac complaints per se. Past Medical History: As stated above. Allergies: CRANBERRY AND BENADRYL. Review of Systems: Negative. Social History: Positive for tobacco. Family History: Positive for heart disease. Medications: At home are supposed to be aspirin, midodrine, Prilosec, Xanax, and allopurinol. Physical Examination: Vital Signs: Patient is in a paced rhythm. Blood pressure is 74/53, afebrile. No acute distress. HEENT: Negative. Neck: Supple with no bruit. Chest: Clear. Cardiac: Revealed regular rhythm and rate without any murmurs, gallops, or rubs. Abdomen: Benign. Extremities: Revealed no clubbing, cyanosis, or edema. Status post wound excision and debridement b y Dr. Pereira on the left foot. Diagnostic Data: As stated above. Impression And Plan: 1.Hypotension, may be chronic, exacerbated by septic shock secondary to diabetic foot disease. He i s on antibiotics. He is on Levophed. He is on midodrine. I agree with the present regimen. He has been seen by Nephrology. Cortisol levels are pending. Midodrine was just increased by Dr. Espinosa. I agree with the Levophed. Echocardiogram is pending. I would consider going on the midodrine to 10 mg 3 times a day. Consider salt tablets and consider the use of Florinef 0.1 mg daily. I will disc uss the case further with Dr. Espinosa and with Dr. Barry. 2.End-stage renal disease, on hemodialysis. 3.Peripheral arterial disease, very distal disease, below the left knee. No need for intervention o r angiography at this point. 4.History of congestive heart failure. We will see what the echocardiogram shows. 5.Status post pacemaker. 6.Dyslipidemia. 7.Hypertension, complicated by hypotension now. 8.Paroxysmal atrial fibrillation. I do not see that right now. 9.Hypothyroidism. 10.Diabetes. 11.Status post recent coronary artery bypass surgery. I will discuss the case further with Dr. Espinosa. I will call Dr. Landry to get more records regarding his bypass surgery and his ejection fraction. I will continue to follow him. NANNETTE/ROSS Voice ID: [id number] Report ID: [id number]
[2020-02-04] MEDS ORDERED: POLYETHYL GLY 3350 17 GM/DOSE PO PRN (17:51)
[2020-02-05 05:14] LABS: Absolute Lymphocytes (CBC) 1.2 K/uL (0.7-4.9); Basophils % 0.8 % (0-1.3); Hematocrit 36.7 % (39.6-49.0); Lymphocytes % 10.7 % (15.3-44.8); MPV 10.9 fL (7.6-11.3); RBC Red Blood Cell Count 3.95 M/uL (4.33-5.43)
[2020-02-05 05:28] LABS: Potassium 4.8 mmol/L (3.5-5.1)
[2020-02-05 06:43] LABS: Blood Morphology Comment NOT SEEN (NOT SEEN); Platelet Estimate ADEQ
[2020-02-05] MEDS ORDERED: COSYNTROPIN 0.25 MG VIAL IV ONE (08:00)
[2020-02-05] MEDS ORDERED: SODIUM CHLORIDE 0.9% 10ML INJ IV ONE (08:00)
[2020-02-05] MEDS: CA ACETATE 667 MG CAP PO SCH ×6 (09:00→21:33)
[2020-02-05] MEDS: NICOTINE 21 MG/PAT TD SCH ×2 (09:00→10:01)
[2020-02-05] MEDS: MIDODRINE HCL 5 MG TABLET PO SCH ×4 (09:00→21:33)
[2020-02-05] MEDS: ALPRAZOLAM 0.5 MG TABLET PO SCH (10:00)
[2020-02-05] MEDS: PANTOPRAZOLE 40MG TABLET PO SCH (10:00)
[2020-02-05] MEDS: COLLAGENASE 30 GM OINTMENT TOP SCH (10:00)
[2020-02-05] MEDS: TRAMADOL HCL 50 MG TAB PO PRN ×2 (10:00→21:33)
[2020-02-05] MEDS: ASPIRIN 81 MG CHEWABLE TABLET PO SCH (10:01)
[2020-02-05] MEDS: CEFUROXIME 250 MG TAB PO SCH ×2 (10:07→21:33)
[2020-02-05] MEDS: allopurinoL 300 MG TAB PO SCH (10:08)
[2020-02-05] MEDS: MULTIVITAMINS,THERAPEUT 1 TAB PO SCH (10:10)
[2020-02-05] MEDS: CALCITROL 0.25 MCG CAP PO SCH (10:10)
--- NOTE | 2020-02-05 11:48 | PN ---
Date of Progress Note: 02/05/2020 Subjective: Patient with no complaints. Objective: Vital Signs: Stable. Afebrile. General: Patient is off Levophed. Cultures reviewed, Klebsiella sensitive to Zosyn and vancomycin. White count is 11 and Enterococcus is sensitive to vancomycin. Extremities: The left leg wound examined and moderate amount of fibrin present, but there is minimal erythema, purulence, and warmth around the wound. Assessment: Status post excisional debridement of a necrotic wound on the left leg. Recommendations: Wound care is ordered, IV antibiotics per culture report, and upon discharge, patrice marsh can follow up [facility] week or two. /MODL Voice ID: [id number] Report ID: [id number]
[2020-02-05] MEDS: ENOXAPARIN 30 MG/0.3 ML SQ SCH (16:14)
--- NOTE | 2020-02-06 00:08 | PN ---
Date of Progress Note: 02/05/2020 Chief Complaint: End-stage renal disease, on dialysis; history of intradialytic hypotension. History Of Present Illness: The patient is currently in ICU and he was admitted with infected foot. He underwent debridement. He required Levophed and was weaned off Levophed yesterday. The patient usually takes midodrine for intradialytic hypotension. Today, he is scheduled for dialysis to obtain metabolic clearance. He has chronic congestive heart failure and has been dialyzed 4 times per week . Review of Systems: Denies PND, orthopnea. Physical Examination: Lungs: Diminished breath sounds at bases. Heart: S1, S2. Abdomen: Soft, benign. Extremities: No edema. Laboratory Data: WBC 10.2, potassium 4.2. Sodium 139, cortisol level 11.9. Impression And Plan: 1.End-stage renal disease, dialysis will be done today. To obtain metabolic clearance and ultrafilt ration. Monitor fluid balance. Adjust ultrafiltration according to blood pressure. Continue midodr ine. 2.Hypertension. Currently, the patient does not require blood pressure medication. He was weaned o ff Levophed and will resume midodrine for intradialytic hypotension and chronic hypotension. 3.Questionable adrenal insufficiency. Patient is undergoing ACTH stimulation test. Follow up with primary team. 4.Foot infection, status post debridement. Continue vancomycin. Monitor vancomycin toxicity panel. Patient is taking cefuroxime and vancomycin. EB/MODL Voice ID: [id number] Report ID: [id number]
--- NOTE | 2020-02-06 00:15 | PN ---
Patient has been followed for end-stage renal disease, left lower extremity ulcers, hypotension. Has a history of CAD, CABG, congestive heart failure, pacemaker placement, hypertension, diabetes, atria l fibrillation, and dyslipidemia. Echocardiogram was not done yet secondary to overbooking of the sc hedule. Patient has been on midodrine. His blood pressure today is 96/56. His last hemoglobin is 1 1.7. His last creatinine is 9.41. He remains on antibiotics. He is oriented and obeys command. Hi s present regimen includes aspirin, Lovenox. He is on midodrine 10 mg 3 times a day. I agree with h is present regimen. We will hopefully get the echocardiogram done tomorrow. No change in his therap y for now. NANNETTE/ROSS Voice ID: [id number] Report ID: [id number]
[2020-02-06 04:21] VITALS: BMI 31.1
[2020-02-06] MEDS: TRAMADOL HCL 50 MG TAB PO PRN (04:48)
[2020-02-06 05:30] LABS: Absolute Lymphocytes (CBC) 1.3 K/uL (0.7-4.9); Basophils % 0.9 % (0-1.3); Hematocrit 37.9 % (39.6-49.0); MPV 11.4 fL (7.6-11.3); RBC Red Blood Cell Count 4.08 M/uL (4.33-5.43)
[2020-02-06 06:00] LABS: Potassium 4.4 mmol/L (3.5-5.1)
--- NOTE | 2020-02-06 08:12 | PN ---
Subjective: Mr. Malloy is doing a lot better. He is down from the ICU to the floor. Objective: Chest: Clear. Heart: Regular. Abdomen: No guarding. No rebound, rigidity. Vital Signs: Blood pressure is 103/56, which is the highest he has been having here. He is afebrile . Assessment/plan: 1.Idiopathic hypotension. ACTH stimulation test is negative. ProAmatine, I started 5 mg and then l ater on it was raised to 10 mg t.i.d. It seems to be working for keeping his blood pressure up to cl ose to normal. He does not need Florinef at this point. 2.Left leg infection, necrotic gangrenous ulcer. Healing better after debridement. Continue medica tions, antibiotics. Possible discharge tomorrow. I discussed the plan with the today. CJ/ROSS Voice ID: [id number] Report ID: [id number]
[2020-02-06] MEDS: CA ACETATE 667 MG CAP PO SCH ×3 (08:37→12:22)
[2020-02-06] MEDS: MULTIVITAMINS,THERAPEUT 1 TAB PO SCH (08:38)
[2020-02-06] MEDS: CEFUROXIME 250 MG TAB PO SCH (08:38)
[2020-02-06] MEDS: PANTOPRAZOLE 40MG TABLET PO SCH (08:38)
[2020-02-06] MEDS: CALCITROL 0.25 MCG CAP PO SCH (08:38)
[2020-02-06 08:39] VITALS: O2SAT 95
[2020-02-06] MEDS: ASPIRIN 81 MG CHEWABLE TABLET PO SCH (08:39)
[2020-02-06] MEDS: MIDODRINE HCL 5 MG TABLET PO SCH ×2 (08:39→12:23)
[2020-02-06] MEDS: allopurinoL 300 MG TAB PO SCH (08:39)
[2020-02-06] MEDS: NICOTINE 21 MG/PAT TD SCH (08:40)
--- NOTE | 2020-02-06 10:44 | RAD REPORT ---
EXAM DESCRIPTION: US - Extremity Venous Uni Ltd - 02/06/2020 9:05 am CLINICAL HISTORY: necrotic ulcer Leg swelling and edema. COMPARISON: No comparisons FINDINGS: Left lower extremity venous system was interrogated with Doppler technique. Normal flow, c ompressibility and augmentation was noted. There is no DVT present.Large left popliteal fossa cyst. IMPRESSION: No evidence of left lower extremity deep venous thrombosis.
[2020-02-06 13:36] VITALS: BP 86/60; TEMP 97
--- NOTE | 2020-02-06 18:31 | PN ---
Date of Progress Note: 02/06/2020 Subjective: The patient was admitted with diabetic foot gangrene, osteomyelitis. The patient is status post debridement. The patient had shock after pressor, weaned from pressor, maintained on midodrine. Physical Examination: Vital Signs: Blood pressure of 92/60, pulse of 62, afebrile. Chest: Clear to auscultation. Heart: S1, S2. Regular. Abdomen: Soft, nontender. Extremities: Dressing on the left foot. Laboratory Data: WBC 12.6, H and H of 12.2/37.9, platelets 170. Sodium 139, potassium 4.4, bicarb 27, BUN 36, creatinine 7.5, calcium 10.1. Current Medications: The patient on include: 1. Cefuroxime. 2. Vancomycin. 3. Midodrine 10 t.i.d. 4. Allopurinol 300 daily. 5. PhosLo. Assessment And Plan: 1. End-stage renal disease. We will maintain the patient on dialysis Wednesday, Wednesday, Wednesday. Patient is going to be due for dialysis tomorrow. 2. Hypertension, currently hypotension. Dependent on midodrine. We will continue midodrine 3 times a day and predialysis. 3. Secondary hyperparathyroid. Continue binder. 4. Anemia of chronic kidney disease. No need for BLANCA. 5. Klebsiella oxytoca and Enterococcus faecalis. Patient is going to need to be on vancomycin and Levaquin, will follow up with primary. ROSE Voice ID: [id number] Report ID: [id number] CELIA
--- NOTE | 2020-02-07 03:11 | DS ---
Date of Discharge: 02/06/2020 Final Diagnoses: Necrotic left leg anterior ulcer; peripheral vascular disease; chronic obstructive pulmonary disease; end-stage renal disease, on dialysis. Hospital Course: Patient is a 64-year-old gentleman who [facility]. I saw him. I saw the wound to be very painful and necrotic. It turned out he had deep necrosis, and Dr. Pereira removed th is necrotic ulcer. Patient still has black brown fibrinous changes in the region. He is applying Sa ntyl for this every day. We had to keep him a few days here because his blood pressure kept on dropp ing. I added ProAmatine, increased the dose to 5 mg p.o. t.i.d., later 10 mg p.o. t.i.d. We checked him for ACTH stimulation test, which was negative for [place] disease. Patient was discharged home i n stable condition with antibiotics by mouth, and after dialysis, he will get a dose of vancomycin. His discharge condition is stable. He is in pain, but he will be in pain with PVD and an ulcer there . His white count has increased in the last couple of days because we did ACTH stimulation test, and that probably bumped his steroid level in the blood iatrogenically. Clinically stable. Discussed w ith his every single day. She is very much in control of his care, so I have been discussing wi th his . From the wound, he grew Klebsiella oxytoca, and the foot wound culture grew Enterococcu s faecalis also. Discharge Condition: Stable. Followup: With Dr. Pereira. RVD/MODL Voice ID: [id number] Report ID: [id number]
--- NOTE | 2020-02-07 08:34 | ECHO ---
HEIGHT: 5 ft 9 in WEIGHT: 211 lb 0 oz DATE OF STUDY: 02/06/[address]: Ralph Espinosa MD 2-DIMENSIONAL: YES M.MODE: YES DOPPLER: YES COLOR FLOW: YES TDS: NO PORTABLE: NO DEFINITY: NO BUBBLE STUDY: NO DIAGNOSIS: CHEST PAIN CARDIAC HISTORY: CATHERIZATION: YES SURGERY: YES PROSTHETIC VALVE: YES PACEMAKER: YES MEASUREMENTS (cm) DIASTOLIC (NORMALS) SYSTOLIC (NORMALS) IVSd 1.3 (0.6-1.2) LA Diam 4.5 (1.9-4.0) LVEF 35-40% LVIDd 5.9 (3.5-5.7) LVIDs 4.7 (2.0-3.5) %FS 21% LVPWd 1.3 (0.6-1.2) Ao Diam 3.0 (2.0-3.7) 2 DIMENSIONAL ASSESSMENT: RIGHT ATRIUM: NORMAL LEFT ATRIUM: DILATED RIGHT VENTRICLE: PACEMAKER CATHETER LEFT VENTRICLE: NORMAL SIZE TRICUSPID VALVE: NORMAL MITRAL VALVE: MITRAL ANNULAR CALCIFICATION PULMONIC VALVE: NORMAL AORTIC VALVE: SCLEROTIC PERICARDIAL EFFUSION: NONE AORTIC ROOT: NORMAL LEFT VENTRICULAR WALL MOTION: MODERATE GLOBAL HYPOKINESIS. DOPPLER/COLOR FLOW: AORTIC STENOSIS - SEVERE - 0.7 CENTIMETERS SQUARED. COMMENTS: AORTIC STENOSIS - SEVERE - 0.7 CENTIMETERS SQUARED. MITRAL ANNULAR CALCIFICATION. MODERATE GLOBAL HYPOKINESIS - EJECTION FRACTION 35-40%. PACEMAKER IN RIGHT VENTRICULAR APEX. TECHNOLOGIST: SASHA GALLEGOS
== END 2020-02-06 14:56 | disposition home or self-care (01) | DRG 853 ==
LOC: 2ND 13:30 → 3RD-ICU 02-01 06:10 → 2ND 02-05 16:35
PROVIDERS: ADMIT Internal Medicine; ATTEND Internal Medicine
PROC: 06HY33Z Insertion of Infusion Device into Lower Vein, Percutaneous Approach (ICD-10-PCS; 2020-02-02)
PROC: 5A1D70Z Performance of Urinary Filtration, Intermittent, Less than 6 Hours Per Day (ICD-10-PCS; 2020-02-02)
PROC: 0JBP0ZZ Excision of Left Lower Leg Subcutaneous Tissue and Fascia, Open Approach (ICD-10-PCS; principal; 2020-02-02 12:00)
DX: A41.9 Sepsis, unspecified organism (principal); N18.6 End stage renal disease; R65.21 Severe sepsis with septic shock; L97.923 Non-pressure chronic ulcer of unspecified part of left lower leg with necrosis of muscle; I12.0 Hypertensive chronic kidney disease with stage 5 chronic kidney disease or end stage renal disease; N25.81 Secondary hyperparathyroidism of renal origin; L03.116 Cellulitis of left lower limb; Z99.2 Dependence on renal dialysis; J44.9 Chronic obstructive pulmonary disease, unspecified; Z91.018 Allergy to other foods; Z79.82 Long term (current) use of aspirin; Z79.899 Other long term (current) drug therapy; Z96.612 Presence of left artificial shoulder joint; Z96.611 Presence of right artificial shoulder joint; Z95.1 Presence of aortocoronary bypass graft; E78.5 Hyperlipidemia, unspecified; I25.10 Atherosclerotic heart disease of native coronary artery without angina pectoris; D63.1 Anemia in chronic kidney disease; E11.51 Type 2 diabetes mellitus with diabetic peripheral angiopathy without gangrene; B96.1 Klebsiella pneumoniae [K. pneumoniae] as the cause of diseases classified elsewhere; I48.0 Paroxysmal atrial fibrillation; E03.9 Hypothyroidism, unspecified; I95.0 Idiopathic hypotension
CPT/HCPCS: 11042; 11045; 36415; 71045; 71046; 80048; 80202; 82024; 82103; 82533; 82550; 82553; 82947; 83036; 84484; 85025; 85610; 85652; 85730; 86140; 87040; 87070; 87077; 87176; 87186; 87205; 88304; 90935; 93005; 93306; 93925; 93971; 99204; J0834; J1170; J1644; J1650; J2405; J3010; J3370; J3590; J7030; J7060